=== PATIENT | female | born 1960 | race African-American/Black ===

== ENCOUNTER 2016-10-07 18:35 | Inpatient (IN) | payer MEDICARE, MEDICAID ==
[~2016-10-07] VITALS: Ht 157.5 cm; Wt 84.0 kg
[~2016-10-07 18:35] MED LIST: ENAL-3 PO
[2016-10-07 19:31] LABS: Basophils # (auto) 0 uL; Basophils % (auto) 0.5 % (0.0-2.0); Eosinophils # (auto) 0 uL; Eosinophils % (auto) 0.4 % (0.0-7.0); Hematocrit 38.5 % (36.0-46.0); Hemoglobin 12.6 g/dL (12.2-16.2); Lymphocytes # (auto) 2.2 uL; Lymphocytes % (auto) 21.9 % (10.0-50.0); Mean Corpuscular Hemoglobin 27.4 pg (28.0-32.0); Mean Corpuscular Hgb Conc. 32.8 g/dL (32.0-36.0); Mean Corpuscular Volume 83.7 fL (80.0-100.0); Mean Platelet Volume 8.9 fL (7.4-10.4); Monocytes # (auto) 0.5 uL; Monocytes % (auto) 4.9 % (0.0-12.0); Neutrophils # (auto) 7.2 uL; Neutrophils % (auto) 72.3 % (37.0-80.0); Platelet Count (auto) 308 10^3/uL (140-450); White Blood Cell 9.9 10^3/uL (4.4-10.8)
[2016-10-07 19:51] LABS: Albumin 3.7 g/dL (3.4-5.0); Bilirubin, Total 0.4 mg/dL (0.2-1.0); Calcium 10.2 mg/dL (8.5-10.1); Magnesium 2.6 mg/dL (1.6-2.6); Potassium 3.3 mmol/L (3.5-5.1)
[2016-10-07] MEDS ORDERED: FUROSEMIDE 40 MG/4 ML VIAL IV ONE (20:45)
[2016-10-07] MEDS ORDERED: ONDANSETRON HCL 4 MG/2 ML VIAL IV ONE (21:30)
[2016-10-07] MEDS ORDERED: MORPHINE SULF INJ 2 MG/ML SYRINGE 1ML IV ONE (21:30)
[2016-10-07 22:22] LABS: Urine Bilirubin Negative (Negative); Urine Blood Negative /uL (Negative); Urine Color Colorless (Yellow); Urine Glucose 4+ mg/dL (Normal); Urine Ketone Negative (Negative); Urine Nitrite Negative (Negative); Urine RBC <1 /hpf (0 - 4); Urine Squamous Epithelial Cell FEW /hpf (<5); Urine Urobilinogen Normal (Negative)
[2016-10-07] MEDS ORDERED: POTASSIUM CHL 10% (20 MEQ/15ML) ORAL SOLN PO ONE (23:15)
[2016-10-07] MEDS ORDERED: LACTULOSE 20Gm/30ML SOLN PO PRN (23:15)
[2016-10-07] MEDS ORDERED: DEXTROSE (50%) 50ML SYRG IV PRN (23:15)
[2016-10-07] MEDS ORDERED: cefTRIAXone 1GM/50ML D5W 50 ML IV ONE (23:15)
[2016-10-07] MEDS ORDERED: NITROGLYCERIN 0.4 MG SL TAB SL PRN (23:15)
[2016-10-07] MEDS ORDERED: ASPirin 81 mg TAB PO ONE (23:15)
[2016-10-07] MEDS ORDERED: ALPRAZolam 0.5 MG TAB PO PRN (23:15)
[2016-10-07] MEDS ORDERED: ONDANSETRON HCL 4 MG/2 ML VIAL IV PRN (23:15)
[2016-10-07] MEDS ORDERED: MORPHINE SULF INJ 2 MG/ML SYRINGE 1ML IV PRN (23:15)
[2016-10-07 23:20] LABS: B-Type Natriuretic Peptide 9.43 pg/mL (0-100)
[2016-10-07 23:21] LABS: Temperature: 22.7 C (20.0-25.0)
[2016-10-08 00:25] VITALS: BP 145/69
[2016-10-08] MEDS: HYDROmorphone HCL 2 MG/ML VL IV PRN ×6 (00:46→21:56)
[2016-10-08] MEDS ORDERED: POTA10TA34 PO (01:37)
[2016-10-08] MEDS ORDERED: METF-312 PO (01:37)
[2016-10-08] MEDS ORDERED: ATOR20TA PO (01:37)
[2016-10-08] MEDS ORDERED: LISI40TA PO (01:37)
[2016-10-08] MEDS ORDERED: CARV6.25 PO (01:37)
[2016-10-08] MEDS ORDERED: ALPR0.5T GT (01:37)
[2016-10-08] MEDS ORDERED: SERT-138 PO (01:37)
[2016-10-08] MEDS ORDERED: QUET50TA5 PO (01:37)
[2016-10-08] MEDS ORDERED: FURO20TA3 PO (01:37)
[2016-10-08] MEDS: ALBUTEROL SULF 2.5 MG/0.5ML(0.5%) NEB SOLN NEB SCH ×6 (03:14→22:06)
[2016-10-08] MEDS: IPRATROPIUM BROM 0.5 MG/2.5ML INH SOL NEB SCH ×6 (03:14→22:06)
[2016-10-08 05:00] VITALS: BP 152/82
[2016-10-08] MEDS: InsuLIN REG 1unit/0.01ml Soln (100units/ml) SC SCH ×4 (06:11→17:24)
[2016-10-08] MEDS: ACCU-CHEK COMFORT CURVE STRIP VI SCH ×4 (06:11→17:22)
[2016-10-08] MEDS: SODIUM CHLOR 0.9% PF (SALINE LOCK) 10ML VIAL IV SCH ×3 (06:12→22:02)
[2016-10-08 06:19] LABS: Basophils # (auto) 0 uL; Basophils % (auto) 0.3 % (0.0-2.0); Eosinophils # (auto) 0.1 uL; Eosinophils % (auto) 0.6 % (0.0-7.0); Hematocrit 38.2 % (36.0-46.0); Hemoglobin 12.5 g/dL (12.2-16.2); Lymphocytes % (auto) 33.5 % (10.0-50.0); Mean Corpuscular Hemoglobin 27.9 pg (28.0-32.0); Mean Corpuscular Hgb Conc. 32.7 g/dL (32.0-36.0); Mean Corpuscular Volume 85.1 fL (80.0-100.0); Monocytes % (auto) 11.3 % (0.0-12.0); Neutrophils # (auto) 4.9 uL; Neutrophils % (auto) 54.3 % (37.0-80.0); Platelet Count (auto) 260 10^3/uL (140-450); Red Cell Distribution Width 15.1 % (11.6-16.0)
[2016-10-08 06:39] LABS: Albumin 3.3 g/dL (3.4-5.0); BUN/Creatinine Ratio 8.6; Calcium 9.1 mg/dL (8.5-10.1); Potassium 3.7 mmol/L (3.5-5.1)
[2016-10-08 06:42] LABS: Bilirubin, Total 0.4 mg/dL (0.2-1.0); Total Protein 8.9 g/dL (6.4-8.2)
[2016-10-08 09:00] VITALS: BP 149/76
[2016-10-08] MEDS ORDERED: cefTRIAXone 1GM/50ML D5W 50 ML IV SCH (09:00)
[2016-10-08] MEDS: ENOXAPARIN SOD 30 MG/0.3 ML SYRINGE SC SCH (09:18)
[2016-10-08] MEDS: PANTOPRAZOLE SODIUM 40 MG/10 ML VIAL IV SCH (09:18)
[2016-10-08] MEDS: FUROSEMIDE 40 MG/4 ML VIAL IV SCH (09:19)
[2016-10-08] MEDS: SERTRALINE HCL 50 MG TAB PO SCH (09:20)
[2016-10-08] MEDS: ASPirin 81 mg TAB PO SCH (09:20)
[2016-10-08] MEDS: POTASSIUM CHL 20 Meq TABLET PO SCH (09:20)
[2016-10-08] MEDS: CARVEDILOL 3.125 MG TAB PO SCH ×2 (09:21→21:58)
[2016-10-08] MEDS: LISINOPRIL 20 MG TAB PO SCH (09:21)
[2016-10-08 13:00] VITALS: BP 118/67
[2016-10-08 16:49] VITALS: BP 91/52
[2016-10-08 22:00] VITALS: BP 134/72
[2016-10-08] MEDS ORDERED: QUEtiapine FUMARATE 100 MG TAB PO SCH (22:00)
[2016-10-08] MEDS: ATORVASTATIN 20 MG TAB PO SCH (22:03)
[2016-10-09] VITALS (8 sets, daily range): BP systolic 88–114; BP diastolic 44–60
[2016-10-09] MEDS: ACCU-CHEK COMFORT CURVE STRIP VI SCH ×5 (00:13→23:49)
[2016-10-09] MEDS: InsuLIN REG 1unit/0.01ml Soln (100units/ml) SC SCH ×5 (00:19→23:53)
[2016-10-09] MEDS: ALBUTEROL SULF 2.5 MG/0.5ML(0.5%) NEB SOLN NEB SCH ×6 (02:10→21:58)
[2016-10-09] MEDS: IPRATROPIUM BROM 0.5 MG/2.5ML INH SOL NEB SCH ×6 (02:10→21:59)
[2016-10-09] MEDS: HYDROmorphone HCL 2 MG/ML VL IV PRN ×2 (04:49→09:53)
[2016-10-09 06:11] LABS: BUN/Creatinine Ratio 6.7; Calcium 9.7 mg/dL (8.5-10.1); Magnesium 2.7 mg/dL (1.6-2.6)
[2016-10-09] MEDS: SODIUM CHLOR 0.9% PF (SALINE LOCK) 10ML VIAL IV SCH ×3 (06:24→22:14)
[2016-10-09] MEDS: ENOXAPARIN SOD 30 MG/0.3 ML SYRINGE SC SCH (08:34)
[2016-10-09] MEDS: SERTRALINE HCL 50 MG TAB PO SCH (08:34)
[2016-10-09] MEDS: FUROSEMIDE 40 MG/4 ML VIAL IV SCH (08:34)
[2016-10-09] MEDS: PANTOPRAZOLE SODIUM 40 MG/10 ML VIAL IV SCH (08:34)
[2016-10-09] MEDS: POTASSIUM CHL 20 Meq TABLET PO SCH (08:34)
[2016-10-09] MEDS: ASPirin 81 mg TAB PO SCH (08:35)
[2016-10-09] MEDS: LISINOPRIL 20 MG TAB PO SCH (08:35)
[2016-10-09] MEDS: CARVEDILOL 3.125 MG TAB PO SCH ×2 (08:37→22:00)
[2016-10-09] MEDS ORDERED: SODIUM CHLORIDE 0.9% 250 ML IV ONE ×2 (10:15→10:30)
[2016-10-09] MEDS ORDERED: PANTOPRAZOLE 40 MG TAB PO ONE (11:15)
[2016-10-09] MEDS ORDERED: FUROSEMIDE 20 MG TAB PO ONE (11:15)
[2016-10-09] MEDS ORDERED: POTASSIUM CHL 10 Meq TABLET PO ONE (11:15)
[2016-10-09] MEDS: ATORVASTATIN 20 MG TAB PO SCH (22:14)
[2016-10-10] MEDS: KETOROLAC TROMETH 30 MG/ML 1ML VIAL IV PRN ×2 (02:51→12:59)
[2016-10-10] MEDS: IPRATROPIUM BROM 0.5 MG/2.5ML INH SOL NEB SCH ×6 (02:55→22:04)
[2016-10-10] MEDS: ALBUTEROL SULF 2.5 MG/0.5ML(0.5%) NEB SOLN NEB SCH ×6 (02:55→22:04)
[2016-10-10 05:22] VITALS: BP 118/53
[2016-10-10] MEDS: ACCU-CHEK COMFORT CURVE STRIP VI SCH ×3 (05:58→18:00)
[2016-10-10] MEDS: SODIUM CHLOR 0.9% PF (SALINE LOCK) 10ML VIAL IV SCH ×3 (05:58→22:00)
[2016-10-10] MEDS: InsuLIN REG 1unit/0.01ml Soln (100units/ml) SC SCH ×3 (05:58→19:24)
[2016-10-10 08:47] VITALS: BP 121/57
[2016-10-10] MEDS: CARVEDILOL 3.125 MG TAB PO SCH ×2 (10:00→22:00)
[2016-10-10] MEDS ORDERED: POTASSIUM CHL 10 Meq TABLET PO SCH (10:00)
[2016-10-10] MEDS ORDERED: FUROSEMIDE 20 MG TAB PO SCH (10:00)
[2016-10-10] MEDS: ASPirin 81 mg TAB PO SCH (11:13)
[2016-10-10] MEDS: ENOXAPARIN SOD 30 MG/0.3 ML SYRINGE SC SCH (11:15)
[2016-10-10] MEDS: SERTRALINE HCL 50 MG TAB PO SCH (11:15)
[2016-10-10] MEDS: PANTOPRAZOLE 40 MG TAB PO SCH (11:15)
[2016-10-10 12:36] VITALS: BP 113/48
[2016-10-10] MEDS: SODIUM CHLORIDE 0.9% 1,000 ML IV SCH (15:00)
[2016-10-10 16:58] VITALS: BP 109/64
[2016-10-10 21:49] VITALS: BP 105/46
[2016-10-10] MEDS: ATORVASTATIN 20 MG TAB PO SCH (22:00)
[2016-10-11] MEDS: InsuLIN REG 1unit/0.01ml Soln (100units/ml) SC SCH ×4 (00:23→17:36)
[2016-10-11] MEDS: ACCU-CHEK COMFORT CURVE STRIP VI SCH ×4 (00:23→18:39)
[2016-10-11] MEDS: SODIUM CHLORIDE 0.9% 1,000 ML IV SCH ×2 (01:40→17:40)
[2016-10-11] MEDS: ALBUTEROL SULF 2.5 MG/0.5ML(0.5%) NEB SOLN NEB SCH ×6 (02:07→22:22)
[2016-10-11] MEDS: IPRATROPIUM BROM 0.5 MG/2.5ML INH SOL NEB SCH ×6 (02:07→22:22)
[2016-10-11 05:21] VITALS: BP 141/67
[2016-10-11] MEDS: SODIUM CHLOR 0.9% PF (SALINE LOCK) 10ML VIAL IV SCH ×3 (05:21→22:00)
[2016-10-11 06:07] LABS: Basophils # (auto) 0 uL; Basophils % (auto) 0.4 % (0.0-2.0); Eosinophils # (auto) 0.2 uL; Eosinophils % (auto) 2.1 % (0.0-7.0); Hematocrit 29.6 % (36.0-46.0); Hemoglobin 9.7 g/dL (12.2-16.2); Lymphocytes # (auto) 1.6 uL; Lymphocytes % (auto) 22.3 % (10.0-50.0); Mean Corpuscular Hemoglobin 27.8 pg (28.0-32.0); Mean Corpuscular Hgb Conc. 32.8 g/dL (32.0-36.0); Mean Corpuscular Volume 84.7 fL (80.0-100.0); Monocytes # (auto) 0.6 uL; Monocytes % (auto) 8.4 % (0.0-12.0); Neutrophils # (auto) 4.9 uL; Neutrophils % (auto) 66.8 % (37.0-80.0); Platelet Count (auto) 293 10^3/uL (140-450); Red Cell Distribution Width 14.4 % (11.6-16.0); White Blood Cell 7.3 10^3/uL (4.4-10.8)
[2016-10-11 06:35] LABS: Albumin 2.7 g/dL (3.4-5.0); BUN/Creatinine Ratio 14.2; Bilirubin, Total 0.2 mg/dL (0.2-1.0); Calcium 9.6 mg/dL (8.5-10.1); Potassium 3.9 mmol/L (3.5-5.1)
[2016-10-11 09:00] VITALS: BP 138/68
[2016-10-11] MEDS ORDERED: GASTROGRAFIN 30 ML SOL ONE (09:40)
[2016-10-11] MEDS: ASPirin 81 mg TAB PO SCH (11:23)
[2016-10-11] MEDS: PIPERACILLIN-TAZOB 2.25GM 50 ML IV SCH ×3 (11:23→18:00)
[2016-10-11] MEDS: ENOXAPARIN SOD 30 MG/0.3 ML SYRINGE SC SCH (11:23)
[2016-10-11] MEDS: PANTOPRAZOLE 40 MG TAB PO SCH (11:24)
[2016-10-11] MEDS: SERTRALINE HCL 50 MG TAB PO SCH (11:24)
[2016-10-11] MEDS: CARVEDILOL 3.125 MG TAB PO SCH ×2 (11:25→22:00)
[2016-10-11 13:00] VITALS: BP 154/87
[2016-10-11 17:00] VITALS: BP 142/84
[2016-10-11 20:51] VITALS: BP 142/84
[2016-10-11 22:00] VITALS: BP 147/85
[2016-10-11] MEDS: ATORVASTATIN 20 MG TAB PO SCH (22:00)
[2016-10-12] MEDS: PIPERACILLIN-TAZOB 2.25GM 50 ML IV SCH ×5 (00:24→23:40)
[2016-10-12] MEDS: ACCU-CHEK COMFORT CURVE STRIP VI SCH ×5 (00:25→23:43)
[2016-10-12] MEDS: InsuLIN REG 1unit/0.01ml Soln (100units/ml) SC SCH ×5 (00:27→23:46)
[2016-10-12] MEDS: IPRATROPIUM BROM 0.5 MG/2.5ML INH SOL NEB SCH ×6 (02:26→22:12)
[2016-10-12] MEDS: ALBUTEROL SULF 2.5 MG/0.5ML(0.5%) NEB SOLN NEB SCH ×6 (02:26→22:12)
[2016-10-12 05:00] VITALS: BP 151/67
[2016-10-12] MEDS: SODIUM CHLOR 0.9% PF (SALINE LOCK) 10ML VIAL IV SCH ×3 (05:09→22:06)
[2016-10-12 05:36] LABS: Basophils # (auto) 0 uL; Basophils % (auto) 0.4 % (0.0-2.0); Eosinophils # (auto) 0.1 uL; Eosinophils % (auto) 2.1 % (0.0-7.0); Hemoglobin 9.8 g/dL (12.2-16.2); Lymphocytes # (auto) 1.6 uL; Lymphocytes % (auto) 25.2 % (10.0-50.0); Mean Corpuscular Hemoglobin 27.4 pg (28.0-32.0); Mean Corpuscular Hgb Conc. 32.6 g/dL (32.0-36.0); Mean Platelet Volume 8.5 fL (7.4-10.4); Monocytes # (auto) 0.7 uL; Monocytes % (auto) 11.4 % (0.0-12.0); Neutrophils # (auto) 3.8 uL; Neutrophils % (auto) 60.9 % (37.0-80.0); Platelet Count (auto) 346 10^3/uL (140-450); Red Cell Distribution Width 14.5 % (11.6-16.0); White Blood Cell 6.3 10^3/uL (4.4-10.8)
[2016-10-12] MEDS: SODIUM CHLORIDE 0.9% 1,000 ML IV SCH ×2 (05:42→18:21)
[2016-10-12 05:51] LABS: BUN/Creatinine Ratio 15.1; Calcium 9.5 mg/dL (8.5-10.1); Potassium 4.2 mmol/L (3.5-5.1)
[2016-10-12] MEDS: ASPirin 81 mg TAB PO SCH (09:48)
[2016-10-12] MEDS: PANTOPRAZOLE 40 MG TAB PO SCH (09:48)
[2016-10-12] MEDS: SERTRALINE HCL 50 MG TAB PO SCH (09:48)
[2016-10-12] MEDS: CARVEDILOL 3.125 MG TAB PO SCH ×2 (09:49→22:06)
[2016-10-12] MEDS: ENOXAPARIN SOD 30 MG/0.3 ML SYRINGE SC SCH (09:49)
[2016-10-12 12:00] VITALS: BP 165/91
[2016-10-12] MEDS: HYDROcodone-ACET 10/325MG TAB PO PRN ×2 (12:18→18:22)
[2016-10-12 16:44] VITALS: BP 132/72
[2016-10-12 21:55] VITALS: BP 152/79
[2016-10-12] MEDS: ATORVASTATIN 20 MG TAB PO SCH (22:05)
[2016-10-13] MEDS: HYDROcodone-ACET 10/325MG TAB PO PRN ×3 (00:26→13:16)
[2016-10-13] MEDS: ALBUTEROL SULF 2.5 MG/0.5ML(0.5%) NEB SOLN NEB SCH ×4 (02:00→14:35)
[2016-10-13] MEDS: IPRATROPIUM BROM 0.5 MG/2.5ML INH SOL NEB SCH ×4 (02:00→14:35)
[2016-10-13] MEDS: ACCU-CHEK COMFORT CURVE STRIP VI SCH ×2 (05:35→12:00)
[2016-10-13] MEDS: SODIUM CHLOR 0.9% PF (SALINE LOCK) 10ML VIAL IV SCH ×2 (05:36→14:00)
[2016-10-13] MEDS: InsuLIN REG 1unit/0.01ml Soln (100units/ml) SC SCH ×2 (05:36→13:20)
[2016-10-13] MEDS: PIPERACILLIN-TAZOB 2.25GM 50 ML IV SCH (05:36)
[2016-10-13 05:39] VITALS: BP 155/90
[2016-10-13 08:52] VITALS: BP 159/83
[2016-10-13] MEDS: ASPirin 81 mg TAB PO SCH (09:30)
[2016-10-13] MEDS: PANTOPRAZOLE 40 MG TAB PO SCH (09:31)
[2016-10-13] MEDS: ENOXAPARIN SOD 30 MG/0.3 ML SYRINGE SC SCH (09:33)
[2016-10-13] MEDS: SERTRALINE HCL 50 MG TAB PO SCH (09:33)
[2016-10-13] MEDS: CARVEDILOL 3.125 MG TAB PO SCH (09:33)
[2016-10-13] MEDS: SODIUM CHLORIDE 0.9% 1,000 ML IV SCH (09:39)
[2016-10-13 11:54] VITALS: BP 159/83
== END 2016-10-13 14:45 | disposition home health service (06) | DRG 291 ==
LOC: ER 18:38 → TELE 18:39 → TELE-CENTR 10-08 00:04
PROVIDERS: ADMIT Family Medicine; ATTEND Internal Medicine
DX: I13.0 Hypertensive heart and chronic kidney disease with heart failure and stage 1 through stage 4 chronic kidney disease, or unspecified chronic kidney disease (principal); I50.43 Acute on chronic combined systolic (congestive) and diastolic (congestive) heart failure; N17.0 Acute kidney failure with tubular necrosis; J44.1 Chronic obstructive pulmonary disease with (acute) exacerbation; N39.0 Urinary tract infection, site not specified; J96.11 Chronic respiratory failure with hypoxia; I42.9 Cardiomyopathy, unspecified; E11.65 Type 2 diabetes mellitus with hyperglycemia; N18.3 Chronic kidney disease, stage 3 (moderate); E87.6 Hypokalemia; G89.29 Other chronic pain; M54.5 Low back pain; E11.22 Type 2 diabetes mellitus with diabetic chronic kidney disease; E11.21 Type 2 diabetes mellitus with diabetic nephropathy; F32.9 Major depressive disorder, single episode, unspecified; D25.9 Leiomyoma of uterus, unspecified; E78.5 Hyperlipidemia, unspecified; K42.9 Umbilical hernia without obstruction or gangrene; K76.0 Fatty (change of) liver, not elsewhere classified; K80.20 Calculus of gallbladder without cholecystitis without obstruction; Z87.891 Personal history of nicotine dependence; Z99.81 Dependence on supplemental oxygen; Z79.899 Other long term (current) drug therapy; Z98.890 Other specified postprocedural states; R07.89 Other chest pain
CPT/HCPCS: 36415; 71020; 74176; 76775; 80048; 80053; 80061; 81001; 82043; 82570; 82962; 83036; 83735; 83880; 84300; 84484; 85025; 85049; 87040; 87086; 93005; 93306; 94640; 96365; 96375; 97001; C9113; J0696; J1815; J1885; J2405; J2543

== ENCOUNTER 2017-03-12 09:19 | Inpatient (IN) | payer MEDICARE, MEDICAID ==
[~2017-03-12] VITALS: Ht 157.5 cm; Wt 84.9 kg
[~2017-03-12 09:19] MED LIST changes: +ALL100T PO; +ALPR0.5T GT; +ATOR20TA PO; +CAR125T PO; -ENAL-3 PO; +FURO20TA3 PO; +LISI40TA PO; +METF-370 PO; +POTA10TA34 PO; +QUET50TA5 PO; +SERT-138 PO
[2017-03-12 10:59] LABS: Basophils # (auto) 0 uL; Basophils % (auto) 0.4 % (0.0-2.0); CONDITION Y; Eosinophils # (auto) 0.2 uL; Eosinophils % (auto) 1.6 % (0.0-7.0); Hematocrit 35.1 % (36.0-46.0); Hemoglobin 11.7 g/dL (12.2-16.2); Lymphocytes # (auto) 2.4 uL; Lymphocytes % (auto) 22.7 % (10.0-50.0); Mean Corpuscular Hemoglobin 27.5 pg (28.0-32.0); Mean Corpuscular Hgb Conc. 33.2 g/dL (32.0-36.0); Mean Platelet Volume 8.9 fL (7.4-10.4); Monocytes # (auto) 0.7 uL; Monocytes % (auto) 7.1 % (0.0-12.0); Neutrophils # (auto) 7.1 uL; Neutrophils % (auto) 68.2 % (37.0-80.0); Platelet Count (auto) 296 10^3/uL (140-450); Red Cell Distribution Width 14.8 % (11.6-16.0); White Blood Cell 10.4 10^3/uL (4.4-10.8)
[2017-03-12 11:25] LABS: Albumin 3.5 g/dL (3.4-5.0); Alkaline Phosphatase 70 U/L (45-117); Anion Gap 10 (5-15); Aspartate Aminotransferase 17 U/L (15-37); BUN/Creatinine Ratio 10.4; Bilirubin, Total 0.5 mg/dL (0.2-1.0); Blood Urea Nitrogen 13 mg/dL (7-18); Calcium 9.5 mg/dL (8.5-10.1); Carbon Dioxide 27 mmol/L (21-32); Chloride 99 mmol/L (98-107); GFR African American 57 mL/min; GFR Non-African American 47 mL/min; Glucose 218 mg/dL (74-106); Potassium 3.3 mmol/L (3.5-5.1); Sodium 136 mmol/L (136-145); Total Protein 8.8 g/dL (6.4-8.2)
[2017-03-12 11:26] LABS: B-Type Natriuretic Peptide 22.92 pg/mL (0-100)
[2017-03-12 11:31] LABS: Temperature: 23.9 C (20.0-25.0)
[2017-03-12] MEDS ORDERED: ONDANSETRON HCL 4 MG/2 ML VIAL IV ONE (12:15)
[2017-03-12] MEDS ORDERED: POTASSIUM CHL 10% (20 MEQ/15ML) ORAL SOLN PO ONE (12:15)
[2017-03-12] MEDS ORDERED: MORPHINE SULFATE 4 MG/ML SYRG IV ONE (12:15)
[2017-03-12] MEDS ORDERED: ASPirin 81 mg TAB PO ONE (12:45)
[2017-03-12] MEDS ORDERED: DEXTROSE (50%) 50ML SYRG IV PRN (13:00)
[2017-03-12] MEDS ORDERED: LACTULOSE 20Gm/30ML SOLN PO PRN (13:00)
[2017-03-12] MEDS ORDERED: MORPHINE SULF INJ 2 MG/ML SYRINGE 1ML IV PRN ×2 (13:00)
[2017-03-12] MEDS ORDERED: NITROGLYCERIN 0.4 MG SL TAB SL PRN (13:00)
[2017-03-12] MEDS ORDERED: ACETAMINOPHEN 500 MG TAB PO PRN (13:00)
[2017-03-12] MEDS ORDERED: LORazepam 0.5 MG TAB PO PRN (13:00)
[2017-03-12] MEDS ORDERED: PROMETHAZINE HCL 25 MG/ML 1ML IV PRN (13:00)
[2017-03-12] MEDS ORDERED: KETOROLAC TROMETH 30 MG/ML 1ML VIAL ONE (13:07)
[2017-03-12] MEDS ORDERED: LISINOPRIL 20 MG TAB PO ONE (13:15)
[2017-03-12] MEDS ORDERED: ALPRAZolam 0.5 MG TAB PO ONE (13:15)
[2017-03-12] MEDS ORDERED: KETOROLAC TROMETH 30 MG/ML 1ML VIAL IV ONE ×2 (13:15)
[2017-03-12] MEDS ORDERED: CARVEDILOL 12.5 MG TAB PO ONE (13:15)
[2017-03-12] MEDS: SODIUM CHLORIDE 0.9% 1,000 ML IV SCH (13:17)
[2017-03-12] MEDS: NITROGLYCERIN 0.2MG/HR TOPICAL PATCH TD SCH (13:18)
[2017-03-12] MEDS: ENOXAPARIN SOD 40 MG/0.4 ML SYRINGE SC SCH (13:18)
[2017-03-12] MEDS: methylPREDNISolone SOD SUCC 40 MG/ML VL IV SCH ×2 (13:21→18:50)
[2017-03-12 16:07] VITALS: BP 176/84
[2017-03-12] MEDS: ACCU-CHEK COMFORT CURVE STRIP VI SCH ×2 (16:49→21:38)
[2017-03-12] MEDS: InsuLIN REG 1unit/0.01ml Soln (100units/ml) SC SCH ×2 (16:49→21:38)
[2017-03-12] MEDS: HYDROmorphone HCL 2 MG/ML VL IV PRN ×2 (18:50→23:13)
[2017-03-12 20:00] VITALS: BP 149/83
[2017-03-12] MEDS: COLCHICINE 0.6 MG CAP PO SCH (21:37)
[2017-03-12] MEDS: ATORVASTATIN 20 MG TAB PO SCH (21:38)
[2017-03-12] MEDS: ALPRAZolam 0.5 MG TAB PO SCH (21:38)
[2017-03-12] MEDS: QUEtiapine FUMARATE 25 MG TAB PO SCH (21:38)
[2017-03-12] MEDS: TEMAZEPAM 15 MG CAP PO PRN (21:39)
[2017-03-12 21:41] VITALS: BP 149/83
[2017-03-12] MEDS ORDERED: InsuLIN REG 1unit/0.01ml Soln (100units/ml) SC ONE (22:00)
[2017-03-12] MEDS ORDERED: QUETIAPINE 50 MG PO SCH (22:00)
[2017-03-12] MEDS ORDERED: CARVEDILOL 12.5 MG TAB PO SCH (22:00)
[2017-03-13] MEDS: methylPREDNISolone SOD SUCC 40 MG/ML VL IV SCH ×4 (00:22→20:00)
[2017-03-13] MEDS: SODIUM CHLORIDE 0.9% 1,000 ML IV SCH ×2 (02:11→16:35)
[2017-03-13 04:35] VITALS: BP 157/83
[2017-03-13] MEDS: ACCU-CHEK COMFORT CURVE STRIP VI SCH ×4 (06:15→21:49)
[2017-03-13] MEDS ORDERED: DEXTROSE (50%) 50ML SYRG IV PRN (06:15)
[2017-03-13] MEDS: InsuLIN REG 1unit/0.01ml Soln (100units/ml) SC SCH ×4 (06:16→23:45)
[2017-03-13 06:23] LABS: Basophils # (auto) 0 uL; Basophils % (auto) 0.2 % (0.0-2.0); CONDITION Y; Eosinophils # (auto) 0 uL; Hematocrit 32.5 % (36.0-46.0); Hemoglobin 10.9 g/dL (12.2-16.2); Lymphocytes % (auto) 9.7 % (10.0-50.0); Mean Corpuscular Hemoglobin 27.8 pg (28.0-32.0); Mean Corpuscular Hgb Conc. 33.6 g/dL (32.0-36.0); Mean Corpuscular Volume 82.6 fL (80.0-100.0); Mean Platelet Volume 9.3 fL (7.4-10.4); Monocytes # (auto) 0.1 uL; Monocytes % (auto) 1.2 % (0.0-12.0); Neutrophils # (auto) 8.8 uL; Neutrophils % (auto) 88.9 % (37.0-80.0); Platelet Count (auto) 284 10^3/uL (140-450); Red Cell Distribution Width 14.4 % (11.6-16.0); White Blood Cell 9.9 10^3/uL (4.4-10.8)
[2017-03-13] MEDS: HYDROmorphone HCL 2 MG/ML VL IV PRN ×4 (06:58→21:43)
[2017-03-13 07:20] LABS: Albumin 2.9 g/dL (3.4-5.0); Bilirubin, Total 0.3 mg/dL (0.2-1.0); Calcium 9.4 mg/dL (8.5-10.1); Potassium 4.1 mmol/L (3.5-5.1); Total Protein 8.1 g/dL (6.4-8.2)
[2017-03-13 09:00] VITALS: BP 145/83
[2017-03-13] MEDS ORDERED: ALLOPURINOL 100 MG TAB PO SCH (10:00)
[2017-03-13] MEDS ORDERED: PATIENTS OWN MEDICATION (Lisinopril 1 TAB) PO SCH (10:00)
[2017-03-13] MEDS: NITROGLYCERIN 0.2MG/HR TOPICAL PATCH TD SCH (10:00)
[2017-03-13] MEDS: COLCHICINE 0.6 MG CAP PO SCH ×2 (10:14→21:41)
[2017-03-13] MEDS: ASPirin 81 mg TAB PO SCH (10:14)
[2017-03-13] MEDS: ALPRAZolam 0.5 MG TAB PO SCH ×2 (10:15→21:42)
[2017-03-13] MEDS: SERTRALINE HCL 50 MG TAB PO SCH (10:15)
[2017-03-13] MEDS: CARVEDILOL 12.5 MG TAB PO SCH ×2 (10:15→21:43)
[2017-03-13] MEDS: LISINOPRIL 20 MG TAB PO SCH (10:15)
[2017-03-13] MEDS: ENOXAPARIN SOD 40 MG/0.4 ML SYRINGE SC SCH (10:16)
[2017-03-13] MEDS ORDERED: IOHEXOL 350 MG/ML 100ML IJ ONE (12:31)
[2017-03-13 13:00] VITALS: BP 156/89
[2017-03-13] MEDS ORDERED: INSULIN DETEMIR(LEVEMIR) 1unit/0.01ml Soln (100units/ml) SC ONE (15:00)
[2017-03-13 17:00] VITALS: BP 155/78
[2017-03-13 21:15] VITALS: BP 158/79
[2017-03-13] MEDS: TEMAZEPAM 15 MG CAP PO PRN (21:41)
[2017-03-13] MEDS: ATORVASTATIN 20 MG TAB PO SCH (21:41)
[2017-03-13] MEDS: QUEtiapine FUMARATE 25 MG TAB PO SCH (21:42)
[2017-03-13] MEDS: INSULIN DETEMIR(LEVEMIR) 1unit/0.01ml Soln (100units/ml) SC SCH (23:45)
[2017-03-14] MEDS: methylPREDNISolone SOD SUCC 40 MG/ML VL IV SCH ×4 (01:23→18:45)
[2017-03-14] MEDS: SODIUM CHLORIDE 0.9% 1,000 ML IV SCH (04:51)
[2017-03-14 05:03] VITALS: BP 135/74
[2017-03-14 06:10] LABS: Basophils # (auto) 0 uL; CONDITION Y; Eosinophils # (auto) 0 uL; Hematocrit 32.1 % (36.0-46.0); Hemoglobin 10.7 g/dL (12.2-16.2); Lymphocytes # (auto) 1.1 uL; Lymphocytes % (auto) 7.7 % (10.0-50.0); Mean Corpuscular Hemoglobin 27.7 pg (28.0-32.0); Mean Corpuscular Hgb Conc. 33.3 g/dL (32.0-36.0); Mean Platelet Volume 9.2 fL (7.4-10.4); Monocytes # (auto) 0.2 uL; Monocytes % (auto) 1.7 % (0.0-12.0); Neutrophils # (auto) 13.1 uL; Neutrophils % (auto) 90.6 % (37.0-80.0); Platelet Count (auto) 314 10^3/uL (140-450); Red Cell Distribution Width 14.6 % (11.6-16.0); White Blood Cell 14.4 10^3/uL (4.4-10.8)
[2017-03-14 06:29] LABS: Albumin 2.8 g/dL (3.4-5.0); Calcium 9.3 mg/dL (8.5-10.1); Potassium 4.3 mmol/L (3.5-5.1)
[2017-03-14 06:32] LABS: Bilirubin, Total 0.2 mg/dL (0.2-1.0); Total Protein 8.2 g/dL (6.4-8.2)
[2017-03-14] MEDS: ACCU-CHEK COMFORT CURVE STRIP VI SCH ×4 (06:39→21:29)
[2017-03-14] MEDS: InsuLIN REG 1unit/0.01ml Soln (100units/ml) SC SCH ×4 (06:52→21:29)
[2017-03-14] MEDS: HYDROmorphone HCL 2 MG/ML VL IV PRN ×2 (06:53→19:47)
[2017-03-14] MEDS: LISINOPRIL 20 MG TAB PO SCH (09:43)
[2017-03-14] MEDS: COLCHICINE 0.6 MG CAP PO SCH ×2 (09:43→21:28)
[2017-03-14] MEDS: SERTRALINE HCL 50 MG TAB PO SCH (09:43)
[2017-03-14] MEDS: ALPRAZolam 0.5 MG TAB PO SCH ×2 (09:44→21:29)
[2017-03-14] MEDS: ASPirin 81 mg TAB PO SCH (09:45)
[2017-03-14] MEDS ORDERED: FUROSEMIDE 40 MG/4 ML VIAL IV ONE (09:45)
[2017-03-14] MEDS: CARVEDILOL 12.5 MG TAB PO SCH ×2 (09:45→21:28)
[2017-03-14] MEDS: ALLOPURINOL 100 MG TAB PO SCH (09:45)
[2017-03-14] MEDS: INSULIN DETEMIR(LEVEMIR) 1unit/0.01ml Soln (100units/ml) SC SCH (10:00)
[2017-03-14] MEDS: NITROGLYCERIN 0.2MG/HR TOPICAL PATCH TD SCH (10:00)
[2017-03-14] MEDS: ENOXAPARIN SOD 40 MG/0.4 ML SYRINGE SC SCH (10:00)
[2017-03-14 10:10] VITALS: BP 165/82
[2017-03-14 12:17] LABS: B-Type Natriuretic Peptide 92.69 pg/mL (0-100)
[2017-03-14 12:27] VITALS: BP 126/50
[2017-03-14 12:30] LABS: Temperature: 24.1 C (20.0-25.0)
[2017-03-14 16:50] VITALS: BP 121/78
[2017-03-14 16:52] VITALS: BP 139/58
[2017-03-14] MEDS: ATORVASTATIN 20 MG TAB PO SCH (21:28)
[2017-03-14] MEDS: QUEtiapine FUMARATE 25 MG TAB PO SCH (21:28)
[2017-03-14] MEDS: TEMAZEPAM 15 MG CAP PO PRN (21:29)
[2017-03-14 21:46] VITALS: BP 152/63
[2017-03-15] MEDS: INSULIN DETEMIR(LEVEMIR) 1unit/0.01ml Soln (100units/ml) SC SCH ×3 (01:05→22:18)
[2017-03-15] MEDS: methylPREDNISolone SOD SUCC 40 MG/ML VL IV SCH ×3 (01:23→22:19)
[2017-03-15 04:45] VITALS: BP 113/83
[2017-03-15] MEDS: HYDROmorphone HCL 2 MG/ML VL IV PRN ×2 (05:56→19:50)
[2017-03-15 06:14] LABS: Basophils # (auto) 0 uL; CONDITION Y; Eosinophils # (auto) 0 uL; Hematocrit 32.5 % (36.0-46.0); Hemoglobin 10.8 g/dL (12.2-16.2); Lymphocytes # (auto) 0.8 uL; Lymphocytes % (auto) 7.5 % (10.0-50.0); Mean Corpuscular Hemoglobin 27.8 pg (28.0-32.0); Mean Corpuscular Hgb Conc. 33.2 g/dL (32.0-36.0); Mean Corpuscular Volume 83.7 fL (80.0-100.0); Mean Platelet Volume 9.3 fL (7.4-10.4); Monocytes # (auto) 0.2 uL; Neutrophils # (auto) 10.2 uL; Neutrophils % (auto) 90.5 % (37.0-80.0); Platelet Count (auto) 328 10^3/uL (140-450); Red Cell Distribution Width 14.6 % (11.6-16.0); White Blood Cell 11.3 10^3/uL (4.4-10.8)
[2017-03-15] MEDS: ACCU-CHEK COMFORT CURVE STRIP VI SCH ×4 (06:31→22:22)
[2017-03-15] MEDS: InsuLIN REG 1unit/0.01ml Soln (100units/ml) SC SCH ×4 (06:35→22:22)
[2017-03-15 06:39] LABS: Potassium 4.3 mmol/L (3.5-5.1)
[2017-03-15 06:48] LABS: Albumin 2.8 g/dL (3.4-5.0); BUN/Creatinine Ratio 30.5; Calcium 9.1 mg/dL (8.5-10.1)
[2017-03-15 06:51] LABS: Bilirubin, Total 0.1 mg/dL (0.2-1.0)
[2017-03-15 09:12] VITALS: BP 127/87
[2017-03-15] MEDS: ENOXAPARIN SOD 40 MG/0.4 ML SYRINGE SC SCH (10:15)
[2017-03-15] MEDS: ASPirin 81 mg TAB PO SCH (10:15)
[2017-03-15] MEDS: CARVEDILOL 12.5 MG TAB PO SCH ×2 (10:16→22:21)
[2017-03-15] MEDS: LISINOPRIL 20 MG TAB PO SCH (10:17)
[2017-03-15] MEDS: ALLOPURINOL 100 MG TAB PO SCH (10:18)
[2017-03-15] MEDS: COLCHICINE 0.6 MG CAP PO SCH (10:18)
[2017-03-15] MEDS: SERTRALINE HCL 50 MG TAB PO SCH (10:18)
[2017-03-15] MEDS: ALPRAZolam 0.5 MG TAB PO SCH ×2 (10:19→22:22)
[2017-03-15 13:00] VITALS: BP 143/78
[2017-03-15] MEDS: MUPIROCIN 2% OINT 22GM EACHNOSTRI SCH ×2 (14:00→22:19)
[2017-03-15] MEDS ORDERED: ADENOSINE 69 MG in GIVE UN-DILUTED 0 ML IV ONE (14:30)
[2017-03-15 17:15] VITALS: BP 145/82
[2017-03-15 22:00] VITALS: BP 169/83
[2017-03-15] MEDS: ATORVASTATIN 20 MG TAB PO SCH (22:22)
[2017-03-15] MEDS: QUEtiapine FUMARATE 25 MG TAB PO SCH (22:22)
[2017-03-15] MEDS: TEMAZEPAM 15 MG CAP PO PRN (22:23)
[2017-03-16 05:00] VITALS: BP 175/93
[2017-03-16 05:39] LABS: Basophils # (auto) 0 uL; Basophils % (auto) 0.2 % (0.0-2.0); CONDITION Y; Eosinophils # (auto) 0 uL; Hematocrit 33.6 % (36.0-46.0); Hemoglobin 11.3 g/dL (12.2-16.2); Lymphocytes # (auto) 0.9 uL; Lymphocytes % (auto) 9.6 % (10.0-50.0); Mean Corpuscular Hemoglobin 27.5 pg (28.0-32.0); Mean Corpuscular Hgb Conc. 33.6 g/dL (32.0-36.0); Mean Corpuscular Volume 81.9 fL (80.0-100.0); Mean Platelet Volume 8.9 fL (7.4-10.4); Monocytes # (auto) 0.3 uL; Neutrophils % (auto) 87.2 % (37.0-80.0); Platelet Count (auto) 364 10^3/uL (140-450); Red Cell Distribution Width 14.4 % (11.6-16.0); White Blood Cell 9.2 10^3/uL (4.4-10.8)
[2017-03-16] MEDS: HYDROmorphone HCL 2 MG/ML VL IV PRN ×4 (05:44→20:34)
[2017-03-16 06:08] LABS: BUN/Creatinine Ratio 28.6; Calcium 8.9 mg/dL (8.5-10.1); Magnesium 2.4 mg/dL (1.6-2.6); Potassium 4.2 mmol/L (3.5-5.1)
[2017-03-16] MEDS: ACCU-CHEK COMFORT CURVE STRIP VI SCH ×4 (06:33→22:12)
[2017-03-16] MEDS: InsuLIN REG 1unit/0.01ml Soln (100units/ml) SC SCH ×4 (06:51→22:11)
[2017-03-16] MEDS: ALPRAZolam 0.5 MG TAB PO SCH ×2 (06:59→22:08)
[2017-03-16] MEDS: LISINOPRIL 20 MG TAB PO SCH (06:59)
[2017-03-16 09:00] VITALS: BP 164/90
[2017-03-16] MEDS: ENOXAPARIN SOD 40 MG/0.4 ML SYRINGE SC SCH (09:17)
[2017-03-16] MEDS: MUPIROCIN 2% OINT 22GM EACHNOSTRI SCH ×2 (09:17→22:00)
[2017-03-16] MEDS: methylPREDNISolone SOD SUCC 40 MG/ML VL IV SCH (09:17)
[2017-03-16] MEDS: ALLOPURINOL 100 MG TAB PO SCH (09:18)
[2017-03-16] MEDS: ASPirin 81 mg TAB PO SCH (09:18)
[2017-03-16] MEDS: CARVEDILOL 12.5 MG TAB PO SCH ×2 (09:20→22:07)
[2017-03-16] MEDS: SERTRALINE HCL 50 MG TAB PO SCH (09:20)
[2017-03-16] MEDS: HYDROcodone-ACET 5/325MG TAB PO PRN (09:28)
[2017-03-16] MEDS: INSULIN DETEMIR(LEVEMIR) 1unit/0.01ml Soln (100units/ml) SC SCH ×2 (10:52→22:12)
[2017-03-16 12:34] VITALS: BP 166/88
[2017-03-16] MEDS ORDERED: FUROSEMIDE 20 MG TAB PO ONE (14:45)
[2017-03-16 16:48] VITALS: BP 162/85
[2017-03-16 22:00] VITALS: BP 167/83
[2017-03-16] MEDS: ATORVASTATIN 20 MG TAB PO SCH (22:07)
[2017-03-16] MEDS: QUEtiapine FUMARATE 25 MG TAB PO SCH (22:08)
[2017-03-17 05:00] VITALS: BP 169/97
[2017-03-17] MEDS: InsuLIN REG 1unit/0.01ml Soln (100units/ml) SC SCH ×4 (07:11→22:00)
[2017-03-17] MEDS: ACCU-CHEK COMFORT CURVE STRIP VI SCH ×4 (07:11→22:00)
[2017-03-17 07:29] LABS: Calcium 8.9 mg/dL (8.5-10.1); Potassium 3.8 mmol/L (3.5-5.1)
[2017-03-17] MEDS: HYDROmorphone HCL 2 MG/ML VL IV PRN ×3 (07:46→23:07)
[2017-03-17] MEDS: LISINOPRIL 20 MG TAB PO SCH (08:46)
[2017-03-17] MEDS: CARVEDILOL 12.5 MG TAB PO SCH (08:47)
[2017-03-17] MEDS: predniSONE 20 MG TAB PO SCH (08:48)
[2017-03-17] MEDS: SERTRALINE HCL 50 MG TAB PO SCH (08:48)
[2017-03-17] MEDS: FUROSEMIDE 20 MG TAB PO SCH (08:48)
[2017-03-17] MEDS: ENOXAPARIN SOD 40 MG/0.4 ML SYRINGE SC SCH (08:49)
[2017-03-17] MEDS: ALPRAZolam 0.5 MG TAB PO SCH ×2 (08:49→22:00)
[2017-03-17] MEDS: ASPirin 81 mg TAB PO SCH (08:49)
[2017-03-17] MEDS: MUPIROCIN 2% OINT 22GM EACHNOSTRI SCH ×2 (08:50→22:00)
[2017-03-17] MEDS: ALLOPURINOL 100 MG TAB PO SCH (08:50)
[2017-03-17 09:07] VITALS: BP 162/96
[2017-03-17] MEDS ORDERED: amLODIPine BESYLATE 5 MG TAB PO ONE (11:45)
[2017-03-17] MEDS ORDERED: FUROSEMIDE 20 MG/2 ML VIAL IV ONE (11:45)
[2017-03-17] MEDS ORDERED: POTASSIUM CHL 10 Meq TABLET PO ONE (11:45)
[2017-03-17] MEDS: INSULIN DETEMIR(LEVEMIR) 1unit/0.01ml Soln (100units/ml) SC SCH ×2 (11:49→22:00)
[2017-03-17 12:30] VITALS: BP 170/82
[2017-03-17] MEDS ORDERED: DILTIAZEM HCL 25 MG/5 ML VIAL IV ONE (16:11)
[2017-03-17 17:00] VITALS: BP 147/76
[2017-03-17] MEDS ORDERED: METOPROLOL TARTRATE 50 MG TAB PO ONE (17:00)
[2017-03-17 21:30] VITALS: BP 150/82
[2017-03-17] MEDS: QUEtiapine FUMARATE 25 MG TAB PO SCH (22:00)
[2017-03-17] MEDS: METOPROLOL TARTRATE 50 MG TAB PO SCH (22:00)
[2017-03-17] MEDS: ATORVASTATIN 20 MG TAB PO SCH (22:00)
[2017-03-18] MEDS: HYDROmorphone HCL 2 MG/ML VL IV PRN ×2 (04:25→10:06)
[2017-03-18 05:00] VITALS: BP 155/78
[2017-03-18 06:19] LABS: Potassium 3.6 mmol/L (3.5-5.1)
[2017-03-18 06:25] LABS: BUN/Creatinine Ratio 27.5; Calcium 8.5 mg/dL (8.5-10.1)
[2017-03-18] MEDS: ACCU-CHEK COMFORT CURVE STRIP VI SCH ×2 (06:36→12:15)
[2017-03-18] MEDS: InsuLIN REG 1unit/0.01ml Soln (100units/ml) SC SCH ×2 (06:36→12:15)
[2017-03-18 08:36] VITALS: BP 147/77
[2017-03-18] MEDS ORDERED: amLODIPine BESYLATE 5 MG TAB PO SCH (10:00)
[2017-03-18] MEDS: INSULIN DETEMIR(LEVEMIR) 1unit/0.01ml Soln (100units/ml) SC SCH (10:00)
[2017-03-18] MEDS: MUPIROCIN 2% OINT 22GM EACHNOSTRI SCH (10:06)
[2017-03-18] MEDS: ENOXAPARIN SOD 40 MG/0.4 ML SYRINGE SC SCH (10:11)
[2017-03-18] MEDS: LISINOPRIL 20 MG TAB PO SCH (10:12)
[2017-03-18] MEDS: ALPRAZolam 0.5 MG TAB PO SCH (10:13)
[2017-03-18] MEDS: FUROSEMIDE 20 MG TAB PO SCH (10:13)
[2017-03-18] MEDS: predniSONE 20 MG TAB PO SCH (10:13)
[2017-03-18] MEDS: METOPROLOL TARTRATE 50 MG TAB PO SCH (10:13)
[2017-03-18] MEDS: ASPirin 81 mg TAB PO SCH (10:14)
[2017-03-18] MEDS: ALLOPURINOL 100 MG TAB PO SCH (10:14)
[2017-03-18] MEDS: SERTRALINE HCL 50 MG TAB PO SCH (10:14)
[2017-03-18 12:17] VITALS: BP 151/62
[2017-03-18] MEDS ORDERED: ALL300T PO (13:46)
[2017-03-18] MEDS ORDERED: ASPI81CH43 PO (13:46)
[2017-03-18] MEDS ORDERED: MET50T PO (13:46)
[2017-03-18] MEDS ORDERED: AML5T PO (13:46)
[2017-03-18] MEDS ORDERED: COLC1CAP PO (13:46)
[2017-03-18] MEDS ORDERED: PRED1PAK10 PO (13:46)
[2017-03-18] MEDS ORDERED: HYDR-4663 PO (13:53)
[2017-03-18] MEDS: HYDROcodone-ACET 5/325MG TAB PO PRN (14:05)
[2017-03-18] MEDS ORDERED: PERCOT PO (14:51)
[2017-03-18 15:21] VITALS: BP 151/62
== END 2017-03-18 15:55 | disposition home health service (06) | DRG 872 ==
LOC: ER 09:23 → TELE 09:24 → TELE-EAST 19:40
PROVIDERS: ADMIT Internal Medicine; ATTEND Internal Medicine
DX: A41.9 Sepsis, unspecified organism (principal); J96.10 Chronic respiratory failure, unspecified whether with hypoxia or hypercapnia; M94.0 Chondrocostal junction syndrome [Tietze]; M06.9 Rheumatoid arthritis, unspecified; E78.5 Hyperlipidemia, unspecified; I50.9 Heart failure, unspecified; J44.9 Chronic obstructive pulmonary disease, unspecified; M10.9 Gout, unspecified; N18.9 Chronic kidney disease, unspecified; Z99.81 Dependence on supplemental oxygen; E11.22 Type 2 diabetes mellitus with diabetic chronic kidney disease; E11.21 Type 2 diabetes mellitus with diabetic nephropathy; I25.2 Old myocardial infarction; F41.9 Anxiety disorder, unspecified; F32.9 Major depressive disorder, single episode, unspecified; Z22.322 Carrier or suspected carrier of Methicillin resistant Staphylococcus aureus; I15.9 Secondary hypertension, unspecified; K80.20 Calculus of gallbladder without cholecystitis without obstruction; E66.9 Obesity, unspecified; L40.9 Psoriasis, unspecified
CPT/HCPCS: 36415; 71010; 71020; 71275; 73562; 78452; 80048; 80053; 80061; 82550; 82962; 83036; 83735; 83880; 84484; 84550; 85025; 85379; 85652; 86141; 87081; 93005; 93017; 93970; 94640; 96374; 96375; 96376; 97110; 97530; 99291; J0153; J1815; J1885; J2405

== ENCOUNTER 2017-10-04 10:32 | Emergency (ER) | payer OTHER, MEDICAID ==
[~2017-10-04] VITALS: Ht 157.5 cm; Wt 79.8 kg
[~2017-10-04 10:32] MED LIST changes: -ALL100T PO; +ALL300T PO; +AML5T PO; +ASPI81CH43 PO; -CAR125T PO; +COLC1CAP PO; +MET50T PO; +PERCOT PO; +PRED1PAK10 PO
[2017-10-04 10:39] VITALS: BP 153/81
== END 2017-10-04 13:38 | disposition home or self-care (01) ==
LOC: ER 10:32
DX: J20.9 Acute bronchitis, unspecified (principal); R19.7 Diarrhea, unspecified; I13.0 Hypertensive heart and chronic kidney disease with heart failure and stage 1 through stage 4 chronic kidney disease, or unspecified chronic kidney disease; N18.9 Chronic kidney disease, unspecified; I50.9 Heart failure, unspecified; E11.22 Type 2 diabetes mellitus with diabetic chronic kidney disease; E78.5 Hyperlipidemia, unspecified; J44.9 Chronic obstructive pulmonary disease, unspecified; M19.90 Unspecified osteoarthritis, unspecified site; Z79.891 Long term (current) use of opiate analgesic; Z79.82 Long term (current) use of aspirin; Z79.899 Other long term (current) drug therapy
CPT/HCPCS: 71046

== ENCOUNTER 2019-01-22 09:24 | Inpatient (IN) | payer OTHER, MEDICAID | END 2019-01-27 11:00 | disposition home or self-care (01) | LOC: TELE-CENTR 01-24 23:55 → ER 09:24 → CENTRAL 01-23 11:43 → TELE 13:55 → TELE-CENTR 17:17 | DX: I13.0 Hypertensive heart and chronic kidney disease with heart failure and stage 1 through stage 4 chronic kidney disease, or unspecified chronic kidney disease (principal); I50.43 Acute on chronic combined systolic (congestive) and diastolic (congestive) heart failure; J96.20 Acute and chronic respiratory failure, unspecified whether with hypoxia or hypercapnia; J44.1 Chronic obstructive pulmonary disease with (acute) exacerbation; J96.10 Chronic respiratory failure, unspecified whether with hypoxia or hypercapnia; J44.0 Chronic obstructive pulmonary disease with (acute) lower respiratory infection; E87.6 Hypokalemia; E11.65 Type 2 diabetes mellitus with hyperglycemia; M06.9 Rheumatoid arthritis, unspecified; J20.8 Acute bronchitis due to other specified organisms; I25.10 Atherosclerotic heart disease of native coronary artery without angina pectoris; F41.9 Anxiety disorder, unspecified; E66.9 Obesity, unspecified; E83.42 Hypomagnesemia; E79.0 Hyperuricemia without signs of inflammatory arthritis and tophaceous disease; N18.2 Chronic kidney disease, stage 2 (mild); E11.22 Type 2 diabetes mellitus with diabetic chronic kidney disease ==

== ENCOUNTER 2020-06-26 11:27 | Emergency (ER) | payer OTHER, MEDICAID ==
[~2020-06-26] VITALS: Ht 157.5 cm; Wt 81.2 kg
[~2020-06-26 11:27] MED LIST changes: -AML5T PO; -LISI40TA PO; +LISI40TA11 PO; +MET25T PO; -MET50T PO; -POTA10TA34 PO; +POTA1TAB61 PO; -PRED1PAK10 PO; -SERT-138 PO; +SERT50TA PO
[2020-06-26 11:35] VITALS: BP 153/81
[2020-06-26 12:52] LABS: Basophils # (auto) 0.1 10 ^3/uL (0-0.2); Basophils % (auto) 0.6 % (0.0-2.0); Eosinophils # (auto) 0 10 ^3/uL (0-0.8); Hematocrit 41.6 % (36.0-46.0); Hemoglobin 13.9 g/dL (12.2-16.2); Lymphocytes # (auto) 1.1 10 ^3/uL (0.4-5.4); Lymphocytes % (auto) 9.3 % (10.0-50.0); Mean Corpuscular Hemoglobin 29.3 pg (28.0-32.0); Mean Corpuscular Hgb Conc. 33.5 g/dL (32.0-36.0); Mean Corpuscular Volume 87.4 fL (80.0-100.0); Monocytes # (auto) 0.4 10 ^3/uL (0-1.3); Neutrophils # (auto) 10.2 10 ^3/uL (1.6-8.6); Neutrophils % (auto) 87.1 % (37.0-80.0); Platelet Count (auto) 203 10^3/uL (140-450); Red Blood Cells 4.76 10^6/uL (4.0-5.20); Red Cell Distribution Width 14.1 % (11.8-14.3); White Blood Cell 11.8 10^3/uL (4.4-10.8)
[2020-06-26 13:00] LABS: Urine Bacteria NONE SEEN /hpf (None Seen); Urine Blood 1+ /uL (Negative); Urine Mucus FEW (None Seen); Urine Specific Gravity 1.034 (1.001-1.035); Urine WBC 24 /hpf (0 - 5)
[2020-06-26 13:01] LABS: INR 1.13 (0.9-1.15); Partial Thromboplastin Time 30.3 sec (23.0-31.2)
[2020-06-26 13:06] LABS: Albumin 3.7 g/dL (3.4-5.0); Anion Gap 7 (5-15); Blood Urea Nitrogen 9 mg/dL (7-18); Calcium 8.9 mg/dL (8.5-10.1); Carbon Dioxide 24 mmol/L (21-32); Chloride 102 mmol/L (98-107); Glucose 224 mg/dL (74-106); Magnesium 1.9 mg/dL (1.6-2.6); Potassium 3.2 mmol/L (3.5-5.1); Sodium 133 mmol/L (136-145)
[2020-06-26 13:30] LABS: Alanine Aminotransferase 46 U/L (13-56); Alkaline Phosphatase 75 U/L (45-117); Aspartate Aminotransferase 23 U/L (15-37); Bilirubin, Total 0.9 mg/dL (0.2-1.0); GFR African American 64 mL/min; GFR Non-African American 53 mL/min; Total Protein 7.9 g/dL (6.4-8.2)
== END 2020-06-26 14:49 | disposition left against medical advice (07) ==
LOC: ER 11:27
DX: R50.9 Fever, unspecified (principal); R07.0 Pain in throat; R07.89 Other chest pain; Z20.828 Contact with and (suspected) exposure to other viral communicable diseases; Z53.21 Procedure and treatment not carried out due to patient leaving prior to being seen by health care provider
CPT/HCPCS: 36415; 71045; 80053; 81001; 83735; 83880; 84484; 85025; 85379; 85610; 85730; 87426

== ENCOUNTER 2020-12-05 15:55 | Emergency (ER) | payer OTHER, MEDICAID ==
[~2020-12-05] VITALS: Ht 157.5 cm; Wt 77.1 kg
[2020-12-05 16:36] LABS: Basophils # (auto) 0 10 ^3/uL (0-0.2); Basophils % (auto) 0.9 % (0.0-2.0); Eosinophils # (auto) 0.1 10 ^3/uL (0-0.8); Eosinophils % (auto) 3.3 % (0.0-7.0); Hematocrit 36.9 % (36.0-46.0); Hemoglobin 12.2 g/dL (12.2-16.2); Lymphocytes # (auto) 2.1 10 ^3/uL (0.4-5.4); Lymphocytes % (auto) 48.6 % (10.0-50.0); Mean Corpuscular Hemoglobin 28.8 pg (28.0-32.0); Mean Corpuscular Hgb Conc. 33.1 g/dL (32.0-36.0); Mean Corpuscular Volume 87.1 fL (80.0-100.0); Monocytes # (auto) 0.4 10 ^3/uL (0-1.3); Monocytes % (auto) 8.4 % (0.0-12.0); Neutrophils # (auto) 1.7 10 ^3/uL (1.6-8.6); Neutrophils % (auto) 38.8 % (37.0-80.0); Nucleated Red Blood Cells % 0.1 %; Red Blood Cells 4.24 10^6/uL (4.0-5.20); Red Cell Distribution Width 14.7 % (11.8-14.3); White Blood Cell 4.4 10^3/uL (4.4-10.8)
[2020-12-05 16:56] LABS: Alanine Aminotransferase 74 U/L (13-56); Albumin 3.2 g/dL (3.4-5.0); Anion Gap 7 (5-15); Aspartate Aminotransferase 36 U/L (15-37); BUN/Creatinine Ratio 17.2; Blood Urea Nitrogen 16 mg/dL (7-18); Calcium 8.6 mg/dL (8.5-10.1); Carbon Dioxide 26 mmol/L (21-32); Chloride 110 mmol/L (98-107); GFR African American 79 mL/min; GFR Non-African American 65 mL/min; Glucose 171 mg/dL (74-106); Potassium 4.1 mmol/L (3.5-5.1); Sodium 143 mmol/L (136-145)
[2020-12-05 17:00] LABS: Alkaline Phosphatase 107 U/L (45-117); Bilirubin, Total 0.5 mg/dL (0.2-1.0); Total Protein 7.4 g/dL (6.4-8.2)
[2020-12-05] MEDS ORDERED: HYDROcodone-ACET 10/325MG TAB PO ONE (17:00)
[2020-12-05] MEDS ORDERED: cloNIDine HCL 0.1 MG TAB PO ONE (19:00)
[2020-12-05 19:45] VITALS: BP 160/85
== END 2020-12-05 19:50 | disposition home or self-care (01) ==
LOC: ER 15:55
DX: S16.1XXA Strain of muscle, fascia and tendon at neck level, initial encounter (principal); S39.012A Strain of muscle, fascia and tendon of lower back, initial encounter; S09.8XXA Other specified injuries of head, initial encounter; E11.22 Type 2 diabetes mellitus with diabetic chronic kidney disease; I13.0 Hypertensive heart and chronic kidney disease with heart failure and stage 1 through stage 4 chronic kidney disease, or unspecified chronic kidney disease; N18.9 Chronic kidney disease, unspecified; I50.9 Heart failure, unspecified; E78.5 Hyperlipidemia, unspecified; W01.0XXA Fall on same level from slipping, tripping and stumbling without subsequent striking against object, initial encounter; Y93.89 Activity, other specified; Y92.89 Other specified places as the place of occurrence of the external cause; Y99.8 Other external cause status
CPT/HCPCS: 36415; 70450; 72125; 72131; 80053; 84484; 85025; 93005

== ENCOUNTER 2021-02-27 13:57 | Emergency (ER) | payer OTHER, MEDICAID ==
[~2021-02-27] VITALS: Ht 157.5 cm; Wt 77.1 kg
[2021-02-27 14:48] LABS: Basophils # (auto) 0.1 10 ^3/uL (0-0.2); Basophils % (auto) 1.3 % (0.0-2.0); Eosinophils # (auto) 0.1 10 ^3/uL (0-0.8); Eosinophils % (auto) 1.6 % (0.0-7.0); Hemoglobin 14.7 g/dL (12.2-16.2); Lymphocytes # (auto) 2.5 10 ^3/uL (0.4-5.4); Lymphocytes % (auto) 49.9 % (10.0-50.0); Mean Corpuscular Hemoglobin 29.7 pg (28.0-32.0); Mean Corpuscular Hgb Conc. 34.3 g/dL (32.0-36.0); Mean Corpuscular Volume 86.8 fL (80.0-100.0); Monocytes # (auto) 0.4 10 ^3/uL (0-1.3); Monocytes % (auto) 8.3 % (0.0-12.0); Neutrophils # (auto) 1.9 10 ^3/uL (1.6-8.6); Neutrophils % (auto) 38.9 % (37.0-80.0); Nucleated Red Blood Cells % 0.1 %; Red Blood Cells 4.96 10^6/uL (4.0-5.20); Red Cell Distribution Width 14.9 % (11.8-14.3); White Blood Cell 4.9 10^3/uL (4.4-10.8)
[2021-02-27 15:08] LABS: Albumin 3.5 g/dL (3.4-5.0); Anion Gap 6 (5-15); Blood Urea Nitrogen 17 mg/dL (7-18); Calcium 9.4 mg/dL (8.5-10.1); Carbon Dioxide 26 mmol/L (21-32); Chloride 108 mmol/L (98-107); Glucose 160 mg/dL (74-106); Potassium 3.9 mmol/L (3.5-5.1); Sodium 140 mmol/L (136-145)
[2021-02-27 15:15] LABS: Alanine Aminotransferase 72 U/L (13-56); Alkaline Phosphatase 88 U/L (45-117); Aspartate Aminotransferase 42 U/L (15-37); BUN/Creatinine Ratio 14.8; Bilirubin, Total 0.6 mg/dL (0.2-1.0); GFR African American 62 mL/min; GFR Non-African American 51 mL/min; Total Protein 7.5 g/dL (6.4-8.2)
[2021-02-27 15:23] LABS: INR 1.07 (0.9-1.15)
[2021-02-27] MEDS ORDERED: IODIXANOL 320MG/ML 100ML BTL IV ONE (15:56)
[2021-02-27] MEDS ORDERED: fentaNYL CITRATE 100 MCG/2 ML VL IV ONE (16:30)
[2021-02-27] MEDS ORDERED: ONDANSETRON HCL 4 MG/2 ML VIAL IV ONE (16:30)
[2021-02-27 18:23] VITALS: BP 136/78
[2021-02-27] MEDS ORDERED: ACETAMINOPHEN 500 MG TAB PO ONE (18:30)
== END 2021-02-27 19:31 | disposition left against medical advice (07) ==
LOC: ER 13:57
DX: R07.89 Other chest pain (principal); R10.84 Generalized abdominal pain; E11.22 Type 2 diabetes mellitus with diabetic chronic kidney disease; I13.0 Hypertensive heart and chronic kidney disease with heart failure and stage 1 through stage 4 chronic kidney disease, or unspecified chronic kidney disease; N18.9 Chronic kidney disease, unspecified; I50.89 Other heart failure; E78.5 Hyperlipidemia, unspecified
CPT/HCPCS: 36415; 71046; 74177; 80053; 83735; 83880; 84484; 85025; 85610; 93005; 96374; 96375; 99285; J2405; J3010; Q9967

== ENCOUNTER 2021-10-10 13:18 | Inpatient (IN) | payer OTHER, MEDICAID ==
[~2021-10-10] VITALS: Ht 154.9 cm; Wt 87.2 kg
[2021-10-10 17:18] LABS: Basophils # (auto) 0 10 ^3/uL (0-0.2); Basophils % (auto) 0.5 % (0.0-2.0); Eosinophils # (auto) 0.1 10 ^3/uL (0-0.8); Eosinophils % (auto) 1.5 % (0.0-7.0); Hematocrit 43.5 % (36.0-46.0); Hemoglobin 14.5 g/dL (12.2-16.2); Lymphocytes # (auto) 2.2 10 ^3/uL (0.4-5.4); Lymphocytes % (auto) 39.3 % (10.0-50.0); Mean Corpuscular Hemoglobin 29.7 pg (28.0-32.0); Mean Corpuscular Hgb Conc. 33.2 g/dL (32.0-36.0); Mean Corpuscular Volume 89.4 fL (80.0-100.0); Monocytes # (auto) 0.5 10 ^3/uL (0-1.3); Monocytes % (auto) 9.6 % (0.0-12.0); Neutrophils # (auto) 2.8 10 ^3/uL (1.6-8.6); Neutrophils % (auto) 49.1 % (37.0-80.0); Nucleated Red Blood Cells % 0.1 %; Red Blood Cells 4.87 10^6/uL (4.0-5.20); Red Cell Distribution Width 14.2 % (11.8-14.3); White Blood Cell 5.7 10^3/uL (4.4-10.8)
[2021-10-10 17:19] LABS: Albumin 3.9 g/dL (3.4-5.0); BUN/Creatinine Ratio 8.1; Bilirubin, Total 0.8 mg/dL (0.2-1.0); Calcium 9.3 mg/dL (8.5-10.1); Potassium 3.7 mmol/L (3.5-5.1); Total Protein 8.1 g/dL (6.4-8.2)
[2021-10-11] MEDS ORDERED: NITROGLYCERIN 0.4 MG SL TAB SL PRN (01:00)
[2021-10-11] MEDS ORDERED: ACETAMINOPHEN 325 MG TAB PO PRN (01:00)
[2021-10-11] MEDS ORDERED: MORPHINE SULFATE INJECTION 2 MG/ML SYRG IV PRN (01:00)
[2021-10-11] MEDS ORDERED: DEXTROSE (50%) 50ML SYRG IV PRN (01:00)
[2021-10-11] MEDS ORDERED: DOCUSATE SOD 100 MG CAP PO PRN (01:00)
[2021-10-11] MEDS: HYDROcodone-ACET 5/325MG TAB PO PRN ×3 (03:31→20:53)
[2021-10-11] MEDS: SODIUM CHLOR 0.9% PF (SALINE LOCK) 10ML VIAL/SYR IV SCH ×3 (06:19→22:00)
[2021-10-11] MEDS: InsuLIN REG 1unit/0.01ml Soln (100units/ml) SC SCH ×4 (07:03→22:51)
[2021-10-11] MEDS: ACCU-CHEK COMFORT CURVE STRIP VI SCH ×4 (07:03→22:00)
[2021-10-11 09:28] LABS: Hematocrit 41.1 % (36.0-46.0); Hemoglobin 13.5 g/dL (12.2-16.2); Lymphocytes # (auto) 2.6 10 ^3/uL (0.4-5.4); Lymphocytes % (auto) 46.9 % (10.0-50.0); Mean Corpuscular Hemoglobin 29.4 pg (28.0-32.0); Monocytes # (auto) 0.4 10 ^3/uL (0-1.3); Monocytes % (auto) 8.2 % (0.0-12.0); Neutrophils # (auto) 2.2 10 ^3/uL (1.6-8.6); Nucleated Red Blood Cells % 0.2 %; Red Blood Cells 4.61 10^6/uL (4.0-5.20); Red Cell Distribution Width 13.7 % (11.8-14.3); White Blood Cell 5.5 10^3/uL (4.4-10.8)
[2021-10-11 09:37] LABS: Basophils # (auto) 0.1 10 ^3/uL (0-0.2); Basophils % (auto) 1.4 % (0.0-2.0); Eosinophils # (auto) 0.2 10 ^3/uL (0-0.8); Eosinophils % (auto) 3.5 % (0.0-7.0)
[2021-10-11 09:43] LABS: Albumin 3.6 g/dL (3.4-5.0); Calcium 9.1 mg/dL (8.5-10.1); Potassium 3.3 mmol/L (3.5-5.1)
[2021-10-11 09:51] LABS: BUN/Creatinine Ratio 14.9; Bilirubin, Total 0.5 mg/dL (0.2-1.0); Total Protein 7.3 g/dL (6.4-8.2)
[2021-10-11] MEDS ORDERED: FAMOTIDINE (10MG/ML) 2ML VL IV SCH (10:00)
[2021-10-11] MEDS ORDERED: FUROSEMIDE 20 MG/2 ML VIAL IV SCH (10:00)
[2021-10-11] MEDS: ASPirin 81 mg TAB PO SCH (10:23)
[2021-10-11] MEDS: CARVEDILOL 12.5 MG TAB PO SCH ×2 (10:23→23:09)
[2021-10-11] MEDS ORDERED: POTASSIUM CHL 10MEQ/50ML 50 ML IV ONE (16:40)
[2021-10-11] MEDS ORDERED: BUMETANIDE 2.5mg/10ml (0.25 mg/ml) INJ IV ONE ×2 (17:00)
[2021-10-11] MEDS: ONDANSETRON HCL 4 MG/2 ML VIAL IV PRN (20:52)
[2021-10-11] MEDS ORDERED: ATORVASTATIN 20 MG TAB PO SCH (22:00)
[2021-10-11] MEDS: BUMETANIDE 2.5mg/10ml (0.25 mg/ml) INJ IV SCH (23:08)
[2021-10-12] MEDS ORDERED: IPRATROPIUM BROM 0.5 MG/2.5ML INH SOL NEB ONE (01:30)
[2021-10-12] MEDS ORDERED: ALPRAZolam 0.25 MG TAB PO PRN (01:30)
[2021-10-12] MEDS ORDERED: AZITHROMYCIN 500MG/ 250ML 250 ML IV ONE (01:30)
[2021-10-12] MEDS ORDERED: cefTRIAXone 1GM/50ML D5W 50 ML IV ONE (01:30)
[2021-10-12] MEDS ORDERED: hydrALAZINE HCL 20 MG/ML VL IV PRN (01:30)
[2021-10-12] MEDS: ALBUTEROL SULF 2.5 MG/0.5ML(0.5%) NEB SOLN NEB PRN ×6 (02:25→23:42)
[2021-10-12] MEDS: HYDROcodone-ACET 5/325MG TAB PO PRN ×3 (03:12→20:21)
[2021-10-12] MEDS: BUDESONIDE (INHALATION) 0.5 MG/2 ML NEB NEB SCH ×2 (06:09→20:08)
[2021-10-12] MEDS: IPRATROPIUM BROM 0.5 MG/2.5ML INH SOL NEB SCH ×5 (06:10→23:42)
[2021-10-12] MEDS: InsuLIN REG 1unit/0.01ml Soln (100units/ml) SC SCH ×4 (06:28→22:05)
[2021-10-12] MEDS: SODIUM CHLOR 0.9% PF (SALINE LOCK) 10ML VIAL/SYR IV SCH ×3 (06:29→21:49)
[2021-10-12] MEDS: ACCU-CHEK COMFORT CURVE STRIP VI SCH ×4 (06:29→21:50)
[2021-10-12 06:41] VITALS: BP 111/66
[2021-10-12 06:49] LABS: Basophils # (auto) 0 10 ^3/uL (0-0.2); Basophils % (auto) 0.5 % (0.0-2.0); Eosinophils # (auto) 0.1 10 ^3/uL (0-0.8); Eosinophils % (auto) 2.5 % (0.0-7.0); Hematocrit 38.6 % (36.0-46.0); Lymphocytes # (auto) 2.6 10 ^3/uL (0.4-5.4); Lymphocytes % (auto) 50.1 % (10.0-50.0); Mean Corpuscular Hemoglobin 29.5 pg (28.0-32.0); Mean Corpuscular Hgb Conc. 33.6 g/dL (32.0-36.0); Mean Corpuscular Volume 87.9 fL (80.0-100.0); Monocytes # (auto) 0.5 10 ^3/uL (0-1.3); Monocytes % (auto) 10.1 % (0.0-12.0); Neutrophils # (auto) 1.9 10 ^3/uL (1.6-8.6); Neutrophils % (auto) 36.8 % (37.0-80.0); Nucleated Red Blood Cells % 0.1 %; Red Blood Cells 4.39 10^6/uL (4.0-5.20); Red Cell Distribution Width 13.6 % (11.8-14.3); White Blood Cell 5.2 10^3/uL (4.4-10.8)
[2021-10-12 06:53] LABS: Potassium 3.6 mmol/L (3.5-5.1)
[2021-10-12] MEDS ORDERED: INSULIN LANTUS (GLARGINE) 1 /0.01ml (100units/ml) SC SCH (07:00)
[2021-10-12 07:03] LABS: Albumin 3.4 g/dL (3.4-5.0); BUN/Creatinine Ratio 14.1; Bilirubin, Total 0.4 mg/dL (0.2-1.0); Calcium 8.8 mg/dL (8.5-10.1); Total Protein 7.2 g/dL (6.4-8.2)
[2021-10-12] MEDS: MORPHINE SULFATE 4 MG/ML SYR/VIAL IV PRN (09:55)
[2021-10-12] MEDS ORDERED: FAMOTIDINE (10MG/ML) 2ML VL IV SCH (10:00)
[2021-10-12] MEDS: CARVEDILOL 12.5 MG TAB PO SCH ×2 (10:09→22:25)
[2021-10-12] MEDS: ISOSORBIDE MONONITRATE 20 MG TAB PO SCH ×2 (10:09→22:20)
[2021-10-12] MEDS: ASPirin 81 mg TAB PO SCH (10:09)
[2021-10-12] MEDS: SACUBITRIL-VALSARTAN 24mg/26mg TAB PO SCH ×2 (10:09→21:49)
[2021-10-12] MEDS: POTASSIUM CHL 20 Meq TABLET PO SCH (10:10)
[2021-10-12] MEDS: ALLOPURINOL 100 MG TAB PO SCH (10:10)
[2021-10-12] MEDS: SERTRALINE HCL 50 MG TAB PO SCH (10:10)
[2021-10-12] MEDS: ENOXAPARIN SOD 40 MG/0.4 ML SYRINGE SC SCH (10:10)
[2021-10-12] MEDS ORDERED: ALPRAZolam 0.5 MG TAB PO PRN (12:45)
[2021-10-12] MEDS: BUMETANIDE 2.5mg/10ml (0.25 mg/ml) INJ IV SCH (17:55)
[2021-10-12] MEDS ORDERED: ALBUTEROL SULF 2.5 MG/0.5ML(0.5%) NEB SOLN NEB ONE (19:30)
[2021-10-12] MEDS: ATORVASTATIN 20 MG TAB PO SCH (21:49)
[2021-10-12] MEDS: INSULIN LANTUS (GLARGINE) 1 /0.01ml (100units/ml) SC SCH (22:05)
[2021-10-12] MEDS: QUEtiapine FUMARATE 100 MG TAB PO SCH (22:20)
[2021-10-12] MEDS: cefTRIAXone 1GM/50ML D5W 50 ML IV SCH (22:25)
[2021-10-12] MEDS: AZITHROMYCIN 500MG/ 250ML 250 ML IV SCH (23:00)
[2021-10-13] MEDS: MORPHINE SULFATE 4 MG/ML SYR/VIAL IV PRN ×3 (00:39→23:25)
[2021-10-13] MEDS ORDERED: DexAMETHasone SOD PHOS 10MG/1ML VIAL INJ IV ONE (00:45)
[2021-10-13] MEDS: ALBUTEROL SULF 2.5 MG/0.5ML(0.5%) NEB SOLN NEB PRN ×2 (03:50→07:30)
[2021-10-13] MEDS: IPRATROPIUM BROM 0.5 MG/2.5ML INH SOL NEB SCH ×6 (03:50→22:00)
[2021-10-13] MEDS: SODIUM CHLOR 0.9% PF (SALINE LOCK) 10ML VIAL/SYR IV SCH ×3 (05:57→21:36)
[2021-10-13] MEDS: BUMETANIDE 2.5mg/10ml (0.25 mg/ml) INJ IV SCH ×2 (06:00→17:55)
[2021-10-13 06:10] LABS: Basophils # (auto) 0 10 ^3/uL (0-0.2); Basophils % (auto) 0.4 % (0.0-2.0); Eosinophils # (auto) 0 10 ^3/uL (0-0.8); Eosinophils % (auto) 0.8 % (0.0-7.0); Hematocrit 36.9 % (36.0-46.0); Hemoglobin 12.3 g/dL (12.2-16.2); Lymphocytes # (auto) 1.2 10 ^3/uL (0.4-5.4); Lymphocytes % (auto) 26.8 % (10.0-50.0); Mean Corpuscular Hemoglobin 29.5 pg (28.0-32.0); Mean Corpuscular Hgb Conc. 33.4 g/dL (32.0-36.0); Mean Corpuscular Volume 88.2 fL (80.0-100.0); Monocytes # (auto) 0.2 10 ^3/uL (0-1.3); Monocytes % (auto) 3.6 % (0.0-12.0); Neutrophils % (auto) 68.4 % (37.0-80.0); Nucleated Red Blood Cells % 0.1 %; Red Blood Cells 4.19 10^6/uL (4.0-5.20); Red Cell Distribution Width 13.6 % (11.8-14.3); White Blood Cell 4.3 10^3/uL (4.4-10.8)
[2021-10-13 06:25] LABS: Albumin 3.4 g/dL (3.4-5.0); Calcium 8.8 mg/dL (8.5-10.1); Potassium 4.3 mmol/L (3.5-5.1)
[2021-10-13 06:33] LABS: BUN/Creatinine Ratio 15.4; Bilirubin, Total 0.4 mg/dL (0.2-1.0); Phosphorus 2.8 mg/dL (2.5-4.90)
[2021-10-13 06:48] LABS: INR 1.1 (0.9-1.15); Partial Thromboplastin Time 27.3 sec (23.6-33.0)
[2021-10-13] MEDS: InsuLIN REG 1unit/0.01ml Soln (100units/ml) SC SCH ×4 (06:58→22:12)
[2021-10-13] MEDS: INSULIN LANTUS (GLARGINE) 1 /0.01ml (100units/ml) SC SCH ×2 (06:58→22:13)
[2021-10-13] MEDS: ACCU-CHEK COMFORT CURVE STRIP VI SCH ×4 (06:59→21:41)
[2021-10-13] MEDS: HYDROcodone-ACET 5/325MG TAB PO PRN ×3 (08:15→21:40)
[2021-10-13] MEDS: ONDANSETRON HCL 4 MG/2 ML VIAL IV PRN ×2 (08:59→21:41)
[2021-10-13] MEDS: FAMOTIDINE (10MG/ML) 2ML VL IV SCH (10:00)
[2021-10-13] MEDS: ASPirin 81 mg TAB PO SCH (10:00)
[2021-10-13] MEDS: ENOXAPARIN SOD 40 MG/0.4 ML SYRINGE SC SCH (10:01)
[2021-10-13] MEDS: CARVEDILOL 12.5 MG TAB PO SCH ×2 (10:01→21:38)
[2021-10-13] MEDS: ALLOPURINOL 100 MG TAB PO SCH (10:01)
[2021-10-13] MEDS: SACUBITRIL-VALSARTAN 24mg/26mg TAB PO SCH ×2 (10:01→21:38)
[2021-10-13] MEDS: ISOSORBIDE MONONITRATE 20 MG TAB PO SCH ×2 (10:01→22:11)
[2021-10-13] MEDS: BUDESONIDE (INHALATION) 0.5 MG/2 ML NEB NEB SCH ×2 (10:30→18:53)
[2021-10-13] MEDS: SERTRALINE HCL 50 MG TAB PO SCH ×2 (10:39→17:00)
[2021-10-13] MEDS: POTASSIUM CHL 20 Meq TABLET PO SCH (10:41)
[2021-10-13] MEDS ORDERED: methylPREDNISolone SOD SUCC 40 MG/ML VL IV ONE (13:30)
[2021-10-13] MEDS: ALBUTEROL SULF 2.5 MG/0.5ML(0.5%) NEB SOLN NEB SCH ×3 (14:15→22:00)
[2021-10-13] MEDS: cefTRIAXone 1GM/50ML D5W 50 ML IV SCH (21:35)
[2021-10-13] MEDS: methylPREDNISolone SOD SUCC 40 MG/ML VL IV SCH (21:37)
[2021-10-13] MEDS: ATORVASTATIN 20 MG TAB PO SCH (21:39)
[2021-10-13] MEDS: QUEtiapine FUMARATE 100 MG TAB PO SCH (21:39)
[2021-10-13] MEDS ORDERED: CARV25TA PO (22:23)
[2021-10-13] MEDS ORDERED: APIX5TAB PO (22:23)
[2021-10-13] MEDS ORDERED: SACU1TAB PO (22:23)
[2021-10-13] MEDS ORDERED: GLIP10TA9 PO (22:23)
[2021-10-13] MEDS ORDERED: OMEG306C OR (22:23)
[2021-10-13] MEDS ORDERED: MAGN400T40 PO (22:23)
[2021-10-13] MEDS: AZITHROMYCIN 500MG/ 250ML 250 ML IV SCH (23:23)
[2021-10-14] VITALS: BP 134/73
[2021-10-14] MEDS: ALBUTEROL SULF 2.5 MG/0.5ML(0.5%) NEB SOLN NEB SCH ×6 (02:00→22:13)
[2021-10-14] MEDS: IPRATROPIUM BROM 0.5 MG/2.5ML INH SOL NEB SCH ×6 (02:00→22:13)
[2021-10-14 05:00] VITALS: BP_SYST 113; BP_SYST 140; BP_DIAS 80; BP_DIAS 96
[2021-10-14] MEDS: SODIUM CHLOR 0.9% PF (SALINE LOCK) 10ML VIAL/SYR IV SCH ×3 (06:11→23:41)
[2021-10-14] MEDS: BUMETANIDE 2.5mg/10ml (0.25 mg/ml) INJ IV SCH ×2 (06:11→17:51)
[2021-10-14] MEDS: ACCU-CHEK COMFORT CURVE STRIP VI SCH ×4 (06:11→23:43)
[2021-10-14] MEDS: InsuLIN REG 1unit/0.01ml Soln (100units/ml) SC SCH ×4 (06:26→23:34)
[2021-10-14] MEDS: INSULIN LANTUS (GLARGINE) 1 /0.01ml (100units/ml) SC SCH ×2 (06:26→23:34)
[2021-10-14] MEDS: HYDROcodone-ACET 5/325MG TAB PO PRN ×2 (06:27→23:44)
[2021-10-14 08:00] VITALS: BP 124/75
[2021-10-14 08:12] LABS: Basophils # (auto) 0.1 10 ^3/uL (0-0.2); Basophils % (auto) 0.6 % (0.0-2.0); Eosinophils # (auto) 0 10 ^3/uL (0-0.8); Eosinophils % (auto) 0.3 % (0.0-7.0); Hematocrit 38.1 % (36.0-46.0); Hemoglobin 12.7 g/dL (12.2-16.2); Lymphocytes # (auto) 0.9 10 ^3/uL (0.4-5.4); Lymphocytes % (auto) 9.8 % (10.0-50.0); Mean Corpuscular Hemoglobin 29.4 pg (28.0-32.0); Mean Corpuscular Hgb Conc. 33.5 g/dL (32.0-36.0); Mean Corpuscular Volume 87.8 fL (80.0-100.0); Monocytes # (auto) 0.2 10 ^3/uL (0-1.3); Neutrophils # (auto) 8.2 10 ^3/uL (1.6-8.6); Neutrophils % (auto) 87.3 % (37.0-80.0); Nucleated Red Blood Cells % 0.1 %; Red Blood Cells 4.33 10^6/uL (4.0-5.20); Red Cell Distribution Width 13.8 % (11.8-14.3); White Blood Cell 9.4 10^3/uL (4.4-10.8)
[2021-10-14 08:25] LABS: Calcium 9.2 mg/dL (8.5-10.1); Potassium 4.6 mmol/L (3.5-5.1)
[2021-10-14 08:27] LABS: BUN/Creatinine Ratio 18.8
[2021-10-14] MEDS: CARVEDILOL 12.5 MG TAB PO SCH ×2 (10:33→23:43)
[2021-10-14] MEDS: ALLOPURINOL 100 MG TAB PO SCH (10:34)
[2021-10-14] MEDS: ENOXAPARIN SOD 40 MG/0.4 ML SYRINGE SC SCH (10:34)
[2021-10-14] MEDS: methylPREDNISolone SOD SUCC 40 MG/ML VL IV SCH ×2 (10:35→23:41)
[2021-10-14] MEDS: FAMOTIDINE (10MG/ML) 2ML VL IV SCH (10:35)
[2021-10-14] MEDS: SERTRALINE HCL 50 MG TAB PO SCH (10:35)
[2021-10-14] MEDS: ASPirin 81 mg TAB PO SCH (10:35)
[2021-10-14] MEDS: BUDESONIDE (INHALATION) 0.5 MG/2 ML NEB NEB SCH ×2 (10:48→20:12)
[2021-10-14] MEDS: SACUBITRIL-VALSARTAN 24mg/26mg TAB PO SCH ×2 (12:32→23:42)
[2021-10-14] MEDS: ISOSORBIDE MONONITRATE 20 MG TAB PO SCH ×2 (12:34→23:42)
[2021-10-14 15:57] VITALS: BP 142/75
[2021-10-14 17:00] VITALS: BP 138/68
[2021-10-14] MEDS: cefTRIAXone 1GM/50ML D5W 50 ML IV SCH (21:41)
[2021-10-14 22:00] VITALS: BP 126/73
[2021-10-14] MEDS: AZITHROMYCIN 500MG/ 250ML 250 ML IV SCH (23:41)
[2021-10-14] MEDS: QUEtiapine FUMARATE 100 MG TAB PO SCH (23:42)
[2021-10-14] MEDS: ATORVASTATIN 20 MG TAB PO SCH (23:43)
[2021-10-15] MEDS: ALBUTEROL SULF 2.5 MG/0.5ML(0.5%) NEB SOLN NEB SCH ×3 (01:54→10:50)
[2021-10-15] MEDS: IPRATROPIUM BROM 0.5 MG/2.5ML INH SOL NEB SCH ×3 (01:54→10:50)
[2021-10-15] MEDS: ACCU-CHEK COMFORT CURVE STRIP VI SCH (06:19)
[2021-10-15] MEDS: InsuLIN REG 1unit/0.01ml Soln (100units/ml) SC SCH ×2 (06:20→11:56)
[2021-10-15] MEDS: INSULIN LANTUS (GLARGINE) 1 /0.01ml (100units/ml) SC SCH (06:20)
[2021-10-15] MEDS: BUMETANIDE 2.5mg/10ml (0.25 mg/ml) INJ IV SCH (06:21)
[2021-10-15] MEDS: SODIUM CHLOR 0.9% PF (SALINE LOCK) 10ML VIAL/SYR IV SCH (06:21)
[2021-10-15] MEDS: HYDROcodone-ACET 5/325MG TAB PO PRN ×2 (07:38→11:44)
[2021-10-15 09:00] VITALS: BP 104/56
[2021-10-15] MEDS ORDERED: PRED20TA2 PO (09:20)
[2021-10-15] MEDS: ALLOPURINOL 100 MG TAB PO SCH (09:51)
[2021-10-15] MEDS: ASPirin 81 mg TAB PO SCH (09:52)
[2021-10-15] MEDS: SERTRALINE HCL 50 MG TAB PO SCH (09:56)
[2021-10-15] MEDS: ISOSORBIDE MONONITRATE 20 MG TAB PO SCH (09:58)
[2021-10-15] MEDS: FAMOTIDINE (10MG/ML) 2ML VL IV SCH (09:58)
[2021-10-15] MEDS: methylPREDNISolone SOD SUCC 40 MG/ML VL IV SCH (09:58)
[2021-10-15] MEDS: ENOXAPARIN SOD 40 MG/0.4 ML SYRINGE SC SCH (09:59)
[2021-10-15] MEDS: BUDESONIDE (INHALATION) 0.5 MG/2 ML NEB NEB SCH (10:50)
[2021-10-15 13:00] VITALS: BP 122/62
== END 2021-10-15 14:21 | disposition home or self-care (01) | DRG 193 ==
LOC: ER 13:24 → TELE 10-11 01:03 → TELE-CENTR 10-13 20:50
PROVIDERS: ADMIT Nurse Practitioner Family; ATTEND Internal Medicine Pulmonary Disease
DX: J18.9 Pneumonia, unspecified organism (principal); I50.43 Acute on chronic combined systolic (congestive) and diastolic (congestive) heart failure; J96.21 Acute and chronic respiratory failure with hypoxia; J44.1 Chronic obstructive pulmonary disease with (acute) exacerbation; I24.9 Acute ischemic heart disease, unspecified; N17.9 Acute kidney failure, unspecified; J44.0 Chronic obstructive pulmonary disease with (acute) lower respiratory infection; I13.0 Hypertensive heart and chronic kidney disease with heart failure and stage 1 through stage 4 chronic kidney disease, or unspecified chronic kidney disease; E11.65 Type 2 diabetes mellitus with hyperglycemia; E11.40 Type 2 diabetes mellitus with diabetic neuropathy, unspecified; E11.22 Type 2 diabetes mellitus with diabetic chronic kidney disease; D25.9 Leiomyoma of uterus, unspecified; M1A.9XX0 Chronic gout, unspecified, without tophus (tophi); F17.200 Nicotine dependence, unspecified, uncomplicated; D64.9 Anemia, unspecified; F32.A Depression, unspecified; M19.90 Unspecified osteoarthritis, unspecified site; N18.31 Chronic kidney disease, stage 3a; E66.01 Morbid (severe) obesity due to excess calories; E78.5 Hyperlipidemia, unspecified; E11.21 Type 2 diabetes mellitus with diabetic nephropathy; F41.9 Anxiety disorder, unspecified; K42.9 Umbilical hernia without obstruction or gangrene; Z20.822 Contact with and (suspected) exposure to COVID-19; Z68.36 Body mass index [BMI] 36.0-36.9, adult; Z80.9 Family history of malignant neoplasm, unspecified; Z82.3 Family history of stroke; Z82.49 Family history of ischemic heart disease and other diseases of the circulatory system; Z82.5 Family history of asthma and other chronic lower respiratory diseases; Z83.3 Family history of diabetes mellitus; Z90.49 Acquired absence of other specified parts of digestive tract
CPT/HCPCS: 36415; 71045; 71250; 74176; 80048; 80053; 80061; 82962; 83036; 83880; 84100; 84484; 85025; 85379; 85610; 85730; 87040; 87086; 87426; 93005; 93306; 93971; 94640; 96361; 96374; 96375; G0378; J0696; J1100; J1815; J2405; J3490; J7042

== ENCOUNTER 2022-05-18 11:10 | Inpatient (IN) | payer OTHER, MEDICAID ==
[~2022-05-18] VITALS: Ht 157.5 cm; Wt 85.3 kg
[~2022-05-18 11:10] MED LIST changes: -ALPR0.5T GT; +APIX5TAB PO; +CARV25TA PO; +GLIP10TA9 PO; -LISI40TA11 PO; +MAGN400T40 PO; +OMEG306C OR; -POTA1TAB61 PO; +PRED20TA2 PO; -QUET50TA5 PO; +SACU1TAB PO; -SERT50TA PO
[2022-05-18] MEDS ORDERED: ASPirin 81 mg TAB PO ONE (11:30)
[2022-05-18] MEDS ORDERED: ONDANSETRON HCL 4 MG/2 ML VIAL IV ONE (11:30)
[2022-05-18] MEDS ORDERED: MORPHINE SULFATE 4 MG/ML SYR/VIAL IV ONE (11:30)
[2022-05-18 12:50] LABS: Alanine Aminotransferase 101 U/L (13-56); Albumin 3.1 g/dL (3.4-5.0); Anion Gap 8 (5-15); Aspartate Aminotransferase 47 U/L (15-37); BUN/Creatinine Ratio 13.6; Blood Urea Nitrogen 14 mg/dL (7-18); Calcium 8.8 mg/dL (8.5-10.1); Carbon Dioxide 27 mmol/L (21-32); Chloride 107 mmol/L (98-107); GFR African American 70 mL/min; GFR Non-African American 58 mL/min; Glucose 182 mg/dL (74-106); Sodium 142 mmol/L (136-145)
[2022-05-18 12:52] LABS: Alkaline Phosphatase 68 U/L (45-117); Bilirubin, Total 0.9 mg/dL (0.2-1.0); Magnesium 1.7 mg/dL (1.6-2.6); Total Protein 6.1 g/dL (6.4-8.2)
[2022-05-18] MEDS ORDERED: ENOXAPARIN SOD 100 MG/1 ML SYRINGE SC ONE (13:15)
[2022-05-18 13:22] LABS: Basophils # (auto) 0 10 ^3/uL (0-0.2); Basophils % (auto) 0.5 % (0.0-2.0); Eosinophils # (auto) 0.1 10 ^3/uL (0-0.8); Hematocrit 39.5 % (36.0-46.0); Hemoglobin 12.7 g/dL (12.2-16.2); Lymphocytes # (auto) 1.9 10 ^3/uL (0.4-5.4); Lymphocytes % (auto) 38.4 % (10.0-50.0); Mean Corpuscular Hemoglobin 28.2 pg (28.0-32.0); Mean Corpuscular Hgb Conc. 32.2 g/dL (32.0-36.0); Mean Corpuscular Volume 87.6 fL (80.0-100.0); Monocytes # (auto) 0.4 10 ^3/uL (0-1.3); Monocytes % (auto) 9.1 % (0.0-12.0); Neutrophils # (auto) 2.4 10 ^3/uL (1.6-8.6); Nucleated Red Blood Cells % 0.2 %; Red Blood Cells 4.51 10^6/uL (4.0-5.20); White Blood Cell 4.9 10^3/uL (4.4-10.8)
[2022-05-18 13:50] LABS: INR 1.12 (0.9-1.15); Partial Thromboplastin Time 24.1 sec (24.6-33.4)
[2022-05-18 14:48] LABS: Urine Bacteria NONE SEEN /hpf (None Seen); Urine Blood Negative /uL (Negative); Urine Specific Gravity 1.023 (1.001-1.035); Urine WBC 6 /hpf (0 - 5)
[2022-05-18] MEDS ORDERED: NITROGLYCERIN 0.4 MG SL TAB SL PRN (16:15)
[2022-05-18] MEDS ORDERED: cefTRIAXone 1GM/50ML D5W 50 ML IV ONE (16:30)
[2022-05-18] MEDS ORDERED: POTASSIUM CHL 10 Meq TABLET PO ONE (16:30)
[2022-05-18] MEDS ORDERED: FUROSEMIDE 40 MG/4 ML VIAL IV ONE ×2 (16:30→17:15)
[2022-05-18] MEDS ORDERED: IPRATROPIUM BROM 0.5 MG/2.5ML INH SOL NEB PRN (16:45)
[2022-05-18] MEDS ORDERED: DEXTROSE (50%) 50ML SYRG IV PRN (16:45)
[2022-05-18] MEDS ORDERED: ALBUTEROL SULF 2.5 MG/0.5ML(0.5%) NEB SOLN NEB PRN (16:45)
[2022-05-18] MEDS: MORPHINE SULFATE INJ 2 MG/ml SYRG IV PRN ×2 (17:00→22:27)
[2022-05-18] MEDS: ACCU-CHEK COMFORT CURVE STRIP VI SCH ×2 (17:14→22:36)
[2022-05-18] MEDS: InsuLIN REG 1unit/0.01ml Soln (100units/ml) SC SCH ×2 (17:24→22:45)
[2022-05-18 18:21] LABS: Cholesterol 121 mg/dL (< 200)
[2022-05-18 18:23] LABS: HDL Cholesterol 49 mg/dL (40-59); LDL Cholesterol 72 mg/dL (< 100); Triglycerides 76 mg/dL (< 150)
[2022-05-18] MEDS: ALBUTEROL SULF 2.5 MG/0.5ML(0.5%) NEB SOLN NEB SCH (19:53)
[2022-05-18] MEDS: IPRATROPIUM BROM 0.5 MG/2.5ML INH SOL NEB SCH (19:53)
[2022-05-18] MEDS ORDERED: ATORVASTATIN 20 MG TAB PO SCH (22:00)
[2022-05-18] MEDS: METOPROLOL TARTRATE 25 MG TAB PO SCH (22:28)
[2022-05-18] MEDS: CARVEDILOL 12.5 MG TAB PO SCH (22:28)
[2022-05-18] MEDS: ATORVASTATIN 20 MG TAB PO SCH (22:29)
[2022-05-18 22:30] VITALS: BP 128/66
[2022-05-18 23:14] VITALS: BP 128/68
[2022-05-19 01:58] VITALS: BP 128/68
[2022-05-19 05:00] VITALS: BP 107/61
[2022-05-19] MEDS: FUROSEMIDE 40 MG/4 ML VIAL IV SCH ×2 (05:53→17:38)
[2022-05-19 06:02] LABS: Basophils # (auto) 0.1 10 ^3/uL (0-0.2); Basophils % (auto) 1.2 % (0.0-2.0); Eosinophils # (auto) 0.1 10 ^3/uL (0-0.8); Eosinophils % (auto) 2.9 % (0.0-7.0); Hemoglobin 12.2 g/dL (12.2-16.2); Lymphocytes # (auto) 1.5 10 ^3/uL (0.4-5.4); Mean Corpuscular Hemoglobin 28.2 pg (28.0-32.0); Mean Corpuscular Hgb Conc. 32.2 g/dL (32.0-36.0); Mean Corpuscular Volume 87.4 fL (80.0-100.0); Monocytes # (auto) 0.5 10 ^3/uL (0-1.3); Monocytes % (auto) 11.2 % (0.0-12.0); Neutrophils # (auto) 2.5 10 ^3/uL (1.6-8.6); Neutrophils % (auto) 52.7 % (37.0-80.0); Nucleated Red Blood Cells % 0.2 %; Red Blood Cells 4.35 10^6/uL (4.0-5.20); Red Cell Distribution Width 15.1 % (11.8-14.3); White Blood Cell 4.8 10^3/uL (4.4-10.8)
[2022-05-19] MEDS: ACCU-CHEK COMFORT CURVE STRIP VI SCH ×4 (06:04→22:09)
[2022-05-19] MEDS: InsuLIN REG 1unit/0.01ml Soln (100units/ml) SC SCH ×4 (06:05→22:13)
[2022-05-19 06:16] LABS: Calcium 8.7 mg/dL (8.5-10.1)
[2022-05-19 06:21] LABS: BUN/Creatinine Ratio 18.3; Bilirubin, Total 0.7 mg/dL (0.2-1.0); Total Protein 6.4 g/dL (6.4-8.2)
[2022-05-19] MEDS: IPRATROPIUM BROM 0.5 MG/2.5ML INH SOL NEB SCH ×3 (06:21→18:39)
[2022-05-19] MEDS: ALBUTEROL SULF 2.5 MG/0.5ML(0.5%) NEB SOLN NEB SCH ×3 (06:21→18:39)
[2022-05-19] MEDS ORDERED: cefTRIAXone 1GM/50ML D5W 50 ML IV SCH (09:00)
[2022-05-19 09:14] VITALS: BP 156/90
[2022-05-19] MEDS: POTASSIUM CHL 20 Meq TABLET PO SCH (09:25)
[2022-05-19] MEDS: ASPirin 81 mg TAB PO SCH (09:25)
[2022-05-19] MEDS: METOPROLOL TARTRATE 25 MG TAB PO SCH ×2 (09:26→22:11)
[2022-05-19] MEDS: cefTRIAXone 1GM/50ML D5W 50 ML IV SCH (09:27)
[2022-05-19] MEDS: CARVEDILOL 12.5 MG TAB PO SCH ×2 (09:27→22:11)
[2022-05-19] MEDS: ENOXAPARIN SOD 40 MG/0.4 ML SYRINGE SC SCH (09:27)
[2022-05-19] MEDS: MORPHINE SULFATE INJ 2 MG/ml SYRG IV PRN (09:28)
[2022-05-19 13:00] VITALS: BP 114/59
[2022-05-19] MEDS: MORPHINE SULFATE 4 MG/ML SYR/VIAL IV PRN (14:52)
[2022-05-19 16:52] VITALS: BP 107/45
[2022-05-19] MEDS ORDERED: DOCUSATE SOD 100 MG CAP PO PRN (17:00)
[2022-05-19 22:00] VITALS: BP 120/58
[2022-05-19] MEDS: ATORVASTATIN 20 MG TAB PO SCH (22:10)
[2022-05-20] MEDS: MORPHINE SULFATE 4 MG/ML SYR/VIAL IV PRN (00:01)
[2022-05-20 05:00] VITALS: BP 132/53
[2022-05-20] MEDS: IPRATROPIUM BROM 0.5 MG/2.5ML INH SOL NEB SCH ×2 (06:32→12:03)
[2022-05-20] MEDS: ALBUTEROL SULF 2.5 MG/0.5ML(0.5%) NEB SOLN NEB SCH ×2 (06:32→12:02)
[2022-05-20] MEDS: ACCU-CHEK COMFORT CURVE STRIP VI SCH ×2 (06:49→12:26)
[2022-05-20] MEDS: InsuLIN REG 1unit/0.01ml Soln (100units/ml) SC SCH ×2 (06:53→12:30)
[2022-05-20] MEDS: FUROSEMIDE 40 MG/4 ML VIAL IV SCH (06:56)
[2022-05-20 09:00] VITALS: BP_SYST 117; BP_SYST 130; BP_DIAS 46
[2022-05-20] MEDS: cefTRIAXone 1GM/50ML D5W 50 ML IV SCH (09:51)
[2022-05-20] MEDS: POTASSIUM CHL 20 Meq TABLET PO SCH (09:51)
[2022-05-20] MEDS: CARVEDILOL 12.5 MG TAB PO SCH (09:52)
[2022-05-20] MEDS: ASPirin 81 mg TAB PO SCH (09:52)
[2022-05-20] MEDS: METOPROLOL TARTRATE 25 MG TAB PO SCH (09:53)
[2022-05-20] MEDS: ENOXAPARIN SOD 40 MG/0.4 ML SYRINGE SC SCH (09:53)
[2022-05-20 13:00] VITALS: BP 117/46
[2022-05-20 14:51] VITALS: BP 117/46
== END 2022-05-20 16:39 | disposition home or self-care (01) | DRG 280 ==
LOC: ER 11:10 → TELE 16:23 → TELE-WESTW 22:05
PROVIDERS: ADMIT Registered Nurse; ATTEND Family Medicine
DX: I21.4 Non-ST elevation (NSTEMI) myocardial infarction (principal); I50.43 Acute on chronic combined systolic (congestive) and diastolic (congestive) heart failure; N30.00 Acute cystitis without hematuria; J44.1 Chronic obstructive pulmonary disease with (acute) exacerbation; I13.0 Hypertensive heart and chronic kidney disease with heart failure and stage 1 through stage 4 chronic kidney disease, or unspecified chronic kidney disease; Z20.822 Contact with and (suspected) exposure to COVID-19; E88.09 Other disorders of plasma-protein metabolism, not elsewhere classified; E11.65 Type 2 diabetes mellitus with hyperglycemia; E78.5 Hyperlipidemia, unspecified; N18.9 Chronic kidney disease, unspecified; I48.91 Unspecified atrial fibrillation; I25.5 Ischemic cardiomyopathy; E11.22 Type 2 diabetes mellitus with diabetic chronic kidney disease; M10.9 Gout, unspecified; M19.90 Unspecified osteoarthritis, unspecified site; I24.9 Acute ischemic heart disease, unspecified; E66.01 Morbid (severe) obesity due to excess calories; Z68.34 Body mass index [BMI] 34.0-34.9, adult; Z79.899 Other long term (current) drug therapy; Z79.82 Long term (current) use of aspirin; Z80.9 Family history of malignant neoplasm, unspecified; Z82.49 Family history of ischemic heart disease and other diseases of the circulatory system; Z83.3 Family history of diabetes mellitus; Z95.810 Presence of automatic (implantable) cardiac defibrillator; Z82.5 Family history of asthma and other chronic lower respiratory diseases; Z82.3 Family history of stroke
CPT/HCPCS: 36415; 71045; 80053; 80061; 81001; 82962; 83036; 83735; 83880; 84484; 85025; 85610; 85730; 87086; 93005; 93306; 94640; 96365; 96375; G0378; J0696; J1815; J2405

== ENCOUNTER 2022-10-14 12:31 | Inpatient (IN) | payer OTHER, MEDICAID ==
[~2022-10-14] VITALS: Ht 157.5 cm; Wt 84.7 kg
[2022-10-14 13:04] LABS: Basophils # (auto) 0 10 ^3/uL (0-0.2); Basophils % (auto) 0.5 % (0.0-2.0); Eosinophils # (auto) 0.1 10 ^3/uL (0-0.8); Eosinophils % (auto) 1.4 % (0.0-7.0); Hematocrit 43.5 % (36.0-46.0); Hemoglobin 13.8 g/dL (12.2-16.2); Lymphocytes # (auto) 1.6 10 ^3/uL (0.4-5.4); Lymphocytes % (auto) 30.3 % (10.0-50.0); Mean Corpuscular Hemoglobin 28.9 pg (28.0-32.0); Mean Corpuscular Hgb Conc. 31.7 g/dL (32.0-36.0); Monocytes # (auto) 0.4 10 ^3/uL (0-1.3); Monocytes % (auto) 8.4 % (0.0-12.0); Neutrophils # (auto) 3.1 10 ^3/uL (1.6-8.6); Neutrophils % (auto) 59.4 % (37.0-80.0); Nucleated Red Blood Cells % 0.1 %; Red Blood Cells 4.79 10^6/uL (4.0-5.20); Red Cell Distribution Width 14.4 % (11.8-14.3); White Blood Cell 5.3 10^3/uL (4.4-10.8)
[2022-10-14] MEDS ORDERED: ASPirin 325 MG TAB PO ONE (13:15)
[2022-10-14] MEDS ORDERED: FUROSEMIDE 40 MG/4 ML VIAL IV ONE (13:15)
[2022-10-14] MEDS ORDERED: NITROGLYCERIN 0.4 MG SL TAB SL ONE (13:15)
[2022-10-14 14:25] LABS: BUN/Creatinine Ratio 15.2; Bilirubin, Total 1.2 mg/dL (0.2-1.0); Potassium 4.4 mmol/L (3.5-5.1); Total Protein 7.3 g/dL (6.4-8.2)
[2022-10-14 14:26] LABS: Albumin 3.9 g/dL (3.4-5.0)
[2022-10-14] MEDS ORDERED: ENOXAPARIN SOD 80 MG/0.8ML SYRINGE SC ONE (14:30)
[2022-10-14] MEDS ORDERED: MORPHINE SULFATE 4 MG/ML SYR/VIAL IM ONE (14:30)
[2022-10-14] MEDS ORDERED: MORPHINE SULFATE 4 MG/ML SYR/VIAL IV ONE (14:30)
[2022-10-14] MEDS ORDERED: ONDANSETRON HCL 4 MG/2 ML VIAL IM ONE (14:30)
[2022-10-14] MEDS ORDERED: ONDANSETRON HCL 4 MG/2 ML VIAL IV ONE (14:30)
[2022-10-14] MEDS ORDERED: HYDROcodone-ACET 5/325MG TAB PO PRN (17:30)
[2022-10-14] MEDS ORDERED: ATORVASTATIN 20 MG TAB PO SCH (22:00)
[2022-10-14] MEDS ORDERED: hydrALAZINE HCL 20 MG/ML VL IV PRN ×2 (22:00→22:45)
[2022-10-14] MEDS: ATORVASTATIN 20 MG TAB PO SCH (22:02)
[2022-10-14] MEDS: METOPROLOL TARTRATE 25 MG TAB PO SCH (22:02)
[2022-10-14] MEDS: SACUBITRIL-VALSARTAN 24mg/26mg TAB PO SCH (22:02)
[2022-10-14] MEDS: APIXABAN 5 MG TAB PO SCH (22:02)
[2022-10-14] MEDS: MORPHINE SULFATE INJ 2 MG/ml SYRG IV PRN (23:53)
[2022-10-15] MEDS ORDERED: ONDANSETRON HCL 4 MG/2 ML VIAL IV ONE (03:15)
[2022-10-15 07:17] LABS: Basophils # (auto) 0 10 ^3/uL (0-0.2); Basophils % (auto) 0.5 % (0.0-2.0); Eosinophils # (auto) 0.1 10 ^3/uL (0-0.8); Eosinophils % (auto) 1.7 % (0.0-7.0); Hematocrit 41.3 % (36.0-46.0); Hemoglobin 13.1 g/dL (12.2-16.2); Lymphocytes % (auto) 27.4 % (10.0-50.0); Mean Corpuscular Hemoglobin 28.8 pg (28.0-32.0); Mean Corpuscular Hgb Conc. 31.7 g/dL (32.0-36.0); Mean Corpuscular Volume 90.8 fL (80.0-100.0); Monocytes # (auto) 0.5 10 ^3/uL (0-1.3); Monocytes % (auto) 12.3 % (0.0-12.0); Neutrophils # (auto) 2.2 10 ^3/uL (1.6-8.6); Neutrophils % (auto) 58.1 % (37.0-80.0); Nucleated Red Blood Cells % 0.1 %; Red Blood Cells 4.56 10^6/uL (4.0-5.20); Red Cell Distribution Width 14.4 % (11.8-14.3); White Blood Cell 3.8 10^3/uL (4.4-10.8)
[2022-10-15 07:28] LABS: Albumin 3.5 g/dL (3.4-5.0); Calcium 8.9 mg/dL (8.5-10.1); Potassium 4.1 mmol/L (3.5-5.1)
[2022-10-15 07:32] LABS: BUN/Creatinine Ratio 12.6; Bilirubin, Total 0.8 mg/dL (0.2-1.0); Total Protein 6.7 g/dL (6.4-8.2)
[2022-10-15] MEDS ORDERED: FUROSEMIDE 20 MG/2 ML VIAL IV SCH (10:00)
[2022-10-15] MEDS: APIXABAN 5 MG TAB PO SCH ×3 (10:00→22:00)
[2022-10-15] MEDS: SACUBITRIL-VALSARTAN 24mg/26mg TAB PO SCH ×2 (11:17→22:03)
[2022-10-15] MEDS: ASPirin 81 mg TAB PO SCH (11:17)
[2022-10-15] MEDS: METOPROLOL TARTRATE 25 MG TAB PO SCH ×2 (11:18→22:03)
[2022-10-15] MEDS: MORPHINE SULFATE INJ 2 MG/ml SYRG IV PRN ×2 (15:11→21:04)
[2022-10-15] MEDS ORDERED: DEXTROSE (50%) 50ML SYRG IV PRN (20:45)
[2022-10-15] MEDS: FUROSEMIDE 40 MG/4 ML VIAL IV SCH (22:03)
[2022-10-15] MEDS: ATORVASTATIN 20 MG TAB PO SCH (22:03)
[2022-10-15 22:10] VITALS: BP 131/95
[2022-10-15 22:14] VITALS: BP 131/95
[2022-10-15] MEDS: ACCU-CHEK COMFORT CURVE STRIP VI SCH (22:14)
[2022-10-15] MEDS: InsuLIN REG 1unit/0.01ml Soln (100units/ml) SC SCH (22:16)
[2022-10-15] MEDS: ACETAMINOPHEN 325 MG TAB PO PRN (22:19)
[2022-10-15 22:48] VITALS: BP 131/95
[2022-10-16 05:00] VITALS: BP 131/69
[2022-10-16] MEDS: ACCU-CHEK COMFORT CURVE STRIP VI SCH ×4 (06:33→22:33)
[2022-10-16] MEDS: InsuLIN REG 1unit/0.01ml Soln (100units/ml) SC SCH ×4 (06:36→22:39)
[2022-10-16] MEDS ORDERED: ALBUTEROL MEDNEB 2.5 mg/3ml NEB ONE ×2 (06:39→09:32)
[2022-10-16] MEDS: NITROGLYCERIN 0.4 MG SL TAB SL PRN ×4 (06:50→19:55)
[2022-10-16] MEDS: ALBUTEROL SULF 2.5 MG/0.5ML(0.5%) NEB SOLN NEB PRN ×2 (06:51→09:37)
[2022-10-16 08:30] VITALS: BP 119/59
[2022-10-16] MEDS: ASPirin 81 mg TAB PO SCH (09:02)
[2022-10-16] MEDS: APIXABAN 5 MG TAB PO SCH ×2 (09:02→22:00)
[2022-10-16] MEDS: SACUBITRIL-VALSARTAN 24mg/26mg TAB PO SCH ×2 (09:02→22:40)
[2022-10-16] MEDS: FUROSEMIDE 40 MG/4 ML VIAL IV SCH ×2 (09:03→22:41)
[2022-10-16] MEDS: METOPROLOL TARTRATE 25 MG TAB PO SCH ×2 (09:03→22:40)
[2022-10-16 09:09] LABS: BUN/Creatinine Ratio 15.1; Calcium 8.5 mg/dL (8.5-10.1); Potassium 3.8 mmol/L (3.5-5.1)
[2022-10-16] MEDS: MORPHINE SULFATE INJ 2 MG/ml SYRG IV PRN (10:13)
[2022-10-16] MEDS ORDERED: GASTROGRAFIN 120 ML SOL ONE (10:39)
[2022-10-16] MEDS ORDERED: EZ-GAS II GRANULES (RADIOLOGY USE) PO ONE (11:23)
[2022-10-16 12:30] VITALS: BP 134/83
[2022-10-16 17:00] VITALS: BP 102/54
[2022-10-16] MEDS: MORPHINE SULFATE 4 MG/ML SYR/VIAL IV PRN (20:28)
[2022-10-16 22:00] VITALS: BP 132/74
[2022-10-16] MEDS: ATORVASTATIN 20 MG TAB PO SCH (22:41)
[2022-10-16] MEDS: PANTOPRAZOLE 40 MG TAB PO SCH (22:41)
[2022-10-17] MEDS: ACETAMINOPHEN 325 MG TAB PO PRN (03:52)
[2022-10-17 05:00] VITALS: BP 113/72
[2022-10-17] MEDS: ACCU-CHEK COMFORT CURVE STRIP VI SCH ×4 (06:25→21:22)
[2022-10-17] MEDS: InsuLIN REG 1unit/0.01ml Soln (100units/ml) SC SCH ×4 (06:28→21:28)
[2022-10-17 08:00] VITALS: BP 134/68
[2022-10-17] MEDS: MORPHINE SULFATE 4 MG/ML SYR/VIAL IV PRN ×2 (08:32→15:05)
[2022-10-17] MEDS: FUROSEMIDE 40 MG/4 ML VIAL IV SCH ×2 (09:23→21:31)
[2022-10-17] MEDS: ASPirin 81 mg TAB PO SCH (09:24)
[2022-10-17] MEDS: METOPROLOL TARTRATE 25 MG TAB PO SCH ×2 (09:24→21:31)
[2022-10-17] MEDS: SACUBITRIL-VALSARTAN 24mg/26mg TAB PO SCH ×2 (09:24→21:31)
[2022-10-17] MEDS: APIXABAN 5 MG TAB PO SCH ×2 (09:24→21:42)
[2022-10-17] MEDS: PANTOPRAZOLE 40 MG TAB PO SCH ×2 (09:24→21:31)
[2022-10-17] MEDS: SUCRALFATE 1 GM/10 ML ORAL SUSP PO SCH ×3 (11:19→21:30)
[2022-10-17 12:00] VITALS: BP 119/67
[2022-10-17] MEDS ORDERED: ALBUTEROL MEDNEB 2.5 mg/3ml NEB ONE ×2 (15:16→19:58)
[2022-10-17] MEDS: ALBUTEROL SULF 2.5 MG/0.5ML(0.5%) NEB SOLN NEB PRN (15:20)
[2022-10-17 16:00] VITALS: BP 123/77
[2022-10-17 20:00] VITALS: BP 120/71
[2022-10-17] MEDS: ATORVASTATIN 20 MG TAB PO SCH (21:31)
[2022-10-17 22:00] VITALS: BP 120/71
[2022-10-18] VITALS (7 sets, daily range): BP systolic 108–136; BP diastolic 44–82
[2022-10-18] MEDS: MORPHINE SULFATE 4 MG/ML SYR/VIAL IV PRN ×3 (04:25→22:20)
[2022-10-18] MEDS: ACCU-CHEK COMFORT CURVE STRIP VI SCH ×4 (06:18→22:21)
[2022-10-18] MEDS: InsuLIN REG 1unit/0.01ml Soln (100units/ml) SC SCH ×4 (06:22→23:16)
[2022-10-18] MEDS: SUCRALFATE 1 GM/10 ML ORAL SUSP PO SCH ×4 (06:23→22:19)
[2022-10-18] MEDS: SACUBITRIL-VALSARTAN 24mg/26mg TAB PO SCH ×2 (09:46→22:20)
[2022-10-18] MEDS: FUROSEMIDE 40 MG/4 ML VIAL IV SCH ×2 (09:46→22:19)
[2022-10-18] MEDS: ASPirin 81 mg TAB PO SCH (09:46)
[2022-10-18] MEDS: PANTOPRAZOLE 40 MG TAB PO SCH ×2 (09:46→22:21)
[2022-10-18] MEDS: METOPROLOL TARTRATE 25 MG TAB PO SCH ×2 (09:46→22:21)
[2022-10-18] MEDS ORDERED: DOCUSATE SOD 100 MG CAP PO PRN (11:00)
[2022-10-18] MEDS ORDERED: ALBUTEROL MEDNEB 2.5 mg/3ml NEB ONE ×2 (11:40→22:17)
[2022-10-18] MEDS: ALBUTEROL SULF 2.5 MG/0.5ML(0.5%) NEB SOLN NEB PRN ×2 (11:42→22:17)
[2022-10-18] MEDS: ACETAMINOPHEN 325 MG TAB PO PRN (14:16)
[2022-10-18] MEDS: ONDANSETRON HCL 4 MG/2 ML VIAL IV PRN ×2 (18:24→22:20)
[2022-10-18] MEDS: ATORVASTATIN 20 MG TAB PO SCH (22:20)
[2022-10-19] MEDS: ONDANSETRON HCL 4 MG/2 ML VIAL IV PRN (04:45)
[2022-10-19] MEDS: MORPHINE SULFATE 4 MG/ML SYR/VIAL IV PRN (04:45)
[2022-10-19 05:00] VITALS: BP 120/64
[2022-10-19] MEDS: InsuLIN REG 1unit/0.01ml Soln (100units/ml) SC SCH ×2 (06:16→11:56)
[2022-10-19] MEDS: ACCU-CHEK COMFORT CURVE STRIP VI SCH ×2 (06:19→11:55)
[2022-10-19] MEDS: SUCRALFATE 1 GM/10 ML ORAL SUSP PO SCH ×2 (06:20→11:56)
[2022-10-19] MEDS: SACUBITRIL-VALSARTAN 24mg/26mg TAB PO SCH (08:22)
[2022-10-19] MEDS: ASPirin 81 mg TAB PO SCH (08:22)
[2022-10-19] MEDS: METOPROLOL TARTRATE 25 MG TAB PO SCH (08:23)
[2022-10-19] MEDS: FUROSEMIDE 40 MG/4 ML VIAL IV SCH (08:23)
[2022-10-19] MEDS: PANTOPRAZOLE 40 MG TAB PO SCH (08:23)
[2022-10-19 09:00] VITALS: BP 104/54
[2022-10-19] MEDS: ACETAMINOPHEN 325 MG TAB PO PRN (11:59)
[2022-10-19] MEDS ORDERED: SUCR1TAB22 OR (12:36)
[2022-10-19] MEDS ORDERED: PANT40TA2 PO (12:36)
[2022-10-19 12:55] VITALS: BP 128/68
== END 2022-10-19 14:15 | disposition home or self-care (01) | DRG 291 ==
LOC: ER 12:31 → TELE 22:39 → TELE-WESTW 10-15 21:30
PROVIDERS: ADMIT Registered Nurse; ATTEND Nurse Practitioner Acute Care
DX: I13.0 Hypertensive heart and chronic kidney disease with heart failure and stage 1 through stage 4 chronic kidney disease, or unspecified chronic kidney disease (principal); I50.43 Acute on chronic combined systolic (congestive) and diastolic (congestive) heart failure; J96.01 Acute respiratory failure with hypoxia; N17.9 Acute kidney failure, unspecified; I42.0 Dilated cardiomyopathy; E78.5 Hyperlipidemia, unspecified; Z20.822 Contact with and (suspected) exposure to COVID-19; E11.22 Type 2 diabetes mellitus with diabetic chronic kidney disease; E11.65 Type 2 diabetes mellitus with hyperglycemia; E66.9 Obesity, unspecified; I48.91 Unspecified atrial fibrillation; J44.9 Chronic obstructive pulmonary disease, unspecified; N18.9 Chronic kidney disease, unspecified; R13.10 Dysphagia, unspecified; Z91.14 Patient's other noncompliance with medication regimen; Z79.899 Other long term (current) drug therapy; Z80.9 Family history of malignant neoplasm, unspecified; Z82.3 Family history of stroke; Z82.49 Family history of ischemic heart disease and other diseases of the circulatory system; Z82.5 Family history of asthma and other chronic lower respiratory diseases; Z83.3 Family history of diabetes mellitus; Z86.718 Personal history of other venous thrombosis and embolism; Z91.199 Patient's noncompliance with other medical treatment and regimen due to unspecified reason; Z68.34 Body mass index [BMI] 34.0-34.9, adult; Z90.49 Acquired absence of other specified parts of digestive tract
CPT/HCPCS: 36415; 71045; 71275; 74176; 74220; 80048; 80053; 80061; 82962; 83036; 83880; 84484; 85025; 85379; 87426; 93005; 93306; 94640; 96372; 96374; 99291; G0378; J1815; J2405

== ENCOUNTER 2023-02-09 10:59 | Inpatient (IN) | payer OTHER, MEDICAID ==
[~2023-02-09] VITALS: Ht 157.5 cm; Wt 84.8 kg
[~2023-02-09 10:59] MED LIST changes: +PANT40TA2 PO; +SUCR1TAB22 OR
[2023-02-09 11:38] LABS: Basophils # (auto) 0 10 ^3/uL (0-0.2); Basophils % (auto) 0.3 % (0.0-2.0); Eosinophils # (auto) 0.1 10 ^3/uL (0-0.8); Eosinophils % (auto) 1.3 % (0.0-7.0); Hematocrit 39.4 % (36.0-46.0); Lymphocytes # (auto) 1.7 10 ^3/uL (0.4-5.4); Lymphocytes % (auto) 30.5 % (10.0-50.0); Mean Corpuscular Hemoglobin 29.8 pg (28.0-32.0); Mean Corpuscular Hgb Conc. 33.1 g/dL (32.0-36.0); Mean Corpuscular Volume 89.8 fL (80.0-100.0); Monocytes # (auto) 0.5 10 ^3/uL (0-1.3); Monocytes % (auto) 9.7 % (0.0-12.0); Neutrophils # (auto) 3.2 10 ^3/uL (1.6-8.6); Neutrophils % (auto) 58.2 % (37.0-80.0); Red Blood Cells 4.38 10^6/uL (4.0-5.20); White Blood Cell 5.5 10^3/uL (4.4-10.8)
[2023-02-09 12:24] LABS: Albumin 3.8 g/dL (3.4-5.0); Calcium 9.1 mg/dL (8.5-10.1); Potassium 4.1 mmol/L (3.5-5.1)
[2023-02-09 12:29] LABS: BUN/Creatinine Ratio 16.2 (10.0-20.0); Bilirubin, Total 0.8 mg/dL (0.2-1.0); Total Protein 7.3 g/dL (6.4-8.2)
[2023-02-09] MEDS ORDERED: FUROSEMIDE 20 MG/2 ML VIAL IV ONE (16:30)
[2023-02-09] MEDS ORDERED: ASPirin 325 MG TAB PO ONE (16:45)
[2023-02-09] MEDS ORDERED: ACETAMINOPHEN 325 MG TAB PO PRN (17:30)
[2023-02-09] MEDS ORDERED: DEXTROSE (50%) 50ML SYRG IV PRN (17:30)
[2023-02-09] MEDS ORDERED: NITROGLYCERIN 0.4 MG SL TAB SL PRN (17:30)
[2023-02-09] MEDS ORDERED: MORPHINE SULFATE INJ 2 MG/ml SYRG IV PRN (17:30)
[2023-02-09 18:00] LABS: Cholesterol 146 mg/dL (< 200); Triglycerides 65 mg/dL (< 150)
[2023-02-09 18:02] LABS: HDL Cholesterol 80 mg/dL (40-59); LDL Cholesterol 61 mg/dL (< 100)
[2023-02-09] MEDS: ACCU-CHEK COMFORT CURVE STRIP VI SCH (22:00)
[2023-02-09] MEDS: SACUBITRIL-VALSARTAN 24mg/26mg TAB PO SCH (22:39)
[2023-02-09] MEDS: MAGNESIUM OXIDE 400 MG TAB PO SCH (22:39)
[2023-02-09] MEDS: HYDROcodone-ACET 5/325MG TAB PO PRN (22:39)
[2023-02-09] MEDS: METOPROLOL TARTRATE 25 MG TAB PO SCH (22:39)
[2023-02-09] MEDS: PANTOPRAZOLE 40 MG TAB PO SCH (22:40)
[2023-02-09] MEDS: ATORVASTATIN 20 MG TAB PO SCH (22:40)
[2023-02-09] MEDS: InsuLIN REG 1unit/0.01ml Soln (100units/ml) SC SCH (22:43)
[2023-02-09] MEDS ORDERED: IOHEXOL 350 MG/ML 100ML IJ ONE (23:39)
[2023-02-10] MEDS: HYDROcodone-ACET 5/325MG TAB PO PRN (05:05)
[2023-02-10] MEDS ORDERED: ONDANSETRON HCL 4 MG/2 ML VIAL IV PRN (05:30)
[2023-02-10] MEDS: ACCU-CHEK COMFORT CURVE STRIP VI SCH ×4 (09:21→22:10)
[2023-02-10] MEDS: InsuLIN REG 1unit/0.01ml Soln (100units/ml) SC SCH ×4 (09:26→22:42)
[2023-02-10] MEDS: FUROSEMIDE 20 MG TAB PO SCH (09:30)
[2023-02-10] MEDS: ASPirin 81 mg TAB PO SCH (09:36)
[2023-02-10] MEDS: SACUBITRIL-VALSARTAN 24mg/26mg TAB PO SCH ×2 (09:36→22:40)
[2023-02-10] MEDS: COLCHICINE 0.6 MG CAP PO SCH (09:36)
[2023-02-10] MEDS: MAGNESIUM OXIDE 400 MG TAB PO SCH (09:36)
[2023-02-10] MEDS: METOPROLOL TARTRATE 25 MG TAB PO SCH ×2 (09:36→22:41)
[2023-02-10] MEDS: PANTOPRAZOLE 40 MG TAB PO SCH ×2 (09:36→22:41)
[2023-02-10] MEDS: ALLOPURINOL 300 MG TAB PO SCH (09:36)
[2023-02-10] MEDS: OMEGA PO SCH (09:39)
[2023-02-10] MEDS: FATTY ACIDS PO SCH (09:39)
[2023-02-10] MEDS: ENOXAPARIN SOD 40 MG/0.4 ML SYRINGE SC SCH (09:39)
[2023-02-10] MEDS ORDERED: ASPirin 81 mg TAB PO SCH (10:00)
[2023-02-10] MEDS: MORPHINE SULFATE INJ 2 MG/ml SYRG IV PRN ×2 (13:28→20:09)
[2023-02-10 17:20] LABS: Basophils # (auto) 0 10 ^3/uL (0-0.2); Basophils % (auto) 0.5 % (0.0-2.0); Eosinophils # (auto) 0.1 10 ^3/uL (0-0.8); Eosinophils % (auto) 2.1 % (0.0-7.0); Hemoglobin 13.3 g/dL (12.2-16.2); Lymphocytes # (auto) 2.1 10 ^3/uL (0.4-5.4); Lymphocytes % (auto) 46.4 % (10.0-50.0); Mean Corpuscular Hgb Conc. 33.3 g/dL (32.0-36.0); Mean Corpuscular Volume 90.1 fL (80.0-100.0); Monocytes # (auto) 0.6 10 ^3/uL (0-1.3); Monocytes % (auto) 12.4 % (0.0-12.0); Neutrophils # (auto) 1.8 10 ^3/uL (1.6-8.6); Neutrophils % (auto) 38.6 % (37.0-80.0); Nucleated Red Blood Cells % 0.1 %; Red Blood Cells 4.44 10^6/uL (4.0-5.20); Red Cell Distribution Width 13.9 % (11.8-14.3); White Blood Cell 4.6 10^3/uL (4.4-10.8)
[2023-02-10 17:43] LABS: Albumin 3.5 g/dL (3.4-5.0); BUN/Creatinine Ratio 15.4 (10.0-20.0); Calcium 9.7 mg/dL (8.5-10.1); Potassium 4.4 mmol/L (3.5-5.1)
[2023-02-10 17:48] LABS: Bilirubin, Total 0.5 mg/dL (0.2-1.0)
[2023-02-10] MEDS: ATORVASTATIN 20 MG TAB PO SCH (22:40)
[2023-02-10 23:51] LABS: Urine Bacteria NONE SEEN /hpf (None Seen); Urine Blood Negative /uL (Negative); Urine WBC 2 /hpf (0 - 5)
[2023-02-11] MEDS: MORPHINE SULFATE INJ 2 MG/ml SYRG IV PRN (03:50)
[2023-02-11] MEDS: ACCU-CHEK COMFORT CURVE STRIP VI SCH (06:53)
[2023-02-11] MEDS: FUROSEMIDE 20 MG TAB PO SCH (07:17)
[2023-02-11] MEDS: InsuLIN REG 1unit/0.01ml Soln (100units/ml) SC SCH (07:18)
[2023-02-11 09:22] VITALS: BP 124/67
[2023-02-11 09:59] VITALS: BP 124/67
[2023-02-11] MEDS: MAGNESIUM OXIDE 400 MG TAB PO SCH ×2 (10:00→10:57)
[2023-02-11] MEDS: ALLOPURINOL 300 MG TAB PO SCH ×2 (10:00→10:58)
[2023-02-11] MEDS: SACUBITRIL-VALSARTAN 24mg/26mg TAB PO SCH ×2 (10:00→10:58)
[2023-02-11] MEDS: ENOXAPARIN SOD 40 MG/0.4 ML SYRINGE SC SCH ×2 (10:00→10:59)
[2023-02-11] MEDS: COLCHICINE 0.6 MG CAP PO SCH ×2 (10:00→10:58)
[2023-02-11] MEDS: OMEGA PO SCH (10:00)
[2023-02-11] MEDS: PANTOPRAZOLE 40 MG TAB PO SCH ×2 (10:00→10:58)
[2023-02-11] MEDS: FATTY ACIDS PO SCH (10:00)
[2023-02-11] MEDS: METOPROLOL TARTRATE 25 MG TAB PO SCH ×2 (10:00→10:57)
[2023-02-11] MEDS: ASPirin 81 mg TAB PO SCH ×2 (10:00→10:56)
[2023-02-11] MEDS ORDERED: POTA1TAB4 (10:23)
[2023-02-11 12:31] VITALS: BP 124/67
== END 2023-02-11 12:40 | disposition home or self-care (01) | DRG 291 ==
LOC: ER 10:59 → TELE 17:33 → TELE-CENTR 02-11 09:15
PROVIDERS: ADMIT Nurse Practitioner Family; ATTEND Internal Medicine
DX: I13.0 Hypertensive heart and chronic kidney disease with heart failure and stage 1 through stage 4 chronic kidney disease, or unspecified chronic kidney disease (principal); I50.43 Acute on chronic combined systolic (congestive) and diastolic (congestive) heart failure; D25.9 Leiomyoma of uterus, unspecified; E11.22 Type 2 diabetes mellitus with diabetic chronic kidney disease; E78.5 Hyperlipidemia, unspecified; F32.A Depression, unspecified; R19.7 Diarrhea, unspecified; K42.9 Umbilical hernia without obstruction or gangrene; I27.20 Pulmonary hypertension, unspecified; I48.91 Unspecified atrial fibrillation; M19.90 Unspecified osteoarthritis, unspecified site; M10.9 Gout, unspecified; N18.9 Chronic kidney disease, unspecified; J44.9 Chronic obstructive pulmonary disease, unspecified; Z80.9 Family history of malignant neoplasm, unspecified; Z82.49 Family history of ischemic heart disease and other diseases of the circulatory system; Z82.3 Family history of stroke; Z82.5 Family history of asthma and other chronic lower respiratory diseases; Z83.3 Family history of diabetes mellitus; Z90.49 Acquired absence of other specified parts of digestive tract
CPT/HCPCS: 36415; 71045; 71275; 74176; 80053; 80061; 81001; 82962; 83036; 83880; 84443; 84484; 85025; 85379; 93005; 93970; G0378; J1815; J2405

== ENCOUNTER 2023-10-23 11:01 | Inpatient (IN) | payer OTHER, MEDICAID ==
[2023-10-23] VITALS (7 sets, daily range): BP systolic 116; BP diastolic 54; PULSE 84–100; RESP 13–20; TEMP 97.9–98.4; O2SAT 91–100
[~2023-10-23] VITALS: Ht 167.6 cm; Wt 84.8 kg
[~2023-10-23 11:01] MED LIST changes: -APIX5TAB PO; -ASPI81CH43 PO; -OMEG306C OR; +POTA1TAB4 PO; -PRED20TA2 PO; -SUCR1TAB22 OR
[2023-10-23 12:18] LABS: Urine Bacteria NONE SEEN /hpf (None Seen); Urine Blood Negative /uL (Negative); Urine Clarity Clear (Clear); Urine Color Yellow (Yellow); Urine Protein, UAD Negative (Negative); Urine Urobilinogen Normal (Negative); Urine WBC 4 /hpf (0 - 5); Urine pH 5.5 (5.0-8.0)
[2023-10-23 12:46] LABS: Basophils # (auto) 0 10 ^3/uL (0-0.2); Basophils % (auto) 0.8 % (0.0-2.0); Eosinophils # (auto) 0.1 10 ^3/uL (0-0.8); Eosinophils % (auto) 1.5 % (0.0-7.0); Hematocrit 48.6 % (36.0-46.0); Hemoglobin 15.8 g/dL (12.2-16.2); Lymphocytes # (auto) 1.3 10 ^3/uL (0.4-5.4); Lymphocytes % (auto) 26.2 % (10.0-50.0); Mean Corpuscular Hemoglobin 29.3 pg (28.0-32.0); Mean Corpuscular Hgb Conc. 32.6 g/dL (32.0-36.0); Mean Corpuscular Volume 89.9 fL (80.0-100.0); Monocytes # (auto) 0.3 10 ^3/uL (0-1.3); Monocytes % (auto) 6.8 % (0.0-12.0); Neutrophils # (auto) 3.2 10 ^3/uL (1.6-8.6); Neutrophils % (auto) 64.7 % (37.0-80.0); Nucleated Red Blood Cells % 0.1 %; Red Blood Cells 5.41 10^6/uL (4.0-5.20); Red Cell Distribution Width 14.5 % (11.8-14.3)
[2023-10-23 13:06] LABS: Alanine Aminotransferase 49 U/L (7-40); Alkaline Phosphatase 73 U/L (46-116); Anion Gap 7 (5-15); Aspartate Aminotransferase 31 U/L (13-40); BUN/Creatinine Ratio 15.7 (10.0-20.0); Blood Urea Nitrogen 20 mg/dL (9-23); Calcium 9.4 mg/dL (8.7-10.4); Carbon Dioxide 27 mmol/L (20-30); Chloride 107 mmol/L (98-107); Glucose 186 mg/dL (74-106); Magnesium 1.9 mg/dL (1.6-2.6); Potassium 4.2 mmol/L (3.5-5.1); Sodium 141 mmol/L (136-145)
[2023-10-23 13:07] LABS: Albumin 4.1 g/dL (3.2-4.8); Bilirubin, Total 0.8 mg/dL (0.2-1.0); Total Protein 6.4 g/dL (5.7-8.2)
[2023-10-23] MEDS: ASPirin 81 mg TAB PO ONE (13:07)
[2023-10-23 13:09] LABS: INR 1.07 (0.9-1.15); Partial Thromboplastin Time 25.3 SEC (24.5-34.5); Prothrombin Time 11.2 sec (9.3-11.8)
[2023-10-23] MEDS: SODIUM CHLORIDE 0.9% 1,000 ML IV ONE (13:54)
[2023-10-23] MEDS ORDERED: NITROGLYCERIN 0.4 MG SL TAB SL PRN (18:00)
[2023-10-23] MEDS ORDERED: ACETAMINOPHEN 325 MG TAB PO PRN (18:00)
[2023-10-23] MEDS: methylPREDNISolone SOD SUCC 125 MG/2 ML VL IV ONE (18:30)
[2023-10-23 18:38] LABS: INR 1.05 (0.9-1.15)
[2023-10-23] MEDS: IPRATROPIUM BROM 0.5 MG/2.5ML INH SOL NEB SCH (18:40)
[2023-10-23] MEDS: ALBUTEROL SULF 2.5 MG/0.5ML(0.5%) NEB SOLN NEB SCH (18:40)
[2023-10-23 18:55] LABS: Creatinine, Urine 146.84 mg/dL (30.0-125.0)
[2023-10-23] MEDS: ONDANSETRON HCL 4 MG/2 ML VIAL IV PRN (20:30)
[2023-10-23] MEDS: HYDROcodone-ACET 5/325MG TAB PO ONE (20:30)
[2023-10-23] MEDS: MORPHINE SULFATE 4 MG/ML SYR/VIAL IV PRN (20:31)
[2023-10-23] MEDS: methylPREDNISolone SOD SUCC 125 MG/2 ML VL IV SCH (22:14)
[2023-10-23] MEDS: PANTOPRAZOLE 40 MG TAB PO SCH (22:15)
[2023-10-23] MEDS: ATORVASTATIN 20 MG TAB PO SCH (22:15)
[2023-10-23] MEDS: SACUBITRIL-VALSARTAN 24mg/26mg TAB PO SCH (22:15)
[2023-10-23] MEDS: ENOXAPARIN SOD 80 MG/0.8ML SYRINGE SC SCH (22:15)
[2023-10-23] MEDS: METOPROLOL TARTRATE 25 MG TAB PO SCH (22:16)
[2023-10-23] MEDS: HYDROcodone-ACET 5/325MG TAB PO PRN (22:44)
[2023-10-24] VITALS (17 sets, daily range): BP systolic 107–137; BP diastolic 54–87; PULSE 77–93; RESP 14–18; TEMP 96.8–98.4; O2SAT 91–100
[2023-10-24] MEDS: HYDROcodone-ACET 10/325MG TAB PO PRN (02:00)
[2023-10-24 07:16] LABS: Basophils # (auto) 0 10 ^3/uL (0-0.2); Basophils % (auto) 0.2 % (0.0-2.0); Eosinophils # (auto) 0 10 ^3/uL (0-0.8); Hematocrit 45.2 % (36.0-46.0); Hemoglobin 14.3 g/dL (12.2-16.2); Lymphocytes # (auto) 0.7 10 ^3/uL (0.4-5.4); Lymphocytes % (auto) 14.6 % (10.0-50.0); Mean Corpuscular Hemoglobin 29.4 pg (28.0-32.0); Mean Corpuscular Hgb Conc. 31.7 g/dL (32.0-36.0); Mean Corpuscular Volume 92.9 fL (80.0-100.0); Monocytes # (auto) 0.1 10 ^3/uL (0-1.3); Monocytes % (auto) 2.1 % (0.0-12.0); Neutrophils # (auto) 3.7 10 ^3/uL (1.6-8.6); Neutrophils % (auto) 83.1 % (37.0-80.0); Red Blood Cells 4.87 10^6/uL (4.0-5.20); Red Cell Distribution Width 14.9 % (11.8-14.3); White Blood Cell 4.5 10^3/uL (4.4-10.8)
[2023-10-24 08:02] LABS: Alanine Aminotransferase 49 U/L (7-40); Albumin 3.9 g/dL (3.2-4.8); Alkaline Phosphatase 91 U/L (46-116); Anion Gap 9 (5-15); Aspartate Aminotransferase 29 U/L (13-40); Blood Urea Nitrogen 12 mg/dL (9-23); Calcium 9.6 mg/dL (8.5-10.1); Carbon Dioxide 19 mmol/L (20-30); Chloride 108 mmol/L (98-107); Glucose 310 mg/dL (74-106); LDL Cholesterol 110 mg/dL (< 100); Potassium 4.8 mmol/L (3.5-5.1); Sodium 136 mmol/L (136-145); Triglycerides 48 mg/dL (< 150)
[2023-10-24 08:03] LABS: Bilirubin, Total 0.6 mg/dL (0.2-1.0); Cholesterol 216 mg/dL (< 200); HDL Cholesterol 79 mg/dL (40-59); Total Protein 6.4 g/dL (5.7-8.2)
[2023-10-24] MEDS: ASPirin 81 mg TAB PO SCH (09:37)
[2023-10-24] MEDS: ALLOPURINOL 300 MG TAB PO SCH (09:37)
[2023-10-24] MEDS: FUROSEMIDE 20 MG/2 ML VIAL IV SCH (09:39)
[2023-10-24] MEDS: DOCUSATE SOD 100 MG CAP PO SCH (09:56)
[2023-10-24] MEDS: NYSTATIN (MOUTH-THROAT) 500,000 UNITS/5 ML SUSP MT SCH (17:19)
[2023-10-24] MEDS: SUCRALFATE 1 GM/10 ML ORAL SUSP PO SCH (17:19)
[2023-10-24] MEDS: IPRATROPIUM BROM 0.5 MG/2.5ML INH SOL NEB SCH (18:51)
[2023-10-24] MEDS: ALBUTEROL SULF 2.5 MG/0.5ML(0.5%) NEB SOLN NEB SCH (18:51)
[2023-10-24] MEDS: PANTOPRAZOLE 40 MG/10 ML VIAL INJ IV SCH (21:26)
[2023-10-25] VITALS (13 sets, daily range): BP systolic 106–120; BP diastolic 59–71; PULSE 72–90; RESP 14–20; TEMP 97.7–98.7; O2SAT 91–100
[2023-10-25 09:00] LABS: Hepatitis B Surface Antigen Negative (Negative)
[2023-10-25 09:22] LABS: Hepatitis C Antibody Negative (Negative)
[2023-10-25] MEDS: ZOLPIDEM TARTRATE 5 MG TAB PO PRN (21:01)
[2023-10-26] VITALS (11 sets, daily range): BP systolic 108–130; BP diastolic 44–72; PULSE 66–78; RESP 15–18; TEMP 97.2–98.3; O2SAT 94–100
[2023-10-26] MEDS ORDERED: DEXTROSE (50%) 50ML SYRG IV PRN ×2 (13:00→23:15)
[2023-10-26] MEDS: ACCU-CHEK COMFORT CURVE STRIP VI SCH (17:51)
[2023-10-26] MEDS: InsuLIN REG 1unit/0.01ml Soln (100units/ml) SC SCH ×3 (17:54→23:43)
[2023-10-27] VITALS (14 sets, daily range): BP systolic 117–151; BP diastolic 65–79; PULSE 66–85; RESP 16–19; TEMP 97.7–98.7; O2SAT 93–100
[2023-10-27] MEDS ORDERED: METF-929 PO (13:53)
[2023-10-27] MEDS ORDERED: OXYC325T14 PO (13:55)
[2023-10-27] MEDS ORDERED: DAPA1TAB4 PO (14:12)
[2023-10-27] MEDS ORDERED: CALC0.0020 TOP (14:12)
[2023-10-27] MEDS ORDERED: GABA-1250 PO (14:12)
[2023-10-27] MEDS ORDERED: TRI05TP TOP (14:12)
[2023-10-27] MEDS ORDERED: DEXTROSE (50%) 50ML SYRG IV PRN (16:15)
[2023-10-27] MEDS: ACCU-CHEK COMFORT CURVE STRIP VI SCH ×2 (17:00)
[2023-10-27] MEDS: METOCLOPRAMIDE HCL 5MG/ml INJ 2ml VIAL IV ONE (17:37)
[2023-10-27] MEDS: InsuLIN REG 1unit/0.01ml Soln (100units/ml) SC SCH ×2 (17:42→21:38)
[2023-10-27] MEDS: GASTROGRAFIN 120 ML SOL ONE (18:25)
[2023-10-27] MEDS: METOCLOPRAMIDE HCL 5MG/ml INJ 2ml VIAL IV SCH (21:12)
[2023-10-27] MEDS ORDERED: METOCLOPRAMIDE HCL 5MG/ml INJ 2ml VIAL IV SCH (22:00)
[2023-10-28] VITALS (8 sets, daily range): BP systolic 110–134; BP diastolic 65–70; PULSE 64–78; RESP 18–20; TEMP 36.7; O2SAT 96–100
[2023-10-28] MEDS ORDERED: PANT40T PO (10:04)
[2023-10-28] MEDS ORDERED: METO-281 PO (10:04)
[2023-10-28] MEDS ORDERED: ALBUAER3 IN (10:04)
[2023-10-28] MEDS ORDERED: SUCR1TAB22 OR (10:04)
== END 2023-10-28 11:15 | disposition home or self-care (01) | DRG 302 ==
LOC: ER 11:01 → TELE 19:54 → TELE-EAST 23:14
PROVIDERS: ADMIT Nurse Practitioner Family; ATTEND Family Medicine
PROC: 4B02XSZ Measurement of Cardiac Pacemaker, External Approach (ICD-10-PCS; principal; 2023-10-24)
DX: I25.110 Atherosclerotic heart disease of native coronary artery with unstable angina pectoris (principal); I50.33 Acute on chronic diastolic (congestive) heart failure; J44.1 Chronic obstructive pulmonary disease with (acute) exacerbation; I48.20 Chronic atrial fibrillation, unspecified; N17.9 Acute kidney failure, unspecified; I13.0 Hypertensive heart and chronic kidney disease with heart failure and stage 1 through stage 4 chronic kidney disease, or unspecified chronic kidney disease; E11.21 Type 2 diabetes mellitus with diabetic nephropathy; E11.65 Type 2 diabetes mellitus with hyperglycemia; E78.00 Pure hypercholesterolemia, unspecified; F32.A Depression, unspecified; I27.20 Pulmonary hypertension, unspecified; I49.3 Ventricular premature depolarization; K21.9 Gastro-esophageal reflux disease without esophagitis; K22.4 Dyskinesia of esophagus; E11.22 Type 2 diabetes mellitus with diabetic chronic kidney disease; N18.9 Chronic kidney disease, unspecified; M1A.9XX0 Chronic gout, unspecified, without tophus (tophi); Z83.3 Family history of diabetes mellitus; Z82.5 Family history of asthma and other chronic lower respiratory diseases; Z82.49 Family history of ischemic heart disease and other diseases of the circulatory system; Z95.810 Presence of automatic (implantable) cardiac defibrillator; Z82.3 Family history of stroke
CPT/HCPCS: 36415; 70360; 71046; 74230; 74246; 78582; 80053; 80061; 81001; 82570; 82962; 83036; 83735; 83880; 84300; 84443; 84484; 85025; 85379; 85610; 85730; 86803; 87340; 92610; 93005; 93306; 94640; C9113; G0378; J1815; J2405

== ENCOUNTER 2024-08-22 20:35 | Inpatient (IN) | payer OTHER, MEDICAID ==
[~2024-08-22] VITALS: Ht 157.5 cm; Wt 77.8 kg
[2024-08-22] MEDS: DOXYCYCLINE 100MG/250ML 250 ML IV ONE (02:00)
[~2024-08-22 20:35] MED LIST changes: +ALBUAER3 IN; +BUSP5TAB51 PO; +CALC0.0021 TOP; +CARV-217 PO; -CARV25TA PO; +DAPA1TAB4 PO; +ERGO500086 PO; +FURO40TA4 PO; +GABA-1250 PO; -METF-370 PO; +METF-929 PO; +METO-281 PO; +METO2.5T PO; +OXYC325T14 PO; +PANT40T PO; -PERCOT PO; +POTA-220 PO; +SACU1TAB7 PO; +SERT-206 PO; +SUCR1TAB31 OR; +TRI05TP TOP; +VERI10TA PO
[2024-08-22] MEDS: ALBUTEROL SULF 2.5 MG/0.5ML(0.5%) NEB SOLN NEB ONE (21:35)
[2024-08-22] MEDS: IPRATROPIUM BROM 0.5 MG/2.5ML INH SOL NEB ONE (21:35)
[2024-08-22 21:40] LABS: Basophils # (auto) 0 10 ^3/uL (0-0.2); Basophils % (auto) 1.3 % (0.0-2.0); Eosinophils # (auto) 0.1 10 ^3/uL (0-0.8); Eosinophils % (auto) 3.5 % (0.0-7.0); Hematocrit 39.6 % (36.0-46.0); Hemoglobin 12.9 g/dL (12.2-16.2); Lymphocytes # (auto) 1.3 10 ^3/uL (0.4-5.4); Lymphocytes % (auto) 35.8 % (10.0-50.0); Mean Corpuscular Hemoglobin 29.5 pg (28.0-32.0); Mean Corpuscular Hgb Conc. 32.7 g/dL (32.0-36.0); Mean Corpuscular Volume 90.1 fL (80.0-100.0); Monocytes # (auto) 0.5 10 ^3/uL (0-1.3); Monocytes % (auto) 12.3 % (0.0-12.0); Neutrophils # (auto) 1.8 10 ^3/uL (1.6-8.6); Neutrophils % (auto) 47.1 % (37.0-80.0); Nucleated Red Blood Cells % 0.2 %; Platelet Count (auto) 189 10^3/uL (140-450); Red Blood Cells 4.39 10^6/uL (4.0-5.20); Red Cell Distribution Width 16.3 % (11.8-14.3); White Blood Cell 3.7 10^3/uL (4.4-10.8)
--- NOTE | 2024-08-22 21:41 | ED.PDOC ---
History of Present Illness HPI Comments 64-year-old female with past medical history of CHF with 15% ejection fraction, COPD, CKD, AFib, gout, diabetes mellitus, hypercholesterolemia, past surgical history of pacemaker implantation presented with chief complaint of chest pain, shortness of breath, left upper quadrant pain, nausea, vomiting. Patient started having left upper quadrant pain associated with midsternal chest pain and pain beneath the left side of the breast since the morning associated with nausea and vomiting. Patient had three episodes of vomiting, did not contain any blood. Patient uses 2 L of oxygen at home. She was recently admitted at [facility] around weeks ago for pneumonia and was discharged with codeine and antibiotics. She denied any headache, dizziness, seizures, palpitations, cough, generalized weakness, diarrhea, melena, hematochezia. Past medical history CHF with 15% ejection fraction, COPD, CKD, AFib, gout, diabetes mellitus, hyper cholesterolemia Past surgical history Pacemaker implantation Social history Denied smoking, alcohol, marijuana or any other drug intake Family history Uterine cancer, throat cancer Medication history Glipizide, magnesium oxide, allopurinol, colchicine, metoprolol, pantoprazole, sucralfate, Reglan, albuterol, atorvastatin, Lasix, Coreg Allergic history No Known allergies Review of system As discussed with the HPI Examination General Appearance: Alert, Oriented X3, Cooperative, mild distress, on 2 L oxygen through nasal cannula HEENT: EOMI Respiratory: Clear to auscultation, Normal air movement, no wheezing, no crackles, chest tenderness, midsternum Cardiovascular: Regular rate, Normal S1, Normal S2, no murmurs Abdominal: Soft, left upper quadrant tenderness, no guarding, no rigidity Extremities: No cyanosis, No edema, Normal pulses, No tenderness/swelling Skin: No rashes, No breakdown Neuro: Normal speech, tone Chief Complaint: Chest Pain Time Seen by MD: 20:40 Primary Care Provider: NONE Reviewed Notes: Nurses Notes Allergies: Coded Allergies: NO KNOWN ALLERGIES (Unverified , 05/18/22) Home Meds Active Scripts Albuterol Sulfate (VENTOLIN MDI) 90 Mcg Ih, 90 MCG IN Q4HR PRN, #1 INH Prov:NAFISA CHEN MD 10/28/23 Metoclopramide Hcl (Reglan) 10 Mg Tab, 10 MG PO BID, #60 TAB Prov:NAFISA CHEN MD 10/28/23 Sucralfate (CARAFATE) 1 Gm Tab, 1 GM OR QID, #120 TAB Prov:NAFISA CHEN MD 10/28/23 Pantoprazole Sodium Sesquihydr (Pantoprazole Sodium) 40 Mg Tab, 40 MG PO DAILY, #30 TAB Prov:NAFISA CHEN MD 10/28/23 Pantoprazole Sodium Sesquihydr (Protonix) 40 Mg Tab, 40 MG PO BID for 30 Days, #60 TAB Prov:CARA DUBOSE DEVELOPMENT MANAGER 10/19/22 Metoprolol Tartrate (Lopressor) 25 Mg Tb, 25 MG PO BID for 30 Days Prov:CHIKIS ESTEBAN MD 01/26/19 Colchicine (Colchicine) 0.6 Mg Cap, 0.6 MG PO DAILY, #30 CAP Prov:JONY JARRETT MD 03/18/17 Allopurinol (ZYLOPRIM TABLET) 300 Mg Tb, 1 TAB PO DAILY, #30 TAB Prov:JONY JARRETT MD 03/18/17 Reported Medications Triamcinolone Acetonide (Kenalog) 1 Applic Ap, 1 APPLIC TOP 10/27/23 Calcipotriene (CALCIPOTRIENE) 0.005 % Cre, 1 APPLIC TOP BID 10/27/23 Gabapentin (Gabapentin) 300 Mg Cap, 1 TAB PO TID 10/27/23 Dapagliflozin Propanediol (Farxiga) 10 Mg Tab, 1 TAB PO DAILY 10/27/23 Oxycodone W/ Acetaminophen (Apap/Oxycodone) 1 Tab Tab, 1 TAB PO Q6HR PRN Oxycodone/APAP 10/325 mg 10/27/23 Metformin HCl (Metformin Hydrochloride) 1,000 Mg Tab, 1 TAB PO BID 10/27/23 Potassium Chloride (K-Tab) 20 Meq Tab, 1 TAB PO DAILY 02/11/23 Glipizide (Glipizide) 10 Mg Tab, 10 MG PO BID for 30 Days, MG 10/13/21 Magnesium Oxide (MAGNESIUM OXIDE) 400 Mg Tab, 1 TAB PO DAILY 10/13/21 Carvedilol (Coreg) 25 Mg Tab, 1 TAB PO BID, #60 TAB 5 Refills 10/13/21 Sacubitril-Valsartan (Entresto 24-26 mg) 1 Tab Tab, 1 TAB PO BID, TAB 10/13/21 Furosemide (Furosemide) 20 Mg Tab, 20 MG PO AMHY, #2 TAB 10/08/16 Atorvastatin Calcium (Lipitor) 20 Mg Tab, 20 MG PO HS, #2 TAB 10/08/16 Information Source: Patient Mode of Arrival: Ambulatory Differential Dx Considerations may include: Gastritis, esophagitis, Myocardial infarction, aortic dissection, PE, pneumonitis, pneumonia, pericarditis, musculoskeletal pain X-Ray, Labs, Meds, VS Vital Signs Date Time Temp Pulse Resp B/P (MAP) Pulse Ox O2 Delivery O2 Flow Rate FiO2 08/22/24 22:16 100 Nasal Cannula* 2 28 08/22/24 22:16 20 100 Nasal Cannula* 2 28 08/22/24 21:35 92 08/22/24 20:41 94 08/22/24 20:40 97.6 95 24 123/76 (92) 97 Lab Test 08/22/24 21:58 08/22/24 21:10 Range/Units Magnesium Level Pending Troponin I High Sensitivity 22 25 </=34 ng/L Thyroid Stimulating Hormone (TSH) Pending White Blood Count 3.7 L 4.4-10.8 10^3/uL Red Blood Count 4.39 4.0-5.20 10^6/uL Hemoglobin 12.9 12.2-16.2 g/dL Hematocrit 39.6 36.0-46.0 % Mean Corpuscular Volume 90.1 80.0-100.0 fL Mean Corpuscular Hemoglobin 29.5 28.0-32.0 pg Mean Corpuscular Hemoglobin Concent 32.7 32.0-36.0 g/dL Red Cell Distribution Width 16.3 H 11.8-14.3 % Platelet Count 189 140-450 10^3/uL Mean Platelet Volume 8.9 6.9-10.8 fL Neutrophils (%) (Auto) 47.1 37.0-80.0 % Lymphocytes (%) (Auto) 35.8 10.0-50.0 % Monocytes (%) (Auto) 12.3 H 0.0-12.0 % Eosinophils (%) (Auto) 3.5 0.0-7.0 % Basophils (%) (Auto) 1.3 0.0-2.0 % Neutrophils # (Auto) 1.8 1.6-8.6 10 ^3/uL Lymphocytes # (Auto) 1.3 0.4-5.4 10 ^3/uL Monocytes # (Auto) 0.5 0-1.3 10 ^3/uL Eosinophils # (Auto) 0.1 0-0.8 10 ^3/uL Basophils # (Auto) 0 0-0.2 10 ^3/uL Nucleated Red Blood Cells 0.2 % Prothrombin Time 12.1 H 9.3-11.8 sec Prothrombin Time INR 1.15 0.9-1.15 Activated Partial Thromboplast Time 25.0 24.5-34.5 SEC Sodium Level 144 136-145 mmol/L Potassium Level 3.3 L 3.5-5.1 mmol/L Chloride Level 107 98-107 mmol/L Carbon Dioxide Level 29 20-31 mmol/L Anion Gap 8 5-15 Blood Urea Nitrogen 16 9-23 mg/dL Creatinine 1.09 H 0.550-1.02 mg/dL Glomerular Filtration Rate Calc 56 >90 mL/min BUN/Creatinine Ratio 14.7 10.0-20.0 Serum Glucose 116 H 74-106 mg/dL Calcium Level 9.6 8.7-10.4 mg/dL Total Bilirubin 0.7 0.2-1.0 mg/dL Aspartate Amino Transferase (AST) 28 13-40 U/L Alanine Aminotransferase (ALT) 45 H 7-40 U/L Alkaline Phosphatase 92 46-116 U/L B-Type Natriuretic Peptide Pending Total Protein 5.5 L 5.7-8.2 g/dL Albumin 3.5 3.2-4.8 g/dL Lipase 36 12-53 U/L Current Medications Medications (Trade) Dose Ordered Sig/Della Route Start Time Stop Time Status Last Admin Ipratropium Encinal (Atrovent Medneb) 0.5 mg ONCE ONCE NEB 08/22/24 21:15 08/22/24 21:16 DC 08/22/24 21:35 Albuterol (Ventolin Medneb) 2.5 mg ONCE ONCE NEB 08/22/24 21:15 08/22/24 21:16 DC 08/22/24 21:35 Time of 1ST Reevaluation: 22:41 Reevaluation 1ST: Unchanged Patient Education/Counseling: Diagnosis, Treatment Family Education/Counseling: No Family Present Comments Patient presented with the chest pain, shortness of breath, left upper quadrant pain, nausea, vomiting.-workup was initiated. EKG did not show any evidence of ST elevation. Patient was given: Aspirin 325 mg once, ipratropium, albuterol nebulization, pantoprazole IV once, IV furosemide 20 mg, IV ceftriaxone and IV doxycycline Chest x-ray shows mild interstitial edema Troponins were within normal limits Patient has been observed in the ED adequate length of time to insure improvement/stability. patient was admitted to the medicine team for further evaluation and treatment of their presentation. All the reports of any imaging studies that were ordered by myself were reviewed by myself. Departure 1 Departure Time of Disposition: 22:41 Impression: Primary Impression: Chest pain Additional Impressions: Left upper quadrant abdominal pain Vomiting Shortness of breath CHF exacerbation Pneumonia Disposition: ADMITTED INPATIENT Admit to: Tele Condition: Guarded Heart Score Heart Score: Heart Score Response (Comments) Value History Slightly Suspicious 0 EKG Normal 0 Age >65 2 Risk Factors >3 or Hx ASHD 2 Troponin Normal limit 0 Total 4 MEAGHAN BIANCHI RESIDENT Aug 22, 2024 21:41
[2024-08-22 21:45] LABS: Albumin 3.5 g/dL (3.2-4.8); Alkaline Phosphatase 92 U/L (46-116); Anion Gap 8 (5-15); Aspartate Aminotransferase 28 U/L (13-40); BUN/Creatinine Ratio 14.7 (10.0-20.0); Bilirubin, Total 0.7 mg/dL (0.2-1.0); Blood Urea Nitrogen 16 mg/dL (9-23); Calcium 9.6 mg/dL (8.7-10.4); Carbon Dioxide 29 mmol/L (20-31); Lipase 36 U/L (12-53); Sodium 144 mmol/L (136-145)
[2024-08-22 21:53] LABS: Alanine Aminotransferase 45 U/L (7-40); Chloride 107 mmol/L (98-107); Glucose 116 mg/dL (74-106); Potassium 3.3 mmol/L (3.5-5.1); Total Protein 5.5 g/dL (5.7-8.2)
--- NOTE | 2024-08-22 22:01 | ECG ---
[facility] Test Date: 2024-08-22 Test Time: 21:35:34 Pat Name: GABE DIETZ Department: ED Room: [address] [place] [address] Gender: F Director Of Automation: CINDY : 1960 Requested By: MEAGHAN BIANCHI Order Number: [id number] Reading MD: Keaton Vigil Measurements Intervals Bowlegs Rate: 92 P: 51 NV: 233 QRS: -39 QRSD: 113 T: 139 QT: 408 QTc: 505 Interpretive Statements Sinus rhythm Prolonged NV interval Consider right atrial enlargement Left ventricular hypertrophy Anterior Q waves, possibly due to LVH Abnormal T, consider ischemia, lateral leads Prolonged QT interval Baseline wander in lead(s) III,aVF Electronically Signed On 08-23-2024 16:25:26 PST by Keaton Vigil Please click the below link to view image of tracing.
[2024-08-22 22:17] LABS: INR 1.15 (0.9-1.15); Prothrombin Time 12.1 sec (9.3-11.8)
--- NOTE | 2024-08-22 22:22 | DVH ---
CHEST RADIOGRAPH Indication: chest pain Technique: Single frontal view of the chest was obtained COMPARISON: XY CHEST PORTABLE on DOS: 02/09/23, CXRP on DOS: 10/14/22, CHEST PORTABLE on DOS: 10/14/22, CXRP on DOS: 05/18/22, CHEST PORTABLE on DOS: 05/18/22 FINDINGS: Lines and Tubes: Left-sided pacemaker/ AICD with 2 cardiac leads. Lungs: Mild interstitial pulmonary edema. Pleura: Questionable trace left effusion. No pneumothorax. Cardiomediastinal contours: Cardiomegaly Bones: Unremarkable IMPRESSION: 1. Mild interstitial pulmonary edema in the setting of cardiomegaly. 2. Questionable trace left effusion.
[2024-08-22] MEDS ORDERED: NITROGLYCERIN 0.4 MG SL TAB SL PRN (23:00)
[2024-08-22] MEDS ORDERED: MORPHINE SULFATE INJ 2 MG/ml SYRG IV PRN (23:00)
[2024-08-22] MEDS ORDERED: ONDANSETRON HCL 4 MG/2 ML VIAL IV PRN (23:00)
--- NOTE | 2024-08-22 23:26 | DVHHPRES ---
History of Present Illness Resident Creating Document: MARTHA BARONE RESIDENT History of Present Illness 64 years old female with past medical history of HFrEF, LVEF 15%, COPD oxygen 2 liter/minute, hypertension, hyperlipidemia, atrial fibrillation, CKD, gout, ICD in place came with a complaint of left upper abdomen and chest pain. Patient reported having pain in the left upper abdomen especially underneath the left face and on the chest started early in the morning which lasted for 3 hours then subsided. Pain restarted around 4:00 p.m. which was pressure-like, 9/10, radiating to the back, no aggravating or relieving factor. Patient also endorse chest pain, central, sharp, 9-10/10, increase with respiration/movement. Patient reports that he has been having worsening short of breath for last 1 week can walk only few steps before getting short of breath. On further discussion patient also reported bilateral leg swelling for last 3 days and feeling dizzy when she tried to get up from sitting position. Patient also endorsed PND and orthopnea. On further discussion patient also reports that she has been having cough for last couple of days with likely yellowish green sputum. Patient endorsed feeling feverish but could not take the temperature at home. On further sepsis patient also reported having nausea and vomiting 3 times with orange-colored fluid, no blood and also feeling palpitation always. Patient was recently admitted at [facility] 1 week before for shortness of breath with cough and with a diagnosis of pneumonia. Patient denied any dysuria, , acute rash, dysarthria or change in vision. Initial lab workup revealed elevated BNP 2444, leukopenia with a WBC 3.7, mild hypokalemia 3.3, serum creatinine 1.09, GFR 50 9, elevated ALT 45, negative> for troponin I 25 25, lipase 26. Chest x-ray revealed Mild interstitial pulmonary edema in the setting of cardiomegaly. Questionable trace left effusion. Left-sided pacemaker/ AICD with [address] abdomen revealed-Cardiac and Pleural Findings: Moderate cardiomegaly with pacemaker wires in the right atrium and ventricles. Minimal pericardial effusion. Mild bilateral pleural effusion with adjacent lung atelectasis. Liver and Hepatobiliary System:Mild hepatomegaly with heterogeneous coarse attenuation and widening of the interlobar fissures, suggesting liver parenchymal disease. Minimal perihepatic free fluid. Post cholecystectomy status. Uterus and Hernias: Diffusely enlarged uterus with multiple fibroids, largest measuring 3.9 x 4.9 cm in the right parametrium. Omental fat-containing supraumbilical hernia (2.4 x 1.9 cm) and a smaller umbilical hernia (10 x 10 mm). Scattered diverticulosis in the descending colon without evidence of divert iculitis. Moderate fecal retention consistent with constipation. Diffuse atherosclerotic calcification of the abdominal aorta, visceral arteries, infrarenal aorta, and common iliac arteries Degenerative changes in the sacroiliac joints, superolateral hip joints, and lumbar spine. L4-L5: Vacuum disc phenomenon with disc bulge and moderate to severe neural foraminal narrowing. L5-S1: Mild disc bulge with moderate narrowing of bilateral neural foramina. Echocardiogram on 10/24/2023 revealed-significantly dilated left ventricle and severe global hypokinesia. Left ventricular ejection fraction 15%. Moderately dilated left atrium. Moderate degree mitral valve regurgitation. Home medications- Glipizide, magnesium oxide, allopurinol, colchicine, metoprolol, pantoprazole, sucralfate, Reglan, albuterol, atorvastatin, Lasix, Coreg Past Medical History HFrEF, LVEF 15%, COPD oxygen 2 liter/minute, hypertension, hyperlipidemia, atrial fibrillation, CKD, gout, ICD in place Past Surgical History Right ovarian removal, kidney stone laser crush Family History Uterine cancer, throat cancer Past Social History Patient did not smoking/alcoholism/drug abuse, lives home Review of Systems Review of Systems Allergy- NKDA Patient was seen today at the bedside. P Gastrointestinal- denies any rectal bleeding, Musculoskeletal-denies acute joint swelling or tenderness or redness Neurological- denies acute dysarthria, dysphagia, change in vision Psychiatry- denies depression or SI or HI Skin- denies acute rash or purpura Allergies: Coded Allergies: NO KNOWN ALLERGIES (Unverified , 05/18/22) Medications Current Medications Medications Dose Ordered Sig/Della Route Start Time Stop Time Status Last Admin Dose Admin Ondansetron HCl 4 mg ONCE PRN IV 08/22/24 21:15 Sodium Chloride 10 ml Q8HR IV 08/23/24 06:00 Docusate Sodium 100 mg BIDPRN PRN PO 08/22/24 23:00 Acetaminophen 650 mg Q6HP PRN PO 08/22/24 23:00 Morphine Sulfate 2 mg Q4HPRN PRN IV 08/22/24 23:00 Nitroglycerin 0.4 mg Q5MINP PRN SL 08/22/24 23:00 Morphine Sulfate 2 mg Q30M PRN IV 08/22/24 23:00 Exam Vital Signs Vital Signs Date Time Temp Pulse Resp B/P (MAP) Pulse Ox O2 Delivery O2 Flow Rate FiO2 08/22/24 22:16 100 Nasal Cannula* 2 28 08/22/24 22:16 20 08/22/24 21:35 92 08/22/24 20:40 97.6 123/76 (92) Exam General examination- patient on NC O2 2 liter/minute, awake, alert, oriented, conversant HEENT- PEERLA, no acute nasal discharge Cardiovascular- S1-S2 audible, rate and rhythm regular, no murmur Respiratory- crackles on the left lower lung posey+, Wheezing ++ Gastrointestinal-nontender, bowel sound+. Nondistended Musculoskeletal-no acute joint swelling or tenderness or redness# Lower extremity- bilateral leg edema++ Neurological- cranial nerves intact, no acute dysarthria or dysphagia Psychiatry- denies depression or SI or HI Skin- fragile skin Labs/Xrays Labs Test 08/22/24 21:58 08/22/24 21:10 Range/Units Troponin I High Sensitivity 22 </=34 ng/L White Blood Count 3.7 L 4.4-10.8 10^3/uL Red Blood Count 4.39 4.0-5.20 10^6/uL Hemoglobin 12.9 12.2-16.2 g/dL Hematocrit 39.6 36.0-46.0 % Mean Corpuscular Volume 90.1 80.0-100.0 fL Mean Corpuscular Hemoglobin 29.5 28.0-32.0 pg Mean Corpuscular Hemoglobin Concent 32.7 32.0-36.0 g/dL Red Cell Distribution Width 16.3 H 11.8-14.3 % Platelet Count 189 140-450 10^3/uL Mean Platelet Volume 8.9 6.9-10.8 fL Neutrophils (%) (Auto) 47.1 37.0-80.0 % Lymphocytes (%) (Auto) 35.8 10.0-50.0 % Monocytes (%) (Auto) 12.3 H 0.0-12.0 % Eosinophils (%) (Auto) 3.5 0.0-7.0 % Basophils (%) (Auto) 1.3 0.0-2.0 % Neutrophils # (Auto) 1.8 1.6-8.6 10 ^3/uL Lymphocytes # (Auto) 1.3 0.4-5.4 10 ^3/uL Monocytes # (Auto) 0.5 0-1.3 10 ^3/uL Eosinophils # (Auto) 0.1 0-0.8 10 ^3/uL Basophils # (Auto) 0 0-0.2 10 ^3/uL Nucleated Red Blood Cells 0.2 % Prothrombin Time 12.1 H 9.3-11.8 sec Prothrombin Time INR 1.15 0.9-1.15 Activated Partial Thromboplast Time 25.0 24.5-34.5 SEC Sodium Level 144 136-145 mmol/L Potassium Level 3.3 L 3.5-5.1 mmol/L Chloride Level 107 98-107 mmol/L Carbon Dioxide Level 29 20-31 mmol/L Anion Gap 8 5-15 Blood Urea Nitrogen 16 9-23 mg/dL Creatinine 1.09 H 0.550-1.02 mg/dL Glomerular Filtration Rate Calc 56 >90 mL/min BUN/Creatinine Ratio 14.7 10.0-20.0 Serum Glucose 116 H 74-106 mg/dL Calcium Level 9.6 8.7-10.4 mg/dL Total Bilirubin 0.7 0.2-1.0 mg/dL Aspartate Amino Transferase (AST) 28 13-40 U/L Alanine Aminotransferase (ALT) 45 H 7-40 U/L Alkaline Phosphatase 92 46-116 U/L Total Protein 5.5 L 5.7-8.2 g/dL Albumin 3.5 3.2-4.8 g/dL Lipase 36 12-53 U/L Assessment/Plan Assessment/Plan #Acute chest pain likely due to pneumonia/musculoskeletal/costochondritis -CXR- Mild interstitial pulmonary edema in the setting of cardiomegaly.Questionable trace left effusion. -CT abdomen revealed-Cardiac and Pleural Findings:Moderate cardiomegaly with pacemaker wires in the right atrium and ventricles. Minimal pericardial effusion. Mild bilateral pleural effusion with adjacent lung atelectasis. -patient with cough with a greenish yellow sputum production -Echocardiogram on 10/24/2023 revealed-significantly dilated left ventricle and severe global hypokinesia. Left ventricular ejection fraction 15%. Moderately dilated left atrium. Moderate degree mitral valve regurgitation. -ACS under evaluation -continue ceftriaxone 1 g IV daily -continue azithromycin 500 mg IV daily -Chest x-ray revealed Mild interstitial pulmonary edema in the setting of cardiomegaly. Questionable trace left effusion. Left-sided pacemaker/ AICD with 2 cardiac leads. #Acute Chest pain likely pleuritic /Musculoskeletal, Rule out ACS -Troponin I -not significant -EKG no acute ST elevation - Chest wall tenderness -Ordered Cardiology consult for further evaluation and care - c/w current management and care # acute upper abdominal pain likely due to gastritis/pancreatitis -lipase 37 -continue pantoprazole 40 mg IV daily -pending CT abdomen and pelvis # acute on chronic hypoxic respiratory failure likely due to pneumonia/acute on chronic HFrEF/acute exacerbation of COPD -BNP 2444 --patient with cough with a greenish yellow sputum production -continue ceftriaxone 1 g IV daily -continue azithromycin 500 mg IV daily -Chest x-ray revealed Mild interstitial pulmonary edema in the setting of cardiomegaly. Questionable trace left effusion. Left-sided pacemaker/ AICD with 2 cardiac leads. #acute on chronic HFrEF --BNP 2444 -continue Lasix 40 mg IV daily -continue carvedilol 25 mg p.o. b.i.d. -continue Entresto 1 tab p.o. b.i.d. as prescribed # Acute pneumonia Gram-positive versus Gram-negative ---patient with cough with a greenish yellow sputum production -Chest x-ray revealed Mild interstitial pulmonary edema in the setting of cardiomegaly. Questionable trace left effusion. Left-sided pacemaker/ AICD with 2 cardiac leads. -continue ceftriaxone 1 g IV daily -continue azithromycin 500 mg IV daily -pending sputum CS #acute exacerbation of COPD --patient with cough with a greenish yellow sputum production -continue ceftriaxone 1 g IV daily -continue azithromycin 500 mg IV daily -Methyleprednisolone 40 mg iv bid -Chest x-ray revealed Mild interstitial pulmonary edema in the setting of card iomegaly. Questionable trace left effusion. Left-sided pacemaker/ AICD with 2 cardiac leads. # suspected pericarditis pericardial effusion -CT abdomen revealed-Cardiac and Pleural Findings:Moderate cardiomegaly with pacemaker wires in the right atrium and ventricles. Minimal pericardial effusion. Mild bilateral pleural effusion with adjacent lung atelectasis. -continue with the colchicine as prescribed -continue reason as prescribed # bilateral leg edema likely due to acute on chronic HFrEF -continue Lasix 40 mg IV daily # hypokalemia -replenished # atrial fibrillation, # ICD in place -continue current management # hypertension --continue carvedilol 25 mg p.o. b.i.d. -continue Entresto 1 tab p.o. b.i.d. as prescribed # diabetes mellitus type 2 # hyperlipidemia -continue atorvastatin 20 mg q.h.s. # gout -continue allopurinol 300 mg p.o. daily # transaminitis -serum bilirubin 2.1, AST 137, ALT 69, alkaline phosphatase 92 -ordered hepatic panel and INR -monitor LFT #CT abdomen revealed-Cardiac and Pleural Findings: -Moderate cardiomegaly with pacemaker wires in the right atrium and ventricles. Minimal pericardial effusion. Mild bilateral pleural effusion with adjacent lung atelectasis. #iver and Hepatobiliary System:Mild hepatomegaly with heterogeneous coarse attenuation and widening of the interlobar fissures, suggesting liver parenchymal disease. Minimal perihepatic free fluid. Post cholecystectomy status. --serum bilirubin 2.1, AST 137, ALT 69, alkaline phosphatase 92 -ordered hepatic panel and INR -monitor LFT #Uterus and Hernias: Diffusely enlarged uterus with multiple fibroids, largest measuring 3.9 x 4.9 cm in the right parametrium. #Omental fat-containing supraumbilical hernia (2.4 x 1.9 cm) and a smaller umbilical hernia (10 x 10 mm). #Scattered diverticulosis in the descending colon without evidence of diverticulitis. #Moderate fecal retention consistent with constipation. #Diffuse atherosclerotic calcification of the abdominal aorta, visceral arteries, infrarenal aorta, and common iliac arteries #Degenerative changes in the sacroiliac joints, superolateral hip joints, and lumbar spine. L4-L5: Vacuum disc phenomenon with disc bulge and moderate to severe neural foraminal narrowing. L5-S1: Mild disc bulge with moderate narrowing of bilateral neural foramina. Goals of care/advance care planning; FULL CODE; discussed with the patient >15 minutes PUD prophylaxis: Pantoprazole DVT prophylaxis: Eliquis #Cardiology - Dr. Moreira Plan discussed with Dr. Long, nursing staff, patient Total time spent on patient evaluation, chart review, assessment and plan, discussion discussion >30 minutes Plan discussed with: Patient Plan discussed with: Patient, Spouse (RN), Other My Orders Orders - MARTHA BARONE Procedure Category Date Status Time Admit ADMIT 08/22/24 Transmitted 22:52 Code Status CODE 08/22/24 Transmitted 22:52 Sodium Chloride Lock PHA 08/23/24 In Process (Saline Lock Ns) 06:00 Docusate Sodium PHA 08/22/24 In Process Capsule (Colace 23:00 Complete Blood Count LAB 08/23/24 Verified 04:00 Comprehensive LAB 08/23/24 Verified Metabolic Panel 04:00 Cardiac DIET 08/23/24 Transmitted Diet-2gna,Lofat,Lochol Breakfast Echo 2d Mode Cardiac US 08/22/24 Logged DOP 22:52 Acetaminophen Tablet PHA 08/22/24 In Process (Tylenol Tablet) 23:00 Morphine Sulfate PHA 08/22/24 In Process Injection 23:00 Nitroglycerin PHA 08/22/24 In Process Sublingual (Ntrostat 23:00 Morphine Sulfate PHA 08/22/24 In Process Injection 23:00 Oxygen By Nasal RT 08/22/24 Transmitted Cannula 22:52 Stat Ekg For Chest SIRISHA 08/22/24 In Process Pain 22:52 Notify Md Of Changes SIRISHA 08/22/24 In Process From Base 22:52 Artist Relationship Manager For SIRISHA 08/22/24 In Process 24 Hours 22:52 Emergency Dysrhythmia SIRISHA 08/22/24 In Process Protocol 22:52 Rhythm Strips Once SIRISHA 08/22/24 In Process Every Shift 22:52 Date of Service: Aug 22, 2024 Billing Provider: ANGIE LNOG MD Common Visit Codes: [id number] INP/OBS CARE (HIGH) Secondary Visit Codes: [id number] CARE PLAN 30 MINUTES MARTHA BARONE Aug 22, 2024 23:25 ANGIE LONG MD Aug 24, 2024 14:57
[2024-08-23] VITALS (8 sets, daily range): BP systolic 121–134; BP diastolic 66–95; PULSE 83–91; RESP 14–22; TEMP 97.3–97.9; O2SAT 95–100
[2024-08-23] MEDS ORDERED: AZITHROMYCIN 500MG/ 250ML 250 ML IV ONE (00:30)
[2024-08-23] MEDS ORDERED: LACTULOSE 20Gm/30ML SOLN PO PRN (00:30)
[2024-08-23] MEDS: FUROSEMIDE 20 MG/2 ML VIAL IV ONE ×2 (00:52→07:01)
[2024-08-23] MEDS: PANTOPRAZOLE 40 MG/10 ML VIAL INJ IV ONE ×2 (00:53→01:41)
[2024-08-23] MEDS ORDERED: ALBUTEROL SULF HFA 90MCG INH 200DOSE IN PRN (01:00)
[2024-08-23] MEDS: MORPHINE SULFATE INJ 2 MG/ml SYRG IV PRN (01:09)
[2024-08-23 01:34] LABS: Albumin 3.6 g/dL (3.2-4.8); Bilirubin, Direct 0.2 mg/dL (<0.3); Bilirubin, Total 0.5 mg/dL (0.2-1.0); Total Protein 5.9 g/dL (5.7-8.2)
[2024-08-23] MEDS: cefTRIAXone 1GM/50ML D5W 50 ML IV ONE (01:41)
[2024-08-23] MEDS: FUROSEMIDE 40 MG/4 ML VIAL IV ONE (01:41)
[2024-08-23] MEDS: ASPirin 325 MG TAB PO ONE (01:41)
[2024-08-23] MEDS: ENOXAPARIN SOD 40 MG/0.4 ML SYRINGE SC ONE (02:07)
--- NOTE | 2024-08-23 03:24 | DVH ---
Examination: ABPL CLINICAL INDICATION: Abdominal pain and tenderness with flank pain COMPARISON: None. CONTRAST USED: None. TECHNIQUE: Plain CT study of the abdomen and pelvis was performed with 5 mm slices. Multiplanar salena nstructions were obtained following ALARA (As Low As Reasonably Achievable) principles. FINDINGS: CT ABDOMEN: Lung Bases: Mild bilateral pleural effusion with adjacent lung atelectasis. Heart and Pericardium: Moderate cardiomegaly noted. Pacemaker wires are seen in the right atrium and ventricles. Minimal pericardial effusion present. Liver: Mild hepatomegaly with heterogeneous coarse attenuation. Widening of the interlobar fissures, suggestive of liver parenchymal disease. Minimal perihepatic free fluid noted. Gallbladder and Biliary System: Post cholecystectomy status. Common bile duct is not dilated. Pancreas: Normal in size and shape, with no focal lesions or peripancreatic abnormalities. Spleen: Normal in size with no focal abnormalities. Kidneys and Ureters: Kidneys are normal in size with no evidence of renal calculus or hydronephrosis. Perinephric spaces are clear. Retroperitoneum: Both adrenal glands are normal. No significant retroperitoneal lymphadenopathy. Vessels: Diffuse atherosclerotic calcification of the abdominal aorta, visceral arteries, infrarenal aorta, an d common iliac arteries. Stomach and Bowel: Large bowel loops are moderately distended with fecal matter, consistent with constipation. Scattered diverticulosis of the descending colon without evidence of diverticulitis. No evidence of inflammatory bowel wall thickening or ascites. CT PELVIS: Appendix: Visualized and unremarkable. Uterus and Adnexa: Diffusely enlarged uterus with multiple fibroids of varying sizes, including dystrophic calcification s. Largest fibroid measures 3.9 x 4.9 cm in the right parametrium. Both ovaries appear atrophic. No adnexal mass is identified. Bladder: Urinary bladder is unremarkable. Hernias: Omental fat-containing supraumbilical hernia, measuring 2.4 x 1.9 cm through a 1.5 cm defect. Small omental fat-containing umbilical hernia, measuring 10 x 10 mm. Lymph Nodes and Fluid Collection: No pelvic lymphadenopathy or significant abnormal fluid collections noted. SKELETAL SYSTEM: Degenerative changes noted in the sacroiliac joints and superolateral hip joints. Multilevel degenerative facet arthropathy in the lumbar spine. L4-L5 Level: Vacuum disc phenomenon with disc bulge and facet arthropathy causing [id number]-[id number]-[id number] neural foraminal narrowing. L5-S1 Level: Mild disc bulge with facet arthropathy causing moderate narrowing of bilateral neural f oramina. No acute osseous abnormalities detected. IMPRESSION: Cardiac and Pleural Findings: Moderate cardiomegaly with pacemaker wires in the right atrium and ventricles. Minimal pericardial effusion. Mild bilateral pleural effusion with adjacent lung atelectasis. Liver and Hepatobiliary System: Mild hepatomegaly with heterogeneous coarse attenuation and widening of the interlobar fissures, sugg esting liver parenchymal disease. Minimal perihepatic free fluid. Post cholecystectomy status. Uterus and Hernias: Diffusely enlarged uterus with multiple fibroids, largest measuring 3.9 x 4.9 cm in the right paramet rium. Omental fat-containing supraumbilical hernia (2.4 x 1.9 cm) and a smaller umbilical hernia (10 x 10 m m). Colon: Scattered diverticulosis in the descending colon without evidence of diverticulitis. Moderate fecal retention consistent with constipation. Vascular Findings: Diffuse atherosclerotic calcification of the abdominal aorta, visceral arteries, infrarenal aorta, an d common iliac arteries. Spinal Degeneration: Degenerative changes in the sacroiliac joints, superolateral hip joints, and lumbar spine. L4-L5: Vacuum disc phenomenon with disc bulge and moderate to severe neural foraminal narrowing. L5-S1: Mild disc bulge with moderate narrowing of bilateral neural foramina. Electronically Signed 08/23/2024 03:23 Jon Bazzi
--- NOTE | 2024-08-23 03:25 | DVHINCON2 ---
Date of service: Aug 22, 2024 Referring Physician Patt Reason for Consultation Chest pain History of Present Illness This is a 64 year old female with a PMH of CHF with 15% ejection fraction, COPD, CKD, AFib, gout, diabetes mellitus, hypercholesterolemia who presented to the ED with complaints of chest pain, shortness of breath, left upper quadrant pain, nausea, vomiting. Patient started having left upper quadrant pain associated with midsternal chest pain and pain beneath the left side of the breast since the morning associated with nausea and vomiting. Patient had three episodes of vomiting, did not contain any blood. Patient uses 2 L of oxygen at home. She was recently admitted at [facility] a few weeks ago for pneumonia and was discharged with codeine and antibiotics. EKG did not show any evidence of ST elevation.Patient was given: Aspirin 325 mg once, ipratropium, albuterol nebulization, pantoprazole IV once, IV furosemide 20 mg, IV ceftriaxone and IV doxycycline. Chest x-ray shows mild interstitial edema. Troponins were within normal limits. Patient was admitted to the hospital. I am asked to consult on this patient. Family History: Asthma G8 FATHER G8 BROTHER Cerebrovascular accident (CVA) G8 MOTHER G8 SISTER FH: cancer FH: stroke Family history: Diabetes mellitus G8 MOTHER, Onset:50's - 60 G8 FATHER G8 SISTER, Onset:40's - 50 Family history: Hypertension G8 MOTHER, Onset:50's - 60 G8 FATHER, Onset:50's - 60 G8 SISTER, Onset:40's - 50 Hypertension G8 FATHER Ischemic heart disease G8 FATHER, Onset:60 years & older Allergies: Coded Allergies: NO KNOWN ALLERGIES (Unverified , 05/18/22) Home Meds Active Scripts Albuterol Sulfate (VENTOLIN MDI) 90 Mcg Ih, 90 MCG IN Q4HR PRN, #1 INH Prov:NAFISA CHEN MD 10/28/23 Metoclopramide Hcl (Reglan) 10 Mg Tab, 10 MG PO BID, #60 TAB Prov:NAFISA CHEN MD 10/28/23 Sucralfate (CARAFATE) 1 Gm Tab, 1 GM OR QID, #120 TAB Prov:NAFISA CHEN MD 10/28/23 Pantoprazole Sodium Sesquihydr (Pantoprazole Sodium) 40 Mg Tab, 40 MG PO DAILY, #30 TAB Prov:NAFISA CHEN MD 10/28/23 Pantoprazole Sodium Sesquihydr (Protonix) 40 Mg Tab, 40 MG PO BID for 30 Days, #60 TAB Prov:CARA DUBOSE NP 10/19/22 Metoprolol Tartrate (Lopressor) 25 Mg Tb, 25 MG PO BID for 30 Days Prov:CHIKIS ESTEBAN MD 01/26/19 Colchicine (Colchicine) 0.6 Mg Cap, 0.6 MG PO DAILY, #30 CAP Prov:JONY JARRETT MD 03/18/17 Allopurinol (ZYLOPRIM TABLET) 300 Mg Tb, 1 TAB PO DAILY, #30 TAB Prov:JONY JARRETT MD 03/18/17 Reported Medications Triamcinolone Acetonide (Kenalog) 1 Applic Ap, 1 APPLIC TOP 10/27/23 Calcipotriene (CALCIPOTRIENE) 0.005 % Cre, 1 APPLIC TOP BID 10/27/23 Gabapentin (Gabapentin) 300 Mg Cap, 1 TAB PO TID 10/27/23 Dapagliflozin Propanediol (Farxiga) 10 Mg Tab, 1 TAB PO DAILY 10/27/23 Oxycodone W/ Acetaminophen (Apap/Oxycodone) 1 Tab Tab, 1 TAB PO Q6HR PRN Oxycodone/APAP 10/325 mg 10/27/23 Metformin HCl (Metformin Hydrochloride) 1,000 Mg Tab, 1 TAB PO BID 10/27/23 Potassium Chloride (K-Tab) 20 Meq Tab, 1 TAB PO DAILY 02/11/23 Glipizide (Glipizide) 10 Mg Tab, 10 MG PO BID for 30 Days, MG 10/13/21 Magnesium Oxide (MAGNESIUM OXIDE) 400 Mg Tab, 1 TAB PO DAILY 10/13/21 Carvedilol (Coreg) 25 Mg Tab, 1 TAB PO BID, #60 TAB 5 Refills 10/13/21 Sacubitril-Valsartan (Entresto 24-26 mg) 1 Tab Tab, 1 TAB PO BID, TAB 10/13/21 Furosemide (Furosemide) 20 Mg Tab, 20 MG PO AMHY, #2 TAB 10/08/16 Atorvastatin Calcium (Lipitor) 20 Mg Tab, 20 MG PO HS, #2 TAB 10/08/16 Current Medications Current Medications Medications (Trade) Dose Ordered Sig/Della Route PRN Reason Start Time Stop Time Status Last Admin Ondansetron HCl (Zofran) 4 mg ONCE PRN IV NAUSEA / VOMITING 08/22/24 21:15 Sodium Chloride (Saline Lock Ns) 10 ml Q8HR IV 08/23/24 06:00 Ondansetron HCl (Zofran) 4 mg Q4HP PRN IV NAUSEA / VOMITING 08/22/24 23:00 08/22/24 23:03 DC Docusate Sodium (Colace Capsule) 100 mg BIDPRN PRN PO FOR CONSTIPATION 08/22/24 23:00 Acetaminophen (Tylenol Tablet) 650 mg Q6HP PRN PO PAIN SCALE 1-3 OR TEMP>100.4 08/22/24 23:00 Morphine Sulfate 2 mg Q4HPRN PRN IV SEVERE PAIN (7-10 PAIN SCALE) 08/22/24 23:00 08/23/24 01:09 Nitroglycerin (Ntrostat Sublingual) 0.4 mg Q5MINP PRN SL FOR CHEST PAIN 08/22/24 23:00 Morphine Sulfate 2 mg Q30M PRN IV FOR CHEST PAIN 08/22/24 23:00 Atorvastatin Calcium (Lipitor) 20 mg HS PO 08/23/24 22:00 Gabapentin (Neurontin Capsule) 300 mg TID PO 08/23/24 06:00 Metoprolol Tartrate (Lopressor Tablet) 25 mg BID PO 08/23/24 10:00 08/23/24 00:50 DC Sacubitril/ Valsartan (Entresto 24-26 Mg tab) 1 tab BID PO 08/23/24 10:00 Sucralfate (Carafate Tab) 1 gm QID PO 08/23/24 06:00 Carvedilol (Coreg Tablet) 50 mg BID PO 08/23/24 10:00 08/23/24 00:53 DC Patient Own Medication 1 tab DAILY PO 08/23/24 10:00 UNV Ceftriaxone Sodium 50 ml @ 100 mls/hr DAILY@09 IV 08/23/24 09:00 Azithromycin 250 ml @ 125 mls/hr DAILY IV 08/23/24 10:00 UNV Albuterol (Ventolin Medneb) 2.5 mg Q6HPRN PRN NEB SHORTNESS OF BREATH 08/23/24 00:30 Ipratropium [place] (Atrovent Medneb) 0.5 mg Q6HPRN PRN NEB SHORTNESS OF BREATH 08/23/24 00:30 Pantoprazole Sodium (Protonix) 40 mg DAILY IV 08/23/24 10:00 Lactulose 30 ml BIDPRN PRN PO FOR CONSTIPATION 08/23/24 00:30 Carvedilol (Coreg Tablet) 25 mg BID PO 08/23/24 10:00 UNV Albuterol (Ventolin Hfa) 90 mcg Q4HR PRN IN GOUT 08/23/24 01:00 UNV Enoxaparin Sodium (Lovenox) 40 mg DAILY SC 08/24/24 10:00 Review of Systems As discussed with the HPI Vital Signs Vital Signs Date Time Temp Pulse Resp B/P (MAP) Pulse Ox O2 Delivery O2 Flow Rate FiO2 08/23/24 02:01 82 16 124/86 08/22/24 22:16 100 Nasal Cannula* 2 28 08/22/24 20:40 97.6 Physical Exam GENERAL: Awake, alert, oriented. LUNGS: Decreased breath sounds. CARDIOVASCULAR: Heart sounds are good. ABDOMEN: Soft. EXT: BLE edema. Labs/Diagnostic Data Labs Test 08/23/24 00:20 08/22/24 21:58 08/22/24 21:10 Range/Units Total Bilirubin 0.5 0.2-1.0 mg/dL Direct Bilirubin 0.2 <0.3 mg/dL Aspartate Amino Transferase (AST) 28 13-40 U/L Alanine Aminotransferase (ALT) 46 H 7-40 U/L Alkaline Phosphatase 93 46-116 U/L Troponin I High Sensitivity 27 </=34 ng/L Total Protein 5.9 5.7-8.2 g/dL Albumin 3.6 3.2-4.8 g/dL Magnesium Level 1.7 1.6-2.6 mg/dL Thyroid Stimulating Hormone (TSH) 2.45 0.55-4.78 uIU/mL White Blood Count 3.7 L 4.4-10.8 10^3/uL Red Blood Count 4.39 4.0-5.20 10^6/uL Hemoglobin 12.9 12.2-16.2 g/dL Hematocrit 39.6 36.0-46.0 % Mean Corpuscular Volume 90.1 80.0-100.0 fL Mean Corpuscular Hemoglobin 29.5 28.0-32.0 pg Mean Corpuscular Hemoglobin Concent 32.7 32.0-36.0 g/dL Red Cell Distribution Width 16.3 H 11.8-14.3 % Platelet Count 189 140-450 10^3/uL Mean Platelet Volume 8.9 6.9-10.8 fL Neutrophils (%) (Auto) 47.1 37.0-80.0 % Lymphocytes (%) (Auto) 35.8 10.0-50.0 % Monocytes (%) (Auto) 12.3 H 0.0-12.0 % Eosinophils (%) (Auto) 3.5 0.0-7.0 % Basophils (%) (Auto) 1.3 0.0-2.0 % Neutrophils # (Auto) 1.8 1.6-8.6 10 ^3/uL Lymphocytes # (Auto) 1.3 0.4-5.4 10 ^3/uL Monocytes # (Auto) 0.5 0-1.3 10 ^3/uL Eosinophils # (Auto) 0.1 0-0.8 10 ^3/uL Basophils # (Auto) 0 0-0.2 10 ^3/uL Nucleated Red Blood Cells 0.2 % Prothrombin Time 12.1 H 9.3-11.8 sec Prothrombin Time INR 1.15 0.9-1.15 Activated Partial Thromboplast Time 25.0 24.5-34.5 SEC Sodium Level 144 136-145 mmol/L Potassium Level 3.3 L 3.5-5.1 mmol/L Chloride Level 107 98-107 mmol/L Carbon Dioxide Level 29 20-31 mmol/L Anion Gap 8 5-15 Blood Urea Nitrogen 16 9-23 mg/dL Creatinine 1.09 H 0.550-1.02 mg/dL Glomerular Filtration Rate Calc 56 >90 mL/min BUN/Creatinine Ratio 14.7 10.0-20.0 Serum Glucose 116 H 74-106 mg/dL Hemoglobin A1c 7.1 H <5.7 % A1C Calcium Level 9.6 8.7-10.4 mg/dL B-Type Natriuretic Peptide 2444.13 0-100 pg/mL Lipase 36 12-53 U/L Assessment Chest pain. Acute upper abdominal pain. Acute on chronic hypoxic respiratory failure. Acute on chronic HFrEF. Pneumonia. Bilateral leg edema. Hypokalemia. Atrial fibrillation. ICD in place. Hypertension. Diabetes mellitus type 2 Hyperlipidemia. GOUT. Transaminitis. Plan/Recommendation I agree with your ongoing assessment and care of plan. Echocardiogram. Lipitor. IV antibiotics as ordered. Coreg. DVT prophylactics. Morphine for pain management. Entresto. Additional plan as per the hospital course. A total of 45 minutes was spent reviewing the patient record, examining the patient, making a diagnostic and therapeutic plan, discussing this plan with medical personnel, following up on diagnostic studies and following the patient for clinical stability excluding any and all procedures. At least 50% of this time was spent in direct, [id number] contact. Plan discussed with: Patient SAMANTHA PEARSON MD Aug 23, 2024 03:25
[2024-08-23] MEDS: POTASSIUM CHL 20 Meq TABLET PO ONE (04:12)
[2024-08-23] MEDS: MAGNESIUM SULFATE 1GM/100ML 100 ML IV ONE (05:11)
[2024-08-23] MEDS: IBUPROFEN 600 MG TAB PO SCH (05:30)
[2024-08-23] MEDS: GABAPENTIN 300 MG CAP PO SCH (05:30)
[2024-08-23] MEDS: SODIUM CHLOR 0.9% PF (SALINE LOCK) 10ML VIAL/SYR IV SCH (05:30)
[2024-08-23] MEDS: SUCRALFATE 1 GM TAB PO SCH (05:30)
[2024-08-23] MEDS: PANTOPRAZOLE 40 MG TAB PO SCH (05:30)
[2024-08-23 05:46] LABS: Basophils # (auto) 0 10 ^3/uL (0-0.2); Basophils % (auto) 0.9 % (0.0-2.0); Eosinophils # (auto) 0.1 10 ^3/uL (0-0.8); Eosinophils % (auto) 2.9 % (0.0-7.0); Hematocrit 40.9 % (36.0-46.0); Hemoglobin 13.6 g/dL (12.2-16.2); Lymphocytes # (auto) 1.5 10 ^3/uL (0.4-5.4); Lymphocytes % (auto) 33.8 % (10.0-50.0); Mean Corpuscular Hemoglobin 29.8 pg (28.0-32.0); Mean Corpuscular Hgb Conc. 33.3 g/dL (32.0-36.0); Mean Corpuscular Volume 89.4 fL (80.0-100.0); Monocytes # (auto) 0.3 10 ^3/uL (0-1.3); Monocytes % (auto) 7.2 % (0.0-12.0); Neutrophils # (auto) 2.5 10 ^3/uL (1.6-8.6); Neutrophils % (auto) 55.2 % (37.0-80.0); Nucleated Red Blood Cells % 0.2 %; Platelet Count (auto) 192 10^3/uL (140-450); Red Blood Cells 4.57 10^6/uL (4.0-5.20); Red Cell Distribution Width 15.6 % (11.8-14.3); White Blood Cell 4.6 10^3/uL (4.4-10.8)
[2024-08-23 05:54] LABS: Albumin 3.9 g/dL (3.2-4.8); Alkaline Phosphatase 88 U/L (46-116); Anion Gap 10 (5-15); Aspartate Aminotransferase 30 U/L (13-40); BUN/Creatinine Ratio 15.4 (10.0-20.0); Bilirubin, Total 0.5 mg/dL (0.2-1.0); Blood Urea Nitrogen 18 mg/dL (9-23); Calcium 9.6 mg/dL (8.7-10.4); Carbon Dioxide 28 mmol/L (20-31); Chloride 105 mmol/L (98-107); Magnesium 1.7 mg/dL (1.6-2.6); Sodium 143 mmol/L (136-145)
[2024-08-23] MEDS: LACTULOSE 20Gm/30ML SOLN PO ONE (06:06)
[2024-08-23] MEDS: HYDROcodone-ACET 5/325MG TAB PO ONE (06:15)
[2024-08-23 06:18] LABS: Alanine Aminotransferase 49 U/L (7-40); Glucose 171 mg/dL (74-106); Potassium 3.3 mmol/L (3.5-5.1)
[2024-08-23] MEDS: IPRATROPIUM BROM 0.5 MG/2.5ML INH SOL NEB ONE (06:43)
[2024-08-23] MEDS: ALBUTEROL SULF 2.5 MG/0.5ML(0.5%) NEB SOLN NEB ONE (06:43)
[2024-08-23 06:51] LABS: LDL Cholesterol 97 mg/dL (< 100); Triglycerides 67 mg/dL (< 150)
[2024-08-23] MEDS: methylPREDNISolone SOD SUCC 40 MG/ML VL IV ONE (06:52)
[2024-08-23 06:53] LABS: Bilirubin, Direct 0.2 mg/dL (<0.3); Cholesterol 178 mg/dL (< 200)
[2024-08-23 06:55] LABS: HDL Cholesterol 66 mg/dL (40-59)
[2024-08-23 07:20] LABS: INR 1.17 (0.9-1.15); Prothrombin Time 12.3 sec (9.3-11.8)
[2024-08-23] MEDS: DOXYCYCLINE 100MG/250ML 250 ML IV SCH (08:21)
[2024-08-23 08:25] LABS: Phosphorus 4.6 mg/dL (2.4-5.1)
--- NOTE | 2024-08-23 09:24 | DVH ---
BILATERAL LOWER EXTREMITY VENOUS DOPPLER CLINICAL HISTORY: Bilateral leg edema, shortness of breath Technique: Duplex Doppler evaluation of the deep venous systems of both lower extremities from the co mmon femoral veins to the popliteal veins including color Doppler and spectral/pulsed waveform analys is was performed. COMPARISON: US BILAT LOWER DVT on DOS: 02/09/23 FINDINGS: The right and left common femoral, superficial femoral, popliteal, posterior tibial veins appear pa tent with normal augmentation, phasicity, compressibility and color-flow. IMPRESSION: 1. There is no sonographic evidence for DVT in the lower extremities. HS:Y
[2024-08-23] MEDS ORDERED: CARVEDILOL 12.5 MG TAB PO SCH (10:00)
[2024-08-23] MEDS ORDERED: METOPROLOL TARTRATE 25 MG TAB PO SCH (10:00)
[2024-08-23] MEDS ORDERED: PANTOPRAZOLE 40 MG/10 ML VIAL INJ IV SCH (10:00)
[2024-08-23] MEDS: COLCHICINE 0.6 MG CAP PO SCH (10:01)
[2024-08-23] MEDS: EMPAGLIFLOZIN 10 MG TAB PO SCH (10:02)
[2024-08-23] MEDS: SACUBITRIL-VALSARTAN 24mg/26mg TAB PO SCH (10:03)
[2024-08-23] MEDS: ACETAMINOPHEN 325 MG TAB PO PRN (10:03)
--- NOTE | 2024-08-23 10:32 | ECG ---
[facility] Test Date: 2024-08-22 Test Time: 20:41:40 Pat Name: GABE DIETZ Department: ER Room: [address] [place] [address] Gender: F Product Consultant: GREGG : 1960 Requested By: MEAGHAN BIANCHI Order Number: [id number] Reading MD: Keaton Vigil Measurements Intervals [place] Rate: 94 P: 87 PA: 228 QRS: -55 QRSD: 114 T: 123 QT: 401 QTc: 502 Interpretive Statements Sinus rhythm Prolonged PA interval Probable left atrial enlargement Abnormal R-wave progression, late transition LVH with IVCD, LAD and secondary repol abnrm Prolonged QT interval Baseline wander in lead(s) II Electronically Signed On 08-23-2024 16:25:24 PST by Keaton Vigil Please click the below link to view image of tracing.
[2024-08-23] MEDS: FUROSEMIDE 40 MG/4 ML VIAL IV SCH (10:40)
[2024-08-23] MEDS: cefTRIAXone 1GM/50ML D5W 50 ML IV SCH (11:04)
[2024-08-23] MEDS ORDERED: POTASSIUM CHL 20MEQ/100ML 100 ML IV SCH (11:15)
[2024-08-23] MEDS: HYDROcodone-ACET 10/325MG TAB PO PRN (14:14)
--- NOTE | 2024-08-23 16:10 | DVHPNRES ---
Progress Note Date Seen: Aug 23, 2024 Resident Creating Document: DEMIAN BASURTO RESIDENT Has the PT tested + for MRSA If YES, has PT been informed?: No Medical Necessity Reason Pt with a Central, PICC or Fol: No Subjective Review of Systems 64 years old female with past medical history of HFrEF, LVEF 15%, COPD oxygen 2 liter/minute, hypertension, hyperlipidemia, atrial fibrillation, CKD, gout, ICD in place came with a complaint of left upper abdomen and chest pain. Patient reported having pain in the left upper abdomen especially underneath the left face and on the chest started early in the morning which lasted for 3 hours then subsided. Pain restarted around 4:00 p.m. which was pressure-like, 9/10, radiating to the back, no aggravating or relieving factor. Patient also endorse chest pain, central, sharp, 9-10/10, increase with respiration/movement. Patient reports that he has been having worsening short of breath for last 1 week can walk only few steps before getting short of breath. On further discussion patient also reported bilateral leg swelling for last 3 days and feeling dizzy when she tried to get up from sitting position. Patient also endorsed PND and orthopnea. On further discussion patient also reports that she has been having cough for last couple of days with likely yellowish green sputum. Patient endorsed feeling feverish but could not take the temperature at home. On further sepsis patient also reported having nausea and vomiting 3 times with orange-colored fluid, no blood and also feeling palpitation always. Patient was recently admitted at [facility] 1 week before for shortness of breath with cough and with a diagnosis of pneumonia. Patient denied any dysuria, , acute rash, dysarthria or change in vision. Initial lab workup revealed elevated BNP 2444, leukopenia with a WBC 3.7, mild hypokalemia 3.3, serum creatinine 1.09, GFR 50 9, elevated ALT 45, negative> for troponin I 25 25, lipase 26. Chest x-ray revealed Mild interstitial pulmonary edema in the setting of cardiomegaly. Questionable trace left effusion. Left-sided pacemaker/ AICD with [address] abdomen revealed-Cardiac and Pleural Findings: Moderate cardiomegaly with pacemaker wires in the right atrium and ventricles. Minimal pericardial effusion. Mild bilateral pleural effusion with adjacent lung atelectasis. Liver and Hepatobiliary System:Mild hepatomegaly with heterogeneous coarse attenuation and widening of the interlobar fissures, suggesting liver parenchymal disease. Minimal perihepatic free fluid. Post cholecystectomy status. Uterus and Hernias: Diffusely enlarged uterus with multiple fibroids, largest measuring 3.9 x 4.9 cm in the right parametrium. Omental fat-containing supraumbilical hernia (2.4 x 1.9 cm) and a smaller umbilical hernia (10 x 10 mm). Scattered diverticulosis in the descending colon without evidence of diverticulitis. Moderate fecal retention consistent with constipation. Diffuse atherosclerotic calcification of the abdominal aorta, visceral arteries, infrarenal aorta, and common iliac arteries Degenerative changes in the sacroiliac joints, superolateral hip joints, and lumbar spine. L4-L5: Vacuum disc phenomenon with disc bulge and moderate to severe neural foraminal narrowing. L5-S1: Mild disc bulge with moderate narrowing of bilateral neural foramina. Echocardiogram on 10/24/2023 revealed-significantly dilated left ventricle and severe global hypokinesia. Left ventricular ejection fraction 15%. Moderately dilated left atrium. Moderate degree mitral valve regurgitation. Home medications- Glipizide, magnesium oxide, allopurinol, colchicine, metoprolol, pantoprazole, sucralfate, Reglan, albuterol, atorvastatin, Lasix, Coreg Past Medical History HFrEF, LVEF 15%, COPD oxygen 2 liter/minute, hypertension, hyperlipidemia, atrial fibrillation, CKD, gout, ICD in place Past Surgical History Right ovarian removal, kidney stone laser crush Family History Uterine cancer, throat cancer Past Social History Patient did not smoking/alcoholism/drug abuse, lives home Objective vital signs Vital Sign Date Time Temp Pulse Resp B/P (MAP) Pulse Ox O2 Delivery O2 Flow Rate FiO2 08/23/24 13:10 91 18 119/76 08/23/24 12:42 97.5 96 97.5 08/23/24 08:31 Nasal Cannula* 2 28 Total Intake and Output 08/22/24 08/22/24 08/23/24 15:00 23:00 07:00 Intake Total 400 ml Balance 400 ml medications Current Medications Medications Dose Ordered Sig/Della Route Start Time Stop Time Status Last Admin Dose Admin Ondansetron HCl 4 mg ONCE PRN IV 08/22/24 21:15 Sodium Chloride 10 ml Q8HR IV 08/23/24 06:00 08/23/24 14:14 10 ML Docusate Sodium 100 mg BIDPRN PRN PO 08/22/24 23:00 Acetaminophen 650 mg Q6HP PRN PO 08/22/24 23:00 08/23/24 10:03 650 MG Morphine Sulfate 2 mg Q4HPRN PRN IV 08/22/24 23:00 08/23/24 10:40 2 MG Nitroglycerin 0.4 mg Q5MINP PRN SL 08/22/24 23:00 Morphine Sulfate 2 mg Q30M PRN IV 08/22/24 23:00 Atorvastatin Calcium 20 mg HS PO 08/23/24 22:00 Gabapentin 300 mg TID PO 08/23/24 06:00 08/23/24 14:14 300 MG Sacubitril/ Valsartan 1 tab BID PO 08/23/24 10:00 08/23/24 10:03 1 TAB Sucralfate 1 gm QID PO 08/23/24 06:00 08/23/24 12:00 1 GM Empaglifozin 10 mg DAILY PO 08/23/24 10:00 08/23/24 10:02 10 MG Albuterol 2.5 mg Q6HPRN PRN NEB 08/23/24 00:30 Ipratropium [place] 0.5 mg Q6HPRN PRN NEB 08/23/24 00:30 Lactulose 30 ml BIDPRN PRN PO 08/23/24 00:30 Carvedilol 25 mg BID PO 08/23/24 10:00 Hold Albuterol 90 mcg Q4HR PRN IN 08/23/24 01:00 Hold Furosemide 40 mg DAILY IV 08/23/24 10:00 08/23/24 10:40 40 MG Colchicine 0.6 mg Q12HR PO 08/23/24 10:00 08/23/24 10:01 0.6 MG Ibuprofen 600 mg TID PO 08/23/24 06:00 Pantoprazole Sodium 40 mg DAILY@0600 PO 08/23/24 06:00 08/23/24 05:30 40 MG Methylprednisolone Sodium Succinate 40 mg BID IV 08/23/24 22:00 Doxycycline Hyclate 250 ml @ 125 mls/hr Q12H IV 08/23/24 08:00 08/23/24 08:21 125 MLS/HR Enoxaparin Sodium 80 mg Q12HR SC 08/23/24 22:00 Hold Potassium Chloride 100 ml @ 50 mls/hr Q2H IV 08/23/24 11:15 08/23/24 17:14 UNV Acetaminophen/ Hydrocodone Bitart 1 tab Q8HP PRN PO 08/23/24 14:15 08/23/24 14:14 1 TAB Cefepime HCl 50 ml @ 12.5 mls/hr Q12HR IV 08/23/24 22:00 Examination General examination- patient on NC O2 2 liter/minute, awake, alert, oriented, conversant HEENT- PEERLA, no acute nasal discharge Cardiovascular- S1-S2 audible, rate and rhythm regular, no murmur Respiratory- crackles on the left lower lung posey+, Wheezing ++ Gastrointestinal-nontender, bowel sound+. Nondistended Musculoskeletal-no acute joint swelling or tenderness or redness# Lower extremity- bilateral leg edema++ Neurological- cranial nerves intact, no acute dysarthria or dysphagia Psychiatry- denies depression or SI or HI Skin- fragile skin laboratory and microbiology Laboratory Tests 08/23/24 05:12 Test 08/23/24 05:12 Range/Units Serum Glucose 171 H 74-106 mg/dL Problem List/Assessment/Plan Problem List/Assessment/Plan # Pneumonia Gram-positive versus Gram-negative #Acute chest pain likely due to pneumonia/musculoskeletal/costochondritis # pericarditis? #ACS ruled out # acute upper abdominal pain likely due to gastritis/pancreatitis # acute on chronic hypoxic respiratory failure likely due to pneumonia/acute on chronic HFrEF/acute exacerbation of COPD # hypokalemia # atrial fibrillation, # s/p ICD # hypertension # diabetes mellitus type 2 # hyperlipidemia # gout # transaminitis Images: -CXR- Mild interstitial pulmonary edema in the setting of cardiomegaly.Questionable trace left effusion. -CT abdomen revealed-Cardiac and Pleural Findings:Moderate cardiomegaly with pacemaker wires in the right atrium and ventricles. Minimal pericardial effusion. Mild bilateral pleural effusion with adjacent lung atelectasis. -patient with cough with a greenish yellow sputum production -Echocardiogram on 10/24/2023 revealed-significantly dilated left ventricle and severe global hypokinesia. Left ventricular ejection fraction 15%. Moderately dilated left atrium. Moderate degree mitral valve regurgitation. Pending new ECHO: to define size of pericardial effusion Treatment Oxygen 2 L Doxycycline IV Cefepime IV Morphine IV Tylenol PO colchicine Entresto 50 mg Methylprednisone 40 MG IV Carvedilol 50 mg BID Empagliflozin 10 mg PO Enoxaparin 80 mg BID Patient chest pain and abdominal pain most likely is due to current pneumonia, antibiotics were upgraded, Dr Moreira didnt consider cardiac nature of chest pain, troponins were negative and the pain is pleuritic on nature, no pericardial rub, pain is getting worse when she leans forward,less likely pericarditis. Case discussed with Dr Agudelo and Dr Moreira Time spent on care 23 min Full code Plan discussed with: Patient, Other (rn) My Orders My Orders Orders - DEMIAN BASURTO RESIDENT Procedure Category Date Status Time Potassium Chl PHA 08/23/24 Pending 20meq/100ml 11:15 Hydrocodone-Acet PHA 08/23/24 In Process 10/325mg Tab ([place] 14:15 Covid19 Antigen [facility] LAB 08/23/24 Logged Rapid Influenza A&B LAB 08/23/24 Logged 15:46 Respiratory Culture EVELINE 08/23/24 Logged W/ Gs 15:46 Cefepime 1gm/ 50ml PHA 08/23/24 In Process (Maxipime 1gm/50ml) 22:00 Potassium LAB 08/23/24 Logged 16:06 Enoxaparin Sodium PHA 08/23/24 In Process (Lovenox) 22:00 Date of Service: Aug 23, 2024 Billing Provider: JAGDEEP AGUDELO MD Common Visit Codes: 49286-[id number] INP/OBS CARE(HIGH) Secondary Visit Codes: 33863-[id number] CARE PLAN 30 MINUTES DEMIAN BASURTO RESIDENT Aug 23, 2024 16:10 JAGDEEP AGUDELO MD Aug 26, 2024 20:07
--- NOTE | 2024-08-23 17:30 | DVHPN2 ---
Progress Note - Dictate Date Seen: Aug 23, 2024 Medical Necessity Reason Pt with a Central, PICC or Fol: No Subjective Patient was seen and evaluated in follow up. Patient is complaining of chest pain. CT ABD PEL shows moderate cardiomegaly with pacemaker wires in the right atrium and ventricles. Minimal pericardial effusion. Mild bilateral pleural effusion with adjacent lung atelectasis.Mild hepatomegaly with heterogeneous coarse attenuation and widening of the interlobar fissures, suggesting liver parenchymal disease. Minimal perihepatic free fluid. Post cholecystectomy status.Diffusely enlarged uterus with multiple fibroids, largest measuring 3.9 x 4.9 cm in the right parametrium. Omental fat-containing supraumbilical hernia (2.4 x 1.9 cm) and a smaller umbilical hernia (10 x 10 mm). Scattered diverticulosis in the descending colon without evidence of diverticulitis. Moderate fecal retention consistent with constipation.Diffuse atherosclerotic calcification of the abdominal aorta, visceral arteries, infrarenal aorta, and common iliac arteries.Degenerative changes in the sacroiliac joints, superolateral hip joints, and lumbar spine.L4-L5: Vacuum disc phenomenon with disc bulge and moderate to severe neural foraminal narrowing.L5-S1: Mild disc bulge with moderate narrowing of bilateral neural foramina. BLE Venous Doppler is negative for DVT. K 3.3, PORTAL ARCHITECT 1.17, HDL 66. vital signs Vital Sign Date Time Temp Pulse Resp B/P (MAP) Pulse Ox O2 Delivery O2 Flow Rate FiO2 08/23/24 13:10 91 18 119/76 08/23/24 12:42 97.5 96 97.5 08/23/24 08:31 Nasal Cannula* 2 28 Total Intake and Output 08/22/24 08/22/24 08/23/24 15:00 23:00 07:00 Intake Total 400 ml Balance 400 ml medications Current Medications Medications Dose Ordered Sig/Della Route Start Time Stop Time Status Last Admin Dose Admin Ondansetron HCl 4 mg ONCE PRN IV 08/22/24 21:15 Sodium Chloride 10 ml Q8HR IV 08/23/24 06:00 08/23/24 05:30 10 ML Docusate Sodium 100 mg BIDPRN PRN PO 08/22/24 23:00 Acetaminophen 650 mg Q6HP PRN PO 08/22/24 23:00 08/23/24 10:03 650 MG Morphine Sulfate 2 mg Q4HPRN PRN IV 08/22/24 23:00 08/23/24 10:40 2 MG Nitroglycerin 0.4 mg Q5MINP PRN SL 08/22/24 23:00 Morphine Sulfate 2 mg Q30M PRN IV 08/22/24 23:00 Atorvastatin Calcium 20 mg HS PO 08/23/24 22:00 Gabapentin 300 mg TID PO 08/23/24 06:00 08/23/24 05:30 300 MG Sacubitril/ Valsartan 1 tab BID PO 08/23/24 10:00 08/23/24 10:03 1 TAB Sucralfate 1 gm QID PO 08/23/24 06:00 08/23/24 12:00 1 GM Empaglifozin 10 mg DAILY PO 08/23/24 10:00 08/23/24 10:02 10 MG Ceftriaxone Sodium 50 ml @ 100 mls/hr DAILY@09 IV 08/23/24 09:00 08/23/24 11:04 100 MLS/HR Albuterol 2.5 mg Q6HPRN PRN NEB 08/23/24 00:30 Ipratropium Peyton 0.5 mg Q6HPRN PRN NEB 08/23/24 00:30 Lactulose 30 ml BIDPRN PRN PO 08/23/24 00:30 Carvedilol 25 mg BID PO 08/23/24 10:00 Hold Albuterol 90 mcg Q4HR PRN IN 08/23/24 01:00 Hold Furosemide 40 mg DAILY IV 08/23/24 10:00 08/23/24 10:40 40 MG Colchicine 0.6 mg Q12HR PO 08/23/24 10:00 08/23/24 10:01 0.6 MG Ibuprofen 600 mg TID PO 08/23/24 06:00 Pantoprazole Sodium 40 mg DAILY@0600 PO 08/23/24 06:00 08/23/24 05:30 40 MG Methylprednisolone Sodium Succinate 40 mg BID IV 08/23/24 22:00 Doxycycline Hyclate 250 ml @ 125 mls/hr Q12H IV 08/23/24 08:00 08/23/24 08:21 125 MLS/HR Enoxaparin Sodium 80 mg Q12HR SC 08/23/24 10:00 UNV Potassium Chloride 100 ml @ 50 mls/hr Q2H IV 08/23/24 11:15 08/23/24 17:14 UNV objective GENERAL: Awake, alert, oriented. LUNGS: Decreased breath sounds. CARDIOVASCULAR: Heart sounds are good. ABDOMEN: Soft. EXT: BLE edema. laboratory and microbiology Laboratory Tests 08/23/24 05:12 Test 08/23/24 05:12 Range/Units Serum Glucose 171 H 74-106 mg/dL Problem List Chest pain. Acute upper abdominal pain. Acute on chronic hypoxic respiratory failure. Acute on chronic HFrEF. Pneumonia. Bilateral leg edema. Hypokalemia. Atrial fibrillation. ICD in place. Hypertension. Diabetes mellitus type 2 Hyperlipidemia. GOUT. Transaminitis. Assessment/Plan Continued all current supportive medical care. Echocardiogram. Lipitor. IV antibiotics as ordered. Coreg. DVT prophylactics. Morphine for pain management. Entresto. Additional plan as per the hospital course. Plan discussed with: Patient SAMANTHA PEARSON MD Aug 23, 2024 13:40
[2024-08-23] MEDS ORDERED: ENOXAPARIN SOD 80 MG/0.8ML SYRINGE SC SCH (22:00)
[2024-08-24] VITALS (14 sets, daily range): BP systolic 109–134; BP diastolic 64–77; PULSE 78–89; RESP 18–22; TEMP 97.4–97.9; O2SAT 92–100
[2024-08-24] MEDS: ATORVASTATIN 20 MG TAB PO SCH (00:05)
[2024-08-24] MEDS: methylPREDNISolone SOD SUCC 40 MG/ML VL IV SCH (00:08)
[2024-08-24] MEDS: CEFEPIME 1GM/ 50ML 50 ML IV SCH (00:08)
[2024-08-24] MEDS: ENOXAPARIN SOD 80 MG/0.8ML SYRINGE SC SCH (00:08)
[2024-08-24] MEDS: ONDANSETRON HCL 4 MG/2 ML VIAL IV PRN (00:36)
[2024-08-24] MEDS: ALBUTEROL SULF 2.5 MG/0.5ML(0.5%) NEB SOLN NEB PRN ×2 (00:45→14:36)
[2024-08-24] MEDS: IPRATROPIUM BROM 0.5 MG/2.5ML INH SOL NEB PRN ×2 (00:45→14:36)
[2024-08-24 02:19] LABS: COVID19 ANTIGEN SOFIA FIA NEGATIVE (NEGATIVE)
[2024-08-24 07:22] LABS: Basophils # (auto) 0 10 ^3/uL (0-0.2); Basophils % (auto) 0.4 % (0.0-2.0); Eosinophils # (auto) 0 10 ^3/uL (0-0.8); Eosinophils % (auto) 0.3 % (0.0-7.0); Hematocrit 38.8 % (36.0-46.0); Lymphocytes # (auto) 0.4 10 ^3/uL (0.4-5.4); Lymphocytes % (auto) 9.9 % (10.0-50.0); Mean Corpuscular Hemoglobin 30.2 pg (28.0-32.0); Mean Corpuscular Hgb Conc. 33.5 g/dL (32.0-36.0); Mean Corpuscular Volume 90.4 fL (80.0-100.0); Monocytes # (auto) 0.1 10 ^3/uL (0-1.3); Monocytes % (auto) 3.1 % (0.0-12.0); Neutrophils # (auto) 3.8 10 ^3/uL (1.6-8.6); Neutrophils % (auto) 86.3 % (37.0-80.0); Nucleated Red Blood Cells % 0.1 %; Platelet Count (auto) 179 10^3/uL (140-450); Red Blood Cells 4.29 10^6/uL (4.0-5.20); Red Cell Distribution Width 16.2 % (11.8-14.3); White Blood Cell 4.5 10^3/uL (4.4-10.8)
[2024-08-24 07:55] LABS: Albumin 3.5 g/dL (3.2-4.8); Alkaline Phosphatase 65 U/L (46-116); Anion Gap 7 (5-15); Aspartate Aminotransferase 23 U/L (13-40); BUN/Creatinine Ratio 17.9 (10.0-20.0); Blood Urea Nitrogen 19 mg/dL (9-23); Calcium 9.8 mg/dL (8.7-10.4); Carbon Dioxide 31 mmol/L (20-31); Chloride 104 mmol/L (98-107); Potassium 4.2 mmol/L (3.5-5.1); Sodium 142 mmol/L (136-145)
[2024-08-24 07:56] LABS: Bilirubin, Total 0.5 mg/dL (0.2-1.0); Phosphorus 4.5 mg/dL (2.4-5.1)
[2024-08-24 08:03] LABS: Alanine Aminotransferase 44 U/L (7-40); Glucose 179 mg/dL (74-106); Total Protein 5.6 g/dL (5.7-8.2)
[2024-08-24] MEDS ORDERED: ENOXAPARIN SOD 80 MG/0.8ML SYRINGE SC SCH (10:00)
[2024-08-24] MEDS ORDERED: AZITHROMYCIN 500MG/ 250ML 250 ML IV SCH (10:00)
[2024-08-24] MEDS ORDERED: ENOXAPARIN SOD 40 MG/0.4 ML SYRINGE SC SCH (10:00)
--- NOTE | 2024-08-24 11:05 | DVHPNRES ---
Progress Note Date Seen: Aug 24, 2024 Resident Creating Document: DEMIAN BASURTO RESIDENT Has the PT tested + for MRSA If YES, has PT been informed?: No Medical Necessity Reason Pt with a Central, PICC or Fol: No Subjective Review of Systems 64 years old female with past medical history of HFrEF, LVEF 15%, COPD oxygen 2 liter/minute, hypertension, hyperlipidemia, atrial fibrillation, CKD, gout, ICD in place came with a complaint of left upper abdomen and chest pain. Patient reported having pain in the left upper abdomen especially underneath the left face and on the chest started early in the morning which lasted for 3 hours then subsided. Pain restarted around 4:00 p.m. which was pressure-like, 9/10, radiating to the back, no aggravating or relieving factor. Patient also endorse chest pain, central, sharp, 9-10/10, increase with respiration/movement. Patient reports that he has been having worsening short of breath for last 1 week can walk only few steps before getting short of breath. On further discussion patient also reported bilateral leg swelling for last 3 days and feeling dizzy when she tried to get up from sitting position. Patient also endorsed PND and orthopnea. On further discussion patient also reports that she has been having cough for last couple of days with likely yellowish green sputum. Patient endorsed feeling feverish but could not take the temperature at home. On further sepsis patient also reported having nausea and vomiting 3 times with orange-colored fluid, no blood and also feeling palpitation always. Patient was recently admitted at [facility] 1 week before for shortness of breath with cough and with a diagnosis of pneumonia. Patient denied any dysuria, , acute rash, dysarthria or change in vision. Initial lab workup revealed elevated BNP 2444, leukopenia with a WBC 3.7, mild hypokalemia 3.3, serum creatinine 1.09, GFR 50 9, elevated ALT 45, negative> for troponin I 25 25, lipase 26. Chest x-ray revealed Mild interstitial pulmonary edema in the setting of cardiomegaly. Questionable trace left effusion. Left-sided pacemaker/ AICD with [address] abdomen revealed-Cardiac and Pleural Findings: Moderate cardiomegaly with pacemaker wires in the right atrium and ventricles. Minimal pericardial effusion. Mild bilateral pleural effusion with adjacent lung atelectasis. Liver and Hepatobiliary System:Mild hepatomegaly with heterogeneous coarse attenuation and widening of the interlobar fissures, suggesting liver parenchymal disease. Minimal perihepatic free fluid. Post cholecystectomy status. Uterus and Hernias: Diffusely enlarged uterus with multiple fibroids, largest measuring 3.9 x 4.9 cm in the right parametrium. Omental fat-containing supraumbilical hernia (2.4 x 1.9 cm) and a smaller umbilical hernia (10 x 10 mm). Scattered diverticulosis in the descending colon without evidence of diverticulitis. Moderate fecal retention consistent with constipation. Diffuse atherosclerotic calcification of the abdominal aorta, visceral arteries, infrarenal aorta, and common iliac arteries Degenerative changes in the sacroiliac joints, superolateral hip joints, and lumbar spine. L4-L5: Vacuum disc phenomenon with disc bulge and moderate to severe neural foraminal narrowing. L5-S1: Mild disc bulge with moderate narrowing of bilateral neural foramina. Echocardiogram on 10/24/2023 revealed-significantly dilated left ventricle and severe global hypokinesia. Left ventricular ejection fraction 15%. Moderately dilated left atrium. Moderate degree mitral valve regurgitation. Home medications- Glipizide, magnesium oxide, allopurinol, colchicine, metoprolol, pantoprazole, sucralfate, Reglan, albuterol, atorvastatin, Lasix, Coreg Past Medical History HFrEF, LVEF 15%, COPD oxygen 2 liter/minute, hypertension, hyperlipidemia, atrial fibrillation, CKD, gout, ICD in place Past Surgical History Right ovarian removal, kidney stone laser crush Family History Uterine cancer, throat cancer Past Social History Patient did not smoking/alcoholism/drug abuse, lives home Objective vital signs Vital Sign Date Time Temp Pulse Resp B/P (MAP) Pulse Ox O2 Delivery O2 Flow Rate FiO2 08/24/24 08:38 97.6 83 18 117/64 (81) 97 97.6 08/24/24 01:08 Nasal Cannula* 2 28 Total Intake and Output 08/23/24 08/23/24 08/24/24 15:00 23:00 07:00 Intake Total 300 ml 350 ml Balance 300 ml 350 ml medications Current Medications Medications Dose Ordered Sig/Della Route Start Time Stop Time Status Last Admin Dose Admin Ondansetron HCl 4 mg ONCE PRN IV 08/22/24 21:15 08/24/24 00:36 4 MG Sodium Chloride 10 ml Q8HR IV 08/23/24 06:00 08/24/24 05:53 10 ML Docusate Sodium 100 mg BIDPRN PRN PO 08/22/24 23:00 Acetaminophen 650 mg Q6HP PRN PO 08/22/24 23:00 08/24/24 06:12 650 MG Morphine Sulfate 2 mg Q4HPRN PRN IV 08/22/24 23:00 08/24/24 06:19 2 MG Nitroglycerin 0.4 mg Q5MINP PRN SL 08/22/24 23:00 Morphine Sulfate 2 mg Q30M PRN IV 08/22/24 23:00 Atorvastatin Calcium 20 mg HS PO 08/23/24 22:00 08/24/24 00:05 20 MG Gabapentin 300 mg TID PO 08/23/24 06:00 08/24/24 05:53 300 MG Sacubitril/ Valsartan 1 tab BID PO 08/23/24 10:00 08/24/24 00:06 1 TAB Sucralfate 1 gm QID PO 08/23/24 06:00 08/24/24 05:53 1 GM Empaglifozin 10 mg DAILY PO 08/23/24 10:00 08/23/24 10:02 10 MG Albuterol 2.5 mg Q6HPRN PRN NEB 08/23/24 00:30 08/24/24 00:45 2.5 MG Ipratropium Osteen 0.5 mg Q6HPRN PRN NEB 08/23/24 00:30 08/24/24 00:45 0.5 MG Lactulose 30 ml BIDPRN PRN PO 08/23/24 00:30 Carvedilol 25 mg BID PO 08/23/24 10:00 Albuterol 90 mcg Q4HR PRN IN 08/23/24 01:00 Hold Furosemide 40 mg DAILY IV 08/23/24 10:00 08/23/24 10:40 40 MG Ibuprofen 600 mg TID PO 08/23/24 06:00 Pantoprazole Sodium 40 mg DAILY@0600 PO 08/23/24 06:00 08/24/24 05:53 40 MG Methylprednisolone Sodium Succinate 40 mg BID IV 08/23/24 22:00 08/24/24 00:08 40 MG Doxycycline Hyclate 250 ml @ 125 mls/hr Q12H IV 08/23/24 08:00 08/23/24 21:11 125 MLS/HR Acetaminophen/ Hydrocodone Bitart 1 tab Q8HP PRN PO 08/23/24 14:15 08/24/24 00:07 1 TAB Cefepime HCl 50 ml @ 12.5 mls/hr Q12HR IV 08/23/24 22:00 08/24/24 00:08 12.5 MLS/HR Enoxaparin Sodium 80 mg BID SC 08/23/24 22:00 08/24/24 00:08 80 MG Examination General examination- patient on NC O2 2 liter/minute, awake, alert, oriented, conversant HEENT- PEERLA, no acute nasal discharge Cardiovascular- S1-S2 audible, rate and rhythm regular, no murmur Respiratory- crackles on the left lower lung posey+ Gastrointestinal-nontender, bowel sound+. Nondistended Musculoskeletal-no acute joint swelling or tenderness or redness# Lower extremity- bilateral leg edema++ Neurological- cranial nerves intact, no acute dysarthria or dysphagia Psychiatry- denies depression or SI or HI Skin- fragile skin laboratory and laboratory and microbiology Laboratory Tests 08/24/24 06:16 Test 08/24/24 06:16 Range/Units Serum Glucose 179 H 74-106 mg/dL Problem List/Assessment/Plan Problem List/Assessment/Plan # Pneumonia Gram-positive versus Gram-negative #Acute chest pain likely due to pneumonia/musculoskeletal/costochondritis # pericarditis? #ACS ruled out # acute upper abdominal pain likely due to gastritis/pancreatitis # acute on chronic hypoxic respiratory failure likely due to pneumonia/acute on chronic HFrEF/acute exacerbation of COPD # hypokalemia # atrial fibrillation, # s/p ICD # hypertension # diabetes mellitus type 2 # hyperlipidemia # gout # transaminitis Images: -CXR- Mild interstitial pulmonary edema in the setting of cardiomegaly.Questionable trace left effusion. -CT abdomen revealed-Cardiac and Pleural Findings:Moderate cardiomegaly with pacemaker wires in the right atrium and ventricles. Minimal pericardial effusion. Mild bilateral pleural effusion with adjacent lung atelectasis. -patient with cough with a greenish yellow sputum production -Echocardiogram on 10/24/2023 revealed-significantly dilated left ventricle and severe global hypokinesia. Left ventricular ejection fraction 15%. Moderately dilated left atrium. Moderate degree mitral valve regurgitation. Pending new ECHO: to define size of pericardial effusion Treatment Oxygen 2 L Doxycycline IV Cefepime IV Morphine IV Tylenol PO colchicine Entresto 50 mg Methylprednisone 40 MG IV Carvedilol 50 mg BID Empagliflozin 10 mg PO Enoxaparin 80 mg BID Patient chest pain and abdominal pain most likely is due to current pneumonia, antibiotics were upgraded, Dr Moreira didnt consider cardiac nature of chest pain, troponins were negative and the pain is pleuritic on nature, no pericardial rub, pain is getting worse when she leans forward,less likely pericarditis. Case discussed with Dr Agudelo and Dr Moreira Time spent on care 23 min Full code Plan discussed with: Patient, Other (rn) My Orders My Orders Orders - DEMIAN BASURTO Procedure Category Date Status Time Hydrocodone-Acet PHA 08/23/24 In Process 10/325mg Tab (Rush 14:15 Rapid Influenza A&B LAB 08/23/24 Logged 15:46 Respiratory Culture EVELINE 08/23/24 Logged W/ Gs 15:46 Cefepime 1gm/ 50ml PHA 08/23/24 In Process (Maxipime 1gm/50ml) 22:00 Enoxaparin Sodium PHA 08/23/24 In Process (Lovenox) 22:00 Date of Service: Aug 24, 2024 Billing Provider: JAGDEEP AGUDELO MD Common Visit Codes: [id number] INP/OBS CARE(HIGH) DEMIAN BASURTO Aug 24, 2024 11:05 JAGDEEP AGUDELO MD Aug 26, 2024 20:08
[2024-08-24] MEDS: CARVEDILOL 12.5 MG TAB PO SCH (12:05)
[2024-08-24] MEDS ORDERED: DEXTROSE (50%) 50ML SYRG IV PRN (13:45)
--- NOTE | 2024-08-24 14:13 | DVHPN2 ---
Progress Note - Dictate Date Seen: Aug 24, 2024 Has the PT tested + for MRSA If YES, has PT been informed?: No Medical Necessity Reason Pt with a Central, PICC or Fol: No Subjective Patient was seen and evaluated in follow up. Patient is complaining of chest pain. 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 COVID returned negative. Echocardiogram is ordered and pending. vital signs Vital Sign Date Time Temp Pulse Resp B/P (MAP) Pulse Ox O2 Delivery O2 Flow Rate FiO2 08/24/24 12:07 117/64 08/24/24 12:05 83 08/24/24 08:38 97.6 18 97 97.6 08/24/24 01:08 Nasal Cannula* 2 28 Total Intake and Output 08/23/24 08/23/24 08/24/24 15:00 23:00 07:00 Intake Total 300 ml 350 ml Balance 300 ml 350 ml medications Current Medications Medications Dose Ordered Sig/Della Route Start Time Stop Time Status Last Admin Dose Admin Ondansetron HCl 4 mg ONCE PRN IV 08/22/24 21:15 08/24/24 00:36 4 MG Sodium Chloride 10 ml Q8HR IV 08/23/24 06:00 08/24/24 05:53 10 ML Docusate Sodium 100 mg BIDPRN PRN PO 08/22/24 23:00 Acetaminophen 650 mg Q6HP PRN PO 08/22/24 23:00 08/24/24 06:12 650 MG Morphine Sulfate 2 mg Q4HPRN PRN IV 08/22/24 23:00 08/24/24 06:19 2 MG Nitroglycerin 0.4 mg Q5MINP PRN SL 08/22/24 23:00 Morphine Sulfate 2 mg Q30M PRN IV 08/22/24 23:00 Atorvastatin Calcium 20 mg HS PO 08/23/24 22:00 08/24/24 00:05 20 MG Gabapentin 300 mg TID PO 08/23/24 06:00 08/24/24 05:53 300 MG Sacubitril/ Valsartan 1 tab BID PO 08/23/24 10:00 08/24/24 12:05 1 TAB Sucralfate 1 gm QID PO 08/23/24 06:00 08/24/24 12:05 1 GM Empaglifozin 10 mg DAILY PO 08/23/24 10:00 08/24/24 12:07 10 MG Albuterol 2.5 mg Q6HPRN PRN NEB 08/23/24 00:30 08/24/24 00:45 2.5 MG Ipratropium [place] 0.5 mg Q6HPRN PRN NEB 08/23/24 00:30 08/24/24 00:45 0.5 MG Lactulose 30 ml BIDPRN PRN PO 08/23/24 00:30 Carvedilol 25 mg BID PO 08/23/24 10:00 08/24/24 12:05 25 MG Albuterol 90 mcg Q4HR PRN IN 08/23/24 01:00 Hold Furosemide 40 mg DAILY IV 08/23/24 10:00 08/24/24 12:07 40 MG Ibuprofen 600 mg TID PO 08/23/24 06:00 Pantoprazole Sodium 40 mg DAILY@0600 PO 08/23/24 06:00 08/24/24 05:53 40 MG Methylprednisolone Sodium Succinate 40 mg BID IV 08/23/24 22:00 08/24/24 12:08 40 MG Doxycycline Hyclate 250 ml @ 125 mls/hr Q12H IV 08/23/24 08:00 08/24/24 12:09 125 MLS/HR Acetaminophen/ Hydrocodone Bitart 1 tab Q8HP PRN PO 08/23/24 14:15 08/24/24 12:04 1 TAB Cefepime HCl 50 ml @ 12.5 mls/hr Q12HR IV 08/23/24 22:00 08/24/24 00:08 12.5 MLS/HR Enoxaparin Sodium 80 mg BID SC 08/23/24 22:00 08/24/24 12:06 80 MG objective GENERAL: Awake, alert, oriented. LUNGS: Decreased breath sounds. CARDIOVASCULAR: Heart sounds are good. ABDOMEN: Soft. EXT: BLE edema. laboratory and microbiology Laboratory Tests 08/24/24 06:16 Test 08/24/24 06:16 Range/Units Serum Glucose 179 H 74-106 mg/dL Problem List Chest pain. Acute upper abdominal pain. Acute on chronic hypoxic respiratory failure. Acute on chronic HFrEF. Pneumonia. Bilateral leg edema. Hypokalemia. Atrial fibrillation. ICD in place. Hypertension. Diabetes mellitus type 2 Hyperlipidemia. GOUT. Transaminitis. Assessment/Plan Continued all current supportive medical care. Echocardiogram. Lipitor. IV antibiotics as ordered. Coreg. DVT prophylactics. Morphine for pain management. Entresto. Additional plan as per the hospital course. Plan discussed with: Patient SAMANTHA PEARSON MD Aug 24, 2024 12:16
[2024-08-24 14:51] LABS: Urine Bacteria None Seen /hpf (None Seen)
[2024-08-24 15:17] LABS: Opiate Scree,Urine Neg (NEGATIVE)
[2024-08-24 15:27] LABS: Urine Blood Negative /uL (Negative); Urine Clarity Clear (Clear); Urine Color Colorless (Yellow); Urine Protein, UAD Negative (Negative); Urine Specific Gravity 1.011 (1.001-1.035); Urine Urobilinogen Normal (Negative); Urine WBC 1 /hpf (0 - 5)
[2024-08-24 15:34] LABS: Amphetamine Screen, Urine Neg (NEGATIVE); Barbiturate Scree,Urine Neg (NEGATIVE); Benzodiazephine Screen, Urine Neg (NEGATIVE); Cannabinoid Screen, Urine Neg (NEGATIVE); Cocaine Screen, Urine Neg (NEGATIVE); Phencyclidine Screen, Urine Neg (NEGATIVE)
[2024-08-24] MEDS: DOCUSATE SOD 100 MG CAP PO PRN (16:03)
[2024-08-24] MEDS: ACCU-CHEK COMFORT CURVE STRIP VI SCH (17:19)
[2024-08-24] MEDS: InsuLIN REG 1unit/0.01ml Soln (100units/ml) SC SCH ×2 (17:58→21:58)
[2024-08-25] VITALS (10 sets, daily range): BP systolic 96–131; BP diastolic 53–66; PULSE 67–84; RESP 17–20; TEMP 97.3–97.8; O2SAT 91–100
[2024-08-25 07:37] LABS: Basophils # (auto) 0 10 ^3/uL (0-0.2); Basophils % (auto) 0.3 % (0.0-2.0); Eosinophils # (auto) 0 10 ^3/uL (0-0.8); Hematocrit 40.7 % (36.0-46.0); Hemoglobin 13.4 g/dL (12.2-16.2); Lymphocytes # (auto) 0.6 10 ^3/uL (0.4-5.4); Lymphocytes % (auto) 9.8 % (10.0-50.0); Mean Corpuscular Hemoglobin 29.8 pg (28.0-32.0); Mean Corpuscular Hgb Conc. 32.8 g/dL (32.0-36.0); Mean Corpuscular Volume 90.6 fL (80.0-100.0); Monocytes # (auto) 0.2 10 ^3/uL (0-1.3); Monocytes % (auto) 2.5 % (0.0-12.0); Neutrophils # (auto) 5.3 10 ^3/uL (1.6-8.6); Neutrophils % (auto) 87.4 % (37.0-80.0); Nucleated Red Blood Cells % 0.1 %; Platelet Count (auto) 211 10^3/uL (140-450); Red Blood Cells 4.49 10^6/uL (4.0-5.20); White Blood Cell 6.1 10^3/uL (4.4-10.8)
[2024-08-25 08:00] LABS: Albumin 3.7 g/dL (3.2-4.8); Alkaline Phosphatase 63 U/L (46-116); Anion Gap 8 (5-15); Aspartate Aminotransferase 26 U/L (13-40); BUN/Creatinine Ratio 16.7 (10.0-20.0); Bilirubin, Total 0.7 mg/dL (0.2-1.0); Blood Urea Nitrogen 18 mg/dL (9-23); Calcium 9.8 mg/dL (8.7-10.4); Carbon Dioxide 28 mmol/L (20-31); Chloride 102 mmol/L (98-107); Potassium 4.3 mmol/L (3.5-5.1); Sodium 138 mmol/L (136-145); Total Protein 6.1 g/dL (5.7-8.2)
[2024-08-25 08:01] LABS: Alanine Aminotransferase 50 U/L (7-40); Glucose 168 mg/dL (74-106)
[2024-08-25] MEDS ORDERED: PRED20TA2 PO (10:11)
[2024-08-25] MEDS ORDERED: APIX5TAB PO (10:11)
[2024-08-25] MEDS ORDERED: ACET-1882 PO (10:11)
[2024-08-25] MEDS ORDERED: PANT40T PO (10:11)
[2024-08-25] MEDS ORDERED: DOXY-346 PO (10:11)
[2024-08-25] MEDS: CYCLOBENZAPRINE HCL 10 MG TAB PO PRN (12:22)
[2024-08-25] MEDS: CEFEPIME 1GM/ 50ML 50 ML IV SCH (12:26)
--- NOTE | 2024-08-25 13:03 | DVHDSRES ---
Discharge Summary Date of Admission Resident Creating Document: DEMIAN BASURTO RESIDENT Aug 22, 2024 at 22:54 Date of Discharge: Aug 25, 2024 Admitting Diagnosis chest pain due to pneumonia Labs/Diagnostic Data: Laboratory Results Test 08/25/24 12:04 08/25/24 07:04 08/24/24 14:49 08/24/24 12:30 POC Glucose 193 mg/dl (70-106) White Blood Count 6.1 10^3/uL (4.4-10.8) Red Blood Count 4.49 10^6/uL (4.0-5.20) Hemoglobin 13.4 g/dL (12.2-16.2) Hematocrit 40.7 % (36.0-46.0) Mean Corpuscular Volume 90.6 fL (80.0-100.0) Mean Corpuscular Hemoglobin 29.8 pg (28.0-32.0) Mean Corpuscular Hemoglobin Concent 32.8 g/dL (32.0-36.0) Red Cell Distribution Width 16.0 % (11.8-14.3) Platelet Count 211 10^3/uL (140-450) Mean Platelet Volume 9.2 fL (6.9-10.8) Neutrophils (%) (Auto) 87.4 % (37.0-80.0) Lymphocytes (%) (Auto) 9.8 % (10.0-50.0) Monocytes (%) (Auto) 2.5 % (0.0-12.0) Eosinophils (%) (Auto) 0.0 % (0.0-7.0) Basophils (%) (Auto) 0.3 % (0.0-2.0) Neutrophils # (Auto) 5.3 10 ^3/uL (1.6-8.6) Lymphocytes # (Auto) 0.6 10 ^3/uL (0.4-5.4) Monocytes # (Auto) 0.2 10 ^3/uL (0-1.3) Eosinophils # (Auto) 0 10 ^3/uL (0-0.8) Basophils # (Auto) 0 10 ^3/uL (0-0.2) Nucleated Red Blood Cells 0.1 % Sodium Level 138 mmol/L (136-145) Potassium Level 4.3 mmol/L (3.5-5.1) Chloride Level 102 mmol/L (98-107) Carbon Dioxide Level 28 mmol/L (20-31) Anion Gap 8 (5-15) Blood Urea Nitrogen 18 mg/dL (9-23) Creatinine 1.08 mg/dL (0.550-1.02) Glomerular Filtration Rate Calc 57 mL/min (>90) BUN/Creatinine Ratio 16.7 (10.0-20.0) Serum Glucose 168 mg/dL (74-106) Calcium Level 9.8 mg/dL (8.7-10.4) Total Bilirubin 0.7 mg/dL (0.2-1.0) Aspartate Amino Transferase (AST) 26 U/L (13-40) Alanine Aminotransferase (ALT) 50 U/L (7-40) Alkaline Phosphatase 63 U/L (46-116) Total Protein 6.1 g/dL (5.7-8.2) Albumin 3.7 g/dL (3.2-4.8) Urine Color Colorless (Yellow) Urine Clarity Clear (Clear) Urine pH 6.0 (5.0-9.0) Urine Specific [place] 1.011 (1.001-1.035) Urine Protein Negative (Negative) Urine Ketones Negative (Negative) Urine Blood Negative /uL (Negative) Urine Nitrite Negative (Negative) Urine Bilirubin Negative (Negative) Urine Urobilinogen Normal mg/dL (Negative) Urine Leukocyte Esterase Negative /uL (Negative) Urine RBC <1 /hpf (0 - 4) Urine WBC 1 /hpf (0 - 5) Urine Squamous Epithelial Cells Few /hpf (<5) Urine Bacteria None seen /hpf (None Seen) Urine Glucose 4+ mg/dL (Normal) Urine Opiates Screen Neg (NEGATIVE) Urine Fentanyl Screen Neg (NEGATIVE) Urine Barbiturates Screen Neg (NEGATIVE) Urine Phencyclidine Screen Neg (NEGATIVE) Urine Amphetamines Screen Neg (NEGATIVE) Urine Benzodiazepines Screen Neg (NEGATIVE) Urine Cocaine Screen Neg (NEGATIVE) Urine Cannabinoids Screen Neg (NEGATIVE) Test 08/24/24 06:16 08/24/24 01:20 08/23/24 05:12 08/23/24 00:20 Phosphorus Level 4.5 mg/dL (2.4-5.1) SARS-CoV-2 Antigen (Rapid) Negative (NEGATIVE) Prothrombin Time 12.3 sec (9.3-11.8) Prothrombin Time INR 1.17 (0.9-1.15) Lactic Acid Level 1.6 mmol/L (0.4-2.0) Magnesium Level 1.7 mg/dL (1.6-2.6) Direct Bilirubin 0.2 mg/dL (<0.3) Triglycerides Level 67 mg/dL (< 150) Cholesterol Level 178 mg/dL (< 200) LDL Cholesterol 97 mg/dL (< 100) HDL Cholesterol 66 mg/dL (40-59) Vitamin B12 Level 676 pg/mL (211-911) Vitamin D 25-Hydroxy 76.4 ng/mL (30.0-100) D-Dimer, Quantitative 1.04 mg/L FEU (0.0-0.49) Troponin I High Sensitivity 27 ng/L (</=34) Test 08/22/24 21:58 08/22/24 21:10 Thyroid Stimulating Hormone (TSH) 2.45 uIU/mL (0.55-4.78) Activated Partial Thromboplast Time 25.0 SEC (24.5-34.5) Hemoglobin A1c 7.1 % A1C (<5.7) B-Type Natriuretic Peptide 2444.13 pg/mL (0-100) Lipase 36 U/L (12-53) Other Laboratory Tests 08/25/24 07:04 Brief Hx & Hospital Course: A 64-year-old female with a past medical history significant for HFrEF (LVEF 15%), atrial fibrillation, COPD on oxygen, type 2 diabetes, and CKD presented with complaints of left upper abdominal and chest pain. Initial evaluation revealed mild interstitial pulmonary edema, minimal pericardial effusion, and bilateral pleural effusions with adjacent atelectasis on CT imaging. Laboratory findings included transaminitis and hyperlipidemia. Cardiac evaluation excluded a cardiac etiology of chest pain, as troponins were negative, and the pain was pleuritic in nature without evidence of pericardial rub or worsening effusion. Infectious workup supported a diagnosis of pneumonia, which was treated with intravenous antibiotics during hospitalization. The patients symptoms improved, and she was discharged home with oral antibiotics to complete treatment for pneumonia. . Discharge medications included enoxaparin, prednisone taper, and continuation of home medications. The patient was advised to follow up closely with her primary care provider and [employer] to monitor her chronic medical conditions. General examination- patient on [place] O2 2 liter/minute, awake, alert, oriented, conversant HEENT- [place]ER[place], no acute nasal discharge Cardiovascular- S1-S2 audible, rate and rhythm regular, no murmur Respiratory- crackles on the left lower lung posey+ Gastrointestinal-nontender, bowel sound+. Nondistended Musculoskeletal-no acute joint swelling or tenderness or redness# Lower extremity- bilateral leg edema++ Neurological- cranial nerves intact, no acute dysarthria or dysphagia Psychiatry- denies depression or SI or HI Skin- fragile skin Case discussed with Dr Agudelo Consults/Reason for consult cardiology due to chest pain Operations or Procedures CLINICAL INDICATION: Abdominal pain and tenderness with flank pain COMPARISON: None. CONTRAST USED: None. TECHNIQUE: Plain CT study of the abdomen and pelvis was performed with 5 mm slices. Multiplanar reconstructions were obtained following ALARA (As Low As Reasonably Achievable) principles. FINDINGS: CT ABDOMEN: Lung Bases: Mild bilateral pleural effusion with adjacent lung atelectasis. Heart and Pericardium: Moderate cardiomegaly noted. Pacemaker wires are seen in the right atrium and ventricles. Minimal pericardial effusion present. Liver: Mild hepatomegaly with heterogeneous coarse attenuation. Widening of the interlobar fissures, suggestive of liver parenchymal disease. Minimal perihepatic free fluid noted. Gallbladder and Biliary System: Post cholecystectomy status. Common bile duct is not dilated. Pancreas: Normal in size and shape, with no focal lesions or peripancreatic abnormalities. Spleen: Normal in size with no focal abnormalities. Kidneys and Ureters: Kidneys are normal in size with no evidence of renal calculus or hydronephrosis. Perinephric spaces are clear. Retroperitoneum: Both adrenal glands are normal. No significant retroperitoneal lymphadenopathy. Vessels: Diffuse atherosclerotic calcification of the abdominal aorta, visceral arteries, infrarenal aorta, and common iliac arteries. Stomach and Bowel: Large bowel loops are moderately distended with fecal matter, consistent with constipation. Scattered diverticulosis of the descending colon without evidence of diverticulitis. No evidence of inflammatory bowel wall thickening or ascites. CT PELVIS: Appendix: Visualized and unremarkable. Uterus and Adnexa: Diffusely enlarged uterus with multiple fibroids of varying sizes, including dystrophic calcifications. Largest fibroid measures 3.9 x 4.9 cm in the right parametrium. Both ovaries appear atrophic. No adnexal mass is identified. Bladder: Urinary bladder is unremarkable. Hernias: Omental fat-containing supraumbilical hernia, measuring 2.4 x 1.9 cm through a 1.5 cm defect. Small omental fat-containing umbilical hernia, measuring 10 x 10 mm. Lymph Nodes and Fluid Collection: No pelvic lymphadenopathy or significant abnormal fluid collections noted. SKELETAL SYSTEM: Degenerative changes noted in the sacroiliac joints and superolateral hip joints. Multilevel degenerative facet arthropathy in the lumbar spine. L4-L5 Level: Vacuum disc phenomenon with disc bulge and facet arthropathy causing [id number] neural foraminal narrowing. L5-S1 Level: Mild disc bulge with facet arthropathy causing moderate narrowing of bilateral neural foramina. No acute osseous abnormalities detected. IMPRESSION: Cardiac and Pleural Findings: Moderate cardiomegaly with pacemaker wires in the right atrium and ventricles. Minimal pericardial effusion. Mild bilateral pleural effusion with adjacent lung atelectasis. Liver and Hepatobiliary System: Mild hepatomegaly with heterogeneous coarse attenuation and widening of the interlobar fissures, suggesting liver parenchymal disease. Minimal perihepatic free fluid. Post cholecystectomy status. Uterus and Hernias: Diffusely enlarged uterus with multiple fibroids, largest measuring 3.9 x 4.9 cm in the right parametrium. Omental fat-containing supraumbilical hernia (2.4 x 1.9 cm) and a smaller umbilical hernia (10 x 10 mm). Colon: Scattered diverticulosis in the descending colon without evidence of diverticulitis. Moderate fecal retention consistent with constipation. Vascular Findings: Diffuse atherosclerotic calcification of the abdominal aorta, visceral arteries, infrarenal aorta, and common iliac arteries. Spinal Degeneration: Degenerative changes in the sacroiliac joints, superolateral hip joints, and lumbar spine. L4-L5: Vacuum disc phenomenon with disc bulge and moderate to severe neural foraminal narrowing. L5-S1: Mild disc bulge with moderate narrowing of bilateral neural foramina. Condition at Discharge: Stable Final Diagnosis/Problems List # Pneumonia Gram-positive versus Gram-negative #Acute chest pain likely due to pneumonia/musculoskeletal/costochondritis # pericarditis ruled out #ACS ruled out # acute upper abdominal pain likely due to gastritis/pancreatitis # acute on chronic hypoxic respiratory failure likely due to pneumonia/acute on chronic HFrEF/acute exacerbation of COPD # hypokalemia # atrial fibrillation, # s/p ICD # hypertension # diabetes mellitus type 2 # hyperlipidemia # gout # transaminitis Discharge Disposition: Home Discharge Instruct/Medications Diet: Consistent carbohydrate, Cardiac 2g Na,low cholest Activity: Light activity Follow Up/Referral: fu with pcp and Dr Moreira Medications: see prescription Discharge Statement: "Patient was advised to return to the ER or call 911 if any headaches, dizziness, shortness of breath, chest pain, abdominal pain, bleeding, fevers, or worsening of medical condition. Patient was counseled about treatment plan, medications, possible side effects, patientverbalized understanding. All questions were answered to the best of my ability. This discharge took greater then 30 minutes in planning, reviewing documentation, counseling the patient, and discussing with other team members." ASSESSMENT ASSESSMENT Assessment pneumonia Date of Service: Aug 25, 2024 Billing Provider: JAGDEEP AGUDELO MD Common Visit Codes: 55150-XYO/OBS DISCH DAY >30min DEMIAN BASURTO RESIDENT Aug 25, 2024 13:03 JAGDEEP AGUDELO MD Aug 26, 2024 21:08
--- NOTE | 2024-08-25 21:07 | DVHPN2 ---
Progress Note - Dictate Date Seen: Aug 25, 2024 Has the PT tested + for MRSA If YES, has PT been informed?: No Medical Necessity Reason Pt with a Central, PICC or Fol: No Subjective Patient was seen and evaluated in follow up. Patient has no new complaints at this time. Patient denies any cardiac symptoms. Patient is cardiac stable for discharge. vital signs Vital Sign Date Time Temp Pulse Resp B/P (MAP) Pulse Ox O2 Delivery O2 Flow Rate FiO2 08/25/24 10:02 131/66 08/25/24 09:59 72 08/25/24 09:00 97.6 17 97 97.6 08/25/24 06:20 Nasal Cannula* 2 28 Total Intake and Output 08/24/24 08/24/24 08/25/24 15:00 23:00 07:00 Intake Total 250 ml 550 ml 700 ml Balance 250 ml 550 ml 700 ml medications Current Medications Medications Dose Ordered Sig/Della Route Start Time Stop Time Status Last Admin Dose Admin Ondansetron HCl 4 mg ONCE PRN IV 08/22/24 21:15 08/24/24 00:36 4 MG Sodium Chloride 10 ml Q8HR IV 08/23/24 06:00 08/25/24 06:00 10 ML Docusate Sodium 100 mg BIDPRN PRN PO 08/22/24 23:00 08/24/24 16:03 100 MG Acetaminophen 650 mg Q6HP PRN PO 08/22/24 23:00 08/25/24 06:29 650 MG Morphine Sulfate 2 mg Q4HPRN PRN IV 08/22/24 23:00 08/25/24 06:36 2 MG Nitroglycerin 0.4 mg Q5MINP PRN SL 08/22/24 23:00 Morphine Sulfate 2 mg Q30M PRN IV 08/22/24 23:00 Atorvastatin Calcium 20 mg HS PO 08/23/24 22:00 08/24/24 21:32 20 MG Gabapentin 300 mg TID PO 08/23/24 06:00 08/25/24 06:28 300 MG Sacubitril/ Valsartan 1 tab BID PO 08/23/24 10:00 08/25/24 09:59 1 TAB Sucralfate 1 gm QID PO 08/23/24 06:00 08/25/24 06:28 1 GM Empaglifozin 10 mg DAILY PO 08/23/24 10:00 08/25/24 09:58 10 MG Lactulose 30 ml BIDPRN PRN PO 08/23/24 00:30 Carvedilol 25 mg BID PO 08/23/24 10:00 08/25/24 09:59 25 MG Furosemide 40 mg DAILY IV 08/23/24 10:00 08/25/24 10:02 40 MG Ibuprofen 600 mg TID PO 08/23/24 06:00 Pantoprazole Sodium 40 mg DAILY@0600 PO 08/23/24 06:00 08/25/24 06:28 40 MG Methylprednisolone Sodium Succinate 40 mg BID IV 08/23/24 22:00 08/25/24 10:01 40 MG Doxycycline Hyclate 250 ml @ 125 mls/hr Q12H IV 08/23/24 08:00 08/25/24 10:03 125 MLS/HR Acetaminophen/ Hydrocodone Bitart 1 tab Q8HP PRN PO 08/23/24 14:15 08/25/24 10:18 1 TAB Enoxaparin Sodium 80 mg BID SC 08/23/24 22:00 08/25/24 10:02 80 MG Diagnostic Test (Pha) 1 strip ACHS 08/24/24 17:00 08/25/24 07:03 1 STRIP Insulin Human Regular HS SC 08/24/24 22:00 08/24/24 21:58 4 UNITS Insulin Human Regular AC SC 08/24/24 17:00 08/25/24 06:53 3 UNITS Dextrose 50 ml UD PRN IV 08/24/24 13:45 Ipratropium [place] 0.5 mg Q4HPRN PRN NEB 08/24/24 13:45 08/25/24 06:15 0.5 MG Albuterol 2.5 mg Q4HPRN PRN NEB 08/24/24 13:45 08/25/24 06:15 2.5 MG Cefepime HCl 50 ml @ 12.5 mls/hr Q12HR IV 08/25/24 11:00 Cyclobenzaprine HCl 5 mg Q8HPRN PRN PO 08/25/24 12:00 UNV objective GENERAL: Awake, alert, oriented. LUNGS: Decreased breath sounds. CARDIOVASCULAR: Heart sounds are good. ABDOMEN: Soft. EXT: BLE edema. laboratory and microbiology Laboratory Tests 08/25/24 07:04 Test 08/25/24 07:04 Range/Units Serum Glucose 168 H 74-106 mg/dL Problem List Chest pain. Acute upper abdominal pain. Acute on chronic hypoxic respiratory failure. Acute on chronic HFrEF. Pneumonia. Bilateral leg edema. Hypokalemia. Atrial fibrillation. ICD in place. Hypertension. Diabetes mellitus type 2 Hyperlipidemia. GOUT. Transaminitis. Assessment/Plan Continued all current supportive medical care. Echocardiogram. Lipitor. IV antibiotics as ordered. Coreg. DVT prophylactics. Morphine for pain management. Entresto. Additional plan as per the hospital course. Plan discussed with: Patient SAMANTHA PEARSON MD Aug 25, 2024 12:04
== END 2024-08-25 14:06 | disposition home or self-care (01) | DRG 205 ==
LOC: ER 20:35 → TELE 22:54 → TELE-WESTW 08-23 22:30
PROVIDERS: ADMIT Internal Medicine Geriatric Medicine; ATTEND Emergency Medicine
DX: M94.0 Chondrocostal junction syndrome [Tietze] (principal); I50.23 Acute on chronic systolic (congestive) heart failure; J15.69 Pneumonia due to other Gram-negative bacteria; J96.21 Acute and chronic respiratory failure with hypoxia; K85.90 Acute pancreatitis without necrosis or infection, unspecified; J15.9 Unspecified bacterial pneumonia; J44.0 Chronic obstructive pulmonary disease with (acute) lower respiratory infection; I13.0 Hypertensive heart and chronic kidney disease with heart failure and stage 1 through stage 4 chronic kidney disease, or unspecified chronic kidney disease; J44.1 Chronic obstructive pulmonary disease with (acute) exacerbation; K29.70 Gastritis, unspecified, without bleeding; E78.00 Pure hypercholesterolemia, unspecified; Z20.822 Contact with and (suspected) exposure to COVID-19; E87.6 Hypokalemia; I48.91 Unspecified atrial fibrillation; E11.22 Type 2 diabetes mellitus with diabetic chronic kidney disease; M10.9 Gout, unspecified; R74.01 Elevation of levels of liver transaminase levels; K57.30 Diverticulosis of large intestine without perforation or abscess without bleeding; D25.9 Leiomyoma of uterus, unspecified; I70.0 Atherosclerosis of aorta; K42.9 Umbilical hernia without obstruction or gangrene; N18.9 Chronic kidney disease, unspecified; K59.00 Constipation, unspecified; Z80.8 Family history of malignant neoplasm of other organs or systems; Z80.49 Family history of malignant neoplasm of other genital organs; Z95.810 Presence of automatic (implantable) cardiac defibrillator; Z82.3 Family history of stroke; Z82.5 Family history of asthma and other chronic lower respiratory diseases; Z82.49 Family history of ischemic heart disease and other diseases of the circulatory system; Z83.3 Family history of diabetes mellitus
CPT/HCPCS: 36415; 71045; 74176; 80053; 80061; 80076; 80307; 81001; 82306; 82607; 82962; 83036; 83605; 83690; 83735; 83880; 84100; 84132; 84443; 84484; 85025; 85379; 85610; 85730; 87070; 87081; 87205; 87426; 93005; 93306; 93970; 94640; G0378; J1815; J2405; J2470; J3490

== ENCOUNTER 2024-11-20 10:22 | Inpatient (IN) | payer OTHER, MEDICAID ==
[~2024-11-20] VITALS: Ht 157.5 cm; Wt 76.5 kg
[~2024-11-20 10:22] MED LIST changes: +ACET-1882 PO; -ALL300T PO; +APIX5TAB PO; -COLC1CAP PO; +DOXY-346 PO; -FURO20TA3 PO; -METO-281 PO; -PANT40TA2 PO; -POTA1TAB4 PO; +PRED20TA2 PO; -SACU1TAB PO
--- NOTE | 2024-11-20 10:35 | ECG ---
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
[2024-11-20] MEDS: ALBUTEROL SULF 2.5 MG/0.5ML(0.5%) NEB SOLN NEB ONE (10:43)
[2024-11-20] MEDS: IPRATROPIUM BROM 0.5 MG/2.5ML INH SOL NEB ONE (10:44)
[2024-11-20] MEDS: methylPREDNISolone SOD SUCC 125 MG/2 ML VL IV ONE (10:46)
--- NOTE | 2024-11-20 10:47 | ED.PDOC ---
SOB-HPI HPI Comments 64 year old female presents to the ED with a chief complaint of shortness of breath onset 2 days. Patient states she is usually on 3L O2 at home, noticed shortness of breath for the past 2 days as well as chest pain, worsen today (11/20/24). Patient is not able to speak in full sentences during assessment due to shortness of breath. PMHx COPD, DM, HTN, A-fib, arthritis, gallstones, CHF, CKF, Gout, HLD, depression. No other symptoms or modifying factors present at this time. Chief Complaint: Shortness of Breath Time Seen by MD: 10:35 Primary Care Provider: NONE Reviewed notes: Medications, Allergies Information Source: Patient Mode of Arrival: Ambulatory Severity: Moderate Timing: Days Duration: Since onset Context: At Rest PE Risk Factors: None History of: COPD, CHF Prehospital treatment: Oxygen Modifying Factors: Nothing Associated Signs and Symptoms: Chest Pain Radiation: No Radiation Past Medical History PAST MEDICAL HISTORY: AFIB, Arthritis, CHF, CKF, COPD, Depression, DM, Gallstones, Gout, High Lipids, HTN Surgical History: Cholecystectomy, , Hernia Repair, Pacemaker [employer] History: Uterine Fibroids Family History Family History: Family hx of DM, Family hx of Cancer, Family hx of heart bobbi Social History Smoker: Non-Smoker Alcohol: Denies ETOH Use Drugs: Denies Drug Use Lives In: Home Constitutional: denies: chills, diaphoresis, fatigue, fever, malaise, sweats, weakness, others EENTM: denies: blurred vision, double vision, ear bleeding, ear discharge, ear drainage, ear pain, ear ringing, eye pain, eye redness, hearing loss, mouth pain, mouth swelling, nasal discharge, nose bleeding, nose congestion, nose pain, photophobia, tearing, throat pain, throat swelling, voice changes, others Respiratory: reports: shortness of breath; denies: cough, hemoptysis, orthopnea, SOB at rest, SOB with excertion, stridor, wheezing, others Cardiovascular: reports: chest pain; denies: dizzy spells, diaphoresis, Dyspnea on exertion, edema, irregular heart beat, left arm pain, lightheadedness, palpitations, PND, syncope, others Gastrointestinal: denies: abdomen distended, abdominal pain, blood streaked bowels, constipated, diarrhea, dysphagia, difficulty swallowing, hematemesis, melena, nausea, poor appetite, poor fluid intake, rectal bleeding, rectal pain, vomiting, others Genitourinary: denies: abnormal vagina bleeding, burning, dyspareunia, dysuria, flank pain, frequency, hematuria, incontinence, pain, , vagina discharge, urgency, others Neurological: denies: dizziness, fainting, headache, left sided numbness, left sided weakness, numbness, paresthesia, pre-existing deficit, right sided numbness, right sided weakness, seizure, speech problems, tingling, tremors, weakness, others Musculoskeletal: denies: back pain, gout, joint pain, joint swelling, muscle pain, muscle stiffness, neck pain, others Integumetry: denies: bruises, change in color, change in hair/nails, dryness, laceration, lesions, lumps, rash, wounds, others Allergic/Immunocompromised: denies: Difficulty Healing, Frequent Infections, Hives, Itching, others Hematologic/Lymphatic: denies: anemia, blood clots, easy bleeding, easy bruising, swollen glands, others Endocrine: denies: excessive hunger, excessive sweating, excessive thirst, excessive urination, flushing, intolerance to cold, intolerance to heat, unexplained weight gain, unexplained weight loss, others Psychiatric: denies: anxiety, bipolar disorder, depression, hopeless, panic disorder, schizophrenia, sleepless, suicidal, others All Other Systems: Reviewed and Negative Physical Exam General Appearance: Severe Distress HEENT: Normal ENT Inspection, Pharynx Normal, TMs Normal Neck: Full Range of Motion, Non-Tender, Normal, Normal Inspection Respiratory: Accessory Muscle Use, Respiratory Distress, Wheezing Cardiovascular: No Edema, No JVD, No Murmur, No Gallop, Normal Peripheral Pulses, Regular Rate/Rhythm Breast Exam: Deferred Gastrointestinal: No Organomegaly, Non Tender, No Pulsatile Mass, Normal Bowel Sounds, Soft Genitalia: Deferred Pelvic: Deferred Rectal: Deferred Extremities: No calf tenderness, Normal capillary refill, Normal inspection, Normal range of motion, Non-tender, No pedal edema Musculoskeletal : Apperance: Normal Neurologic: Alert, No Motor Deficits, No Sensory Deficits Cerebellar Function: NOT DONE Reflexes: NOT DONE Skin: Normal Color Peripheral Pulses: 3+ Radial (R), 3+ Radial (L) Lymphatic: No Adenopathy Was a procedure done? Was a procedure done?: No Differential Dx Differential Diagnosis: Anxiety, Asthma, Bronchitis, CHF, COPD X-Ray, Labs, Meds, VS Vital Signs Date Time Temp Pulse Resp B/P (MAP) Pulse Ox O2 Delivery O2 Flow Rate FiO2 11/20/24 11:22 104 31 98 Nasal Cannula* 3 32 11/20/24 11:13 105 11/20/24 10:44 24 95 Nasal Cannula* 2 28 11/20/24 10:30 112 11/20/24 10:24 97.8 111 36 146/88 (107) 93 Lab Test 11/20/24 10:57 11/20/24 10:55 Range/Units White Blood Count 6.0 4.4-10.8 10^3/uL Red Blood Count 4.36 4.0-5.20 10^6/uL Hemoglobin 12.8 12.2-16.2 g/dL Hematocrit 39.5 36.0-46.0 % Mean Corpuscular Volume 90.6 80.0-100.0 fL Mean Corpuscular Hemoglobin 29.2 28.0-32.0 pg Mean Corpuscular Hemoglobin Concent 32.3 32.0-36.0 g/dL Red Cell Distribution Width 15.3 H 11.8-14.3 % Platelet Count 205 140-450 10^3/uL Mean Platelet Volume 8.6 6.9-10.8 fL Neutrophils (%) (Auto) 59.2 37.0-80.0 % Lymphocytes (%) (Auto) 28.4 10.0-50.0 % Monocytes (%) (Auto) 10.5 0.0-12.0 % Eosinophils (%) (Auto) 1.4 0.0-7.0 % Basophils (%) (Auto) 0.5 0.0-2.0 % Neutrophils # (Auto) 3.6 1.6-8.6 10 ^3/uL Lymphocytes # (Auto) 1.7 0.4-5.4 10 ^3/uL Monocytes # (Auto) 0.6 0-1.3 10 ^3/uL Eosinophils # (Auto) 0.1 0-0.8 10 ^3/uL Basophils # (Auto) 0 0-0.2 10 ^3/uL Nucleated Red Blood Cells 0.1 % Sodium Level 139 136-145 mmol/L Potassium Level 3.9 3.5-5.1 mmol/L Chloride Level 105 98-107 mmol/L Carbon Dioxide Level 24 20-31 mmol/L Anion Gap 10 5-15 Blood Urea Nitrogen 14 9-23 mg/dL Creatinine 1.04 H 0.550-1.02 mg/dL Glomerular Filtration Rate Calc 60 >90 mL/min BUN/Creatinine Ratio 13.5 10.0-20.0 Serum Glucose 166 H 74-106 mg/dL Calcium Level 9.5 8.7-10.4 mg/dL Troponin I High Sensitivity 32 </=34 ng/L B-Type Natriuretic Peptide > 5000.00 0-100 pg/mL POC Glucose 163 H 70-106 mg/dl Current Medications Medications (Trade) Dose Ordered Sig/Della Route Start Time Stop Time Status Last Admin Methylprednisolone Sodium Succinate (Solu Medrol) 125 mg ONCE ONCE IV 11/20/24 10:30 11/20/24 10:32 DC 11/20/24 10:46 Albuterol (Ventolin Medneb) 5 mg ONCE ONCE NEB 11/20/24 10:30 11/20/24 10:32 DC 11/20/24 10:43 Ipratropium [place] (Atrovent Medneb) 0.5 mg ONCE ONCE NEB 11/20/24 10:30 11/20/24 10:33 DC 11/20/24 10:44 Aspirin 325 mg ONCE ONCE PO 11/20/24 10:30 11/20/24 10:33 DC 11/20/24 11:27 Oxycodone/ Acetaminophen (Percocet 5/ 325MG Tablet) 1 tab ONCE ONCE PO 11/20/24 11:45 11/20/24 11:46 DC 11/20/24 11:50 Patient alert. Complaining of shortness a breath. Tachycardia. Was placed on oxygen. She is on home oxygen. COPD. Establish intravenous access. Was given steroid. Was given breathing treatment. No leg swelling. Using accessory muscles. She is critical. Explained to the patient. Continue cardiac monitoring. . [facility] [id number] [place] [id number] Ph: [phone] DIAGNOSTIC IMAGING Diagnostic Imaging Report : [id number] Signed PATIENT: GABE DIETZ ACCT: [id number] UNIT: [id number] : 1960 LOC: ER ROOM / BED: / AGE / SEX: 64 / F ADM STATUS: REG ER SERVICE 1030 ORDERING PHYSICIAN: LETICIA RUBIN MD PROCEDURE(s): CXRP - CHEST PORTABLE REASON: sob ORDER NUMBER(s): [id number], ACCESSION NUMBER(s): [id number] CHEST RADIOGRAPH Indication: sob Technique: Single frontal view of the chest was obtained COMPARISON: XY CHEST PORTABLE on DOS: 08/22/24, XY CHEST PORTABLE on DOS: 02/09/23, CXRP on DOS: 10/14/22, CHEST PORTABLE on DOS: 10/14/22, CXRP on DOS: 05/18/22 FINDINGS: Lines and Tubes: Left chest wall AICD Lungs: Pulmonary vascular congestion Pleura: No effusion. No pneumothorax. Cardiomediastinal contours: Cardiomegaly Bones: Unremarkable IMPRESSION: Pulmonary vascular congestion. ATED BY: ENDY DARNELL MD DICTATED DATE/TIME: 11/20/248 SIGNED BY: ENDY DARNELL MD SIGNED DATE/TIME: 11/20/24 120 CC: Time of 1ST Reevaluation: 11:05 Reevaluation 1ST: Unchanged Patient Education/Counseling: Diagnosis, Treatment, Prognosis Family Education/Counseling: No Family Present Additional Information The following tests were ordered, and results were reviewed by me: TROP, CBC, BNP, XY CHEST, UA, BMP, EKG I reviewed and agreed with the following test results read by other providers: XY CHEST I discussed treatment and results with medical personnel and: patient Departure 1 Departure Time of Disposition: 10:59 Impression: Primary Impression: Acute respiratory failure Qualified Codes: J96.01 - Acute respiratory failure with hypoxia Additional Impressions: COPD exacerbation Uncontrolled diabetes mellitus Qualified Codes: E13.65 - Other specified diabetes mellitus with hyperglycemia Disposition: ADMITTED INPATIENT Admit to: Med Surg Condition: Guarded Critical Care Note Critical Care Time?: Yes (90 min-critical care time only) Critical care comment: She is critical placed on oxygen breathing treatment continue to monitor Stability Stability form required: No Heart Score Heart Score: Heart Score Response (Comments) Value History Slightly Suspicious 0 EKG Normal 0 Age >65 2 Risk Factors >3 or Hx ASHD 2 Troponin Normal limit 0 Total 4 I personally scribed for LETICIA RUBIN MD ([email or web address]) on 11/20/24 at 10:47. Electronically submitted by Nunu Rose ([email or web address]). I personally scribed for LETICIA RUBIN MD ([email or web address]) on 11/20/24 at 11:27. Electronically submitted by Nunu Rose ([email or web address]). I personally scribed for LETICIA RUBIN MD ([email or web address]) on 11/20/24 at 12:33. Electronically submitted by Nunu Rose ([email or web address]). LETICIA RUBIN MD Nov 20, 2024 10:47
[2024-11-20 11:12] LABS: Basophils # (auto) 0 10 ^3/uL (0-0.2); Basophils % (auto) 0.5 % (0.0-2.0); Eosinophils # (auto) 0.1 10 ^3/uL (0-0.8); Eosinophils % (auto) 1.4 % (0.0-7.0); Hematocrit 39.5 % (36.0-46.0); Hemoglobin 12.8 g/dL (12.2-16.2); Lymphocytes # (auto) 1.7 10 ^3/uL (0.4-5.4); Lymphocytes % (auto) 28.4 % (10.0-50.0); Mean Corpuscular Hemoglobin 29.2 pg (28.0-32.0); Mean Corpuscular Hgb Conc. 32.3 g/dL (32.0-36.0); Mean Corpuscular Volume 90.6 fL (80.0-100.0); Monocytes # (auto) 0.6 10 ^3/uL (0-1.3); Monocytes % (auto) 10.5 % (0.0-12.0); Neutrophils # (auto) 3.6 10 ^3/uL (1.6-8.6); Neutrophils % (auto) 59.2 % (37.0-80.0); Nucleated Red Blood Cells % 0.1 %; Platelet Count (auto) 205 10^3/uL (140-450); Red Blood Cells 4.36 10^6/uL (4.0-5.20); Red Cell Distribution Width 15.3 % (11.8-14.3)
[2024-11-20 11:22] VITALS: PULSE 104; RESP 31; O2SAT 98
[2024-11-20] MEDS: ASPirin 325 MG TAB PO ONE (11:27)
[2024-11-20 11:28] LABS: Chloride 105 mmol/L (98-107); Potassium 3.9 mmol/L (3.5-5.1); Sodium 139 mmol/L (136-145)
[2024-11-20 11:29] LABS: Anion Gap 10 (5-15); Calcium 9.5 mg/dL (8.7-10.4); Carbon Dioxide 24 mmol/L (20-31)
[2024-11-20 11:34] LABS: BUN/Creatinine Ratio 13.5 (10.0-20.0); Blood Urea Nitrogen 14 mg/dL (9-23)
[2024-11-20 11:39] LABS: Glucose 166 mg/dL (74-106)
[2024-11-20] MEDS: OXYCODONE W/ ACETAMINOPHEN 5/325MG TABLET PO ONE (11:50)
[2024-11-20] MEDS: HYDROcodone-ACET 5/325MG TAB PO ONE (11:55)
--- NOTE | 2024-11-20 12:11 | DVH ---
CHEST RADIOGRAPH Indication: sob Technique: Single frontal view of the chest was obtained COMPARISON: XY CHEST PORTABLE on DOS: 08/22/24, XY CHEST PORTABLE on DOS: 02/09/23, CXRP on DOS: , CHEST PORTABLE on DOS: 10/14/22, CXRP on DOS: 05/18/22 FINDINGS: Lines and Tubes: Left chest wall AICD Lungs: Pulmonary vascular congestion Pleura: No effusion. No pneumothorax. Cardiomediastinal contours: Cardiomegaly Bones: Unremarkable IMPRESSION: Pulmonary vascular congestion.
[2024-11-20] MEDS ORDERED: HYDROcodone-ACET 5/325MG TAB PO PRN (13:00)
[2024-11-20] MEDS ORDERED: MORPHINE SULFATE INJ 2 MG/ml SYRG IV PRN ×2 (14:30→17:45)
[2024-11-20] MEDS ORDERED: ACETAMINOPHEN 325 MG TAB PO PRN (14:30)
[2024-11-20] MEDS ORDERED: DEXTROSE (50%) 50ML SYRG IV PRN (15:15)
[2024-11-20 15:19] VITALS: BP 139/89; PULSE 99; RESP 28; O2SAT 97
[2024-11-20] MEDS: ACCU-CHEK COMFORT CURVE STRIP VI SCH (16:54)
[2024-11-20] MEDS: InsuLIN REG 1unit/0.01ml Soln (100units/ml) SC SCH ×2 (16:57→21:38)
[2024-11-20] MEDS: HYDROcodone-ACET 5/325MG TAB PO PRN (17:00)
--- NOTE | 2024-11-20 17:42 | DVHHP2 ---
History of Present Illness Reason for Visit: Acute on chronic systolic heart failure History of Present Illness The patient is a 64-year-old female with multiple past medical history including CHF, COPD, DM, hypertension, and AFib who presented to [facility] ED with complaint of shortness of breaths for the past 2 days. Patient reports symptoms progressively get worse with chest pain, weakness, increased work of breathing, getting worse today that prompted this visit. Patient was seen and evaluated in the ED, laboratory data shows WBC 6.0, platelets 205, sodium 139, potassium 3.9, BUN 14, creatinine 1.04, GFR 60, glucose 166, troponin 32, BNP > 5000. Chest x-ray revealing pulmonary vascular congestion. Patient was started on IV Lasix, please see medication orders section in the computer. On my assessment, patient denied chest pain, no headache, no dizziness, currently on oxygen, no nausea, no vomiting, no fever, no chills. Patient was admitted for further evaluation and medical management. Past Medical History AFIB, Arthritis, CHF, CKF, COPD, Depression, DM, Gallstones, Gout, High Lipids, HTN, Uterine Fibroids Past Surgical History Cholecystectomy, , Hernia Repair, Pacemaker Family History Reviewed, noncontributory to the management of this case. Past Social History The patient lives at home, denies smoking, alcohol or illicit drugs abuse. Review of Systems Constitutional: Yes: Weakness; No: Fever, Chills, Sweats, Malaise, Other Eyes: No: Pain, Vision change, Conjunctivae inflammation, Eyelid inflammation, Other, Redness ENT: No: Ear pain, Ear discharge, Nose pain, Nose discharge, Nose congestion, Mouth pain, Mouth swelling, Throat pain, Throat swelling, Other Respiratory: Shortness of breath; No: Cough, Dry, SOB with excertion, Wheezing, Hemoptysis, Pleuritic Pain, Sputum, Wheezing, Other Cardiovascular: Chest Pain; No: Palpitations, Orthopnea, Paroxysmal Noc. Dyspnea, Edema, Lt Headedness, Other Gastrointestinal: No: Nausea, Vomiting, Abdominal Pain, Diarrhea, Constipation, Melena, Hematochezia, Other Genitourinary: No Dysuria, No Frequency, No Incontinence, No Hematuria, No Retention, No Other Musculoskeletal: No: other, neck pain, shoulder pain, arm pain, back pain, hand pain, leg pain, foot pain Skin: No: Rash, Lesions, Jaundice, Bruising, Other Neurological: No: Weakness, Numbness, Incoordination, Change in speech, Confusion, Seizures, Other Allergies: Coded Allergies: NO KNOWN ALLERGIES (Unverified , 05/18/22) Medications Current Medications Medications Dose Ordered Sig/Della Route Start Time Stop Time Status Last Admin Dose Admin Furosemide 40 mg DAILY IV 11/21/24 10:00 Carvedilol 12.5 mg Q12HR PO 11/20/24 22:00 Methylprednisolone Sodium Succinate 40 mg Q8HR IV 11/20/24 22:00 Albuterol 2.5 mg Q4HPRN PRN NEB 11/20/24 14:30 Ipratropium [place] 0.5 mg Q4HPRN PRN NEB 11/20/24 14:30 Famotidine 20 mg Q12HR IV 11/20/24 22:00 Apixaban 5 mg BID PO 11/20/24 22:00 Sodium Chloride 10 ml Q8HR IV 11/20/24 22:00 Acetaminophen/ Hydrocodone Bitart 1 tab Q4HP PRN PO 11/20/24 14:30 11/20/24 17:00 1 TAB Ondansetron HCl 4 mg Q4HP PRN IV 11/20/24 14:30 Docusate Sodium 100 mg BIDPRN PRN PO 11/20/24 14:30 Acetaminophen 650 mg Q6HP PRN PO 11/20/24 14:30 Morphine Sulfate 2 mg Q4HPRN PRN IV 11/20/24 14:30 Pantoprazole Sodium 40 mg DAILY IV 11/21/24 10:00 Diagnostic Test (Pha) 1 strip ACHS 11/20/24 17:00 11/20/24 16:54 1 STRIP Insulin Human Regular HS SC 11/20/24 22:00 Insulin Human Regular AC SC 11/20/24 17:00 11/20/24 16:57 6 UNITS Dextrose 50 ml UD PRN IV 11/20/24 15:15 Exam Vital Signs Vital Signs Date Time Temp Pulse Resp B/P (MAP) Pulse Ox O2 Delivery O2 Flow Rate FiO2 11/20/24 16:00 98.4 93 15 130/85 (100) 100 98.4 11/20/24 15:19 3.0 32 11/20/24 11:22 Nasal Cannula* General Appearance: Alert, Oriented X3, Cooperative, No acute distress HEENT: Atraumatic, PERRLA, EOMI, Mucous membr. moist/pink Respiratory: Normal air movement, Other (Diminished breath sounds) Cardiovascular: Regular rate, Normal S1, Normal S2, No murmurs Abdominal: Normal bowel sounds, Soft, No tenderness, No hepatospenomegaly, No masses Extremities: No clubbing, No cyanosis, No edema, Normal pulses, No tenderness/swelling Skin: No rashes, No breakdown, No significant lesion Neuro: Normal speech, Normal tone, Sensation intact, Cranial nerves 3-12 NL, Reflexes 2+, Other (Generalized weakness) Psych/Mental Status: Mental status NL, Mood NL Labs/Xrays Labs Test 11/20/24 16:49 11/20/24 10:57 Range/Units POC Glucose 211 H 70-106 mg/dl White Blood Count 6.0 4.4-10.8 10^3/uL Red Blood Count 4.36 4.0-5.20 10^6/uL Hemoglobin 12.8 12.2-16.2 g/dL Hematocrit 39.5 36.0-46.0 % Mean Corpuscular Volume 90.6 80.0-100.0 fL Mean Corpuscular Hemoglobin 29.2 28.0-32.0 pg Mean Corpuscular Hemoglobin Concent 32.3 32.0-36.0 g/dL Red Cell Distribution Width 15.3 H 11.8-14.3 % Platelet Count 205 140-450 10^3/uL Mean Platelet Volume 8.6 6.9-10.8 fL Neutrophils (%) (Auto) 59.2 37.0-80.0 % Lymphocytes (%) (Auto) 28.4 10.0-50.0 % Monocytes (%) (Auto) 10.5 0.0-12.0 % Eosinophils (%) (Auto) 1.4 0.0-7.0 % Basophils (%) (Auto) 0.5 0.0-2.0 % Neutrophils # (Auto) 3.6 1.6-8.6 10 ^3/uL Lymphocytes # (Auto) 1.7 0.4-5.4 10 ^3/uL Monocytes # (Auto) 0.6 0-1.3 10 ^3/uL Eosinophils # (Auto) 0.1 0-0.8 10 ^3/uL Basophils # (Auto) 0 0-0.2 10 ^3/uL Nucleated Red Blood Cells 0.1 % Sodium Level 139 136-145 mmol/L Potassium Level 3.9 3.5-5.1 mmol/L Chloride Level 105 98-107 mmol/L Carbon Dioxide Level 24 20-31 mmol/L Anion Gap 10 5-15 Blood Urea Nitrogen 14 9-23 mg/dL Creatinine 1.04 H 0.550-1.02 mg/dL Glomerular Filtration Rate Calc 60 >90 mL/min BUN/Creatinine Ratio 13.5 10.0-20.0 Serum Glucose 166 H 74-106 mg/dL Calcium Level 9.5 8.7-10.4 mg/dL Troponin I High Sensitivity 32 </=34 ng/L B-Type Natriuretic Peptide > 5000.00 0-100 pg/mL PATIENT: AGBE DIETZ ACCT: [id number] UNIT: [id number] : 1960 LOC: ER ROOM / BED: / AGE / SEX: 64 / F ADM STATUS: REG ER SERVICE 1030 ORDERING PHYSICIAN: LETICIA RUBIN MD PROCEDURE(s): CXRP - CHEST PORTABLE REASON: sob ORDER NUMBER(s): [id number], ACCESSION NUMBER(s): [id number] CHEST RADIOGRAPH Indication: sob Technique: Single frontal view of the chest was obtained COMPARISON: XY CHEST PORTABLE on DOS: 08/22/24, XY CHEST PORTABLE on DOS: 02/09/23, CXRP on DOS: 10/14/22, CHEST PORTABLE on DOS: 10/14/22, CXRP on DOS: 05/18/22 FINDINGS: Lines and Tubes: Left chest wall AICD Lungs: Pulmonary vascular congestion Pleura: No effusion. No pneumothorax. Cardiomediastinal contours: Cardiomegaly Bones: Unremarkable IMPRESSION: Pulmonary vascular congestion. Assessment/Plan Assessment/Plan Acute on chronic systolic heart failure Acute respiratory failure Acute respiratory failure with hypoxia COPD with acute exacerbation Uncontrolled diabetes mellitus Other specified diabetes mellitus with hyperglycemia Plan 1. Admit to telemetry unit 2. Breathing treatment 3. Pain control management 4. Management of fluids and electrolytes 5. Consultation for Cardiology 6. Diagnostic tests chest x-ray 7. DVT prophylaxis-on Eliquis 8. Repeat labs CBC, CMP in a.m. 9. Continue with current medical management 10. Treatment plan discussed with patient and RN. Patient verbalized understanding. Plan discussed with: Patient, Other (RN) My Orders Orders - VALENTINO LIN DNP Procedure Category Date Status Time Consistent DIET 11/20/24 Transmitted Carb(Ccho)Diabetes Dinner Furosemide Injection PHA 11/21/24 In Process (Lasix Injection) 10:00 Carvedilol Tablet PHA 11/20/24 In Process (Coreg Tablet) 22:00 Methylprednisolone PHA 11/20/24 In Process Sod Succ (Solu Medrol 22:00 Albuterol Medneb PHA 11/20/24 In Process (Ventolin Medneb) 14:30 Ipratropium Medneb PHA 11/20/24 In Process (Atrovent Medneb) 14:30 Famotidine Injection PHA 11/20/24 In Process (Pepcid Injection) 22:00 Apixaban (Eliquis) PHA 11/20/24 In Process 22:00 Allergies SIRISHA 11/20/24 In Process 14:25 Code Status CODE 11/20/24 Transmitted 14:25 Sodium Chloride Lock PHA 11/20/24 In Process (Saline Lock Ns) 22:00 Oxygen Per Hour RT 11/20/24 Transmitted 14:25 Hydrocodone-Acet PHA 11/20/24 In Process 5/325mg Tab ([place] 14:30 Ondansetron Hcl PHA 11/20/24 In Process (Zofran) 14:30 Docusate Sodium PHA 11/20/24 In Process Capsule (Colace 14:30 Complete Blood Count LAB 11/21/24 Verified 04:00 Comprehensive LAB 11/21/24 Verified Metabolic Panel 04:00 Condition: Serious SIRIHSA 11/20/24 In Process 14:25 Acetaminophen Tablet PHA 11/20/24 In Process (Tylenol Tablet) 14:30 Bedrest With Bathroom SIRISHA 11/20/24 In Process Privileg 14:25 Morphine Sulfate PHA 11/20/24 In Process Injection 14:30 Sequential SIRISHA 11/20/24 In Process Compression Device Pantoprazole PHA 11/21/24 In Process (Protonix) 10:00 Glucose Blood PHA 11/20/24 In Process (Accu-Chek Comfort 17:00 Insulin R (Human) PHA 11/20/24 In Process (Insulin R) 22:00 Insulin R (Human) PHA 11/20/24 In Process (Insulin R) 17:00 Dextrose 50% Syringe PHA 11/20/24 In Process 15:15 Admit ADMIT 11/20/24 Transmitted 17:39 Nitroglycerin PHA 11/20/24 Transmitted Sublingual (Ntrostat 17:45 Morphine Sulfate PHA 11/20/24 Transmitted Injection 17:45 Notify Of Changes [facility] 11/20/24 Transmitted From Base 17:39 Spike Machine Operator For [facility] 11/20/24 Transmitted 24 Hours 17:39 Emergency Dysrhythmia [facility] 11/20/24 Transmitted Protocol 17:39 Rhythm Strips Once [facility] 11/20/24 Transmitted Every Shift 17:39 Oxygen By Nasal RT 11/20/24 Transmitted Cannula 17:39 Problem List: (1) Acute on chronic systolic heart failure (2) Acute respiratory failure (3) Uncontrolled diabetes mellitus (4) COPD with acute exacerbation (5) Acute respiratory failure with hypoxia (6) Other specified diabetes mellitus with hyperglycemia Date of Service: Nov 20, 2024 Billing Provider: VALENTINO LIN DNP Common Visit Codes: [id number] INP/OBS CARE (HIGH) VALENTINO LIN DNP Nov 20, 2024 17:42
[2024-11-20] MEDS ORDERED: NITROGLYCERIN 0.4 MG SL TAB SL PRN (17:45)
[2024-11-20 18:57] VITALS: PULSE 96; RESP 12; O2SAT 96
[2024-11-20] MEDS: IPRATROPIUM BROM 0.5 MG/2.5ML INH SOL NEB PRN (18:57)
[2024-11-20] MEDS: ALBUTEROL SULF 2.5 MG/0.5ML(0.5%) NEB SOLN NEB PRN (18:57)
[2024-11-20 19:05] VITALS: PULSE 90; RESP 19; O2SAT 97
[2024-11-20 19:30] VITALS: PULSE 92; RESP 18; O2SAT 96
[2024-11-20] MEDS: OXYCODONE W/ ACETAMINOPHEN 5/325MG TABLET PO PRN (19:37)
[2024-11-20 21:01] LABS: Urine Bacteria None Seen /hpf (None Seen)
[2024-11-20 21:27] LABS: Urine Blood Negative /uL (Negative); Urine Clarity Clear (Clear); Urine Color Yellow (Yellow); Urine Hyaline Cast MOD /lpf (0 - 2); Urine Mucus FEW (None Seen); Urine Protein, UAD 2+ (Negative); Urine Specific Gravity 1.037 (1.001-1.035); Urine Squamous Epithelial Cell FEW /hpf (<5); Urine Urobilinogen 3 mg/dL (Negative); Urine WBC 4 /HPF (0-5)
[2024-11-20] MEDS: FAMOTIDINE (10MG/ML) 2ML VL IV SCH (21:36)
[2024-11-20] MEDS: APIXABAN 5 MG TAB PO SCH (21:36)
[2024-11-20] MEDS: SODIUM CHLOR 0.9% PF (SALINE LOCK) 10ML VIAL/SYR IV SCH (21:36)
[2024-11-20] MEDS: CARVEDILOL 12.5 MG TAB PO SCH (21:37)
[2024-11-20] MEDS: methylPREDNISolone SOD SUCC 40 MG/ML VL IV SCH (21:37)
[2024-11-21] MEDS: traZODone HCL 50 MG TAB PO ONE ×2 (00:07→23:55)
[2024-11-21 05:38] LABS: Basophils # (auto) 0 10 ^3/uL (0-0.2); Basophils % (auto) 0.2 % (0.0-2.0); Eosinophils # (auto) 0 10 ^3/uL (0-0.8); Hemoglobin 12.4 g/dL (12.2-16.2); Lymphocytes # (auto) 0.5 10 ^3/uL (0.4-5.4); Lymphocytes % (auto) 11.5 % (10.0-50.0); Mean Corpuscular Hemoglobin 29.3 pg (28.0-32.0); Mean Corpuscular Hgb Conc. 32.6 g/dL (32.0-36.0); Monocytes # (auto) 0.2 10 ^3/uL (0-1.3); Monocytes % (auto) 3.7 % (0.0-12.0); Neutrophils # (auto) 3.6 10 ^3/uL (1.6-8.6); Neutrophils % (auto) 84.6 % (37.0-80.0); Nucleated Red Blood Cells % 0.1 %; Platelet Count (auto) 197 10^3/uL (140-450); Red Blood Cells 4.22 10^6/uL (4.0-5.20); Red Cell Distribution Width 15.2 % (11.8-14.3); White Blood Cell 4.2 10^3/uL (4.4-10.8)
[2024-11-21 06:12] LABS: Alanine Aminotransferase 38 U/L (7-40); Alkaline Phosphatase 87 U/L (46-116); Anion Gap 11 (5-15); Calcium 9.7 mg/dL (8.7-10.4); Carbon Dioxide 23 mmol/L (20-31); Chloride 103 mmol/L (98-107); Potassium 4.4 mmol/L (3.5-5.1); Sodium 137 mmol/L (136-145)
[2024-11-21 06:13] LABS: BUN/Creatinine Ratio 18.1 (10.0-20.0); Blood Urea Nitrogen 19 mg/dL (9-23)
[2024-11-21 06:14] LABS: Total Protein 6.1 g/dL (5.7-8.2)
[2024-11-21 06:15] LABS: Albumin 3.8 g/dL (3.2-4.8); Aspartate Aminotransferase 25 U/L (13-40); Bilirubin, Total 0.9 mg/dL (0.2-1.0)
[2024-11-21 06:36] VITALS: PULSE 80; RESP 16; O2SAT 98
[2024-11-21 06:40] LABS: Glucose 218 mg/dL (74-106)
[2024-11-21 06:42] VITALS: PULSE 85; RESP 18; O2SAT 100
[2024-11-21 08:00] VITALS: PULSE 84; RESP 18; O2SAT 99
[2024-11-21] MEDS: ONDANSETRON HCL 4 MG/2 ML VIAL IV PRN (09:30)
[2024-11-21 10:02] VITALS: PULSE 88; RESP 16; O2SAT 95
[2024-11-21 10:08] VITALS: PULSE 85; RESP 16; O2SAT 100
[2024-11-21] MEDS: FUROSEMIDE 40 MG/4 ML VIAL IV SCH (10:24)
[2024-11-21] MEDS: PANTOPRAZOLE 40 MG/10 ML VIAL INJ IV SCH (10:24)
--- NOTE | 2024-11-21 12:36 | DVH ---
CHEST RADIOGRAPH Indication: chf Technique: Single frontal view of the chest was obtained Comparison: XY CHEST PORTABLE on DOS: 11/20/24, XY CHEST PORTABLE on DOS: 08/22/24, XY CHEST PORTABLE on DOS: 02/09/23, CXRP on DOS: 10/14/22, CHEST PORTABLE on DOS: 10/14/22 FINDINGS: Lines and Tubes: None Lungs: Increased interstitial opacities Pleura: No effusion. No pneumothorax. Cardiomediastinal contours: Cardiomegaly. Bones: No acute osseous abnormality. IMPRESSION: Cardiomegaly with CHF
[2024-11-21 12:59] LABS: COVID19 ANTIGEN SOFIA FIA NEGATIVE (NEGATIVE)
[2024-11-21 12:59] LABS: Rapid Influenza A Negative (Negative); Rapid Influenza B Negative (Negative)
[2024-11-21] MEDS ORDERED: ALLO300T2 PO (13:42)
--- NOTE | 2024-11-21 15:02 | DVHPN2 ---
Subjective Patient continues to report cough and shortness of breath Reviewed: Care Plan, H&P, Labs Changes from previous H/P or p: No Changes General: Per HPI Eyes: No Pain, No Vision change, No Conjunctivae inflammation, No Eyelid inflammation, No Other, No Redness ENT: No Ear pain, No Ear discharge, No Nose pain, No Nose discharge, No Nose congestion, No Mouth pain, No Mouth swelling, No Throat pain, No Throat swelling, No Other Cardiovascular: Chest Pain; No Palpitations, No Orthopnea, No Paroxysmal Noc. Dyspnea, No Edema, No Lt Headedness, No Other Respiratory: No Cough, No Dry; Shortness of breath; No SOB with excertion, No Wheezing, No Hemoptysis, No Pleuritic Pain, No Sputum, No Other Gastrointestinal: No Nausea, No Vomiting, No Abdominal Pain, No Diarrhea, No Constipation, No Melena, No Hematochezia, No Other Genitourinary: No Dysuria, No Frequency, No Incontinence, No Hematuria, No Retention, No Other Musculoskeletal: No other, No neck pain, No shoulder pain, No arm pain, No back pain, No hand pain, No leg pain, No foot pain Skin: No Rash, No Lesions, No Jaundice, No Bruising, No Other Objective Vitals Vital Signs Date Time Temp Pulse Resp B/P (MAP) Pulse Ox O2 Delivery O2 Flow Rate FiO2 11/21/24 12:00 80 19 110/54 (72) 100 11/21/24 10:02 Nasal Cannula 2.0 11/21/24 10:02 28 11/21/24 08:00 97.9 97.9 General Appearance: Alert, Oriented X3, Cooperative, mild distress HEENT: Atraumatic, PERRLA Neck: Carotid Bruits Isabela Lungs: Clear to auscultation, Normal air movement Cardiovascular: Normal S1, Normal S2 Abdomen: Normal bowel sounds, Soft, No tenderness Musculoskeletal: Normal sensory function, Normal motor function Extremities: No clubbing, No cyanosis Neuro: Normal gait, Normal speech Psych/Mental Status: Mental status NL, Mood NL Medications Current Medications Medications Dose Ordered Sig/Della Route Start Time Stop Time Status Last Admin Dose Admin Albuterol 2.5 mg Q4HPRN PRN NEB 11/20/24 14:30 11/21/24 10:02 2.5 MG Ipratropium [place] 0.5 mg Q4HPRN PRN NEB 11/20/24 14:30 11/21/24 10:02 0.5 MG Famotidine 20 mg Q12HR IV 11/20/24 22:00 11/21/24 10:24 20 MG Apixaban 5 mg BID PO 11/20/24 22:00 11/21/24 10:24 5 MG Sodium Chloride 10 ml Q8HR IV 11/20/24 22:00 11/21/24 14:01 10 ML Acetaminophen/ Hydrocodone Bitart 1 tab Q4HP PRN PO 11/20/24 14:30 11/20/24 17:00 1 TAB Ondansetron HCl 4 mg Q4HP PRN IV 11/20/24 14:30 11/21/24 09:30 4 MG Docusate Sodium 100 mg BIDPRN PRN PO 11/20/24 14:30 Acetaminophen 650 mg Q6HP PRN PO 11/20/24 14:30 Morphine Sulfate 2 mg Q4HPRN PRN IV 11/20/24 14:30 Hold Pantoprazole Sodium 40 mg DAILY IV 11/21/24 10:00 11/21/24 10:24 40 MG Diagnostic Test (Pha) 1 strip ACHS 11/20/24 17:00 11/21/24 11:43 1 STRIP Insulin Human Regular HS SC 11/20/24 22:00 11/20/24 21:38 8 UNITS Insulin Human Regular AC SC 11/20/24 17:00 11/21/24 11:53 3 UNITS Dextrose 50 ml UD PRN IV 11/20/24 15:15 Nitroglycerin 0.4 mg Q5MINP PRN SL 11/20/24 17:45 Morphine Sulfate 2 mg Q30M PRN IV 11/20/24 17:45 Oxycodone/ Acetaminophen 1 tab Q6HP PRN PO 11/20/24 18:00 11/21/24 09:31 1 TAB Methylprednisolone Sodium Succinate 40 mg DAILY IV 11/22/24 10:00 Carvedilol 6.25 mg Q12HR PO 11/21/24 22:00 Furosemide 40 mg BID IV 11/21/24 18:00 Metolazone 2.5 mg DAILY PO 11/22/24 10:00 Patient Own Medication 1 tab BID PO 11/21/24 22:00 Empaglifozin 10 mg DAILY PO 11/22/24 10:00 Laboratory Results Laboratory Tests 11/21/24 05:00 Chemistry Test 11/21/24 05:00 Albumin 3.8 g/dL (3.2-4.8) Calcium Level 9.7 mg/dL (8.7-10.4) Total Protein 6.1 g/dL (5.7-8.2) LFT Test 11/21/24 05:00 Alanine Aminotransferase (ALT) 38 U/L (7-40) Alkaline Phosphatase 87 U/L (46-116) Aspartate Amino Transferase (AST) 25 U/L (13-40) Total Bilirubin 0.9 mg/dL (0.2-1.0) Urinalysis Test 11/20/24 20:45 Urine Color Yellow (Yellow) Urine Clarity Clear (Clear) Urine pH 6.0 (5.0-9.0) Urine Specific [place] 1.037 (1.001-1.035) Urine Protein 2+ (Negative) H Urine Ketones Negative (Negative) Urine Blood Negative /uL (Negative) Urine Nitrite Negative (Negative) Urine Bilirubin Negative (Negative) Urine Urobilinogen 3 mg/dL (Negative) H Urine Leukocyte Esterase Negative /uL (Negative) Urine RBC 7 /hpf (0 - 4) Urine Microscopic WBC 4 /HPF (0-5) Urine Squamous Epithelial Cells Few /hpf (<5) Urine Bacteria None seen /hpf (None Seen) Urine Hyaline Casts Mod /lpf (0 - 2) Urine Mucus Few (None Seen) Urine Glucose 4+ mg/dL (Normal) H Labs and/or images reviewed: Labs reviewed by me, Image(s) reviewed by me Assessment/Plan Assessment/Plan Impression: -acute on chronic decompensated systolic heart failure -acute hypoxic respiratory failure -medication noncompliance -dyslipidemia -hypertension -diabetes mellitus Plan: -increase IV diuresis -barium swallow evaluation for difficulty swallowing -cardiology consultation -regular insulin sliding scale -guideline directed medical therapy -repeat labs and chest x-ray in a.m. -COVID, influenza checked, negative Total time spent with patient discussing and formulating plan of care: 35 minutes. This medical document was created using an electronic medical record system with [employer] dictation system. Although this document has been carefully reviewed, there may still be some phonetic and typographical errors. These areas are purely typographical due to imperfections of the software programs, and do not reflect any compromise in the patient's medical care. Plan discussed with: Patient, Other (RN) My Orders Orders - CARA DUBOSE NP Procedure Category Date Status Time Methylprednisolone PHA 11/22/24 In Process Sod Succ (Solu Medrol 10:00 Chest Xray 1 View XY 11/21/24 Resulted 10:59 Carvedilol Tablet PHA 11/21/24 In Process (Coreg Tablet) 22:00 Furosemide Injection PHA 11/21/24 In Process (Lasix Injection) 18:00 * Cardiology Consult CONS 11/21/24 Transmitted 11:21 Esophagus Barium XY 11/21/24 Logged Swallow 11:21 Metolazone (Zaroxolyn) PHA 11/22/24 In Process 10:00 (NF) PHA 11/21/24 In Process Sacubitril-Valsartan 22:00 Empagliflozin PHA 11/22/24 In Process (Jardiance) 10:00 Basic Metabolic Panel LAB 11/22/24 Verified 04:00 Magnesium LAB 11/22/24 Verified 04:00 Complete Blood Count LAB 11/22/24 Verified 04:00 Date of Service: Nov 21, 2024 Billing Provider: CARA DUBOSE NP Common Visit Codes: [id number] INP/OBS CARE(HIGH) CARA DUBOSE NP Nov 21, 2024 15:02
--- NOTE | 2024-11-21 15:38 | DVHINCON2 ---
Date of service: Nov 21, 2024 Referring Physician Blake Reason for Consultation CHF History of Present Illness This is a 64 year old female with a PMH of A FIB, Arthritis, CHF, CKF, COPD, Depression, DM, Gallstones, Gout, High Lipids, HTN who presented to the ED with complaints of SOB x 2 days. Patient states she is usually on 3L O2 at home. Patient also endorses chest pain. Chest x-ray shows pulmonary vascular congestio n. Viral swabs are negative. BNP >5000. Troponin 32. Patient was admitted to the hospital. I am asked to consult on this patient. Family History: Asthma G8 FATHER G8 BROTHER Cerebrovascular accident (CVA) G8 MOTHER G8 SISTER FH: cancer FH: stroke Family history: Diabetes mellitus G8 MOTHER, Onset:50's - 60 G8 FATHER G8 SISTER, Onset:40's - 50 Family history: Hypertension G8 MOTHER, Onset:50's - 60 G8 FATHER, Onset:50's - 60 G8 SISTER, Onset:40's - 50 Hypertension G8 FATHER Ischemic heart disease G8 FATHER, Onset:60 years & older Allergies: Coded Allergies: NO KNOWN ALLERGIES (Unverified , 05/18/22) Home Meds Active Scripts Prednisone (Prednisone) 20 Mg Tab, 20 MG PO DAILY for 5 Days, #5 MG Prov:JARRETT DIAZ [facility] 08/25/24 Doxycycline (Monohydrate) (Doxycycline) 100 Mg Tab, 100 MG PO BID for 5 Days, #10 TAB Prov:JARRETT DIAZ [facility] 08/25/24 Apixaban Base (ELIQUIS) 5 Mg Tab, 5 MG PO BID for 30 Days, #60 TAB Prov:JARRETT DIAZ [facility] 08/25/24 Pantoprazole Sodium Sesquihydr (Pantoprazole Sodium) 40 Mg Tab, 40 MG PO DAILY@0600 for 30 Days, #30 TAB Prov:JARRETT DIAZ [facility] 08/25/24 Acetaminophen (Acetaminophen) 325 Mg Tab, 650 MG PO Q6HP PRN for 10 Days, #80 TAB Prov:JARRETT DIAZ [facility] 08/25/24 Albuterol Sulfate (VENTOLIN MDI) 90 Mcg Ih, 90 MCG IN Q4HR PRN, #1 INH Prov:NAFISA CHEN MD 10/28/23 Sucralfate (CARAFATE) 1 Gm Tab, 1 GM OR QID, #120 TAB Prov:NAFISA CHEN MD 10/28/23 Metoprolol Tartrate (Lopressor) 25 Mg Tb, 25 MG PO BID for 30 Days Prov:CHIKIS ESTEBAN MD 01/26/19 Reported Medications Allopurinol (Allopurinol) 300 Mg Tab, 300 MG PO Q12HR, MG 11/21/24 Buspirone Hcl (Buspirone Hcl) 5 Mg Tab, 1 TAB PO BID for 30 Days, #60 08/23/24 Metolazone (Metolazone) 2.5 Mg Tab, 1 TAB PO DAILY for 30 Days, #30 08/23/24 Sertraline Hcl (Sertraline Hcl) 50 Mg Tab, 1 TAB PO DAILY for 30 Days, #30 08/23/24 Ergocalciferol (Vitamin D (Ergocalciferol) 50,000 Unit Cap, 1 CAP PO QWEEKLY for 28 Days, #4 08/23/24 Potassium Chloride (Klor-Con M20) 20 Meq Tab, 1 TAB PO DAILY for 90 Days, #90 08/23/24 Vericiguat (Verquvo) 10 Mg Tab, 1 TAB PO DAILY for 30 Days, #30 08/23/24 Sacubitril-Valsartan (Entresto 49-51 mg) 1 Tab Tab, 1 TAB PO BID for 30 Days, #60 08/23/24 Furosemide (Furosemide) 40 Mg Tab, 1 TAB PO DAILY for 30 Days, #30 08/23/24 Triamcinolone Acetonide (Kenalog) 1 Applic Ap, 1 APPLIC TOP 10/27/23 Calcipotriene (CALCIPOTRIENE) 0.005 % Cre, 1 APPLIC TOP BID 10/27/23 Gabapentin (Gabapentin) 300 Mg Cap, 2 TAB PO TID 10/27/23 Dapagliflozin Propanediol (Farxiga) 10 Mg Tab, 1 TAB PO DAILY 10/27/23 Oxycodone W/ Acetaminophen (Apap/Oxycodone) 1 Tab Tab, 1 TAB PO QID PRN for 30 Days, #120 Oxycodone/APAP 10/325 mg 10/27/23 Metformin HCl (Metformin Hydrochloride) 1,000 Mg Tab, 1 TAB PO BID 10/27/23 Glipizide (Glipizide) 10 Mg Tab, 10 MG PO BID for 30 Days, MG 10/13/21 Magnesium Oxide (MAGNESIUM OXIDE) 400 Mg Tab, 1 TAB PO DAILY 10/13/21 Carvedilol (Coreg) 25 Mg Tab, 1 TAB PO BID, #60 TAB 5 Refills 10/13/21 Atorvastatin Calcium (Lipitor) 20 Mg Tab, 20 MG PO HS, #2 TAB 10/08/16 Current Medications Current Medications Medications (Trade) Dose Ordered Sig/Della Route PRN Reason Start Time Stop Time Status Last Admin Acetaminophen/ Hydrocodone Bitart ([place] 5/325MG Tab) 1 tab Q6HPRN PRN PO PAIN SCALE 1 THRU 6 11/20/24 13:00 11/20/24 15:23 DC Furosemide (Lasix Injection) 40 mg DAILY IV 11/21/24 10:00 11/21/24 11:26 DC 11/21/24 10:24 Carvedilol (Coreg Tablet) 12.5 mg Q12HR PO 11/20/24 22:00 11/21/24 11:26 DC 11/21/24 10:25 Methylprednisolone Sodium Succinate (Solu Medrol) 40 mg Q8HR IV 11/20/24 22:00 11/21/24 11:01 DC 11/21/24 06:30 Albuterol (Ventolin Medneb) 2.5 mg Q4HPRN PRN NEB SHORTNESS OF BREATH 11/20/24 14:30 11/21/24 10:02 Ipratropium [place] (Atrovent Medneb) 0.5 mg Q4HPRN PRN NEB SHORTNESS OF BREATH 11/20/24 14:30 11/21/24 10:02 Famotidine (Pepcid Injection) 20 mg Q12HR IV 11/20/24 22:00 11/21/24 10:24 Apixaban (Eliquis) 5 mg BID PO 11/20/24 22:00 11/21/24 10:24 Sodium Chloride (Saline Lock Ns) 10 ml Q8HR IV 11/20/24 22:00 11/21/24 06:07 Acetaminophen/ Hydrocodone Bitart ([place] 5/325MG Tab) 1 tab Q4HP PRN PO MODERATE PAIN (4-6 PAIN SCALE) 11/20/24 14:30 11/20/24 17:00 Ondansetron HCl (Zofran) 4 mg Q4HP PRN IV NAUSEA / VOMITING 11/20/24 14:30 11/21/24 09:30 Docusate Sodium (Colace Capsule) 100 mg BIDPRN PRN PO FOR CONSTIPATION 11/20/24 14:30 Acetaminophen (Tylenol Tablet) 650 mg Q6HP PRN PO PAIN SCALE 1-3 OR TEMP>100.4 11/20/24 14:30 Morphine Sulfate 2 mg Q4HPRN PRN IV SEVERE PAIN (7-10 PAIN SCALE) 11/20/24 14:30 Hold Pantoprazole Sodium (Protonix) 40 mg DAILY IV 11/21/24 10:00 11/21/24 10:24 Diagnostic Test (Pha) (Accu-Chek Comfort Curve T) 1 strip ACHS 11/20/24 17:00 11/21/24 11:43 Insulin Human Regular (InsuLIN R) HS SC 11/20/24 22:00 11/20/24 21:38 Insulin Human Regular (InsuLIN R) AC SC 11/20/24 17:00 11/21/24 11:53 Dextrose 50 ml UD PRN IV Blood Sugar LESS THAN 60 11/20/24 15:15 Nitroglycerin (Ntrostat Sublingual) 0.4 mg Q5MINP PRN SL FOR CHEST PAIN 11/20/24 17:45 Morphine Sulfate 2 mg Q30M PRN IV FOR CHEST PAIN 11/20/24 17:45 Oxycodone/ Acetaminophen (Percocet 5/ 325MG Tablet) 1 tab Q6HP PRN PO SEVERE PAIN (7-10 PAIN SCALE) 11/20/24 18:00 11/21/24 09:31 Methylprednisolone Sodium Succinate (Solu Medrol) 40 mg DAILY IV 11/22/24 10:00 Carvedilol (Coreg Tablet) 6.25 mg Q12HR PO 11/21/24 22:00 Furosemide (Lasix Injection) 40 mg BID IV 11/21/24 18:00 Metolazone (Zaroxolyn) 2.5 mg DAILY PO 11/22/24 10:00 Patient Own Medication 1 tab BID PO 11/21/24 22:00 Empaglifozin (Jardiance) 10 mg DAILY PO 11/22/24 10:00 Review of Systems Constitutional: denies: chills, diaphoresis, fatigue, fever, malaise, sweats, weakness, others EENTM: denies: blurred vision, double vision, ear bleeding, ear discharge, ear drainage, ear pain, ear ringing, eye pain, eye redness, hearing loss, mouth pain, mouth swelling, nasal discharge, nose bleeding, nose congestion, nose pain, photophobia, tearing, throat pain, throat swelling, voice changes, others Respiratory: reports: shortness of breath; denies: cough, hemoptysis, ort hopnea, SOB at rest, SOB with excertion, stridor, wheezing, others Cardiovascular: reports: chest pain; denies: dizzy spells, diaphoresis, Dyspnea on exertion, edema, irregular heart beat, left arm pain, lightheadedness, palpitations, PND, syncope, others Gastrointestinal: denies: abdomen distended, abdominal pain, blood streaked bowels, constipated, diarrhea, dysphagia, difficulty swallowing, hematemesis, melena, nausea, poor appetite, poor fluid intake, rectal bleeding, rectal pain, vomiting, others Genitourinary: denies: abnormal vagina bleeding, burning, dyspareunia, dysuria, flank pain, frequency, hematuria, incontinence, pain, , vagina discharge, urgency, others Neurological: denies: dizziness, fainting, headache, left sided numbness, left sided weakness, numbness, paresthesia, pre-existing deficit, right sided numbness, right sided weakness, seizure, speech problems, tingling, tremors, w eakness, others Musculoskeletal: denies: back pain, gout, joint pain, joint swelling, muscle pain, muscle stiffness, neck pain, others Integumetry: denies: bruises, change in color, change in hair/nails, dryness, laceration, lesions, lumps, rash, wounds, others Allergic/Immunocompromised: denies: Difficulty Healing, Frequent Infections, Hives, Itching, others Hematologic/Lymphatic: denies: anemia, blood clots, easy bleeding, easy bruising, swollen glands, others Endocrine: denies: excessive hunger, excessive sweating, excessive thirst, excessive urination, flushing, intolerance to cold, intolerance to heat, unexplained weight gain, unexplained weight loss, others Psychiatric: denies: anxiety, bipolar disorder, depression, hopeless, panic disorder, schizophrenia, sleepless, suicidal, others All Other Systems: Reviewed and Negative Vital Signs Vital Signs Date Time Temp Pulse Resp B/P (MAP) Pulse Ox O2 Delivery O2 Flow Rate FiO2 11/21/24 11:15 90 110/54 11/21/24 10:08 16 100 11/21/24 10:02 Nasal Cannula 2.0 11/21/24 10:02 28 11/21/24 08:00 97.9 97.9 Physical Exam GENERAL: Awake, alert, oriented. LUNGS: Clear. CARDIOVASCULAR: Heart sounds are good. ABDOMEN: Soft. Labs/Diagnostic Data Labs Test 11/21/24 11:44 11/21/24 11:21 11/21/24 05:00 11/21/24 00:00 Range/Units POC Glucose 187 H 70-106 mg/dl White Blood Count 4.2 #L 4.4-10.8 10^3/uL Red Blood Count 4.22 4.0-5.20 10^6/uL Hemoglobin 12.4 12.2-16.2 g/dL Hematocrit 38.0 36.0-46.0 % Mean Corpuscular Volume 90.0 80.0-100.0 fL Mean Corpuscular Hemoglobin 29.3 28.0-32.0 pg Mean Corpuscular Hemoglobin Concent 32.6 32.0-36.0 g/dL Red Cell Distribution Width 15.2 H 11.8-14.3 % Platelet Count 197 140-450 10^3/uL Mean Platelet Volume 8.8 6.9-10.8 fL Neutrophils (%) (Auto) 84.6 H 37.0-80.0 % Lymphocytes (%) (Auto) 11.5 10.0-50.0 % Monocytes (%) (Auto) 3.7 0.0-12.0 % Eosinophils (%) (Auto) 0.0 0.0-7.0 % Basophils (%) (Auto) 0.2 0.0-2.0 % Neutrophils # (Auto) 3.6 1.6-8.6 10 ^3/uL Lymphocytes # (Auto) 0.5 0.4-5.4 10 ^3/uL Monocytes # (Auto) 0.2 0-1.3 10 ^3/uL Eosinophils # (Auto) 0 0-0.8 10 ^3/uL Basophils # (Auto) 0 0-0.2 10 ^3/uL Nucleated Red Blood Cells 0.1 % Sodium Level 137 136-145 mmol/L Potassium Level 4.4 3.5-5.1 mmol/L Chloride Level 103 98-107 mmol/L Carbon Dioxide Level 23 20-31 mmol/L Anion Gap 11 5-15 Blood Urea Nitrogen 19 9-23 mg/dL Creatinine 1.05 H 0.550-1.02 mg/dL Glomerular Filtration Rate Calc 59 >90 mL/min BUN/Creatinine Ratio 18.1 10.0-20.0 Serum Glucose 218 H 74-106 mg/dL Calcium Level 9.7 8.7-10.4 mg/dL Total Bilirubin 0.9 0.2-1.0 mg/dL Aspartate Amino Transferase (AST) 25 13-40 U/L Alanine Aminotransferase (ALT) 38 7-40 U/L Alkaline Phosphatase 87 46-116 U/L Total Protein 6.1 5.7-8.2 g/dL Albumin 3.8 3.2-4.8 g/dL Test 11/20/24 20:45 11/20/24 10:57 Range/Units Urine Color Yellow Yellow Urine Clarity Clear Clear Urine pH 6.0 5.0-9.0 Urine Specific [place] 1.037 H 1.001-1.035 Urine Protein 2+ H Negative Urine Ketones Negative Negative Urine Blood Negative Negative /uL Urine Nitrite Negative Negative Urine Bilirubin Negative Negative Urine Urobilinogen 3 H Negative mg/dL Urine Leukocyte Esterase Negative Negative /uL Urine RBC 7 0 - 4 /hpf Urine Microscopic WBC 4 0-5 /HPF Urine Squamous Epithelial Cells Few <5 /hpf Urine Bacteria None seen None Seen /hpf Urine Hyaline Casts Mod 0 - 2 /lpf Urine Mucus Few None Seen Urine Glucose 4+ H Normal mg/dL Troponin I High Sensitivity 32 </=34 ng/L B-Type Natriuretic Peptide > 5000.00 0-100 pg/mL Assessment Acute on chronic decompensated systolic heart failure. Acute hypoxic respiratory failure. Medication noncompliance. Dyslipidemia. Hypertension. Diabetes mellitus. Plan/Recommendation I agree with your ongoing assessment and care of plan. Telemetry reviewed. Morphine and [place] for pain management. Eliquis. Coreg. Diuretics with Lasix. GI prophylactics. Additional plan as per the hospital course. A total of 45 minutes was spent reviewing the patient record, examining the patient, making a diagnostic and therapeutic plan, discussing this plan with medical personnel, following up on diagnostic studies and following the patient for clinical stability excluding any and all procedures. At least 50% of this time was spent in direct, [id number] contact. Plan discussed with: Patient SAMANTHA PEARSON MD Nov 21, 2024 12:48
--- NOTE | 2024-11-21 17:43 | DVHINCON2 ---
Date of service: Nov 21, 2024 History of Present Illness HPI Patient is a 64-year-old female who presented with few days of shortness of breath/dyspnea on exertion and worsening of leg swelling. Cardiology is called by the patient herself for cardiac aspects of care. She comes to our office since August 2024. She is known to have systolic heart failure for many years. She does have Medtronic ICD. She mentions compliance with medications but also mentions that the Lasix was not working as outpatient. She does have baseline chronic respiratory failure and is on home oxygen. Mentions that the need for oxygen was increasing at home also. She also has history of COPD. Home Meds Active Scripts Prednisone (Prednisone) 20 Mg Tab, 20 MG PO DAILY for 5 Days, #5 MG Prov:JARRETT DIAZ [facility] 08/25/24 Doxycycline (Monohydrate) (Doxycycline) 100 Mg Tab, 100 MG PO BID for 5 Days, #10 TAB Prov:JARRETT DIAZ [facility] 08/25/24 Apixaban Base (ELIQUIS) 5 Mg Tab, 5 MG PO BID for 30 Days, #60 TAB Prov:JARRETT DIAZ [facility] 08/25/24 Pantoprazole Sodium Sesquihydr (Pantoprazole Sodium) 40 Mg Tab, 40 MG PO DAILY@0600 for 30 Days, #30 TAB Prov:JARRETT DIAZ [facility] 08/25/24 Acetaminophen (Acetaminophen) 325 Mg Tab, 650 MG PO Q6HP PRN for 10 Days, #80 TAB Prov:JARRETT DIAZ [facility] 08/25/24 Albuterol Sulfate (VENTOLIN MDI) 90 Mcg Ih, 90 MCG IN Q4HR PRN, #1 INH Prov:NAFISA CHEN MD 10/28/23 Sucralfate (CARAFATE) 1 Gm Tab, 1 GM OR QID, #120 TAB Prov:NAFISA CHEN MD 10/28/23 Metoprolol Tartrate (Lopressor) 25 Mg Tb, 25 MG PO BID for 30 Days Prov:CHIKIS ESTEBAN MD 01/26/19 Reported Medications Allopurinol (Allopurinol) 300 Mg Tab, 300 MG PO Q12HR, MG 11/21/24 Buspirone Hcl (Buspirone Hcl) 5 Mg Tab, 1 TAB PO BID for 30 Days, #60 08/23/24 Metolazone (Metolazone) 2.5 Mg Tab, 1 TAB PO DAILY for 30 Days, #30 08/23/24 Sertraline Hcl (Sertraline Hcl) 50 Mg Tab, 1 TAB PO DAILY for 30 Days, #30 08/23/24 Ergocalciferol (Vitamin D (Ergocalciferol) 50,000 Unit Cap, 1 CAP PO QWEEKLY for 28 Days, #4 08/23/24 Potassium Chloride (Klor-Con M20) 20 Meq Tab, 1 TAB PO DAILY for 90 Days, #90 08/23/24 Vericiguat (Verquvo) 10 Mg Tab, 1 TAB PO DAILY for 30 Days, #30 08/23/24 Sacubitril-Valsartan (Entresto 49-51 mg) 1 Tab Tab, 1 TAB PO BID for 30 Days, #60 08/23/24 Furosemide (Furosemide) 40 Mg Tab, 1 TAB PO DAILY for 30 Days, #30 08/23/24 Triamcinolone Acetonide (Kenalog) 1 Applic Ap, 1 APPLIC TOP 10/27/23 Calcipotriene (CALCIPOTRIENE) 0.005 % Cre, 1 APPLIC TOP BID 10/27/23 Gabapentin (Gabapentin) 300 Mg Cap, 2 TAB PO TID 10/27/23 Dapagliflozin Propanediol (Farxiga) 10 Mg Tab, 1 TAB PO DAILY 10/27/23 Oxycodone W/ Acetaminophen (Apap/Oxycodone) 1 Tab Tab, 1 TAB PO QID PRN for 30 Days, #120 Oxycodone/APAP 10/325 mg 10/27/23 Metformin HCl (Metformin Hydrochloride) 1,000 Mg Tab, 1 TAB PO BID 10/27/23 Glipizide (Glipizide) 10 Mg Tab, 10 MG PO BID for 30 Days, MG 10/13/21 Magnesium Oxide (MAGNESIUM OXIDE) 400 Mg Tab, 1 TAB PO DAILY 10/13/21 Carvedilol (Coreg) 25 Mg Tab, 1 TAB PO BID, #60 TAB 5 Refills 10/13/21 Atorvastatin Calcium (Lipitor) 20 Mg Tab, 20 MG PO HS, #2 TAB 10/08/16 Past Medical History Others Past medical history includes obesity, hypertension, hyperlipidemia, CKD, COPD (on home oxygen), systolic heart failure (long-term), diabetes mellitus, atrial fibrillation (paroxysmal AFib on Eliquis as outpatient), DJD, gallstone, gout, status post ICD (Medtronic) implantation, depression, DJD, uterine fibroid and status post cholecystectomy//hernia repair. She stopped smoking in 2011. She does have old history of cocaine abuse (). Patient Family History: Asthma G8 FATHER G8 BROTHER Cerebrovascular accident (CVA) G8 MOTHER G8 SISTER FH: cancer FH: stroke Family history: Diabetes mellitus G8 MOTHER, Onset:50's - 60 G8 FATHER G8 SISTER, Onset:40's - 50 Family history: Hypertension G8 MOTHER, Onset:50's - 60 G8 FATHER, Onset:50's - 60 G8 SISTER, Onset:40's - 50 Hypertension G8 FATHER Ischemic heart disease G8 FATHER, Onset:60 years & older Smoker: Quit Alocohol: None Review of Systems Pulmonary/Respiratory: Dyspnea Cardiovascular: Orthopnea, Paroxysmal Noc. Dyspnea, Edema All Other Systems Fourteen point review of system was performed. Relevant findings as per above and as per HPI. Otherwise negative. H&P Exam Vital Signs Vital Signs Date Time Temp Pulse Resp B/P (MAP) Pulse Ox O2 Delivery O2 Flow Rate FiO2 11/21/24 16:00 76 17 92/62 (72) 100 11/21/24 10:02 Nasal Cannula 2.0 11/21/24 10:02 28 11/21/24 08:00 97.9 97.9 General Appeara: Well developed, Obese Head Exam: Normal inspection Neck Exam: Normal inspection Eye Exam: bilateral eye PERRL Pulmonary/Respiratory: Rales Cardiovascular/Chest: Edema, Regular rate, Systolic murmur Peripheral Pulses: 2+ carotid (R), 2+ carotid (L), 2+ femoral (R), 2+ femoral (L), 2+ dorsalis pedis (R), 2+ dorsalis pedis (L), 2+ Radial (R), 2+ Radial (L) Neuro/Mental St: Alert, Oriented Appearance: Appropriate appearance Eye contact/ Speech: Cooperative Labs/Xrays Labs Test 11/21/24 11:44 11/21/24 11:21 11/21/24 05:00 11/21/24 00:00 Range/Units POC Glucose 187 H 70-106 mg/dl Influenza Type A Antigen Negative Negative Influenza Type B Antigen Negative Negative White Blood Count 4.2 #L 4.4-10.8 10^3/uL Red Blood Count 4.22 4.0-5.20 10^6/uL Hemoglobin 12.4 12.2-16.2 g/dL Hematocrit 38.0 36.0-46.0 % Mean Corpuscular Volume 90.0 80.0-100.0 fL Mean Corpuscular Hemoglobin 29.3 28.0-32.0 pg Mean Corpuscular Hemoglobin Concent 32.6 32.0-36.0 g/dL Red Cell Distribution Width 15.2 H 11.8-14.3 % Platelet Count 197 140-450 10^3/uL Mean Platelet Volume 8.8 6.9-10.8 fL Neutrophils (%) (Auto) 84.6 H 37.0-80.0 % Lymphocytes (%) (Auto) 11.5 10.0-50.0 % Monocytes (%) (Auto) 3.7 0.0-12.0 % Eosinophils (%) (Auto) 0.0 0.0-7.0 % Basophils (%) (Auto) 0.2 0.0-2.0 % Neutrophils # (Auto) 3.6 1.6-8.6 10 ^3/uL Lymphocytes # (Auto) 0.5 0.4-5.4 10 ^3/uL Monocytes # (Auto) 0.2 0-1.3 10 ^3/uL Eosinophils # (Auto) 0 0-0.8 10 ^3/uL Basophils # (Auto) 0 0-0.2 10 ^3/uL Nucleated Red Blood Cells 0.1 % Sodium Level 137 136-145 mmol/L Potassium Level 4.4 3.5-5.1 mmol/L Chloride Level 103 98-107 mmol/L Carbon Dioxide Level 23 20-31 mmol/L Anion Gap 11 5-15 Blood Urea Nitrogen 19 9-23 mg/dL Creatinine 1.05 H 0.550-1.02 mg/dL Glomerular Filtration Rate Calc 59 >90 mL/min BUN/Creatinine Ratio 18.1 10.0-20.0 Serum Glucose 218 H 74-106 mg/dL Calcium Level 9.7 8.7-10.4 mg/dL Total Bilirubin 0.9 0.2-1.0 mg/dL Aspartate Amino Transferase (AST) 25 13-40 U/L Alanine Aminotransferase (ALT) 38 7-40 U/L Alkaline Phosphatase 87 46-116 U/L Total Protein 6.1 5.7-8.2 g/dL Albumin 3.8 3.2-4.8 g/dL SARS-CoV-2 Antigen (Rapid) Negative NEGATIVE Test 11/20/24 20:45 11/20/24 10:57 Range/Units Urine Color Yellow Yellow Urine Clarity Clear Clear Urine pH 6.0 5.0-9.0 Urine Specific [place] 1.037 H 1.001-1.035 Urine Protein 2+ H Negative Urine Ketones Negative Negative Urine Blood Negative Negative /uL Urine Nitrite Negative Negative Urine Bilirubin Negative Negative Urine Urobilinogen 3 H Negative mg/dL Urine Leukocyte Esterase Negative Negative /uL Urine RBC 7 0 - 4 /hpf Urine Microscopic WBC 4 0-5 /HPF Urine Squamous Epithelial Cells Few <5 /hpf Urine Bacteria None seen None Seen /hpf Urine Hyaline Casts Mod 0 - 2 /lpf Urine Mucus Few None Seen Urine Glucose 4+ H Normal mg/dL Troponin I High Sensitivity 32 </=34 ng/L B-Type Natriuretic Peptide > 5000.00 0-100 pg/mL Assessment/Plan Plan Patient is a 64-year-old female who presented with few days of shortness of breath/dyspnea on exertion and worsening of leg swelling. Cardiology is called by the patient herself for cardiac aspects of care. She comes to our office since August 2024. She is known to have systolic heart failure for many years. She does have Medtronic ICD. She mentions compliance with medications but also mentions that the Lasix was not working as outpatient. She does have baseline chronic respiratory failure and is on home oxygen. Mentions that the need for oxygen was increasing at home also. She also has history of COPD. Obese female. Sitting in bed. Not using accessory muscles of breathing. Mucosa is pink and wet. No JVD. No carotid bruit. No goiter. Scattered rhonchi in the lungs is heard. Cardiac: Regular, tachycardic. Systolic murmur 2/6 in the apex. Abdomen is soft. There is no gross mass/hepatomegaly. Bowel sound is positive. Extremities reveal 2+ edema bilaterally. Past medical history includes obesity, hypertension, hyperlipidemia, CKD, COPD (on home oxygen), systolic heart failure (long-term), diabetes mellitus, atrial fibrillation (paroxysmal AFib on Eliquis as outpatient), DJD, gallstone, gout, status post ICD (Medtronic) implantation, depression, DJD, uterine fibroid and status post cholecystectomy//hernia repair. She stopped smoking in 2011. She does have old history of cocaine abuse (1980s). Echocardiogram of August 24, 2024 had reported ejection fraction of 15%, moderate left atrial enlargement, moderate MR, moderate pulmonary hypertension Creatinine: 1.04 - 1.05 Potassium: 3.9 - 4.4 Troponin (high sensitive): 32 BNP: > 5000 Chest x-ray revealed: IMPRESSION: Pulmonary vascular congestion. Repeat chest x-ray reported: IMPRESSION: Cardiomegaly with CHF EKG revealed sinus tachycardia with nonspecific ST-T changes Telemetry reveals sinus rhythm Patient is a 64-year-old female who presented with worsening shortness of breath. Mentions that the Lasix is not working as outpatient. Does have baseline history of COPD with chronic respiratory failure. Presentation could be COPD exacerbation. Patient also has history of systolic heart failure for which is on guideline directed medical therapy. Acute on chronic systolic heart failure could have contributed to the clinical picture also. Troponin has not b een elevated and acute coronary syndrome is not considered at this point. Acute on chronic systolic heart failure COPD exacerbation Acute respiratory failure Uncontrolled diabetes Paroxysmal AFib Status post ICD implantation Diabetes mellitus Hypertension Hyperlipidemia Gout Cardiac suggestion for management: Managed on telemetry IV diuresis (Bumex) is advised Follow-up electrolytes and kidney function tests and correct abnormalities. Keep potassium above 4 and magnesium above 2 Request for echocardiogram Request for ICD (Medtronic) interrogation Request for D-dimer, if abnormal request for CT angio of the lungs Long-term anticoagulation is advised (paroxysmal AFib in a patient with high CHADS-VASc score) Guideline directed medical therapy for systolic heart failure Consider pulmonary evaluation for COPD exacerbation Further evaluation and management depends on the above and clinical course Thank you for consultation A total of 55 minutes was spent reviewing the patient record, examining the patient, making a diagnostic and therapeutic plan, discussing this plan with medical personnel, following up on diagnostic studies and following the patient for clinical stability excluding any and all procedures. At least 50% of this time was spent in direct, [id number] contact. Thank you for allowing me to participate in this patient's care. Further recommendations will depend on patient's clinical course. Please do not hesitate to contact me if you have any questions or concerns. This medical document was created using electronic medical record system with [employer] computerized dictation system. Although this document has been carefully reviewed, there may still be some phonetic and typographical errors. These areas are purely typographical due to the imperfection of the software programs, and do not reflect any compromise in the patient's medical care. Plan discussed with: Patient, Other (nurse) KRYSTA OLIVEIRA MD Nov 21, 2024 17:43
[2024-11-21] MEDS: ALBUTEROL SULF 2.5 MG/0.5ML(0.5%) NEB SOLN NEB SCH (17:56)
[2024-11-21] MEDS: IPRATROPIUM BROM 0.5 MG/2.5ML INH SOL NEB SCH (17:56)
[2024-11-21] MEDS ORDERED: FUROSEMIDE 40 MG/4 ML VIAL IV SCH (18:00)
[2024-11-21 20:00] VITALS: PULSE 85; RESP 17; O2SAT 100
[2024-11-21] MEDS: BUMETANIDE 1mg/4ml VIAL (0.25mg/ml) IV SCH (21:44)
[2024-11-21] MEDS: CARVEDILOL 12.5 MG TAB PO SCH (22:00)
[2024-11-21] MEDS: DOCUSATE SOD 100 MG CAP PO PRN (22:59)
[2024-11-22] VITALS (14 sets, daily range): BP systolic 110–124; BP diastolic 64–66; PULSE 18–92; RESP 14–18; TEMP 97.5–97.9; O2SAT 96–100
[2024-11-22 06:24] LABS: Basophils # (auto) 0 10 ^3/uL (0-0.2); Basophils % (auto) 0.4 % (0.0-2.0); Eosinophils # (auto) 0 10 ^3/uL (0-0.8); Eosinophils % (auto) 0.3 % (0.0-7.0); Hematocrit 38.7 % (36.0-46.0); Hemoglobin 12.6 g/dL (12.2-16.2); Lymphocytes # (auto) 1.5 10 ^3/uL (0.4-5.4); Lymphocytes % (auto) 17.7 % (10.0-50.0); Mean Corpuscular Hemoglobin 29.1 pg (28.0-32.0); Mean Corpuscular Hgb Conc. 32.5 g/dL (32.0-36.0); Mean Corpuscular Volume 89.6 fL (80.0-100.0); Monocytes # (auto) 0.7 10 ^3/uL (0-1.3); Monocytes % (auto) 7.5 % (0.0-12.0); Neutrophils # (auto) 6.4 10 ^3/uL (1.6-8.6); Neutrophils % (auto) 74.1 % (37.0-80.0); Nucleated Red Blood Cells % 0.1 %; Platelet Count (auto) 220 10^3/uL (140-450); Red Blood Cells 4.32 10^6/uL (4.0-5.20); White Blood Cell 8.7 10^3/uL (4.4-10.8)
--- NOTE | 2024-11-22 06:40 | DVHPN2 ---
Progress Note - Dictate Date Seen: Nov 22, 2024 Medical Necessity Reason Pt with a Central, PICC or Fol: No vital signs Vital Sign Date Time Temp Pulse Resp B/P (MAP) Pulse Ox O2 Delivery O2 Flow Rate FiO2 11/22/24 02:00 77 18 125/75 (92) 100 11/22/24 00:11 Nasal Cannula* 2 28 11/21/24 20:00 98.5 98.5 medications Current Medications Medications Dose Ordered Sig/Della Route Start Time Stop Time Status Last Admin Dose Admin Albuterol 2.5 mg Q4HPRN PRN NEB 11/20/24 14:30 11/21/24 10:02 2.5 MG Ipratropium [place] 0.5 mg Q4HPRN PRN NEB 11/20/24 14:30 11/21/24 10:02 0.5 MG Famotidine 20 mg Q12HR IV 11/20/24 22:00 11/21/24 22:59 20 MG Apixaban 5 mg BID PO 11/20/24 22:00 11/21/24 22:59 5 MG Sodium Chloride 10 ml Q8HR IV 11/20/24 22:00 11/22/24 06:11 10 ML Acetaminophen/ Hydrocodone Bitart 1 tab Q4HP PRN PO 11/20/24 14:30 11/21/24 23:55 1 TAB Ondansetron HCl 4 mg Q4HP PRN IV 11/20/24 14:30 11/21/24 20:14 4 MG Docusate Sodium 100 mg BIDPRN PRN PO 11/20/24 14:30 11/21/24 22:59 100 MG Acetaminophen 650 mg Q6HP PRN PO 11/20/24 14:30 Morphine Sulfate 2 mg Q4HPRN PRN IV 11/20/24 14:30 Hold Pantoprazole Sodium 40 mg DAILY IV 11/21/24 10:00 11/21/24 10:24 40 MG Diagnostic Test (Pha) 1 strip ACHS 11/20/24 17:00 11/22/24 06:17 1 STRIP Insulin Human Regular HS SC 11/20/24 22:00 11/21/24 23:08 2 UNITS Insulin Human Regular AC SC 11/20/24 17:00 11/21/24 17:32 3 UNITS Dextrose 50 ml UD PRN IV 11/20/24 15:15 Nitroglycerin 0.4 mg Q5MINP PRN SL 11/20/24 17:45 Morphine Sulfate 2 mg Q30M PRN IV 11/20/24 17:45 Oxycodone/ Acetaminophen 1 tab Q6HP PRN PO 11/20/24 18:00 11/21/24 20:13 1 TAB Methylprednisolone Sodium Succinate 40 mg DAILY IV 11/22/24 10:00 Carvedilol 6.25 mg Q12HR PO 11/21/24 22:00 Metolazone 2.5 mg DAILY PO 11/22/24 10:00 Patient Own Medication 1 tab BID PO 11/21/24 22:00 Empaglifozin 10 mg DAILY PO 11/22/24 10:00 Albuterol 2.5 mg Q6HR NEB 11/21/24 18:00 11/22/24 00:11 2.5 MG Ipratropium [place] 0.5 mg Q6HR NEB 11/21/24 18:00 11/22/24 00:10 0.5 MG Bumetanide 1 mg BIDD IV 11/21/24 18:00 laboratory and microbiology Test 11/22/24 05:02 Range/Units Serum Glucose Pending Assessment/Plan Complains of sore throat Patient is a 64-year-old female who presented with few days of shortness of breath/dyspnea on exertion and worsening of leg swelling. Cardiology is called by the patient herself for cardiac aspects of care. She comes to our office since August 2024. She is known to have systolic heart failure for many years. She does have Medtronic ICD. She mentions compliance with medications but also mentions that the Lasix was not working as outpatient. She does have baseline chronic respiratory failure and is on home oxygen. Mentions that the n eed for oxygen was increasing at home also. She also has history of COPD. Obese female. Sitting in bed. Not using accessory muscles of breathing. Mucosa is pink and wet. No JVD. No carotid bruit. No goiter. Scattered rhonchi in the lungs is heard. Cardiac: Regular, tachycardic. Systolic murmur 2/6 in the apex. Abdomen is soft. There is no gross mass/hepatomegaly. Bowel sound is positive. Extremities reveal 2+ edema bilaterally. Past medical history includes obesity, hypertension, hyperlipidemia, CKD, COPD (on home oxygen), systolic heart failure (long-term), diabetes mellitus, atrial fibrillation (paroxysmal AFib on Eliquis as outpatient), DJD, gallstone, gout, status post ICD (Medtronic) implantation, depression, DJD, uterine fibroid and status post cholecystectomy//hernia repair. She stopped smoking in 2011. She does have old history of cocaine abuse (1980s). Echocardiogram of August 24, 2024 had reported ejection fraction of 15%, moderate left atrial enlargement, moderate MR, moderate pulmonary hypertension Creatinine: 1.04 - 1.05 today's pending Potassium: 3.9 - 4.4 today's pending Troponin (high sensitive): 32 BNP: > 5000 D-dimer: 0.61 Chest x-ray revealed: IMPRESSION: Pulmonary vascular congestion. Repeat chest x-ray reported: IMPRESSION: Cardiomegaly with CHF EKG revealed sinus tachycardia with nonspecific ST-T changes Telemetry reveals sinus rhythm Patient is a 64-year-old female who presented with worsening shortness of breath. Mentions that the Nexampix is not working as outpatient. Does have baseline history of COPD with chronic respiratory failure. Presentation could be COPD exacerbation. Patient also has history of systolic heart failure for which is on guideline directed medical therapy. Acute on chronic systolic heart failure could have contributed to the clinical picture also. Troponin has not been elevated and acute coronary syndrome is not considered at this point. Acute on chronic systolic heart failure COPD exacerbation Acute respiratory failure Uncontrolled diabetes Paroxysmal AFib Status post ICD implantation Diabetes mellitus Hypertension Hyperlipidemia Gout Cardiac suggestion for management: Manage on telemetry IV diuresis (Bumex) is advised Follow-up electrolytes and kidney function tests and correct abnormalities. Keep potassium above 4 and magnesium above 2 Awaiting echocardiogram Awaiting ICD (Medtronic) interrogation CT angio of the lungs Long-term anticoagulation is advised (paroxysmal AFib in a patient with high CHADS-VASc score) Consider GI evaluation Guideline directed medical therapy for systolic heart failure Consider pulmonary evaluation for COPD exacerbation Further evaluation and management depends on the above and clinical course A total of 55 minutes was spent reviewing the patient record, examining the patient, making a diagnostic and therapeutic plan, discussing this plan with medical personnel, following up on diagnostic studies and following the patient for clinical stability excluding any and all procedures. At least 50% of this time was spent in direct, [id number] contact. Thank you for allowing me to participate in this patient's care. Further recommendations will depend on patient's clinical course. Please do not hesitate to contact me if you have any questions or concerns. This medical document was created using electronic medical record system with [employer] computerized dictation system. Although this document has been carefully reviewed, there may still be some phonetic and typographical errors. These areas are purely typographical due to the imperfection of the software programs, and do not reflect any compromise in the patient's medical care. Plan discussed with: Patient, Other (nurse) KRYSTA OLIVEIRA MD Nov 22, 2024 06:40
[2024-11-22 06:46] LABS: Chloride 101 mmol/L (98-107); Sodium 137 mmol/L (136-145)
[2024-11-22 06:52] LABS: Blood Urea Nitrogen 34 mg/dL (9-23); Glucose 145 mg/dL (74-106)
[2024-11-22 06:53] LABS: Magnesium 1.8 mg/dL (1.6-2.6)
[2024-11-22 07:03] LABS: Anion Gap 8 (5-15); Carbon Dioxide 28 mmol/L (20-31)
[2024-11-22] MEDS: EZ-GAS II GRANULES (RADIOLOGY USE) PO ONE (10:10)
[2024-11-22] MEDS: GASTROGRAFIN 120 ML SOL ONE (10:10)
[2024-11-22] MEDS: EZ PAQUE SUSP 12OZ BTL ONE (10:10)
--- NOTE | 2024-11-22 10:16 | DVH ---
XY ESOPHAGUS BARIUM SWALLOW, HISTORY: Difficulty swallowing COMPARISON: ESOPHG on DOS: 10/16/22, ESOPHAGUS GASTROGRAFIN SWALLOW on DOS: 10/16/22 PROCEDURE: A spray applicator radiograph was obtained prior to the procedure. Gastrgrafin administered orally, and radiographs were obtained under intermittent fluoroscopic observation. Total fluoroscopic time wa s 0.7 minuntes. DAP 442 FINDINGS: The esophagus was normal in caliber with no structural abnormality seen. Abnormal esophageal contract ions were visualized with delayed passage of contrast through the esophagus. Esophageal reflux was seen. IMPRESSION: Abnormal esophageal contractions were visualized with delayed passage of contrast through the esophag us. Esophageal reflux was seen.
[2024-11-22] MEDS: methylPREDNISolone SOD SUCC 40 MG/ML VL IV SCH (10:55)
[2024-11-22] MEDS: metOLazone 5 MG TAB PO SCH (10:56)
[2024-11-22] MEDS: EMPAGLIFLOZIN 10 MG TAB PO SCH (10:58)
--- NOTE | 2024-11-22 11:32 | DVHINCON2 ---
GI Consult Consult Note GI consult note Date of Consultation: 11/22/2024 Chief Complaint: Difficulty swallowing indigestion Referring Physician: Dr. Jensen H&P: 64-year-old female presented to ER with shortness of breath, and chest pain Patient also complains of swelling in her legs. Being seen by Dr. Jensen Patient complaining of dysphagia for the last four months. Has difficulty swallowing both with solids and liquids. Patient complains of epigastric pain. Patient has history of GERD symptoms. Weight loss of 20 lb in the last four months. No EGD in past. No melena or red blood in stool. Denies nausea or vomiting. SP colonoscopy less than 10 years ago WNL per patient Patient is on Eliquis at this time Past Medical History: AFIB, Arthritis, CHF, CKF, COPD, Depression, DM, Gallstones, Gout, High Lipids, HTN, Uterine Fibroids Past Surgical History: Cholecystectomy, , Hernia Repair, Pacemaker Social History: NO smoking, drinking ETOH and use of illegal drugs. Family History: Noncontributory Review of Systems: Constitutional: no fever, chill, weight loss Heart:+ chest pain, no chest pressure Lung: + dyspnea with exertion Abdomen: see HPI : no pain with urination, normal appearing urine Physical exam: General: NAD, AAOX3 Chest: lung posey clear to auscultation Heart: RRR, no murmur Abdomen:+ epigastric tenderness to palpation, +BS Labs: Labs Test 11/22/24 06:15 11/22/24 05:02 11/21/24 18:00 11/21/24 11:21 Range/Units POC Glucose 139 H 70-106 mg/dl White Blood Count 8.7 # 4.4-10.8 10^3/uL Red Blood Count 4.32 4.0-5.20 10^6/uL Hemoglobin 12.6 12.2-16.2 g/dL Hematocrit 38.7 36.0-46.0 % Mean Corpuscular Volume 89.6 80.0-100.0 fL Mean Corpuscular Hemoglobin 29.1 28.0-32.0 pg Mean Corpuscular Hemoglobin Concent 32.5 32.0-36.0 g/dL Red Cell Distribution Width 15.0 H 11.8-14.3 % Platelet Count 220 140-450 10^3/uL Mean Platelet Volume 9.1 6.9-10.8 fL Neutrophils (%) (Auto) 74.1 37.0-80.0 % Lymphocytes (%) (Auto) 17.7 10.0-50.0 % Monocytes (%) (Auto) 7.5 0.0-12.0 % Eosinophils (%) (Auto) 0.3 0.0-7.0 % Basophils (%) (Auto) 0.4 0.0-2.0 % Neutrophils # (Auto) 6.4 1.6-8.6 10 ^3/uL Lymphocytes # (Auto) 1.5 0.4-5.4 10 ^3/uL Monocytes # (Auto) 0.7 0-1.3 10 ^3/uL Eosinophils # (Auto) 0 0-0.8 10 ^3/uL Basophils # (Auto) 0 0-0.2 10 ^3/uL Nucleated Red Blood Cells 0.1 % Sodium Level 137 136-145 mmol/L Potassium Level 5.0 3.5-5.1 mmol/L Chloride Level 101 98-107 mmol/L Carbon Dioxide Level 28 20-31 mmol/L Anion Gap 8 5-15 Blood Urea Nitrogen 34 #H 9-23 mg/dL Creatinine 1.62 #H 0.550-1.02 mg/dL Glomerular Filtration Rate Calc 35 >90 mL/min BUN/Creatinine Ratio 21.0 H 10.0-20.0 Serum Glucose 145 H 74-106 mg/dL Calcium Level 10.0 8.7-10.4 mg/dL Magnesium Level 1.8 1.6-2.6 mg/dL D-Dimer, Quantitative 0.61 H 0.0-0.49 mg/L FEU Influenza Type A Antigen Negative Negative Influenza Type B Antigen Negative Negative Test 11/21/24 05:00 11/21/24 00:00 11/20/24 20:45 11/20/24 10:57 Range/Units Total Bilirubin 0.9 0.2-1.0 mg/dL Aspartate Amino Transferase (AST) 25 13-40 U/L Alanine Aminotransferase (ALT) 38 7-40 U/L Alkaline Phosphatase 87 46-116 U/L Total Protein 6.1 5.7-8.2 g/dL Albumin 3.8 3.2-4.8 g/dL SARS-CoV-2 Antigen (Rapid) Negative NEGATIVE Urine Color Yellow Yellow Urine Clarity Clear Clear Urine pH 6.0 5.0-9.0 Urine Specific [place] 1.037 H 1.001-1.035 Urine Protein 2+ H Negative Urine Ketones Negative Negative Urine Blood Negative Negative /uL Urine Nitrite Negative Negative Urine Bilirubin Negative Negative Urine Urobilinogen 3 H Negative mg/dL Urine Leukocyte Esterase Negative Negative /uL Urine RBC 7 0 - 4 /hpf Urine Microscopic WBC 4 0-5 /HPF Urine Squamous Epithelial Cells Few <5 /hpf Urine Bacteria None seen None Seen /hpf Urine Hyaline Casts Mod 0 - 2 /lpf Urine Mucus Few None Seen Urine Glucose 4+ H Normal mg/dL Troponin I High Sensitivity 32 </=34 ng/L B-Type Natriuretic Peptide > 5000.00 0-100 pg/mL Imaging: Barium swallow IMPRESSION: Abnormal esophageal contractions were visualized with delayed passage of contrast through the esophagus. Esophageal reflux was seen. Assessment: Dysphagia GERD Abdominal pain Acute on chronic systolic heart failure History of AFib treated with Eliquis Plan: Discussed with Dr. Albrecht Possible plan for EGD on Wednesday after cleared by Cardiology. Also requesting to hold Eliquis for procedure Monitor labs Soft diet. Continue oral p.o. meds at this time We will continue to monitor the patient Discussed plan with patient and RN Thank you for allowing GI team to participate in the care of this patient Date of Service: Nov 22, 2024 Billing Provider: GENE CHEN Common Visit Codes: CONSULT ONLY Consultation Codes: [id number] CONSULT <60MIN GENE CHEN Nov 22, 2024 11:32
[2024-11-22] MEDS: IOHEXOL 350 MG/ML 100ML IJ ONE (14:02)
--- NOTE | 2024-11-22 15:09 | DVH ---
NUCLEAR MEDICINE VENTILATION/PERFUSION LUNG SCAN. INDICATION: PULMONARY EMBOLISM TECHNIQUE: Following intravenous demonstration of 6 millicuries of technetium 99m MAA, and inhalati on of 40 mCi of Tc 99m DTPA scintigrams were obtained in multiple projections of the lungs. FINDINGS: There is normal uptake of radionuclide on both the ventilation and perfusion portions of the examinat ion. No mismatched perfusion defects are demonstrated. Uptake is normally homogeneous. IMPRESSION: Low probability for PE.
--- NOTE | 2024-11-22 15:30 | DVHPN2 ---
Subjective Patient reports of shortness of breath has improved. Reviewed: Care Plan, H&P, Labs Changes from previous H/P or p: Changes General: Per HPI Eyes: No Pain, No Vision change, No Conjunctivae inflammation, No Eyelid inflammation, No Other, No Redness ENT: No Ear pain, No Ear discharge, No Nose pain, No Nose discharge, No Nose congestion, No Mouth pain, No Mouth swelling, No Throat pain, No Throat swelling, No Other Cardiovascular: Chest Pain; No Palpitations, No Orthopnea, No Paroxysmal Noc. Dyspnea, No Edema, No Lt Headedness, No Other Respiratory: No Cough, No Dry; Shortness of breath; No SOB with excertion, No Wheezing, No Hemoptysis, No Pleuritic Pain, No Sputum, No Other Gastrointestinal: No Nausea, No Vomiting, No Abdominal Pain, No Diarrhea, No Constipation, No Melena, No Hematochezia, No Other Genitourinary: No Dysuria, No Frequency, No Incontinence, No Hematuria, No Retention, No Other Musculoskeletal: No other, No neck pain, No shoulder pain, No arm pain, No back pain, No hand pain, No leg pain, No foot pain Skin: No Rash, No Lesions, No Jaundice, No Bruising, No Other Objective Vitals Vital Signs Date Time Temp Pulse Resp B/P (MAP) Pulse Ox O2 Delivery O2 Flow Rate FiO2 11/22/24 14:27 18 Room Air* 0 21 11/22/24 14:18 97.6 85 124/64 (84) 98 97.6 Exam Examined with the patient was sitting on the side of the bed without any noted dyspnea. General Appearance: Alert, Oriented X3, Cooperative, mild distress HEENT: Atraumatic, PERRLA Neck: Carotid Bruits [place] Lungs: Clear to auscultation, Normal air movement Cardiovascular: Normal S1, Normal S2 Abdomen: Normal bowel sounds, Soft, No tenderness Musculoskeletal: Normal sensory function, Normal motor function Extremities: No clubbing, No cyanosis Neuro: Normal gait, Normal speech Psych/Mental Status: Mental status NL, Mood NL Medications Current Medications Medications Dose Ordered Sig/Della Route Start Time Stop Time Status Last Admin Dose Admin Albuterol 2.5 mg Q4HPRN PRN NEB 11/20/24 14:30 11/21/24 10:02 2.5 MG Ipratropium [place] 0.5 mg Q4HPRN PRN NEB 11/20/24 14:30 11/21/24 10:02 0.5 MG Famotidine 20 mg Q12HR IV 11/20/24 22:00 11/22/24 10:54 20 MG Sodium Chloride 10 ml Q8HR IV 11/20/24 22:00 11/22/24 14:02 10 ML Acetaminophen/ Hydrocodone Bitart 1 tab Q4HP PRN PO 11/20/24 14:30 11/21/24 23:55 1 TAB Ondansetron HCl 4 mg Q4HP PRN IV 11/20/24 14:30 11/22/24 07:47 4 MG Docusate Sodium 100 mg BIDPRN PRN PO 11/20/24 14:30 11/21/24 22:59 100 MG Acetaminophen 650 mg Q6HP PRN PO 11/20/24 14:30 Morphine Sulfate 2 mg Q4HPRN PRN IV 11/20/24 14:30 Hold Pantoprazole Sodium 40 mg DAILY IV 11/21/24 10:00 11/22/24 10:54 40 MG Diagnostic Test (Pha) 1 strip ACHS 11/20/24 17:00 11/22/24 11:24 1 STRIP Insulin Human Regular HS SC 11/20/24 22:00 11/21/24 23:08 2 UNITS Insulin Human Regular AC SC 11/20/24 17:00 11/22/24 11:25 3 UNITS Dextrose 50 ml UD PRN IV 11/20/24 15:15 Nitroglycerin 0.4 mg Q5MINP PRN SL 11/20/24 17:45 Morphine Sulfate 2 mg Q30M PRN IV 11/20/24 17:45 Oxycodone/ Acetaminophen 1 tab Q6HP PRN PO 11/20/24 18:00 11/22/24 07:43 1 TAB Methylprednisolone Sodium Succinate 40 mg DAILY IV 11/22/24 10:00 11/22/24 10:55 40 MG Carvedilol 6.25 mg Q12HR PO 11/21/24 22:00 11/22/24 10:59 6.25 MG Metolazone 2.5 mg DAILY PO 11/22/24 10:00 11/22/24 10:56 2.5 MG Patient Own Medication 1 tab BID PO 11/21/24 22:00 Empaglifozin 10 mg DAILY PO 11/22/24 10:00 11/22/24 10:58 10 MG Albuterol 2.5 mg Q6HR NEB 11/21/24 18:00 11/22/24 11:21 2.5 MG Ipratropium [place] 0.5 mg Q6HR NEB 11/21/24 18:00 11/22/24 11:21 0.5 MG Bumetanide 1 mg BIDD IV 11/21/24 18:00 11/22/24 06:39 1 MG Laboratory Results Laboratory Tests 11/22/24 05:02 Chemistry Test 11/22/24 05:02 Calcium Level 10.0 mg/dL (8.7-10.4) Magnesium Level 1.8 mg/dL (1.6-2.6) Coagulation Test 11/21/24 18:00 D-Dimer, Quantitative 0.61 mg/L FEU (0.0-0.49) H Urinalysis Test 11/20/24 20:45 Urine Color Yellow (Yellow) Urine Clarity Clear (Clear) Urine pH 6.0 (5.0-9.0) Urine Specific [place] 1.037 (1.001-1.035) Urine Protein 2+ (Negative) H Urine Ketones Negative (Negative) Urine Blood Negative /uL (Negative) Urine Nitrite Negative (Negative) Urine Bilirubin Negative (Negative) Urine Urobilinogen 3 mg/dL (Negative) H Urine Leukocyte Esterase Negative /uL (Negative) Urine RBC 7 /hpf (0 - 4) Urine Microscopic WBC 4 /HPF (0-5) Urine Squamous Epithelial Cells Few /hpf (<5) Urine Bacteria None seen /hpf (None Seen) Urine Hyaline Casts Mod /lpf (0 - 2) Urine Mucus Few (None Seen) Urine Glucose 4+ mg/dL (Normal) H Labs and/or images reviewed: Labs reviewed by me, Image(s) reviewed by me Assessment/Plan Assessment/Plan Impression: -acute on chronic decompensated systolic heart failure -acute hypoxic respiratory failure -medication noncompliance -dyslipidemia -hypertension -diabetes mellitus Plan: Events: Barium swallow reviewed. GI consultation placed . Respiratory status improved -CT angiogram ordered by Cardiology. , pending -change consistency of diet finely chopped -cardiology consultation -regular insulin sliding scale -guideline directed medical therapy -repeat labs and chest x-ray in a.m. Total time spent with patient discussing and formulating plan of care: 35 minutes. This medical document was created using an electronic medical record system with [employer] dictation system. Although this document has been carefully reviewed, there may still be some phonetic and typographical errors. These areas are purely typographical due to imperfections of the software programs, and do not reflect any compromise in the patient's medical care. Plan discussed with: Patient, Other (RN) My Orders Orders - CARA DUBOSE NP Procedure Category Date Status Time Albuterol Medneb PHA 11/21/24 In Process (Ventolin Medneb) 18:00 Ipratropium Medneb PHA 11/21/24 In Process (Atrovent Medneb) 18:00 Basic Metabolic Panel LAB 11/23/24 Verified 04:00 Cardiac DIET 11/22/24 Verified Diet-2gna,Lofat,Lochol Dinner Date of Service: Nov 22, 2024 Billing Provider: CARA DUBOSE NP Common Visit Codes: [id number] INP/OBS CARE(HIGH) CARA DUBOSE NP Nov 22, 2024 15:29
[2024-11-22] MEDS: traZODone HCL 50 MG TAB PO ONE (22:10)
[2024-11-23] VITALS (17 sets, daily range): BP systolic 94–141; BP diastolic 55–64; PULSE 18–84; RESP 16–18; TEMP 97.1–98.1; O2SAT 96–100
[2024-11-23 07:04] LABS: Chloride 100 mmol/L (98-107); Potassium 4.6 mmol/L (3.5-5.1); Sodium 138 mmol/L (136-145)
[2024-11-23 07:05] LABS: Calcium 9.8 mg/dL (8.7-10.4)
[2024-11-23 07:10] LABS: BUN/Creatinine Ratio 22.7 (10.0-20.0); Blood Urea Nitrogen 35 mg/dL (9-23); Glucose 136 mg/dL (74-106)
--- NOTE | 2024-11-23 07:21 | DVHSR ---
APPROVED REPORT EXAM: Two-dimensional and M-mode echocardiogram with Doppler and color Doppler. Blood Pressure: 124/73 mmHg INDICATION cardiac history RISK FACTORS Height: 5'2, Weight: 154 DIMENSIONS LVDd6.4 (3.8-5.7cm)LA (2D)6.1 (1.9-4.0cm)Aortic Root3.0 (2.0-3.7cm) LVDs6.2 (2.5-4.0cm)LA (MM) (1.9-4.0cm)Aortic Cusp Exc1.4 (1.5-2.0cm) EF (%) 7.0 (55-70%)Rt. Atrium4.8 (1.9-4.0cm)Asc. Aorta cm IVSd0.9 (0.7-1.1cm)RV (D)4.6 (1.8-2.4cm) PWd1.2 (0.7-1.1cm) Mitral Valve MitralMitral Stenosis E wave1.06m/sMV Mean GR.mmHg A wave1.18m/sMV Peak GR.74mmHg E/A ratio0.92D MVAcm2 DECEL [id number] 1/2 [place] Aortic Valve Aortic ValveAortic Stenosis V10.51m/[place] Mean GR.3mmHg V21.06m/[place] Peak GR.5mmHg LVOT Diameter1.9 (1.8-2.4cm)Doppler AVA1.36cm2 Pulmonic Valve V20.69m/s Tricuspid Valve TR Velocity2.97m/s [id number] Conclusion Dilated four chambers. Left ventricle: Left ventricle was dilated with significantly reduced systolic function. LVEF was l ess than 10%. Diffuse hypokinesis of left ventricle was seen. LVEDP was considered elevated. Right ventricle was dilated with reduced systolic function. Both atria were dilated. Pacing wire wa s seen in right-sided chambers. Aortic valve was trileaflet. There was no aortic insufficiency/stenosis. There was moderate mitral regurgitation. Was [id number] tricuspid regurgitation. There was mild pulmonary valve insuffi ciency. Right ventricular systolic pressure was assessed around 50 mm Hg. There was small pericardial effusi on. IVC was dilated.
--- NOTE | 2024-11-23 07:39 | DVHPN2 ---
Progress Note - Dictate Date Seen: Nov 23, 2024 Medical Necessity Reason Pt with a Central, PICC or Fol: No vital signs Vital Sign Date Time Temp Pulse Resp B/P (MAP) Pulse Ox O2 Delivery O2 Flow Rate FiO2 11/23/24 06:14 82 18 100 11/23/24 06:08 Nasal Cannula* 2 28 11/23/24 06:02 102/62 11/23/24 05:00 97.8 97.8 Total Intake and Output 11/22/24 11/22/24 11/23/24 15:00 23:00 07:00 Intake Total 0 ml 375 ml Balance 0 ml 375 ml medications Current Medications Medications Dose Ordered Sig/Della Route Start Time Stop Time Status Last Admin Dose Admin Albuterol 2.5 mg Q4HPRN PRN NEB 11/20/24 14:30 11/21/24 10:02 2.5 MG Ipratropium [place] 0.5 mg Q4HPRN PRN NEB 11/20/24 14:30 11/21/24 10:02 0.5 MG Famotidine 20 mg Q12HR IV 11/20/24 22:00 11/22/24 21:17 20 MG Sodium Chloride 10 ml Q8HR IV 11/20/24 22:00 11/23/24 06:02 10 ML Acetaminophen/ Hydrocodone Bitart 1 tab Q4HP PRN PO 11/20/24 14:30 11/22/24 21:18 1 TAB Ondansetron HCl 4 mg Q4HP PRN IV 11/20/24 14:30 11/23/24 06:28 4 MG Docusate Sodium 100 mg BIDPRN PRN PO 11/20/24 14:30 11/21/24 22:59 100 MG Acetaminophen 650 mg Q6HP PRN PO 11/20/24 14:30 Morphine Sulfate 2 mg Q4HPRN PRN IV 11/20/24 14:30 Hold Pantoprazole Sodium 40 mg DAILY IV 11/21/24 10:00 11/22/24 10:54 40 MG Diagnostic Test (Pha) 1 strip ACHS 11/20/24 17:00 11/23/24 06:23 1 STRIP Insulin Human Regular HS SC 11/20/24 22:00 11/22/24 22:11 8 UNITS Insulin Human Regular AC SC 11/20/24 17:00 11/23/24 06:23 2 UNITS Dextrose 50 ml UD PRN IV 11/20/24 15:15 Nitroglycerin 0.4 mg Q5MINP PRN SL 11/20/24 17:45 Morphine Sulfate 2 mg Q30M PRN IV 11/20/24 17:45 Oxycodone/ Acetaminophen 1 tab Q6HP PRN PO 11/20/24 18:00 11/23/24 06:22 1 TAB Methylprednisolone Sodium Succinate 40 mg DAILY IV 11/22/24 10:00 11/22/24 10:55 40 MG Carvedilol 6.25 mg Q12HR PO 11/21/24 22:00 11/22/24 21:19 6.25 MG Metolazone 2.5 mg DAILY PO 11/22/24 10:00 11/22/24 10:56 2.5 MG Patient Own Medication 1 tab BID PO 11/21/24 22:00 Empaglifozin 10 mg DAILY PO 11/22/24 10:00 11/22/24 10:58 10 MG Albuterol 2.5 mg Q6HR NEB 11/21/24 18:00 11/23/24 06:08 2.5 MG Ipratropium [place] 0.5 mg Q6HR NEB 11/21/24 18:00 11/23/24 06:08 0.5 MG Bumetanide 1 mg BIDD IV 11/21/24 18:00 11/23/24 06:02 1 MG laboratory and microbiology Laboratory Tests 11/23/24 05:51 11/22/24 05:02 Test 11/23/24 05:51 Range/Units Serum Glucose 136 H 74-106 mg/dL Assessment/Plan Complains of sore throat Patient is a 64-year-old female who presented with few days of shortness of breath/dyspnea on exertion and worsening of leg swelling. Cardiology is called by the patient herself for cardiac aspects of care. She comes to our office since August 2024. She is known to have systolic heart failure for many years. She does have Medtronic ICD. She mentions compliance with medications but also mentions that the Lasix was not working as outpatient. She does have baseline chronic respiratory failure and is on home oxygen. Mentions that the need for oxygen was increasing at home also. She also has history of COPD. Obese female. Sitting in bed. Not using accessory muscles of breathing. Mucosa is pink and wet. No JVD. No carotid bruit. No goiter. Scattered rhonchi in the lungs is heard. Cardiac: Regular, tachycardic. Systolic murmur 2/6 in the apex. Abdomen is soft. There is no gross mass/hepatomegaly. Bowel sound is positive. Extremities reveal 2+ edema bilaterally. Past medical history includes obesity, hypertension, hyperlipidemia, CKD, COPD (on home oxygen), systolic heart failure (long-term), diabetes mellitus, atrial fibrillation (paroxysmal AFib on Eliquis as outpatient), DJD, gallstone, gout, status post ICD (Medtronic) implantation, depression, DJD, uterine fibroid and status post cholecystectomy//hernia repair. She stopped smoking in 2011. She does have old history of cocaine abuse (). Echocardiogram of August 24, 2024 had reported ejection fraction of 15%, moderate left atrial enlargement, moderate MR, moderate pulmonary hypertension Creatinine: 1.04 - 1.05 - 1.62 - 1.54 Potassium: 3.9 - 4.4 - 5.0 - 4.6 Troponin (high sensitive): 32 BNP: > 5000 D-dimer: 0.61 Chest x-ray revealed: IMPRESSION: Pulmonary vascular congestion. Repeat chest x-ray reported: IMPRESSION: Cardiomegaly with CHF Barium swallow revealed: IMPRESSION: Abnormal esophageal contractions were visualized with delayed passage of contrast through the esophagus. Esophageal reflux was seen. V/Q scan revealed: IMPRESSION: Low probability for PE. EKG revealed sinus tachycardia with nonspecific ST-T changes Telemetry reveals sinus rhythm Echocardiogram revealed: Dilated four chambers. Left ventricle: Left ventricle was dilated with significantly reduced systolic function. LVEF was less than 10%. Diffuse hypokinesis of left ventricle was seen. LVEDP was considered elevated. Right ventricle was dilated with reduced systolic function. Both atria were dilated. Pacing wire was seen in right-sided chambers. Aortic valve was trileaflet. There was no aortic insufficiency/stenosis. There was moderate mitral regurgitation. Was [id number] tricuspid regurgitation. There was mild pulmonary valve insufficiency. Right ventricular systolic pressure was assessed around 50 mm Hg. There was small pericardial effusion. IVC was dilated. Patient is a 64-year-old female who presented with worsening shortness of breath. Mentions that the Lasix is not working as outpatient. Does have baseline history of COPD with chronic respiratory failure. Presentation could be COPD exacerbation. Patient also has history of systolic heart failure for which is on guideline directed medical therapy. Acute on chronic systolic heart failure could have contributed to the clinical picture also. Troponin has not been elevated and acute coronary syndrome is not considered at this point. Acute on chronic systolic heart failure COPD exacerbation Acute respiratory failure Uncontrolled diabetes Paroxysmal AFib Status post ICD implantation Diabetes mellitus Hypertension Hyperlipidemia Gout Cardiac suggestion for management: Manage on telemetry IV diuresis (Bumex) is advised Follow-up electrolytes and kidney function tests and correct abnormalities. Keep potassium above 4 and magnesium above 2 GDMT for systolic CHF Awaiting ICD (Medtronic) interrogation Long-term anticoagulation is advised (paroxysmal AFib in a patient with high CHADS-VASc score) GI evaluation Guideline directed medical therapy for systolic heart failure Consider pulmonary evaluation for COPD exacerbation Further evaluation and management depends on the above and clinical course A total of 55 minutes was spent reviewing the patient record, examining the patient, making a diagnostic and therapeutic plan, discussing this plan with medical personnel, following up on diagnostic studies and following the patient for clinical stability excluding any and all procedures. At least 50% of this time was spent in direct, [id number] contact. Thank you for allowing me to participate in this patient's care. Further recommendations will depend on patient's clinical course. Please do not hesitate to contact me if you have any questions or concerns. This medical document was created using electronic medical record system with [employer] computerized dictation system. Although this document has been carefully reviewed, there may still be some phonetic and typographical errors. These areas are purely typographical due to the imperfection of the software programs, and do not reflect any compromise in the patient's medical care. Plan discussed with: Patient, Other (nurse) KRYSTA OLIVEIRA MD Nov 23, 2024 07:39
[2024-11-23 08:48] LABS: Anion Gap 9 (5-15); Carbon Dioxide 29 mmol/L (20-31)
[2024-11-23] MEDS: ENOXAPARIN SOD 40 MG/0.4 ML SYRINGE SC ONE (11:30)
--- NOTE | 2024-11-23 12:15 | DVHPN2 ---
Subjective Patient reports of shortness of breath has improved. Still has chest discomfort with eating. Reviewed: Care Plan, H&P, Labs Changes from previous H/P or p: No Changes General: Per HPI Eyes: No Pain, No Vision change, No Conjunctivae inflammation, No Eyelid inflammation, No Other, No Redness ENT: No Ear pain, No Ear discharge, No Nose pain, No Nose discharge, No Nose congestion, No Mouth pain, No Mouth swelling, No Throat pain, No Throat swelling, No Other Cardiovascular: Chest Pain; No Palpitations, No Orthopnea, No Paroxysmal Noc. Dyspnea, No Edema, No Lt Headedness, No Other Respiratory: No Cough, No Dry; Shortness of breath; No SOB with excertion, No Wheezing, No Hemoptysis, No Pleuritic Pain, No Sputum, No Other Gastrointestinal: No Nausea, No Vomiting, No Abdominal Pain, No Diarrhea, No Constipation, No Melena, No Hematochezia, No Other Genitourinary: No Dysuria, No Frequency, No Incontinence, No Hematuria, No Retention, No Other Musculoskeletal: No other, No neck pain, No shoulder pain, No arm pain, No back pain, No hand pain, No leg pain, No foot pain Skin: No Rash, No Lesions, No Jaundice, No Bruising, No Other Objective Vitals Vital Signs Date Time Temp Pulse Resp B/P (MAP) Pulse Ox O2 Delivery O2 Flow Rate FiO2 11/23/24 11:33 83 18 100 11/23/24 11:27 Nasal Cannula* 2 28 11/23/24 09:32 141/57 11/23/24 09:00 97.8 97.8 Intake/Output Intake and Output 11/23/24 07:00 Intake Total 375 ml Balance 375 ml Intake Oral 375 ml # Voids 1 Exam Examined with the patient was sitting on the side of the bed without any noted dyspnea. General Appearance: Alert, Oriented X3, Cooperative, mild distress HEENT: Atraumatic, PERRLA Neck: Carotid [place] Lungs: Clear to auscultation, Normal air movement Cardiovascular: Normal S1, Normal S2 Abdomen: Normal bowel sounds, Soft, No tenderness Musculoskeletal: Normal sensory function, Normal motor function Extremities: No clubbing, No cyanosis Neuro: Normal gait, Normal speech Psych/Mental Status: Mental status NL, Mood NL Medications Current Medications Medications Dose Ordered Sig/Della Route Start Time Stop Time Status Last Admin Dose Admin Albuterol 2.5 mg Q4HPRN PRN NEB 11/20/24 14:30 11/21/24 10:02 2.5 MG Ipratropium [place] 0.5 mg Q4HPRN PRN NEB 11/20/24 14:30 11/21/24 10:02 0.5 MG Famotidine 20 mg Q12HR IV 11/20/24 22:00 11/23/24 09:31 20 MG Sodium Chloride 10 ml Q8HR IV 11/20/24 22:00 11/23/24 06:02 10 ML Acetaminophen/ Hydrocodone Bitart 1 tab Q4HP PRN PO 11/20/24 14:30 11/23/24 11:32 1 TAB Ondansetron HCl 4 mg Q4HP PRN IV 11/20/24 14:30 11/23/24 06:28 4 MG Docusate Sodium 100 mg BIDPRN PRN PO 11/20/24 14:30 11/21/24 22:59 100 MG Acetaminophen 650 mg Q6HP PRN PO 11/20/24 14:30 Morphine Sulfate 2 mg Q4HPRN PRN IV 11/20/24 14:30 Hold Pantoprazole Sodium 40 mg DAILY IV 11/21/24 10:00 11/23/24 09:31 40 MG Diagnostic Test (Pha) 1 strip ACHS 11/20/24 17:00 11/23/24 11:32 1 STRIP Insulin Human Regular HS SC 11/20/24 22:00 11/22/24 22:11 8 UNITS Insulin Human Regular AC SC 11/20/24 17:00 11/23/24 12:04 3 UNITS Dextrose 50 ml UD PRN IV 11/20/24 15:15 Nitroglycerin 0.4 mg Q5MINP PRN SL 11/20/24 17:45 Morphine Sulfate 2 mg Q30M PRN IV 11/20/24 17:45 Oxycodone/ Acetaminophen 1 tab Q6HP PRN PO 11/20/24 18:00 11/23/24 06:22 1 TAB Methylprednisolone Sodium Succinate 40 mg DAILY IV 11/22/24 10:00 11/23/24 09:31 40 MG Carvedilol 6.25 mg Q12HR PO 11/21/24 22:00 11/23/24 09:32 6.25 MG Metolazone 2.5 mg DAILY PO 11/22/24 10:00 11/22/24 10:56 2.5 MG Patient Own Medication 1 tab BID PO 11/21/24 22:00 Empaglifozin 10 mg DAILY PO 11/22/24 10:00 11/23/24 09:32 10 MG Albuterol 2.5 mg Q6HR NEB 11/21/24 18:00 11/23/24 11:26 2.5 MG Ipratropium [place] 0.5 mg Q6HR NEB 11/21/24 18:00 11/23/24 11:27 0.5 MG Bumetanide 1 mg BIDD IV 11/21/24 18:00 11/23/24 06:02 1 MG Laboratory Results Laboratory Tests 11/22/24 05:02 11/23/24 05:51 Chemistry Test 11/23/24 05:51 Calcium Level 9.8 mg/dL (8.7-10.4) Urinalysis Test 11/20/24 20:45 Urine Color Yellow (Yellow) Urine Clarity Clear (Clear) Urine pH 6.0 (5.0-9.0) Urine Specific [place] 1.037 (1.001-1.035) Urine Protein 2+ (Negative) H Urine Ketones Negative (Negative) Urine Blood Negative /uL (Negative) Urine Nitrite Negative (Negative) Urine Bilirubin Negative (Negative) Urine Urobilinogen 3 mg/dL (Negative) H Urine Leukocyte Esterase Negative /uL (Negative) Urine RBC 7 /hpf (0 - 4) Urine Microscopic WBC 4 /HPF (0-5) Urine Squamous Epithelial Cells Few /hpf (<5) Urine Bacteria None seen /hpf (None Seen) Urine Hyaline Casts Mod /lpf (0 - 2) Urine Mucus Few (None Seen) Urine Glucose 4+ mg/dL (Normal) H Labs and/or images reviewed: Labs reviewed by me, Image(s) reviewed by me Assessment/Plan Assessment/Plan Impression: -acute on chronic decompensated systolic heart failure -acute hypoxic respiratory failure -medication noncompliance -dyslipidemia -hypertension -diabetes mellitus Plan: Events: V/Q scan negative for PE. Repeat echo reveals ejection fraction less than 10%. Plans for EGD in a.m.. NPO after midnight. Continue to hold Eliquis. -CT angiogram ordered by Cardiology. , pending -change consistency of diet finely chopped -cardiology consultation -regular insulin sliding scale -guideline directed medical therapy -repeat labs and chest x-ray in a.m. Total time spent with patient discussing and formulating plan of care: 35 minutes. This medical document was created using an electronic medical record system with [employer] dictation system. Although this document has been carefully reviewed, there may still be some phonetic and typographical errors. These areas are purely typographical due to imperfections of the software programs, and do not reflect any compromise in the patient's medical care. Plan discussed with: Patient, Other (RN) My Orders Orders - CARA DUBOSE NP Procedure Category Date Status Time Cardiac DIET 11/22/24 Transmitted Diet-2gna,Lofat,Lochol Dinner Date of Service: Nov 23, 2024 Billing Provider: CARA DUBOSE NP Common Visit Codes: [id number] INP/OBS CARE(HIGH) CARA DUBOSE NP Nov 23, 2024 12:15
--- NOTE | 2024-11-23 13:24 | DVHPN2 ---
Subjective No changes Reviewed: Care Plan, H&P, Labs Changes from previous H/P or p: No Changes General: Per HPI Eyes: No Pain, No Vision change, No Conjunctivae inflammation, No Eyelid inflammation, No Other, No Redness ENT: No Ear pain, No Ear discharge, No Nose pain, No Nose discharge, No Nose congestion, No Mouth pain, No Mouth swelling, No Throat pain, No Throat swelling, No Other Cardiovascular: Chest Pain; No Palpitations, No Orthopnea, No Paroxysmal Noc. Dyspnea, No Edema, No Lt Headedness, No Other Respiratory: No Cough, No Dry; Shortness of breath; No SOB with excertion, No Wheezing, No Hemoptysis, No Pleuritic Pain, No Sputum, No Other Gastrointestinal: No Nausea, No Vomiting, No Abdominal Pain, No Diarrhea, No Constipation, No Melena, No Hematochezia, No Other Genitourinary: No Dysuria, No Frequency, No Incontinence, No Hematuria, No Retention, No Other Musculoskeletal: No other, No neck pain, No shoulder pain, No arm pain, No back pain, No hand pain, No leg pain, No foot pain Skin: No Rash, No Lesions, No Jaundice, No Bruising, No Other Objective Vitals Vital Signs Date Time Temp Pulse Resp B/P (MAP) Pulse Ox O2 Delivery O2 Flow Rate FiO2 11/23/24 11:33 83 18 100 11/23/24 11:27 Nasal Cannula* 2 28 11/23/24 09:32 141/57 11/23/24 09:00 97.8 97.8 Intake/Output Intake and Output 11/23/24 06:59 Intake Total 375 ml Balance 375 ml Intake Oral 375 ml # Voids 1 General Appearance: Alert, Oriented X3, Cooperative, No acute distress, mild distress, moderate distress, severe distress, Other HEENT: Atraumatic, PERRLA Neck: Carotid [place] Lungs: Clear to auscultation, Normal air movement, Other Cardiovascular: Regular rate, Normal S1, Normal S2, No murmurs, Gallops, Rubs, Other Abdomen: Normal bowel sounds, Soft, No tenderness, No hepatospenomegaly, No masses, Other Musculoskeletal: Normal sensory function, Normal motor function Extremities: No clubbing, No cyanosis Neuro: Normal gait, Normal speech Psych/Mental Status: Mental status NL, Mood NL Medications Current Medications Medications Dose Ordered Sig/Della Route Start Time Stop Time Status Last Admin Dose Admin Albuterol 2.5 mg Q4HPRN PRN NEB 11/20/24 14:30 11/21/24 10:02 2.5 MG Ipratropium [place] 0.5 mg Q4HPRN PRN NEB 11/20/24 14:30 11/21/24 10:02 0.5 MG Famotidine 20 mg Q12HR IV 11/20/24 22:00 11/23/24 09:31 20 MG Sodium Chloride 10 ml Q8HR IV 11/20/24 22:00 11/23/24 06:02 10 ML Acetaminophen/ Hydrocodone Bitart 1 tab Q4HP PRN PO 11/20/24 14:30 11/23/24 11:32 1 TAB Ondansetron HCl 4 mg Q4HP PRN IV 11/20/24 14:30 11/23/24 06:28 4 MG Docusate Sodium 100 mg BIDPRN PRN PO 11/20/24 14:30 11/21/24 22:59 100 MG Acetaminophen 650 mg Q6HP PRN PO 11/20/24 14:30 Morphine Sulfate 2 mg Q4HPRN PRN IV 11/20/24 14:30 Hold Pantoprazole Sodium 40 mg DAILY IV 11/21/24 10:00 11/23/24 09:31 40 MG Diagnostic Test (Pha) 1 strip ACHS 11/20/24 17:00 11/23/24 11:32 1 STRIP Insulin Human Regular HS SC 11/20/24 22:00 11/22/24 22:11 8 UNITS Insulin Human Regular AC SC 11/20/24 17:00 11/23/24 12:04 3 UNITS Dextrose 50 ml UD PRN IV 11/20/24 15:15 Nitroglycerin 0.4 mg Q5MINP PRN SL 11/20/24 17:45 Morphine Sulfate 2 mg Q30M PRN IV 11/20/24 17:45 Oxycodone/ Acetaminophen 1 tab Q6HP PRN PO 11/20/24 18:00 11/23/24 06:22 1 TAB Methylprednisolone Sodium Succinate 40 mg DAILY IV 11/22/24 10:00 11/23/24 09:31 40 MG Carvedilol 6.25 mg Q12HR PO 11/21/24 22:00 11/23/24 09:32 6.25 MG Metolazone 2.5 mg DAILY PO 11/22/24 10:00 11/22/24 10:56 2.5 MG Patient Own Medication 1 tab BID PO 11/21/24 22:00 Empaglifozin 10 mg DAILY PO 11/22/24 10:00 11/23/24 09:32 10 MG Albuterol 2.5 mg Q6HR NEB 11/21/24 18:00 11/23/24 11:26 2.5 MG Ipratropium [place] 0.5 mg Q6HR NEB 11/21/24 18:00 11/23/24 11:27 0.5 MG Bumetanide 1 mg BIDD IV 11/21/24 18:00 11/23/24 06:02 1 MG Laboratory Results Laboratory Tests 11/22/24 05:02 11/23/24 05:51 Chemistry Test 11/23/24 05:51 Calcium Level 9.8 mg/dL (8.7-10.4) Urinalysis Test 11/20/24 20:45 Urine Color Yellow (Yellow) Urine Clarity Clear (Clear) Urine pH 6.0 (5.0-9.0) Urine Specific [place] 1.037 (1.001-1.035) Urine Protein 2+ (Negative) H Urine Ketones Negative (Negative) Urine Blood Negative /uL (Negative) Urine Nitrite Negative (Negative) Urine Bilirubin Negative (Negative) Urine Urobilinogen 3 mg/dL (Negative) H Urine Leukocyte Esterase Negative /uL (Negative) Urine RBC 7 /hpf (0 - 4) Urine Microscopic WBC 4 /HPF (0-5) Urine Squamous Epithelial Cells Few /hpf (<5) Urine Bacteria None seen /hpf (None Seen) Urine Hyaline Casts Mod /lpf (0 - 2) Urine Mucus Few (None Seen) Urine Glucose 4+ mg/dL (Normal) H Labs and/or images reviewed: Labs reviewed by me, Image(s) reviewed by me Assessment/Plan Assessment/Plan Dysphagia GERD Abdominal pain Acute on chronic systolic heart failure History of AFib treated with Eliquis Plan: Discussed with Dr. Albrecht Patient is awaiting pacemaker check at this time Tentative plan for possible EGD for tomorrow if cleared by Cardiology Patient tolerating a soft diet at this time NPO after clear liquid breakfast tomorrow Hold Lovenox tomorrow Plan discussed with: Patient, Other (RN) Date of Service: Nov 23, 2024 Billing Provider: GENE CHEN Common Visit Codes: [id number] INP/OBS CARE(MOD) GENE CHEN Nov 23, 2024 13:24
[2024-11-24] VITALS (16 sets, daily range): BP systolic 100–146; BP diastolic 52–94; PULSE 41–95; RESP 16–20; TEMP 97.4–98; O2SAT 95–100
[2024-11-24] MEDS: MELATONIN 5 MG TAB PO ONE (02:40)
--- NOTE | 2024-11-24 06:48 | DVHPN2 ---
Progress Note - Dictate Date Seen: Nov 24, 2024 Medical Necessity Reason Pt with a Central, PICC or Fol: No vital signs Vital Sign Date Time Temp Pulse Resp B/P (MAP) Pulse Ox O2 Delivery O2 Flow Rate FiO2 11/24/24 05:34 146/94 11/24/24 05:00 97.5 95 18 95 97.5 11/24/24 00:08 Nasal Cannula 2.0 11/24/24 00:08 28 Total Intake and Output 11/23/24 11/23/24 11/24/24 15:00 23:00 07:00 Intake Total 780 ml 0 ml Balance 780 ml 0 ml medications Current Medications Medications Dose Ordered Sig/Della Route Start Time Stop Time Status Last Admin Dose Admin Albuterol 2.5 mg Q4HPRN PRN NEB 11/20/24 14:30 11/21/24 10:02 2.5 MG Ipratropium [place] 0.5 mg Q4HPRN PRN NEB 11/20/24 14:30 11/21/24 10:02 0.5 MG Famotidine 20 mg Q12HR IV 11/20/24 22:00 11/23/24 21:08 20 MG Sodium Chloride 10 ml Q8HR IV 11/20/24 22:00 11/24/24 05:35 10 ML Acetaminophen/ Hydrocodone Bitart 1 tab Q4HP PRN PO 11/20/24 14:30 11/23/24 11:32 1 TAB Ondansetron HCl 4 mg Q4HP PRN IV 11/20/24 14:30 11/23/24 14:38 4 MG Docusate Sodium 100 mg BIDPRN PRN PO 11/20/24 14:30 11/21/24 22:59 100 MG Acetaminophen 650 mg Q6HP PRN PO 11/20/24 14:30 Morphine Sulfate 2 mg Q4HPRN PRN IV 11/20/24 14:30 Hold Pantoprazole Sodium 40 mg DAILY IV 11/21/24 10:00 11/23/24 09:31 40 MG Diagnostic Test (Pha) 1 strip ACHS 11/20/24 17:00 11/24/24 06:10 1 STRIP Insulin Human Regular HS SC 11/20/24 22:00 11/23/24 21:28 6 UNITS Insulin Human Regular AC SC 11/20/24 17:00 11/23/24 17:22 9 UNITS Dextrose 50 ml UD PRN IV 11/20/24 15:15 Nitroglycerin 0.4 mg Q5MINP PRN SL 11/20/24 17:45 Morphine Sulfate 2 mg Q30M PRN IV 11/20/24 17:45 Oxycodone/ Acetaminophen 1 tab Q6HP PRN PO 11/20/24 18:00 11/24/24 06:04 1 TAB Methylprednisolone Sodium Succinate 40 mg DAILY IV 11/22/24 10:00 11/23/24 09:31 40 MG Carvedilol 6.25 mg Q12HR PO 11/21/24 22:00 11/23/24 09:32 6.25 MG Metolazone 2.5 mg DAILY PO 11/22/24 10:00 11/22/24 10:56 2.5 MG Patient Own Medication 1 tab BID PO 11/21/24 22:00 Empaglifozin 10 mg DAILY PO 11/22/24 10:00 11/23/24 09:32 10 MG Albuterol 2.5 mg Q6HR NEB 11/21/24 18:00 11/24/24 06:38 2.5 MG Ipratropium [place] 0.5 mg Q6HR NEB 11/21/24 18:00 11/24/24 06:38 0.5 MG Bumetanide 1 mg BIDD IV 11/21/24 18:00 11/24/24 05:34 1 MG laboratory and microbiology Laboratory Tests 11/23/24 05:51 11/22/24 05:02 Test 11/23/24 05:51 Range/Units Serum Glucose 136 H 74-106 mg/dL Assessment/Plan Complains of sore throat Patient is a 64-year-old female who presented with few days of shortness of breath/dyspnea on exertion and worsening of leg swelling. Cardiology is called by the patient herself for cardiac aspects of care. She comes to our office since August 2024. She is known to have systolic heart failure for many years. She does have Medtronic ICD. She mentions compliance with medications but also mentions that the Lasix was not working as outpatient. She does have baseline chronic respiratory failure and is on home oxygen. Mentions that the need for oxygen was increasing at home also. She also has history of COPD. Obese female. Sitting in bed. Not using accessory muscles of breathing. Mucosa is pink and wet. No JVD. No carotid bruit. No goiter. Scattered rhonchi in the lungs is heard. Cardiac: Regular, tachycardic. Systolic murmur 2/6 in the apex. Abdomen is soft. There is no gross mass/hepatomegaly. Bowel sound is positive. Extremities reveal 2+ edema bilaterally. Past medical history includes obesity, hypertension, hyperlipidemia, CKD, COPD (on home oxygen), systolic heart failure (long-term), diabetes mellitus, atrial fibrillation (paroxysmal AFib on Eliquis as outpatient), DJD, gallstone, gout, status post ICD (Medtronic) implantation, depression, DJD, uterine fibroid and status post cholecystectomy//hernia repair. She stopped smoking in 2011. She does have old history of cocaine abuse (). Echocardiogram of August 24, 2024 had reported ejection fraction of 15%, moderate left atrial enlargement, moderate MR, moderate pulmonary hypertension Creatinine: 1.04 - 1.05 - 1.62 - 1.54 Potassium: 3.9 - 4.4 - 5.0 - 4.6 Troponin (high sensitive): 32 BNP: > 5000 D-dimer: 0.61 Chest x-ray revealed: IMPRESSION: Pulmonary vascular congestion. Repeat chest x-ray reported: IMPRESSION: Cardiomegaly with CHF Barium swallow revealed: IMPRESSION: Abnormal esophageal contractions were visualized with delayed passage of contrast through the esophagus. Esophageal reflux was seen. V/Q scan revealed: IMPRESSION: Low probability for PE. EKG revealed sinus tachycardia with nonspecific ST-T changes Telemetry reveals sinus rhythm Echocardiogram revealed: Dilated four chambers. Left ventricle: Left ventricle was dilated with significantly reduced systolic function. LVEF was less than 10%. Diffuse hypokinesis of left ventricle was seen. LVEDP was considered elevated. Right ventricle was dilated with reduced systolic function. Both atria were dilated. Pacing wire was seen in right-sided chambers. Aortic valve was trileaflet. There was no aortic insufficiency/stenosis. There was moderate mitral regurgitation. Was [id number] tricuspid regurgitation. There was mild pulmonary valve insufficiency. Right ventricular systolic pressure was assessed around 50 mm Hg. There was small pericardial effusion. IVC was dilated. Patient is a 64-year-old female who presented with worsening shortness of breath. Mentions that the Lasix is not working as outpatient. Does have baseline history of COPD with chronic respiratory failure. Presentation could be COPD exacerbation. Patient also has history of systolic heart failure for which is on guideline directed medical therapy. Acute on chronic systolic heart failure could have contributed to the clinical picture also. Troponin has not been elevated and acute coronary syndrome is not considered at this point. Acute on chronic systolic heart failure COPD exacerbation Acute respiratory failure Uncontrolled diabetes Paroxysmal AFib Status post ICD implantation Diabetes mellitus Hypertension Hyperlipidemia Gout Cardiac suggestion for management: Manage on telemetry IV diuresis (Bumex) is advised Follow-up electrolytes and kidney function tests and correct abnormalities. Keep potassium above 4 and magnesium above 2 GDMT for systolic CHF Awaiting ICD (Medtronic) interrogation Long-term anticoagulation is advised (paroxysmal AFib in a patient with high CHADS-VASc score). You can hold it prior to EGD for now Cardiac muniz, patient is moderate risk patient for low risk EGD. Cardiac muniz, you can proceed with EGD under appropriate intra and post operative hemodynamic monitoring. Avoid hypotension. Guideline directed medical therapy for systolic heart failure Consider pulmonary evaluation for COPD exacerbation Further evaluation and management depends on the above and clinical course A total of 55 minutes was spent reviewing the patient record, examining the patient, making a diagnostic and therapeutic plan, discussing this plan with medical personnel, following up on diagnostic studies and following the patient for clinical stability excluding any and all procedures. At least 50% of this time was spent in direct, [id number] contact. Thank you for allowing me to participate in this patient's care. Further recommendations will depend on patient's clinical course. Please do not hesitate to contact me if you have any questions or concerns. This medical document was created using electronic medical record system with [employer] computerized dictation system. Although this document has been carefully reviewed, there may still be some phonetic and typographical errors. These areas are purely typographical due to the imperfection of the software programs, and do not reflect any compromise in the patient's medical care. Plan discussed with: Patient, Other (nurse) KRYSTA OLIVEIRA MD Nov 24, 2024 06:48
[2024-11-24 09:16] LABS: INR 1.16 (0.9-1.15); Partial Thromboplastin Time 26.2 SEC (24.5-34.5); Prothrombin Time 12.1 sec (9.3-11.8)
[2024-11-24 09:22] LABS: Chloride 101 mmol/L (98-107); Sodium 138 mmol/L (136-145)
[2024-11-24 09:23] LABS: Anion Gap 5 (5-15); Calcium 9.5 mg/dL (8.7-10.4); Carbon Dioxide 32 mmol/L (20-31); Potassium 3.3 mmol/L (3.5-5.1)
[2024-11-24 09:28] LABS: BUN/Creatinine Ratio 24.3 (10.0-20.0); Blood Urea Nitrogen 33 mg/dL (9-23); Glucose 131 mg/dL (74-106)
--- NOTE | 2024-11-24 12:00 | DVHPN2 ---
Subjective No changes Pt cleared by cardiology for EGD EF 10% Reviewed: Care Plan, H&P, Labs Changes from previous H/P or p: No Changes General: Per HPI Eyes: No Pain, No Vision change, No Conjunctivae inflammation, No Eyelid inflammation, No Other, No Redness ENT: No Ear pain, No Ear discharge, No Nose pain, No Nose discharge, No Nose congestion, No Mouth pain, No Mouth swelling, No Throat pain, No Throat swelling, No Other Cardiovascular: Chest Pain; No Palpitations, No Orthopnea, No Paroxysmal Noc. Dyspnea, No Edema, No Lt Headedness, No Other Respiratory: No Cough, No Dry; Shortness of breath; No SOB with excertion, No Wheezing, No Hemoptysis, No Pleuritic Pain, No Sputum, No Other Gastrointestinal: No Nausea, No Vomiting, No Abdominal Pain, No Diarrhea, No Constipation, No Melena, No Hematochezia, No Other Genitourinary: No Dysuria, No Frequency, No Incontinence, No Hematuria, No Retention, No Other Musculoskeletal: No other, No neck pain, No shoulder pain, No arm pain, No back pain, No hand pain, No leg pain, No foot pain Skin: No Rash, No Lesions, No Jaundice, No Bruising, No Other Additional comments Addendum note Per Dr. Camilla Albrecht, EGD as Plan was canceled, per Anesthesiology, due to high-risk with ejection fraction of 10% Recommend Reglan and nystatin Start on soft mechanical diet We will continue to monitor the patient Further plan on an outpatient basis recommended Objective Vitals Vital Signs Date Time Temp Pulse Resp B/P (MAP) Pulse Ox O2 Delivery O2 Flow Rate FiO2 11/24/24 10:00 104/60 11/24/24 10:00 82 11/24/24 09:00 98.0 18 99 98.0 11/24/24 08:00 Nasal Cannula* 2 28 Intake/Output Intake and Output 11/24/24 07:00 Intake Total 780 ml Balance 780 ml Intake Oral 780 ml # Voids 10 General Appearance: Alert, Oriented X3, Cooperative, No acute distress, mild distress, moderate distress, severe distress, Other HEENT: Atraumatic, PERRLA Neck: Carotid [place] Lungs: Clear to auscultation Cardiovascular: Regular rate Abdomen: Normal bowel sounds Musculoskeletal: Normal sensory function, Normal motor function Extremities: No clubbing, No cyanosis Neuro: Normal gait, Normal speech Psych/Mental Status: Mental status NL, Mood NL Medications Current Medications Medications Dose Ordered Sig/Della Route Start Time Stop Time Status Last Admin Dose Admin Albuterol 2.5 mg Q4HPRN PRN NEB 11/20/24 14:30 11/21/24 10:02 2.5 MG Ipratropium [place] 0.5 mg Q4HPRN PRN NEB 11/20/24 14:30 11/21/24 10:02 0.5 MG Famotidine 20 mg Q12HR IV 11/20/24 22:00 11/24/24 10:10 20 MG Sodium Chloride 10 ml Q8HR IV 11/20/24 22:00 11/24/24 05:35 10 ML Acetaminophen/ Hydrocodone Bitart 1 tab Q4HP PRN PO 11/20/24 14:30 11/23/24 11:32 1 TAB Ondansetron HCl 4 mg Q4HP PRN IV 11/20/24 14:30 11/23/24 14:38 4 MG Docusate Sodium 100 mg BIDPRN PRN PO 11/20/24 14:30 11/21/24 22:59 100 MG Acetaminophen 650 mg Q6HP PRN PO 11/20/24 14:30 Morphine Sulfate 2 mg Q4HPRN PRN IV 11/20/24 14:30 Hold Pantoprazole Sodium 40 mg DAILY IV 11/21/24 10:00 11/24/24 10:10 40 MG Diagnostic Test (Pha) 1 strip ACHS 11/20/24 17:00 11/24/24 11:54 1 STRIP Insulin Human Regular HS SC 11/20/24 22:00 11/23/24 21:28 6 UNITS Insulin Human Regular AC SC 11/20/24 17:00 11/23/24 17:22 9 UNITS Dextrose 50 ml UD PRN IV 11/20/24 15:15 Nitroglycerin 0.4 mg Q5MINP PRN SL 11/20/24 17:45 Morphine Sulfate 2 mg Q30M PRN IV 11/20/24 17:45 Oxycodone/ Acetaminophen 1 tab Q6HP PRN PO 11/20/24 18:00 11/24/24 06:04 1 TAB Methylprednisolone Sodium Succinate 40 mg DAILY IV 11/22/24 10:00 3/7/25 10:10 40 MG Carvedilol 6.25 mg Q12HR PO 11/21/24 22:00 11/23/24 09:32 6.25 MG Metolazone 2.5 mg DAILY PO 11/22/24 10:00 11/22/24 10:56 2.5 MG Patient Own Medication 1 tab BID PO 11/21/24 22:00 Empaglifozin 10 mg DAILY PO 11/22/24 10:00 11/24/24 10:11 10 MG Albuterol 2.5 mg Q6HR NEB 11/21/24 18:00 11/24/24 06:38 2.5 MG Ipratropium [place] 0.5 mg Q6HR NEB 11/21/24 18:00 11/24/24 06:38 0.5 MG Bumetanide 1 mg BIDD IV 11/21/24 18:00 11/24/24 05:34 1 MG Laboratory Results Laboratory Tests 11/22/24 05:02 11/24/24 08:42 Chemistry Test 11/24/24 08:42 Calcium Level 9.5 mg/dL (8.7-10.4) Coagulation Test 11/24/24 08:42 Prothrombin Time 12.1 sec (9.3-11.8) H Prothrombin Time INR 1.16 (0.9-1.15) H Activated Partial Thromboplast Time 26.2 SEC (24.5-34.5) Urinalysis Test 11/20/24 20:45 Urine Color Yellow (Yellow) Urine Clarity Clear (Clear) Urine pH 6.0 (5.0-9.0) Urine Specific [place] 1.037 (1.001-1.035) Urine Protein 2+ (Negative) H Urine Ketones Negative (Negative) Urine Blood Negative /uL (Negative) Urine Nitrite Negative (Negative) Urine Bilirubin Negative (Negative) Urine Urobilinogen 3 mg/dL (Negative) H Urine Leukocyte Esterase Negative /uL (Negative) Urine RBC 7 /hpf (0 - 4) Urine Microscopic WBC 4 /HPF (0-5) Urine Squamous Epithelial Cells Few /hpf (<5) Urine Bacteria None seen /hpf (None Seen) Urine Hyaline Casts Mod /lpf (0 - 2) Urine Mucus Few (None Seen) Urine Glucose 4+ mg/dL (Normal) H Labs and/or images reviewed: Labs reviewed by me, Image(s) reviewed by me Assessment/Plan Assessment/Plan Dysphagia GERD Abdominal pain Acute on chronic systolic heart failure History of AFib treated with Eliquis Plan: Discussed with Dr. Albrecht schedule for EGD c MAC today. Discussed risks,benefits, alternatives of procedure and sedation, pt understands and agrees Plan discussed with: Patient, Spouse, Other (RN) My Orders Orders - GENE CHEN Procedure Category Date Status Time Obtain Consent For: ORDERS 11/24/24 Transmitted 11:54 Obtain Consent For SIRISHA 11/24/24 In Process Anesthesia 11:54 Date of Service: Nov 24, 2024 Billing Provider: GENE CHEN Common Visit Codes: [id number] INP/OBS CARE(MOD) GENE CHEN Nov 24, 2024 12:00
--- NOTE | 2024-11-24 14:10 | DVHPN2 ---
Subjective Patient reports of shortness of breath has improved. Still has chest discomfort with eating. Reviewed: Care Plan, H&P, Labs Changes from previous H/P or p: No Changes General: Per HPI Eyes: No Pain, No Vision change, No Conjunctivae inflammation, No Eyelid inflammation, No Other, No Redness ENT: No Ear pain, No Ear discharge, No Nose pain, No Nose discharge, No Nose congestion, No Mouth pain, No Mouth swelling, No Throat pain, No Throat swelling, No Other Cardiovascular: Chest Pain; No Palpitations, No Orthopnea, No Paroxysmal Noc. Dyspnea, No Edema, No Lt Headedness, No Other Respiratory: No Cough, No Dry; Shortness of breath; No SOB with excertion, No Wheezing, No Hemoptysis, No Pleuritic Pain, No Sputum, No Other Gastrointestinal: No Nausea, No Vomiting, No Abdominal Pain, No Diarrhea, No Constipation, No Melena, No Hematochezia, No Other Genitourinary: No Dysuria, No Frequency, No Incontinence, No Hematuria, No Retention, No Other Musculoskeletal: No other, No neck pain, No shoulder pain, No arm pain, No back pain, No hand pain, No leg pain, No foot pain Skin: No Rash, No Lesions, No Jaundice, No Bruising, No Other Objective Vitals Vital Signs Date Time Temp Pulse Resp B/P (MAP) Pulse Ox O2 Delivery O2 Flow Rate FiO2 11/24/24 12:14 77 18 100 11/24/24 10:00 104/60 11/24/24 09:00 98.0 98.0 11/24/24 08:00 Nasal Cannula* 2 28 Intake/Output Intake and Output 11/24/24 07:00 Intake Total 780 ml Balance 780 ml Intake Oral 780 ml # Voids 10 Exam Examined with the patient was sitting on the side of the bed without any noted dyspnea. General Appearance: Alert, Oriented X3, Cooperative, No acute distress, mild distress, moderate distress, severe distress, Other HEENT: Atraumatic, PERRLA Neck: Carotid Bruits [place] Lungs: Clear to auscultation Cardiovascular: Regular rate Abdomen: Normal bowel sounds Musculoskeletal: Normal sensory function, Normal motor function Extremities: No clubbing, No cyanosis Neuro: Normal gait, Normal speech Skin: Dry, Intact Psych/Mental Status: Mental status NL, Mood NL Medications Current Medications Medications Dose Ordered Sig/Della Route Start Time Stop Time Status Last Admin Dose Admin Albuterol 2.5 mg Q4HPRN PRN NEB 11/20/24 14:30 11/21/24 10:02 2.5 MG Ipratropium [place] 0.5 mg Q4HPRN PRN NEB 11/20/24 14:30 11/21/24 10:02 0.5 MG Famotidine 20 mg Q12HR IV 11/20/24 22:00 11/24/24 10:10 20 MG Sodium Chloride 10 ml Q8HR IV 11/20/24 22:00 11/24/24 05:35 10 ML Acetaminophen/ Hydrocodone Bitart 1 tab Q4HP PRN PO 11/20/24 14:30 11/23/24 11:32 1 TAB Ondansetron HCl 4 mg Q4HP PRN IV 11/20/24 14:30 11/23/24 14:38 4 MG Docusate Sodium 100 mg BIDPRN PRN PO 11/20/24 14:30 11/21/24 22:59 100 MG Acetaminophen 650 mg Q6HP PRN PO 11/20/24 14:30 Morphine Sulfate 2 mg Q4HPRN PRN IV 11/20/24 14:30 Hold Pantoprazole Sodium 40 mg DAILY IV 11/21/24 10:00 11/24/24 10:10 40 MG Diagnostic Test (Pha) 1 strip ACHS 11/20/24 17:00 11/24/24 11:54 1 STRIP Insulin Human Regular HS SC 11/20/24 22:00 11/23/24 21:28 6 UNITS Insulin Human Regular AC SC 11/20/24 17:00 11/24/24 12:08 3 UNITS Dextrose 50 ml UD PRN IV 11/20/24 15:15 Nitroglycerin 0.4 mg Q5MINP PRN SL 11/20/24 17:45 Morphine Sulfate 2 mg Q30M PRN IV 11/20/24 17:45 Oxycodone/ Acetaminophen 1 tab Q6HP PRN PO 11/20/24 18:00 11/24/24 06:04 1 TAB Methylprednisolone Sodium Succinate 40 mg DAILY IV 11/22/24 10:00 11/24/24 10:10 40 MG Carvedilol 6.25 mg Q12HR PO 11/21/24 22:00 11/23/24 09:32 6.25 MG Metolazone 2.5 mg DAILY PO 11/22/24 10:00 11/22/24 10:56 2.5 MG Patient Own Medication 1 tab BID PO 11/21/24 22:00 Empaglifozin 10 mg DAILY PO 11/22/24 10:00 11/24/24 10:11 10 MG Albuterol 2.5 mg Q6HR NEB 11/21/24 18:00 11/24/24 12:05 2.5 MG Ipratropium [place] 0.5 mg Q6HR NEB 11/21/24 18:00 11/24/24 12:07 0.5 MG Bumetanide 1 mg BIDD IV 11/21/24 18:00 11/24/24 05:34 1 MG Metoclopramide HCl 5 mg ACHS PO 11/24/24 17:00 Nystatin 5 ml QID MT 11/24/24 18:00 Laboratory Results Laboratory Tests 11/22/24 05:02 11/24/24 08:42 Chemistry Test 11/24/24 08:42 Calcium Level 9.5 mg/dL (8.7-10.4) Coagulation Test 11/24/24 08:42 Prothrombin Time 12.1 sec (9.3-11.8) H Prothrombin Time INR 1.16 (0.9-1.15) H Activated Partial Thromboplast Time 26.2 SEC (24.5-34.5) Urinalysis Test 11/20/24 20:45 Urine Color Yellow (Yellow) Urine Clarity Clear (Clear) Urine pH 6.0 (5.0-9.0) Urine Specific [place] 1.037 (1.001-1.035) Urine Protein 2+ (Negative) H Urine Ketones Negative (Negative) Urine Blood Negative /uL (Negative) Urine Nitrite Negative (Negative) Urine Bilirubin Negative (Negative) Urine Urobilinogen 3 mg/dL (Negative) H Urine Leukocyte Esterase Negative /uL (Negative) Urine RBC 7 /hpf (0 - 4) Urine Microscopic WBC 4 /HPF (0-5) Urine Squamous Epithelial Cells Few /hpf (<5) Urine Bacteria None seen /hpf (None Seen) Urine Hyaline Casts Mod /lpf (0 - 2) Urine Mucus Few (None Seen) Urine Glucose 4+ mg/dL (Normal) H Labs and/or images reviewed: Labs reviewed by me, Image(s) reviewed by me Assessment/Plan Assessment/Plan Impression: -acute on chronic decompensated systolic heart failure -acute hypoxic respiratory failure -medication noncompliance -dyslipidemia -hypertension -diabetes mellitus Plan: Events: Discussed case with pavilion cutter, Joey Albrecht. She states that the patient was to high-risk for EGD this time. She will treat the patient with medical management at this time. This was discussed with the patient. Patient was also found consuming high sodium food, lays potato chips. Entire bag was consume. We will keep the patient overnight for continued goal-directed medical therapy and additional diuresis if patient is CHF worsens. -change consistency of diet finely chopped -cardiology consultation -regular insulin sliding scale -guideline directed medical therapy -reassess for discharge in a.m. Total time spent with patient discussing and formulating plan of care: 35 minutes. This medical document was created using an electronic medical record system with [email or web address] dictation system. Although this document has been carefully reviewed, there may still be some phonetic and typographical errors. These areas are purely typographical due to imperfections of the software programs, and do not reflect any compromise in the patient's medical care. Plan discussed with: Patient, Other (RN) Date of Service: Nov 24, 2024 Billing Provider: CARA DUBOSE NP Common Visit Codes: [id number] INP/OBS CARE(HIGH) CARA DUBOSE NP Nov 24, 2024 14:10
[2024-11-24] MEDS: NYSTATIN (MOUTH-THROAT) 500,000 UNITS/5 ML SUSP MT SCH (17:45)
[2024-11-24] MEDS: METOCLOPRAMIDE HCL 10 MG TAB PO SCH (17:46)
[2024-11-24] MEDS ORDERED: TRAZ-227 PO (22:05)
[2024-11-24] MEDS: traZODone HCL 50 MG TAB PO ONE (23:38)
[2024-11-25] VITALS (20 sets, daily range): BP systolic 113–139; BP diastolic 57–85; PULSE 58–81; RESP 15–21; TEMP 97.3–97.9; O2SAT 90–100
--- NOTE | 2024-11-25 14:48 | DVHPN2 ---
Progress Note - Dictate Date Seen: Nov 25, 2024 Medical Necessity Reason Pt with a Central, PICC or Fol: No Subjective Patient is awake and alert today no distress Patient is tolerating diet in fact she ate most of the food brought in by her Blood sugar was running high at 425 after the meal Patient was tentatively scheduled for an endoscopy yesterday to evaluate possible esophageal dysmotility However the anesthesia physicians reviewed the patient's record and felt she was too high-risk to go under sedation or to have a procedure Since the patient is able to tolerate her diet and there does not appear to be any acute emergency at this time the procedure was canceled as per anesthesia recommendations vital signs Vital Sign Date Time Temp Pulse Resp B/P (MAP) Pulse Ox O2 Delivery O2 Flow Rate FiO2 11/25/24 13:00 97.6 58 16 139/63 (88) 91 97.6 11/25/24 12:14 Nasal Cannula* 2 28 Total Intake and Output 11/24/24 11/24/24 11/25/24 15:00 23:00 07:00 Intake Total 190 ml 800 ml Balance 190 ml 800 ml medications Current Medications Medications Dose Ordered Sig/Della Route Start Time Stop Time Status Last Admin Dose Admin Albuterol 2.5 mg Q4HPRN PRN NEB 11/20/24 14:30 11/21/24 10:02 2.5 MG Ipratropium [place] 0.5 mg Q4HPRN PRN NEB 11/20/24 14:30 11/21/24 10:02 0.5 MG Famotidine 20 mg Q12HR IV 11/20/24 22:00 11/25/24 09:32 20 MG Sodium Chloride 10 ml Q8HR IV 11/20/24 22:00 11/25/24 13:56 10 ML Acetaminophen/ Hydrocodone Bitart 1 tab Q4HP PRN PO 11/20/24 14:30 11/25/24 06:13 1 TAB Ondansetron HCl 4 mg Q4HP PRN IV 11/20/24 14:30 11/24/24 14:37 4 MG Docusate Sodium 100 mg BIDPRN PRN PO 11/20/24 14:30 11/21/24 22:59 100 MG Acetaminophen 650 mg Q6HP PRN PO 11/20/24 14:30 Morphine Sulfate 2 mg Q4HPRN PRN IV 11/20/24 14:30 Hold Pantoprazole Sodium 40 mg DAILY IV 11/21/24 10:00 11/25/24 09:32 40 MG Diagnostic Test (Pha) 1 strip ACHS 11/20/24 17:00 11/25/24 10:55 1 STRIP Insulin Human Regular HS SC 11/20/24 22:00 11/24/24 21:27 8 UNITS Insulin Human Regular AC SC 11/20/24 17:00 11/25/24 11:04 3 UNITS Dextrose 50 ml UD PRN IV 11/20/24 15:15 Nitroglycerin 0.4 mg Q5MINP PRN SL 11/20/24 17:45 Morphine Sulfate 2 mg Q30M PRN IV 11/20/24 17:45 Oxycodone/ Acetaminophen 1 tab Q6HP PRN PO 11/20/24 18:00 11/25/24 09:44 1 TAB Methylprednisolone Sodium Succinate 40 mg DAILY IV 11/22/24 10:00 11/25/24 09:37 40 MG Carvedilol 6.25 mg Q12HR PO 11/21/24 22:00 11/25/24 09:39 6.25 MG Metolazone 2.5 mg DAILY PO 11/22/24 10:00 11/22/24 10:56 2.5 MG Patient Own Medication 1 tab BID PO 11/21/24 22:00 Empaglifozin 10 mg DAILY PO 11/22/24 10:00 11/25/24 09:39 10 MG Albuterol 2.5 mg Q6HR NEB 11/21/24 18:00 11/25/24 12:12 2.5 MG Ipratropium [place] 0.5 mg Q6HR NEB 11/21/24 18:00 11/25/24 12:12 0.5 MG Bumetanide 1 mg BIDD IV 11/21/24 18:00 11/24/24 05:34 1 MG Metoclopramide HCl 5 mg ACHS PO 11/24/24 17:00 11/25/24 11:01 5 MG Nystatin 5 ml QID MT 11/24/24 18:00 11/25/24 11:00 5 ML Trazodone HCl 50 mg HS PO 11/25/24 22:00 laboratory and microbiology Laboratory Tests 11/24/24 08:42 11/22/24 05:02 Test 11/24/24 08:42 Range/Units Serum Glucose 131 H 74-106 mg/dL Problems(with codes): (1) COPD with acute exacerbation (2) Uncontrolled diabetes mellitus (3) Acute on chronic systolic heart failure (4) Esophageal dysmotility Prognosis Plan I started her on Reglan 5 mg p.o. q.h.s. or twice a day as needed number Advance diet as tolerated ; continue supportive care I will start her on nystatin swish and swallow 5 mL p.o. three times a day as the patient does take inhalers for her COPD Discharge planning as per hospitalist Dietary Evaluation Review Comments: 1) Advance diet as medically feasible 2) Consider CCHO 60 + cardiac diet 3) Refer Pig Casting Machine Operator on DC 4) Continue current plan of care Expected Outcomes/Goals: Pt will meet 75% estimated needs Fu 3-5 days Plan discussed with: Other (Joselin Bermudez and Saul Garcia) BERNA MARIE MD Nov 25, 2024 14:48
--- NOTE | 2024-11-25 16:05 | DVHPN2 ---
Subjective in bed resting Reviewed: Care Plan, H&P, Labs Changes from previous H/P or p: No Changes General: Per HPI Eyes: No Pain, No Vision change, No Conjunctivae inflammation, No Eyelid inflammation, No Other, No Redness ENT: No Ear pain, No Ear discharge, No Nose pain, No Nose discharge, No Nose congestion, No Mouth pain, No Mouth swelling, No Throat pain, No Throat swelling, No Other Cardiovascular: Chest Pain; No Palpitations, No Orthopnea, No Paroxysmal Noc. Dyspnea, No Edema, No Lt Headedness, No Other Respiratory: No Cough, No Dry; Shortness of breath; No SOB with excertion, No Wheezing, No Hemoptysis, No Pleuritic Pain, No Sputum, No Other Gastrointestinal: No Nausea, No Vomiting, No Abdominal Pain, No Diarrhea, No Constipation, No Melena, No Hematochezia, No Other Genitourinary: No Dysuria, No Frequency, No Incontinence, No Hematuria, No Retention, No Other Musculoskeletal: No other, No neck pain, No shoulder pain, No arm pain, No back pain, No hand pain, No leg pain, No foot pain Skin: No Rash, No Lesions, No Jaundice, No Bruising, No Other Objective Vitals Vital Signs Date Time Temp Pulse Resp B/P (MAP) Pulse Ox O2 Delivery O2 Flow Rate FiO2 11/25/24 13:00 97.6 58 16 139/63 (88) 91 97.6 11/25/24 12:14 Nasal Cannula* 2 28 Intake/Output Intake and Output 11/25/24 07:00 Intake Total 990 ml Balance 990 ml Intake Oral 990 ml # Voids 8 # Bowel Movements 2 General Appearance: Alert, Oriented X3, Cooperative, No acute distress, mild distress, moderate distress, severe distress, Other HEENT: Atraumatic, PERRLA Neck: Carotid Bruits [place] Lungs: Clear to auscultation Cardiovascular: Regular rate Abdomen: Normal bowel sounds Musculoskeletal: Normal sensory function, Normal motor function Extremities: No clubbing, No cyanosis Neuro: Normal gait, Normal speech Skin: Dry, Intact Psych/Mental Status: Mental status NL, Mood NL Medications Current Medications Medications Dose Ordered Sig/Della Route Start Time Stop Time Status Last Admin Dose Admin Albuterol 2.5 mg Q4HPRN PRN NEB 11/20/24 14:30 11/21/24 10:02 2.5 MG Ipratropium [place] 0.5 mg Q4HPRN PRN NEB 11/20/24 14:30 11/21/24 10:02 0.5 MG Famotidine 20 mg Q12HR IV 11/20/24 22:00 11/25/24 09:32 20 MG Sodium Chloride 10 ml Q8HR IV 11/20/24 22:00 11/25/24 13:56 10 ML Acetaminophen/ Hydrocodone Bitart 1 tab Q4HP PRN PO 11/20/24 14:30 11/25/24 15:28 1 TAB Ondansetron HCl 4 mg Q4HP PRN IV 11/20/24 14:30 11/25/24 15:28 4 MG Docusate Sodium 100 mg BIDPRN PRN PO 11/20/24 14:30 11/25/24 15:28 100 MG Acetaminophen 650 mg Q6HP PRN PO 11/20/24 14:30 Morphine Sulfate 2 mg Q4HPRN PRN IV 11/20/24 14:30 Hold Pantoprazole Sodium 40 mg DAILY IV 11/21/24 10:00 11/25/24 09:32 40 MG Diagnostic Test (Pha) 1 strip ACHS 11/20/24 17:00 11/25/24 10:55 1 STRIP Insulin Human Regular HS SC 11/20/24 22:00 11/24/24 21:27 8 UNITS Insulin Human Regular AC SC 11/20/24 17:00 11/25/24 11:04 3 UNITS Dextrose 50 ml UD PRN IV 11/20/24 15:15 Nitroglycerin 0.4 mg Q5MINP PRN SL 11/20/24 17:45 Morphine Sulfate 2 mg Q30M PRN IV 11/20/24 17:45 Oxycodone/ Acetaminophen 1 tab Q6HP PRN PO 11/20/24 18:00 11/25/24 09:44 1 TAB Methylprednisolone Sodium Succinate 40 mg DAILY IV 11/22/24 10:00 11/25/24 09:37 40 MG Carvedilol 6.25 mg Q12HR PO 11/21/24 22:00 11/25/24 09:39 6.25 MG Metolazone 2.5 mg DAILY PO 11/22/24 10:00 11/22/24 10:56 2.5 MG Patient Own Medication 1 tab BID PO 11/21/24 22:00 Empaglifozin 10 mg DAILY PO 11/22/24 10:00 11/25/24 09:39 10 MG Albuterol 2.5 mg Q6HR NEB 11/21/24 18:00 11/25/24 12:12 2.5 MG Ipratropium [place] 0.5 mg Q6HR NEB 11/21/24 18:00 11/25/24 12:12 0.5 MG Bumetanide 1 mg BIDD IV 11/21/24 18:00 11/24/24 05:34 1 MG Metoclopramide HCl 5 mg ACHS PO 11/24/24 17:00 11/25/24 11:01 5 MG Nystatin 5 ml QID MT 11/24/24 18:00 11/25/24 11:00 5 ML Trazodone HCl 50 mg HS PO 11/25/24 22:00 Laboratory Results Laboratory Tests 11/22/24 05:02 11/24/24 08:42 Urinalysis Test 11/20/24 20:45 Urine Color Yellow (Yellow) Urine Clarity Clear (Clear) Urine pH 6.0 (5.0-9.0) Urine Specific [place] 1.037 (1.001-1.035) Urine Protein 2+ (Negative) H Urine Ketones Negative (Negative) Urine Blood Negative /uL (Negative) Urine Nitrite Negative (Negative) Urine Bilirubin Negative (Negative) Urine Urobilinogen 3 mg/dL (Negative) H Urine Leukocyte Esterase Negative /uL (Negative) Urine RBC 7 /hpf (0 - 4) Urine Microscopic WBC 4 /HPF (0-5) Urine Squamous Epithelial Cells Few /hpf (<5) Urine Bacteria None seen /hpf (None Seen) Urine Hyaline Casts Mod /lpf (0 - 2) Urine Mucus Few (None Seen) Urine Glucose 4+ mg/dL (Normal) H Assessment/Plan Assessment/Plan -acute on chronic decompensated systolic heart failure -acute hypoxic respiratory failure -medication noncompliance -dyslipidemia -hypertension -diabetes mellitus Plan: Events: Discussed case with glass worker, Joey Albrecht. She states that the patient was to high-risk for EGD this time. She will treat the patient with medical management at this time. This was discussed with the patient. Patient was also found consuming high sodium food, lays potato chips. Entire bag was consume. We will keep the patient overnight for continued goal-directed medical therapy and additional diuresis if patient is CHF worsens. -change consistency of diet finely chopped -cardiology consultation -regular insulin sliding scale -guideline directed medical therapy -reassess for discharge in a.m. Total time spent with patient discussing and formulating plan of care: 35 minutes. Plan discussed with: Patient Date of Service: Nov 25, 2024 Billing Provider: IVORY BUTLER MD Common Visit Codes: [id number] INP/OBS CARE(HIGH) IVORY BUTLER MD Nov 25, 2024 16:05
[2024-11-25] MEDS: traZODone HCL 50 MG TAB PO SCH (22:30)
[2024-11-26] VITALS (17 sets, daily range): BP systolic 102–130; BP diastolic 52–68; PULSE 52–88; RESP 13–20; TEMP 97.4–98.7; O2SAT 96–100
[2024-11-26] MEDS: OXYCODONE W/ ACETAMINOPHEN 5/325MG TABLET PO PRN (11:20)
--- NOTE | 2024-11-26 11:58 | DVHPN2 ---
Progress Note Date Seen: Nov 25, 2024 Has the PT tested + for MRSA If YES, has PT been informed?: No Medical Necessity Reason Pt with a Central, PICC or Fol: No Objective vital signs Vital Sign Date Time Temp Pulse Resp B/P (MAP) Pulse Ox O2 Delivery O2 Flow Rate FiO2 11/26/24 11:55 76 20 100 11/26/24 11:46 Nasal Cannula 2.0 11/26/24 11:46 28 11/26/24 09:36 112/52 11/26/24 08:42 97.5 97.5 Total Intake and Output 11/25/24 11/25/24 11/26/24 15:00 23:00 07:00 Intake Total 580 ml 400 ml Output Total 0 ml Balance 580 ml 400 ml medications Current Medications Medications Dose Ordered Sig/Della Route Start Time Stop Time Status Last Admin Dose Admin Albuterol 2.5 mg Q4HPRN PRN NEB 11/20/24 14:30 11/21/24 10:02 2.5 MG Ipratropium [place] 0.5 mg Q4HPRN PRN NEB 11/20/24 14:30 11/21/24 10:02 0.5 MG Famotidine 20 mg Q12HR IV 11/20/24 22:00 11/26/24 09:34 20 MG Sodium Chloride 10 ml Q8HR IV 11/20/24 22:00 11/26/24 06:07 10 ML Acetaminophen/ Hydrocodone Bitart 1 tab Q4HP PRN PO 11/20/24 14:30 11/25/24 15:28 1 TAB Ondansetron HCl 4 mg Q4HP PRN IV 11/20/24 14:30 11/25/24 15:28 4 MG Docusate Sodium 100 mg BIDPRN PRN PO 11/20/24 14:30 11/25/24 15:28 100 MG Acetaminophen 650 mg Q6HP PRN PO 11/20/24 14:30 Morphine Sulfate 2 mg Q4HPRN PRN IV 11/20/24 14:30 Hold Pantoprazole Sodium 40 mg DAILY IV 11/21/24 10:00 11/26/24 09:34 40 MG Diagnostic Test (Pha) 1 strip ACHS 11/20/24 17:00 11/26/24 11:20 1 STRIP Insulin Human Regular HS SC 11/20/24 22:00 3/8/25 22:33 6 UNITS Insulin Human Regular AC SC 11/20/24 17:00 11/26/24 11:37 3 UNITS Dextrose 50 ml UD PRN IV 11/20/24 15:15 Nitroglycerin 0.4 mg Q5MINP PRN SL 11/20/24 17:45 Morphine Sulfate 2 mg Q30M PRN IV 11/20/24 17:45 Methylprednisolone Sodium Succinate 40 mg DAILY IV 11/22/24 10:00 11/26/24 09:34 40 MG Carvedilol 6.25 mg Q12HR PO 11/21/24 22:00 11/26/24 09:36 6.25 MG Metolazone 2.5 mg DAILY PO 11/22/24 10:00 11/22/24 10:56 2.5 MG Patient Own Medication 1 tab BID PO 11/21/24 22:00 Empaglifozin 10 mg DAILY PO 11/22/24 10:00 11/26/24 09:37 10 MG Albuterol 2.5 mg Q6HR NEB 11/21/24 18:00 11/26/24 11:46 2.5 MG Ipratropium [place] 0.5 mg Q6HR NEB 11/21/24 18:00 11/26/24 11:46 0.5 MG Bumetanide 1 mg BIDD IV 11/21/24 18:00 11/24/24 05:34 1 MG Metoclopramide HCl 5 mg ACHS PO 11/24/24 17:00 11/26/24 11:20 5 MG Nystatin 5 ml QID MT 11/24/24 18:00 11/26/24 11:20 5 ML Trazodone HCl 50 mg HS PO 11/25/24 22:00 11/25/24 22:52 50 MG Oxycodone/ Acetaminophen 2 tab Q6HP PRN PO 11/26/24 10:59 11/26/24 11:20 2 TAB laboratory and microbiology Laboratory Tests 11/24/24 08:42 11/22/24 05:02 Test 11/24/24 08:42 Range/Units Serum Glucose 131 H 74-106 mg/dL Problem List/Assessment/Plan Problem List/Assessment/Plan Assessment/Plan Complains of sore throat Patient is a 64-year-old female who presented with few days of shortness of breath/dyspnea on exertion and worsening of leg swelling. Cardiology is called by the patient herself for cardiac aspects of care. She comes to our office since August 2024. She is known to have systolic heart failure for many years. She does have Medtronic ICD. She mentions compliance with medications but also mentions that the Lasix was not working as outpatient. She does have baseline chronic respiratory failure and is on home oxygen. Mentions that the need for oxygen was increasing at home also. She also has history of COPD. Obese female. Sitting in bed. Not using accessory muscles of breathing. Mucosa is pink and wet. No JVD. No carotid bruit. No goiter. Scattered rhonchi in the lungs is heard. Cardiac: Regular, tachycardic. Systolic murmur 2/6 in the apex. Abdomen is soft. There is no gross mass/hepatomegaly. Bowel sound is positive. Extremities reveal 2+ edema bilaterally. Past medical history includes obesity, hypertension, hyperlipidemia, CKD, COPD (on home oxygen), systolic heart failure (long-term), diabetes mellitus, atrial fibrillation (paroxysmal AFib on Eliquis as outpatient), DJD, gallstone, gout, status post ICD (Medtronic) implantation, depression, DJD, uterine fibroid and status post cholecystectomy//hernia repair. She stopped smoking in 2011. She does have old history of cocaine abuse (). Echocardiogram of August 24, 2024 had reported ejection fraction of 15%, moderate left atrial enlargement, moderate MR, moderate pulmonary hypertension Creatinine: 1.04 - 1.05 - 1.62 - 1.54 Potassium: 3.9 - 4.4 - 5.0 - 4.6 Troponin (high sensitive): 32 BNP: > 5000 D-dimer: 0.61 Chest x-ray revealed: IMPRESSION: Pulmonary vascular congestion. Repeat chest x-ray reported: IMPRESSION: Cardiomegaly with CHF Barium swallow revealed: IMPRESSION: Abnormal esophageal contractions were visualized with delayed passage of contrast through the esophagus. Esophageal reflux was seen. V/Q scan revealed: IMPRESSION: Low probability for PE. EKG revealed sinus tachycardia with nonspecific ST-T changes Telemetry reveals sinus rhythm Echocardiogram revealed: Dilated four chambers. Left ventricle: Left ventricle was dilated with significantly reduced systolic function. LVEF was less than 10%. Diffuse hypokinesis of left ventricle was seen. LVEDP was considered elevated. Right ventricle was dilated with reduced systolic function. Both atria were dilated. Pacing wire was seen in right-sided chambers. Aortic valve was trileaflet. There was no aortic insufficiency/stenosis. There was moderate mitral regurgitation. Was [id number] tricuspid regurgitation. There was mild pulmonary valve insufficiency. Right ventricular systolic pressure was assessed around 50 mm Hg. There was small pericardial effusion. IVC was dilated. Patient is a 64-year-old female who presented with worsening shortness of breath. Mentions that the Lasix is not working as outpatient. Does have baseline history of COPD with chronic respiratory failure. Presentation could be COPD exacerbation. Patient also has history of systolic heart failure for which is on guideline directed medical therapy. Acute on chronic systolic heart failure could have contributed to the clinical picture also. Troponin has not been elevated and acute coronary syndrome is not considered at this point. Acute on chronic systolic heart failure COPD exacerbation Acute respiratory failure Uncontrolled diabetes Paroxysmal AFib Status post ICD implantation Diabetes mellitus Hypertension Hyperlipidemia Gout Cardiac suggestion for management: Manage on telemetry IV diuresis (Bumex) is advised Follow-up electrolytes and kidney function tests and correct abnormalities. Keep potassium above 4 and magnesium above 2 GDMT for systolic CHF Awaiting ICD (Medtronic) interrogation Long-term anticoagulation is advised (paroxysmal AFib in a patient with high CHADS-VASc score). You can hold it prior to EGD for now Cardiac muniz, patient is moderate risk patient for low risk EGD. Cardiac muniz, you can proceed with EGD under appropriate intra and post operative hemodynamic monitoring. Avoid hypotension. Guideline directed medical therapy for systolic heart failure Consider pulmonary evaluation for COPD exacerbation Further evaluation and management depends on the above and clinical course A total of 50 minutes was spent reviewing the patient record, examining the patient, making a diagnostic and therapeutic plan, discussing this plan with medical personnel, following up on diagnostic studies and following the patient for clinical stability excluding any and all procedures. At least 50% of this time was spent in direct, [id number] contact. Thank you for allowing me to participate in this patient's care. Plan discussed with: Other (nurse) Dietary Evaluation Review Comments: 1) Advance diet as medically feasible 2) Consider CCHO 60 + cardiac diet 3) Refer Principal Research Economist on DC 4) Continue current plan of care Expected Outcomes/Goals: Pt will meet 75% estimated needs Fu 3-5 days RAMÍREZ BALL MD Nov 26, 2024 11:58
[2024-11-26 13:26] LABS: Basophils # (auto) 0 10 ^3/uL (0-0.2); Basophils % (auto) 0.3 % (0.0-2.0); Eosinophils # (auto) 0 10 ^3/uL (0-0.8); Eosinophils % (auto) 0.4 % (0.0-7.0); Hematocrit 39.8 % (36.0-46.0); Hemoglobin 12.8 g/dL (12.2-16.2); Lymphocytes # (auto) 0.8 10 ^3/uL (0.4-5.4); Lymphocytes % (auto) 11.9 % (10.0-50.0); Mean Corpuscular Hemoglobin 29.2 pg (28.0-32.0); Mean Corpuscular Hgb Conc. 32.3 g/dL (32.0-36.0); Mean Corpuscular Volume 90.5 fL (80.0-100.0); Monocytes # (auto) 0.3 10 ^3/uL (0-1.3); Monocytes % (auto) 3.9 % (0.0-12.0); Neutrophils # (auto) 5.9 10 ^3/uL (1.6-8.6); Neutrophils % (auto) 83.5 % (37.0-80.0); Platelet Count (auto) 235 10^3/uL (140-450); Red Cell Distribution Width 14.9 % (11.8-14.3); White Blood Cell 7.1 10^3/uL (4.4-10.8)
[2024-11-26 13:39] LABS: Alkaline Phosphatase 89 U/L (46-116); Anion Gap 4 (5-15); BUN/Creatinine Ratio 19.1 (10.0-20.0); Blood Urea Nitrogen 22 mg/dL (9-23); Calcium 9.2 mg/dL (8.7-10.4); Carbon Dioxide 31 mmol/L (20-31); Chloride 101 mmol/L (98-107); Potassium 4.2 mmol/L (3.5-5.1); Sodium 136 mmol/L (136-145)
[2024-11-26 13:40] LABS: Alanine Aminotransferase 77 U/L (7-40); Albumin 3.5 g/dL (3.2-4.8); Aspartate Aminotransferase 47 U/L (13-40); Bilirubin, Total 0.9 mg/dL (0.2-1.0); Glucose 257 mg/dL (74-106); Total Protein 5.7 g/dL (5.7-8.2)
--- NOTE | 2024-11-26 20:13 | DVHPN2 ---
Subjective in bed resting Reviewed: Care Plan, H&P, Labs Changes from previous H/P or p: No Changes General: Per HPI Eyes: No Pain, No Vision change, No Conjunctivae inflammation, No Eyelid inflammation, No Other, No Redness ENT: No Ear pain, No Ear discharge, No Nose pain, No Nose discharge, No Nose congestion, No Mouth pain, No Mouth swelling, No Throat pain, No Throat swelling, No Other Cardiovascular: Chest Pain; No Palpitations, No Orthopnea, No Paroxysmal Noc. Dyspnea, No Edema, No Lt Headedness, No Other Respiratory: No Cough, No Dry; Shortness of breath; No SOB with excertion, No Wheezing, No Hemoptysis, No Pleuritic Pain, No Sputum, No Other Gastrointestinal: No Nausea, No Vomiting, No Abdominal Pain, No Diarrhea, No Constipation, No Melena, No Hematochezia, No Other Genitourinary: No Dysuria, No Frequency, No Incontinence, No Hematuria, No Retention, No Other Musculoskeletal: No other, No neck pain, No shoulder pain, No arm pain, No back pain, No hand pain, No leg pain, No foot pain Skin: No Rash, No Lesions, No Jaundice, No Bruising, No Other Objective Vitals Vital Signs Date Time Temp Pulse Resp B/P (MAP) Pulse Ox O2 Delivery O2 Flow Rate FiO2 11/26/24 20:00 17 Nasal Cannula* 3 32 11/26/24 18:46 74 100 11/26/24 17:33 130/68 11/26/24 16:47 98.7 98.7 Intake/Output Intake and Output 11/26/24 07:00 Intake Total 980 ml Output Total 0 ml Balance 980 ml Intake Oral 980 ml Output Stool Total 0 ml # Voids 7 # Bowel Movements 1 General Appearance: Alert, Oriented X3, Cooperative, No acute distress, mild distress, moderate distress, severe distress, Other HEENT: Atraumatic, PERRLA Neck: Carotid Bruits [place] Lungs: Clear to auscultation Cardiovascular: Regular rate Abdomen: Normal bowel sounds Musculoskeletal: Normal sensory function, Normal motor function Extremities: No clubbing, No cyanosis Neuro: Normal gait, Normal speech Skin: Dry, Intact Psych/Mental Status: Mental status NL, Mood NL Medications Current Medications Medications Dose Ordered Sig/Della Route Start Time Stop Time Status Last Admin Dose Admin Albuterol 2.5 mg Q4HPRN PRN NEB 11/20/24 14:30 11/21/24 10:02 2.5 MG Ipratropium [place] 0.5 mg Q4HPRN PRN NEB 11/20/24 14:30 11/21/24 10:02 0.5 MG Famotidine 20 mg Q12HR IV 11/20/24 22:00 11/26/24 09:34 20 MG Sodium Chloride 10 ml Q8HR IV 11/20/24 22:00 11/26/24 14:00 10 ML Acetaminophen/ Hydrocodone Bitart 1 tab Q4HP PRN PO 11/20/24 14:30 11/26/24 15:32 1 TAB Ondansetron HCl 4 mg Q4HP PRN IV 11/20/24 14:30 11/25/24 15:28 4 MG Docusate Sodium 100 mg BIDPRN PRN PO 11/20/24 14:30 11/25/24 15:28 100 MG Acetaminophen 650 mg Q6HP PRN PO 11/20/24 14:30 Morphine Sulfate 2 mg Q4HPRN PRN IV 11/20/24 14:30 Hold Pantoprazole Sodium 40 mg DAILY IV 11/21/24 10:00 11/26/24 09:34 40 MG Diagnostic Test (Pha) 1 strip ACHS 11/20/24 17:00 11/26/24 16:39 1 STRIP Insulin Human Regular HS SC 11/20/24 22:00 11/25/24 22:33 6 UNITS Insulin Human Regular AC SC 11/20/24 17:00 11/26/24 17:38 9 UNITS Dextrose 50 ml UD PRN IV 11/20/24 15:15 Nitroglycerin 0.4 mg Q5MINP PRN SL 11/20/24 17:45 Morphine Sulfate 2 mg Q30M PRN IV 11/20/24 17:45 Methylprednisolone Sodium Succinate 40 mg DAILY IV 11/22/24 10:00 11/26/24 09:34 40 MG Carvedilol 6.25 mg Q12HR PO 11/21/24 22:00 11/26/24 09:36 6.25 MG Metolazone 2.5 mg DAILY PO 11/22/24 10:00 11/22/24 10:56 2.5 MG Patient Own Medication 1 tab BID PO 11/21/24 22:00 Empaglifozin 10 mg DAILY PO 11/22/24 10:00 11/26/24 09:37 10 MG Albuterol 2.5 mg Q6HR NEB 11/21/24 18:00 11/26/24 19:06 2.5 MG Ipratropium [place] 0.5 mg Q6HR NEB 11/21/24 18:00 11/26/24 19:06 0.5 MG Bumetanide 1 mg BIDD IV 11/21/24 18:00 11/26/24 17:33 1 MG Metoclopramide HCl 5 mg ACHS PO 11/24/24 17:00 11/26/24 17:33 5 MG Nystatin 5 ml QID MT 11/24/24 18:00 11/26/24 17:33 5 ML Trazodone HCl 50 mg HS PO 11/25/24 22:00 11/25/24 22:52 50 MG Oxycodone/ Acetaminophen 2 tab Q6HP PRN PO 11/26/24 10:59 11/26/24 19:48 2 TAB Laboratory Results Laboratory Tests 11/26/24 13:05 Chemistry Test 11/26/24 13:05 Albumin 3.5 g/dL (3.2-4.8) Calcium Level 9.2 mg/dL (8.7-10.4) Total Protein 5.7 g/dL (5.7-8.2) LFT Test 11/26/24 13:05 Alanine Aminotransferase (ALT) 77 U/L (7-40) H Alkaline Phosphatase 89 U/L (46-116) Aspartate Amino Transferase (AST) 47 U/L (13-40) H Total Bilirubin 0.9 mg/dL (0.2-1.0) Urinalysis Test 11/20/24 20:45 Urine Color Yellow (Yellow) Urine Clarity Clear (Clear) Urine pH 6.0 (5.0-9.0) Urine Specific [place] 1.037 (1.001-1.035) Urine Protein 2+ (Negative) H Urine Ketones Negative (Negative) Urine Blood Negative /uL (Negative) Urine Nitrite Negative (Negative) Urine Bilirubin Negative (Negative) Urine Urobilinogen 3 mg/dL (Negative) H Urine Leukocyte Esterase Negative /uL (Negative) Urine RBC 7 /hpf (0 - 4) Urine Microscopic WBC 4 /HPF (0-5) Urine Squamous Epithelial Cells Few /hpf (<5) Urine Bacteria None seen /hpf (None Seen) Urine Hyaline Casts Mod /lpf (0 - 2) Urine Mucus Few (None Seen) Urine Glucose 4+ mg/dL (Normal) H Assessment/Plan Assessment/Plan -acute on chronic decompensated systolic heart failure -acute hypoxic respiratory failure -medication noncompliance -dyslipidemia -hypertension -diabetes mellitus Plan: We will keep the patient overnight for continued goal-directed medical therapy and additional diuresis if patient is CHF worsens. -change consistency of diet finely chopped -cardiology consultation>had some VTs on tele non sustained -regular insulin sliding scale -guideline directed medical therapy -reassess for discharge in a.m. Total time spent with patient discussing and formulating plan of care: 35 minutes. Plan discussed with: Patient My Orders Orders - IVORY BUTLRE MD Procedure Category Date Status Time Oxycodone W/ Acet PHA 11/26/24 In Process 5/325mg Tab (Percocet 10:59 Date of Service: Nov 26, 2024 Billing Provider: IVORY BUTLER MD Common Visit Codes: [id number] INP/OBS CARE(HIGH) IVORY BUTLER MD Nov 26, 2024 20:13
--- NOTE | 2024-11-26 22:21 | DVHPN2 ---
Progress Note - Dictate Date Seen: Nov 26, 2024 Has the PT tested + for MRSA If YES, has PT been informed?: No Medical Necessity Reason Pt with a Central, PICC or Fol: No Subjective Patient is awake and alert today no distress Patient is tolerating diet Blood sugar running between 150 and 269 I explained to the patient that she could not have an endoscopy safely at this time because of her cardiac condition and low ejection fraction Patient was tentatively scheduled for an endoscopy yesterday to evaluate possible esophageal dysmotility However the anesthesia physicians reviewed the patient's record and felt she was too high-risk to go under sedation or to have a procedure Since the patient is able to tolerate her diet and there does not appear to be any acute emergency at this time the procedure was canceled as per anesthesia recommendations vital signs Vital Sign Date Time Temp Pulse Resp B/P (MAP) Pulse Ox O2 Delivery O2 Flow Rate FiO2 11/26/24 21:45 72 102/67 11/26/24 20:43 97.4 18 99 97.4 11/26/24 20:00 Nasal Cannula* 3 32 Total Intake and Output 11/25/24 11/25/24 11/26/24 15:00 23:00 07:00 Intake Total 580 ml 400 ml Output Total 0 ml Balance 580 ml 400 ml medications Current Medications Medications Dose Ordered Sig/Della Route Start Time Stop Time Status Last Admin Dose Admin Albuterol 2.5 mg Q4HPRN PRN NEB 11/20/24 14:30 11/21/24 10:02 2.5 MG Ipratropium [place] 0.5 mg Q4HPRN PRN NEB 11/20/24 14:30 11/21/24 10:02 0.5 MG Famotidine 20 mg Q12HR IV 11/20/24 22:00 11/26/24 21:56 20 MG Sodium Chloride 10 ml Q8HR IV 11/20/24 22:00 11/26/24 21:44 10 ML Acetaminophen/ Hydrocodone Bitart 1 tab Q4HP PRN PO 11/20/24 14:30 11/26/24 15:32 1 TAB Ondansetron HCl 4 mg Q4HP PRN IV 11/20/24 14:30 11/25/24 15:28 4 MG Docusate Sodium 100 mg BIDPRN PRN PO 11/20/24 14:30 11/25/24 15:28 100 MG Acetaminophen 650 mg Q6HP PRN PO 11/20/24 14:30 Morphine Sulfate 2 mg Q4HPRN PRN IV 11/20/24 14:30 Hold Pantoprazole Sodium 40 mg DAILY IV 11/21/24 10:00 11/26/24 09:34 40 MG Diagnostic Test (Pha) 1 strip ACHS 11/20/24 17:00 11/26/24 21:26 1 STRIP Insulin Human Regular HS SC 11/20/24 22:00 11/26/24 21:57 6 UNITS Insulin Human Regular AC SC 11/20/24 17:00 11/26/24 17:38 9 UNITS Dextrose 50 ml UD PRN IV 11/20/24 15:15 Nitroglycerin 0.4 mg Q5MINP PRN SL 11/20/24 17:45 Morphine Sulfate 2 mg Q30M PRN IV 11/20/24 17:45 Methylprednisolone Sodium Succinate 40 mg DAILY IV 11/22/24 10:00 11/26/24 09:34 40 MG Carvedilol 6.25 mg Q12HR PO 11/21/24 22:00 11/26/24 09:36 6.25 MG Metolazone 2.5 mg DAILY PO 11/22/24 10:00 11/22/24 10:56 2.5 MG Patient Own Medication 1 tab BID PO 11/21/24 22:00 Empaglifozin 10 mg DAILY PO 11/22/24 10:00 11/26/24 09:37 10 MG Albuterol 2.5 mg Q6HR NEB 11/21/24 18:00 11/26/24 19:06 2.5 MG Ipratropium [place] 0.5 mg Q6HR NEB 11/21/24 18:00 11/26/24 19:06 0.5 MG Bumetanide 1 mg BIDD IV 11/21/24 18:00 11/26/24 17:33 1 MG Metoclopramide HCl 5 mg ACHS PO 11/24/24 17:00 11/26/24 21:56 5 MG Nystatin 5 ml QID MT 11/24/24 18:00 11/26/24 21:56 5 ML Trazodone HCl 50 mg HS PO 11/25/24 22:00 11/26/24 21:56 50 MG Oxycodone/ Acetaminophen 2 tab Q6HP PRN PO 11/26/24 10:59 11/26/24 19:48 2 TAB objective General Appearance: Alert, Oriented X3, Cooperative, No acute distress, on supplemental oxygen HEENT: Atraumatic, PERRLA Neck: Carotid [place] Lungs: Clear to auscultation Cardiovascular: Regular rate Abdomen: Normal bowel sounds Musculoskeletal: Normal sensory function, Normal motor function Extremities: No clubbing, No cyanosis Neuro: Normal gait, Normal speech Psych/Mental Status: Mental status NL, Mood NL laboratory and microbiology Laboratory Tests 11/26/24 13:05 Test 11/26/24 13:05 Range/Units Serum Glucose 257 H 74-106 mg/dL Problems(with codes): (1) Esophageal dysmotility (2) Other specified diabetes mellitus with hyperglycemia (3) Acute respiratory failure with hypoxia (4) COPD with acute exacerbation (5) Acute on chronic systolic heart failure (6) Uncontrolled diabetes mellitus Prognosis Plan Continue supportive care Reglan 5 mg p.o. q.h.s. or twice a day Protonix 40 mg p.o. q.a.m. Nystatin swish and swallow 5 mL p.o. three times a day Advance diet as tolerated Outpatient follow up with GI Services upon discharge for ongoing management Dietary changes with soft foods and drink warm liquids with her meals Dietary Evaluation Review Comments: 1) Advance diet as medically feasible 2) Consider CCHO 60 + cardiac diet 3) Refer Wrapper And Preserver on DC 4) Continue current plan of care Expected Outcomes/Goals: Pt will meet 75% estimated needs Fu 3-5 days Plan discussed with: Patient BERNA MARIE MD Nov 26, 2024 22:21
[2024-11-27] VITALS (12 sets, daily range): BP systolic 114–143; BP diastolic 52–74; PULSE 41–86; RESP 15–20; TEMP 36.4; O2SAT 92–100
[2024-11-27 06:21] LABS: Basophils # (auto) 0 10 ^3/uL (0-0.2); Basophils % (auto) 0.5 % (0.0-2.0); Eosinophils # (auto) 0.1 10 ^3/uL (0-0.8); Eosinophils % (auto) 1.2 % (0.0-7.0); Hematocrit 37.1 % (36.0-46.0); Hemoglobin 12.5 g/dL (12.2-16.2); Mean Corpuscular Hemoglobin 30.4 pg (28.0-32.0); Mean Corpuscular Hgb Conc. 33.6 g/dL (32.0-36.0); Mean Corpuscular Volume 90.3 fL (80.0-100.0); Monocytes # (auto) 0.8 10 ^3/uL (0-1.3); Neutrophils % (auto) 70.3 % (37.0-80.0); Nucleated Red Blood Cells % 0.1 %; Platelet Count (auto) 211 10^3/uL (140-450); Red Blood Cells 4.11 10^6/uL (4.0-5.20); White Blood Cell 9.9 10^3/uL (4.4-10.8)
[2024-11-27 06:33] LABS: Albumin 3.3 g/dL (3.2-4.8); Alkaline Phosphatase 78 U/L (46-116); Anion Gap 8 (5-15); Aspartate Aminotransferase 35 U/L (13-40); BUN/Creatinine Ratio 26.5 (10.0-20.0); Calcium 9.4 mg/dL (8.7-10.4); Chloride 99 mmol/L (98-107); Potassium 3.6 mmol/L (3.5-5.1); Sodium 140 mmol/L (136-145)
[2024-11-27 06:34] LABS: Bilirubin, Total 0.7 mg/dL (0.2-1.0)
[2024-11-27 06:35] LABS: Alanine Aminotransferase 61 U/L (7-40); Blood Urea Nitrogen 27 mg/dL (9-23); Carbon Dioxide 33 mmol/L (20-31); Glucose 107 mg/dL (74-106); Total Protein 5.4 g/dL (5.7-8.2)
--- NOTE | 2024-11-27 08:07 | DVHPN2 ---
Progress Note - Dictate Date Seen: Nov 27, 2024 Has the PT tested + for MRSA If YES, has PT been informed?: No Medical Necessity Reason Pt with a Central, PICC or Fol: No vital signs Vital Sign Date Time Temp Pulse Resp B/P (MAP) Pulse Ox O2 Delivery O2 Flow Rate FiO2 11/27/24 07:55 Nasal Cannula* 2 28 11/27/24 06:35 143/61 11/27/24 06:25 76 16 100 11/27/24 05:00 97.6 97.6 Total Intake and Output 11/26/24 11/26/24 11/27/24 15:00 23:00 07:00 Intake Total 700 ml 750 ml Output Total 1900 ml Balance 700 ml -1150 ml medications Current Medications Medications Dose Ordered Sig/Della Route Start Time Stop Time Status Last Admin Dose Admin Albuterol 2.5 mg Q4HPRN PRN NEB 11/20/24 14:30 11/21/24 10:02 2.5 MG Ipratropium [place] 0.5 mg Q4HPRN PRN NEB 11/20/24 14:30 11/21/24 10:02 0.5 MG Famotidine 20 mg Q12HR IV 11/20/24 22:00 11/26/24 21:56 20 MG Sodium Chloride 10 ml Q8HR IV 11/20/24 22:00 11/27/24 06:00 10 ML Acetaminophen/ Hydrocodone Bitart 1 tab Q4HP PRN PO 11/20/24 14:30 11/26/24 15:32 1 TAB Ondansetron HCl 4 mg Q4HP PRN IV 11/20/24 14:30 11/27/24 06:58 4 MG Docusate Sodium 100 mg BIDPRN PRN PO 11/20/24 14:30 11/25/24 15:28 100 MG Acetaminophen 650 mg Q6HP PRN PO 11/20/24 14:30 Morphine Sulfate 2 mg Q4HPRN PRN IV 11/20/24 14:30 Hold Pantoprazole Sodium 40 mg DAILY IV 11/21/24 10:00 11/26/24 09:34 40 MG Diagnostic Test (Pha) 1 strip ACHS 11/20/24 17:00 11/27/24 06:35 1 STRIP Insulin Human Regular HS SC 11/20/24 22:00 11/26/24 21:57 6 UNITS Insulin Human Regular AC SC 11/20/24 17:00 11/26/24 17:38 9 UNITS Dextrose 50 ml UD PRN IV 11/20/24 15:15 Nitroglycerin 0.4 mg Q5MINP PRN SL 11/20/24 17:45 Morphine Sulfate 2 mg Q30M PRN IV 11/20/24 17:45 Methylprednisolone Sodium Succinate 40 mg DAILY IV 11/22/24 10:00 11/26/24 09:34 40 MG Carvedilol 6.25 mg Q12HR PO 11/21/24 22:00 11/26/24 09:36 6.25 MG Metolazone 2.5 mg DAILY PO 11/22/24 10:00 11/22/24 10:56 2.5 MG Patient Own Medication 1 tab BID PO 11/21/24 22:00 Empaglifozin 10 mg DAILY PO 11/22/24 10:00 11/26/24 09:37 10 MG Albuterol 2.5 mg Q6HR NEB 11/21/24 18:00 11/27/24 06:18 2.5 MG Ipratropium [place] 0.5 mg Q6HR NEB 11/21/24 18:00 11/27/24 06:18 0.5 MG Bumetanide 1 mg BIDD IV 11/21/24 18:00 11/27/24 06:35 1 MG Metoclopramide HCl 5 mg ACHS PO 11/24/24 17:00 11/27/24 06:34 5 MG Nystatin 5 ml QID MT 11/24/24 18:00 11/27/24 06:34 5 ML Trazodone HCl 50 mg HS PO 11/25/24 22:00 11/26/24 21:56 50 MG Oxycodone/ Acetaminophen 2 tab Q6HP PRN PO 11/26/24 10:59 11/27/24 06:46 2 TAB laboratory and microbiology Laboratory Tests 11/27/24 05:56 Test 11/27/24 05:56 Range/Units Serum Glucose 107 H 74-106 mg/dL Assessment/Plan Patient is a 64-year-old female who presented with few days of shortness of breath/dyspnea on exertion and worsening of leg swelling. Cardiology is called by the patient herself for cardiac aspects of care. She comes to our office since August 2024. She is known to have systolic heart failure for many years. She does have Medtronic ICD. She mentions compliance with medications but also mentions that the Lasix was not working as outpatient. She does have baseline chronic respiratory failure and is on home oxygen. Mentions that the need for oxygen was increasing at home also. She also has history of COPD. Obese female. Sitting in bed. Not using accessory muscles of breathing. Mucosa is pink and wet. No JVD. No carotid bruit. No goiter. Scattered rhonchi in the lungs is heard. Cardiac: Regular, tachycardic. Systolic murmur 2/6 in the apex. Abdomen is soft. There is no gross mass/hepatomegaly. Bowel sound is positive. Extremities reveal 2+ edema bilaterally. Past medical history includes obesity, hypertension, hyperlipidemia, CKD, COPD (on home oxygen), systolic heart failure (long-term), diabetes mellitus, atrial fibrillation (paroxysmal AFib on Eliquis as outpatient), DJD, gallstone, gout, status post ICD (Medtronic) implantation, depression, DJD, uterine fibroid and status post cholecystectomy//hernia repair. She stopped smoking in 2011. She does have old history of cocaine abuse (). Echocardiogram of August 24, 2024 had reported ejection fraction of 15%, moderate left atrial enlargement, moderate MR, moderate pulmonary hypertension Creatinine: 1.04 - 1.05 - 1.62 - 1.54 - 1.36 - 1.15 - 1.02 Potassium: 3.9 - 4.4 - 5.0 - 4.6 - 3.3 - 4.2 - 3.6 Troponin (high sensitive): 32 BNP: > 5000 D-dimer: 0.61 Chest x-ray revealed: IMPRESSION: Pulmonary vascular congestion. Repeat chest x-ray reported: IMPRESSION: Cardiomegaly with CHF Barium swallow revealed: IMPRESSION: Abnormal esophageal contractions were visualized with delayed passage of contrast through the esophagus. Esophageal reflux was seen. V/Q scan revealed: IMPRESSION: Low probability for PE. EKG revealed sinus tachycardia with nonspecific ST-T changes Telemetry reveals sinus rhythm, occasions of paced A / V and occasions of PVC Echocardiogram revealed: Dilated four chambers. Left ventricle: Left ventricle was dilated with significantly reduced systolic function. LVEF was less than 10%. Diffuse hypokinesis of left ventricle was seen. LVEDP was considered elevated. Right ventricle was dilated with reduced systolic function. Both atria were dilated. Pacing wire was seen in right-sided chambers. Aortic valve was trileaflet. There was no aortic insufficiency/stenosis. There was moderate mitral regurgitation. Was [id number] tricuspid regurgitation. There was mild pulmonary valve insufficiency. Right ventricular systolic pressure was assessed around 50 mm Hg. There was small pericardial effusion. IVC was dilated. Medtronic ICD interrogation: Battery: Remaining longevity: 7.9 years; Pacing impedance: A 380/RV 342 Ohms; Defibrillation impedance: RV 44 Ohms; Capture threshold: A 0.750/RV 0.625 volts at 0.4 milliseconds; Program sensitivity: A 0.3/RV 0.3 mV; AAI/DDD: 60/130; Total UNIT TECHNICIAN: 0.1%; /VS: 82.1%; AP/VS: 17.7 %; No recent episodes; Normal functioning ICD Patient is a 64-year-old female who presented with worsening shortness of breath. Mentions that the Lasix is not working as outpatient. Does have baseline history of COPD with chronic respiratory failure. Presentation could be COPD exacerbation. Patient also has history of systolic heart failure for which is on guideline directed medical therapy. Acute on chronic systolic heart failure could have contributed to the clinical picture also. Troponin has not been elevated and acute coronary syndrome is not considered at this point. Acute on chronic systolic heart failure COPD exacerbation Acute respiratory failure Uncontrolled diabetes Paroxysmal AFib Status post ICD implantation Diabetes mellitus Hypertension Hyperlipidemia Gout Cardiac suggestion for management: Managed on telemetry Diuresis (Bumex) is advised Follow-up electrolytes and kidney function tests and correct abnormalities. Keep potassium above 4 and magnesium above 2 GDMT for systolic CHF Long-term anticoagulation is advised (paroxysmal AFib in a patient with high CHADS-VASc score). Please restart. Cardiac muniz, patient is moderate risk patient for low risk EGD. Cardiac muniz, you can proceed with EGD under appropriate intra and post operative hemodynamic monitoring. Avoid hypotension. Guideline directed medical therapy for systolic heart failure Cardiac muniz is stable and can be followed as outpatient. Consider pulmonary evaluation for COPD exacerbation Further evaluation and management depends on the above and clinical course A total of 55 minutes was spent reviewing the patient record, examining the patient, making a diagnostic and therapeutic plan, discussing this plan with medical personnel, following up on diagnostic studies and following the patient for clinical stability excluding any and all procedures. At least 50% of this time was spent in direct, [id number] contact. Thank you for allowing me to participate in this patient's care. Further recommendations will depend on patient's clinical course. Please do not hesitate to contact me if you have any questions or concerns. This medical document was created using electronic medical record system with [employer] computerized dictation system. Although this document has been carefully reviewed, there may still be some phonetic and typographical errors. These areas are purely typographical due to the imperfection of the software programs, and do not reflect any compromise in the patient's medical care. Dietary Evaluation Review Comments: 1) Advance diet as medically feasible 2) Consider CCHO 60 + cardiac diet 3) Refer Final Cleaner on DC 4) Continue current plan of care Expected Outcomes/Goals: Pt will meet 75% estimated needs Fu 3-5 days Plan discussed with: Patient, Other (nurse) KRYSTA OLIVEIRA MD Nov 27, 2024 08:06
--- NOTE | 2024-11-27 09:06 | DVHNC2 ---
Procedure - Medtronic ICD interrogation: Battery: Remaining longevity: 7.9 years Pacing impedance: A 380/RV 342 Ohms Defibrillation impedance: RV 44 Ohms Capture threshold: A 0.750/RV 0.625 volts at 0.4 milliseconds Program sensitivity: A 0.3/RV 0.3 mV AAI/DDD: 60/130 Total SCHOOL CROSSING GUARD SUPERVISOR: 0.1% /VS: 82.1% AP/VS: 17.7 % No recent episodes Normal functioning ICD KRYSTA OLIVEIRA MD Nov 27, 2024 09:06
[2024-11-27] MEDS ORDERED: METO10TA4 PO (14:10)
--- NOTE | 2024-11-27 14:20 | DVHDS2 ---
Discharge Summary Date of Admission Nov 20, 2024 at 17:39 Date of Discharge: Nov 27, 2024 Admitting Diagnosis Acute on chronic systolic heart failure Labs/Diagnostic Data: Laboratory Results Test 11/27/24 11:24 11/27/24 05:56 11/24/24 08:42 11/22/24 05:02 POC Glucose 186 mg/dl (70-106) White Blood Count 9.9 10^3/uL (4.4-10.8) Red Blood Count 4.11 10^6/uL (4.0-5.20) Hemoglobin 12.5 g/dL (12.2-16.2) Hematocrit 37.1 % (36.0-46.0) Mean Corpuscular Volume 90.3 fL (80.0-100.0) Mean Corpuscular Hemoglobin 30.4 pg (28.0-32.0) Mean Corpuscular Hemoglobin Concent 33.6 g/dL (32.0-36.0) Red Cell Distribution Width 15.0 % (11.8-14.3) Platelet Count 211 10^3/uL (140-450) Mean Platelet Volume 8.8 fL (6.9-10.8) Neutrophils (%) (Auto) 70.3 % (37.0-80.0) Lymphocytes (%) (Auto) 20.0 % (10.0-50.0) Monocytes (%) (Auto) 8.0 % (0.0-12.0) Eosinophils (%) (Auto) 1.2 % (0.0-7.0) Basophils (%) (Auto) 0.5 % (0.0-2.0) Neutrophils # (Auto) 7.0 10 ^3/uL (1.6-8.6) Lymphocytes # (Auto) 2.0 10 ^3/uL (0.4-5.4) Monocytes # (Auto) 0.8 10 ^3/uL (0-1.3) Eosinophils # (Auto) 0.1 10 ^3/uL (0-0.8) Basophils # (Auto) 0 10 ^3/uL (0-0.2) Nucleated Red Blood Cells 0.1 % Sodium Level 140 mmol/L (136-145) Potassium Level 3.6 mmol/L (3.5-5.1) Chloride Level 99 mmol/L (98-107) Carbon Dioxide Level 33 mmol/L (20-31) Anion Gap 8 (5-15) Blood Urea Nitrogen 27 mg/dL (9-23) Creatinine 1.02 mg/dL (0.550-1.02) Glomerular Filtration Rate Calc 61 mL/min (>90) BUN/Creatinine Ratio 26.5 (10.0-20.0) Serum Glucose 107 mg/dL (74-106) Calcium Level 9.4 mg/dL (8.7-10.4) Total Bilirubin 0.7 mg/dL (0.2-1.0) Aspartate Amino Transferase (AST) 35 U/L (13-40) Alanine Aminotransferase (ALT) 61 U/L (7-40) Alkaline Phosphatase 78 U/L (46-116) Total Protein 5.4 g/dL (5.7-8.2) Albumin 3.3 g/dL (3.2-4.8) Prothrombin Time 12.1 sec (9.3-11.8) Prothrombin Time INR 1.16 (0.9-1.15) Activated Partial Thromboplast Time 26.2 SEC (24.5-34.5) Magnesium Level 1.8 mg/dL (1.6-2.6) Test 11/21/24 18:00 11/21/24 11:21 11/21/24 00:00 11/20/24 20:45 D-Dimer, Quantitative 0.61 mg/L FEU (0.0-0.49) Influenza Type A Antigen Negative (Negative) Influenza Type B Antigen Negative (Negative) SARS-CoV-2 Antigen (Rapid) Negative (NEGATIVE) Urine Color Yellow (Yellow) Urine Clarity Clear (Clear) Urine pH 6.0 (5.0-9.0) Urine Specific Stephan 1.037 (1.001-1.035) Urine Protein 2+ (Negative) Urine Ketones Negative (Negative) Urine Blood Negative /uL (Negative) Urine Nitrite Negative (Negative) Urine Bilirubin Negative (Negative) Urine Urobilinogen 3 mg/dL (Negative) Urine Leukocyte Esterase Negative /uL (Negative) Urine RBC 7 /hpf (0 - 4) Urine Microscopic WBC 4 /HPF (0-5) Urine Squamous Epithelial Cells Few /hpf (<5) Urine Bacteria None seen /hpf (None Seen) Urine Hyaline Casts Mod /lpf (0 - 2) Urine Mucus Few (None Seen) Urine Glucose 4+ mg/dL (Normal) Test 11/20/24 10:57 Troponin I High Sensitivity 32 ng/L (</=34) B-Type Natriuretic Peptide > 5000.00 pg/mL (0-100) Other Laboratory Tests 11/27/24 05:56 Brief Hx & Hospital Course: History of Present Illness The patient is a 64-year-old female with multiple past medical history including CHF, COPD, DM, hypertension, and AFib [place] [facility] [place] complaint of shortness of breaths for the past 2 days. Patient reports symptoms progressively get worse with chest pain, weakness, increased work of breathing, getting worse today that prompted this visit. Patient was seen and evaluated in the ED, laboratory data shows WBC 6.0, platelets 205, sodium 139, potassium 3.9, BUN 14, creatinine 1.04, GFR 60, glucose 166, troponin 32, BNP > 5000. Chest x-ray revealing pulmonary vascular congestion. Patient was started on IV Lasix, please see medication orders section in the computer. On my assessment, patient denied chest pain, no headache, no dizziness, currently on oxygen, no nausea, no vomiting, no fever, no chills. Patient was admitted for further evaluation and medical management. Course of hospitalization: Patient had cardiology consultation. Guideline directed medical therapy was initiated with patient was, euvolemic. Patient was dyspnea improved dramatically. Patient was also treated with bronchodilators in inhaled corticosteroids as well as IV Solu-Medrol. Patient was also reporting having dysphagia with the patient undergoing barium swallow evaluation. Results were discussed with the patient. GI consultation was obtained for possible EGD, with the patient found to be unstable for procedure given her poor ejection fraction. Patient was started on Reglan, ppi, as well as nystatin swish and swallow. The patient reports that her dysphagia has improved. No multiple occasions, the patient was found to be eating high sodium foods including a bag potato chips last Wednesday, and today found to have [place] loco bedside. Discussion was made with the patient regarding the importance of adherence to a low-sodium diet given her poor ejection fraction. Patient verbalized understanding. Patient will be discharged home with continued treatment with Protonix with meals. She will follow up with her data processing auditor as well as PCP in 1-2 weeks. Physical examination General: Alert and Oriented x3. No acute distress. Well-nourished. Eyes: EOMI. Anicteric. HENT: Moist mucous membranes. Lungs: Clear to auscultation bilaterally. No accessory muscle use. Cardiovascular: Regular rate and rhythm. No murmur. No JVD. Abdomen: Soft, non-tender and non-distended. No palpable masses. Extremities: No edema. Non-tender. Skin: No rashes or lesions. Warm. Neurologic: No focal neurological deficits. CN II-XII grossly intact, but not individually tested. Psychiatric: Cooperative. Appropriate mood and affect. Total time spent with patient discussing and formulating plan of care: 35 minutes. This medical document was created using an electronic medical record system with [employer] dictation system. Although this document has been carefully reviewed, there may still be some phonetic and typographical errors. These areas are purely typographical due to imperfections of the software programs, and do not reflect any compromise in the patient's medical care. Consults/Reason for consult Cardiology: Decompensated heart failure Gastroenterology: Dysphagia Condition at Discharge: Guarded Final Diagnosis/Problems List Acute on chronic decompensated systolic heart failure Secondary diagnosis: -acute hypoxic respiratory failure -medication noncompliance -dyslipidemia -hypertension -diabetes mellitus -dysphagia COPD Discharge Disposition: Home Discharge Instruct/Medications Diet: Consistent carbohydrate, Cardiac 2g Na,low cholest Diet comment: Patient educated on the need to adhere to a low-sodium diet given her poor ejection fraction. Activity: No Restrictions, As Tolerated Follow Up/Referral: Follow up with PCP and Cardiology in 1-2 weeks Medications: Continue all home medications as ordered Reglan 5 mg p.o. a.c. and HS Protonix 40 mg p.o. daily 36 Discharge Statement: "Patient was advised to return to the ER or call 911 if any headaches, dizziness, shortness of breath, chest pain, abdominal pain, bleeding, fevers, or worsening of medical condition. Patient was counseled about treatment plan, medications, possible side effects, patientverbalized understanding. All questions were answered to the best of my ability. This discharge took greater then 30 minutes in planning, reviewing documentation, counseling the patient, and discussing with other team members." ASSESSMENT ASSESSMENT Assessment Acute on chronic decompensated systolic heart failure Date of Service: Nov 27, 2024 Billing Provider: CARA DUBOSE NP Common Visit Codes: 88906-EQS/OBS DISCH DAY >30min CARA DUBOSE NP Nov 27, 2024 14:20
== END 2024-11-27 16:05 | disposition home health service (06) | DRG 291 ==
LOC: ER 10:22 → OVERFLOW 17:39 → TELE-WESTW 11-22 14:07
PROVIDERS: ADMIT Nurse Practitioner Acute Care; ATTEND Nurse Practitioner Acute Care
PROC: 4B02XTZ Measurement of Cardiac Defibrillator, External Approach (ICD-10-PCS; principal; 2024-11-27)
DX: I13.0 Hypertensive heart and chronic kidney disease with heart failure and stage 1 through stage 4 chronic kidney disease, or unspecified chronic kidney disease (principal); I50.23 Acute on chronic systolic (congestive) heart failure; J96.01 Acute respiratory failure with hypoxia; J44.1 Chronic obstructive pulmonary disease with (acute) exacerbation; I31.39 Other pericardial effusion (noninflammatory); E11.65 Type 2 diabetes mellitus with hyperglycemia; E78.5 Hyperlipidemia, unspecified; K21.9 Gastro-esophageal reflux disease without esophagitis; R13.10 Dysphagia, unspecified; I48.0 Paroxysmal atrial fibrillation; M10.9 Gout, unspecified; E11.22 Type 2 diabetes mellitus with diabetic chronic kidney disease; N18.9 Chronic kidney disease, unspecified; E66.9 Obesity, unspecified; I27.20 Pulmonary hypertension, unspecified; I37.1 Nonrheumatic pulmonary valve insufficiency; F32.A Depression, unspecified; F14.10 Cocaine abuse, uncomplicated; K80.20 Calculus of gallbladder without cholecystitis without obstruction; Z83.3 Family history of diabetes mellitus; Z90.49 Acquired absence of other specified parts of digestive tract; Z98.891 History of uterine scar from previous surgery; Z79.899 Other long term (current) drug therapy; Z82.3 Family history of stroke; Z82.5 Family history of asthma and other chronic lower respiratory diseases; Z82.49 Family history of ischemic heart disease and other diseases of the circulatory system; Z79.2 Long term (current) use of antibiotics; Z79.1 Long term (current) use of non-steroidal anti-inflammatories (NSAID); Z79.891 Long term (current) use of opiate analgesic; Z79.84 Long term (current) use of oral hypoglycemic drugs; Z91.148 Patient's other noncompliance with medication regimen for other reason; Z79.01 Long term (current) use of anticoagulants; Z99.81 Dependence on supplemental oxygen; Z86.73 Personal history of transient ischemic attack (TIA), and cerebral infarction without residual deficits; Z80.9 Family history of malignant neoplasm, unspecified; Z87.891 Personal history of nicotine dependence; Z68.29 Body mass index [BMI] 29.0-29.9, adult; Z95.810 Presence of automatic (implantable) cardiac defibrillator
CPT/HCPCS: 36415; 71045; 74220; 78582; 80048; 80053; 81001; 82962; 83735; 83880; 84484; 85025; 85379; 85610; 85730; 87426; 87804; 93005; 93306; 94640; 96372; 96374; 99291; 99292; G0378; J1815; J2405; J2470; J3490

== ENCOUNTER 2025-02-12 02:14 | Emergency (ER) | payer OTHER, MEDICAID ==
[~2025-02-12] VITALS: Ht 154.9 cm; Wt 100.0 kg
[~2025-02-12 02:14] MED LIST changes: +ALLO300T2 PO; +METO10TA4 PO; +TRAZ-227 PO
[2025-02-12] MEDS ORDERED: EPINEPHrine HCL 1 MG/10 ML SYRG IV ONE (02:15)
[2025-02-12 02:30] VITALS: BP 0/0; PULSE 0; RESP 0; TEMP 95.4; O2SAT 0
--- NOTE | 2025-02-12 02:53 | ED.PDOC ---
CPR-HPI HPI Comments 64-year-old female brought in by EMS presents to the ED with CPR in progress s/p cardiac arrest. Last known well time was 00:30 per . Patient was watching TV in bed with when looked over and asked if patient was okay, but was found pulseless. Per EMS, they arrived on scene at 01:20 and started CPR via NINOSKA device. EMS reports that they administered epinephrine, lidocaine, calcium, and narcan en route. Patient had no response to CPR and TOD was called at 02:21. Chief Complaint: CPR Time Seen by MD: 02:10 Primary Care Provider: DEBRA Reviewed Notes: Medications, Allergies Allergies: Coded Allergies: NO KNOWN ALLERGIES (Unverified , 05/18/22) Home Meds Active Scripts Metoclopramide HCl (Metoclopramide Hydrochlor) 10 Mg Tab, 5 MG PO ACHS for 30 Days, #60 TAB 1 Refill Prov:CARA DUBOSE SOIL SAMPLER 11/27/24 Prednisone (Prednisone) 20 Mg Tab, 20 MG PO DAILY for 5 Days, #5 MG Prov:JARRETT DIAZ 08/25/24 Doxycycline (Monohydrate) (Doxycycline) 100 Mg Tab, 100 MG PO BID for 5 Days, #10 TAB Prov:JARRETT DIAZ 08/25/24 Apixaban Base (ELIQUIS) 5 Mg Tab, 5 MG PO BID for 30 Days, #60 TAB Prov:JARRETT DIAZ 08/25/24 Pantoprazole Sodium Sesquihydr (Pantoprazole Sodium) 40 Mg Tab, 40 MG PO DAILY@0600 for 30 Days, #30 TAB Prov:JARRETT DIAZ 08/25/24 Acetaminophen (Acetaminophen) 325 Mg Tab, 650 MG PO Q6HP PRN for 10 Days, #80 TAB Prov:JARRETT DIAZ 08/25/24 Albuterol Sulfate (VENTOLIN TARIQ) 90 Mcg Ih, 90 MCG IN Q4HR PRN, #1 INH Prov:NAFISA CHEN MD 10/28/23 Sucralfate (CARAFATE) 1 Gm Tab, 1 GM OR QID, #120 TAB Prov:NAFISA CHEN MD 10/28/23 Metoprolol Tartrate (Lopressor) 25 Mg Tb, 25 MG PO BID for 30 Days Prov:CHIKIS ESTEBAN MD 01/26/19 Reported Medications Trazodone Hcl (Trazodone Hcl) 50 Mg Tab, 0.5 PO HS 11/24/24 Allopurinol (Allopurinol) 300 Mg Tab, 300 MG PO Q12HR, MG 11/21/24 Buspirone Hcl (Buspirone Hcl) 5 Mg Tab, 1 TAB PO BID for 30 Days, #60 08/23/24 Metolazone (Metolazone) 2.5 Mg Tab, 1 TAB PO DAILY for 30 Days, #30 08/23/24 Sertraline Hcl (Sertraline Hcl) 50 Mg Tab, 1 TAB PO DAILY for 30 Days, #30 08/23/24 Ergocalciferol (Vitamin D (Ergocalciferol) 50,000 Unit Cap, 1 CAP PO QWEEKLY for 28 Days, #4 08/23/24 Potassium Chloride (Klor-Con M20) 20 Meq Tab, 1 TAB PO DAILY for 90 Days, #90 08/23/24 Vericiguat (Verquvo) 10 Mg Tab, 1 TAB PO DAILY for 30 Days, #30 08/23/24 Sacubitril-Valsartan (Entresto 49-51 mg) 1 Tab Tab, 1 TAB PO BID for 30 Days, #60 08/23/24 Furosemide (Furosemide) 40 Mg Tab, 1 TAB PO DAILY for 30 Days, #30 08/23/24 Triamcinolone Acetonide (Kenalog) 1 Applic Ap, 1 APPLIC TOP 10/27/23 Calcipotriene (CALCIPOTRIENE) 0.005 % Cre, 1 APPLIC TOP BID 10/27/23 Gabapentin (Gabapentin) 300 Mg Cap, 2 TAB PO TID 10/27/23 Dapagliflozin Propanediol (Farxiga) 10 Mg Tab, 1 TAB PO DAILY 10/27/23 Oxycodone W/ Acetaminophen (Apap/Oxycodone) 1 Tab Tab, 1 TAB PO QID PRN for 30 Days, #120 Oxycodone/APAP 10/325 mg 10/27/23 Metformin HCl (Metformin Hydrochloride) 1,000 Mg Tab, 1 TAB PO BID 10/27/23 Glipizide (Glipizide) 10 Mg Tab, 10 MG PO BID for 30 Days, MG 10/13/21 Magnesium Oxide (MAGNESIUM OXIDE) 400 Mg Tab, 1 TAB PO DAILY 10/13/21 Carvedilol (Coreg) 25 Mg Tab, 1 TAB PO BID, #60 TAB 5 Refills 10/13/21 Atorvastatin Calcium (Lipitor) 20 Mg Tab, 20 MG PO HS, #2 TAB 10/08/16 Information Source: Patient Mode of Arrival: EMS Timing: Minutes Duration: Down time prior EMS: (50), Total time prior hopital: (50) Onset: At rest Available Hx: Unknown Inital rhythm: PEA Treatment: CPR, Intubation, Epinephrine Response: No response Past Medical History PAST MEDICAL HISTORY: AFIB, Arthritis, CHF, CKF, COPD, Depression, DM, Gallstones, Gout, High Lipids, HTN Surgical History: Cholecystectomy, , Hernia Repair, Pacemaker 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 History: Uterine Fibroids Family History Family History: Family hx of DM, Family hx of Cancer, Family hx of heart bobbi Social History Smoker: Non-Smoker Alcohol: Denies ETOH Use Drugs: Denies Drug Use Lives In: Home Constitutional: denies: chills, diaphoresis, fatigue, fever, malaise, sweats, weakness, others EENTM: denies: blurred vision, double vision, ear bleeding, ear discharge, ear drainage, ear pain, ear ringing, eye pain, eye redness, hearing loss, mouth pain, mouth swelling, nasal discharge, nose bleeding, nose congestion, nose pain, photophobia, tearing, throat pain, throat swelling, voice changes, others Respiratory: denies: cough, hemoptysis, orthopnea, SOB at rest, shortness of breath, SOB with excertion, stridor, wheezing, others Cardiovascular: denies: chest pain, dizzy spells, diaphoresis, Dyspnea on exertion, edema, irregular heart beat, left arm pain, lightheadedness, palpitations, PND, syncope, others Gastrointestinal: denies: abdomen distended, abdominal pain, blood streaked bowels, constipated, diarrhea, dysphagia, difficulty swallowing, hematemesis, melena, nausea, poor appetite, poor fluid intake, rectal bleeding, rectal pain, vomiting, others Genitourinary: denies: abnormal vagina bleeding, burning, dyspareunia, dysuria, flank pain, frequency, hematuria, incontinence, pain, , vagina discharge, urgency, others Neurological: denies: dizziness, fainting, headache, left sided numbness, left sided weakness, numbness, paresthesia, pre-existing deficit, right sided numbness, right sided weakness, seizure, speech problems, tingling, tremors, weakness, others Musculoskeletal: denies: back pain, gout, joint pain, joint swelling, muscle pain, muscle stiffness, neck pain, others Integumetry: denies: bruises, change in color, change in hair/nails, dryness, laceration, lesions, lumps, rash, wounds, others Allergic/Immunocompromised: denies: Difficulty Healing, Frequent Infections, Hives, Itching, others Hematologic/Lymphatic: denies: anemia, blood clots, easy bleeding, easy bruising, swollen glands, others Endocrine: denies: excessive hunger, excessive sweating, excessive thirst, excessive urination, flushing, intolerance to cold, intolerance to heat, une xplained weight gain, unexplained weight loss, others Psychiatric: denies: anxiety, bipolar disorder, depression, hopeless, panic disorder, schizophrenia, sleepless, suicidal, others Unable to Obtain due to: Medical Urgency (CPR IN PROGRESS) All Other Systems: Reviewed and Negative Physical Exam General Appearance: Severe Distress (CPR IN PROGRESS) HEENT: NOT DONE Neck: NOT DONE Respiratory: NOT DONE Cardiovascular: NOT DONE Breast Exam: Deferred Gastrointestinal: NOT DONE Genitalia: Deferred Pelvic: Deferred Rectal: Deferred Extremities: NOT DONE Neurologic: Other Cerebellar Function: NOT DONE Reflexes: NOT DONE Skin: NOT DONE Lymphatic: NOT DONE Was a procedure done? Was a procedure done?: No Time of 1ST Reevaluation: 02:21 (TIME OF ) Reevaluation 1ST: Worsened Patient Education/Counseling: Pt Unresponsive Family Education/Counseling: Diagnosis, Treatment Critical Care Note Critical Care Time?: No Stability Stability form required: No I personally scribed for ALMA DELIA ZAIDI MD ([email or web address]) on 02/12/25 at 02:53. Electronically submitted by Bobby Kim ([email or web address]). ALMA DELIA ZAIDI MD February 12, 2025 02:53
--- NOTE | 2025-02-12 08:02 | RESUS ---
CODE BLUE ASSESSSMENT History of Events History of Events: 64-year-old female brought in by EMS presents to the ED with CPR in progress s/p cardiac arrest. Last known well time was 00:30 per . Patient was watching TV in bed with when looked over and asked if patient was okay, but was found pulseless. Per EMS, they arrived on scene at 01:20 and started CPR via NINOSKA device. EMS reports that they administered epinephrine, lidocaine, calcium, and narcan en route. Initial Information Date: February 12, 2025 Location of Arrest: In Field Arrest Witnessed: No CPR started by whom: EMS Pre-Hospital Care: ACLS Type of arrest: Cardiac, Respiratory, Adult, Unwitnessed Spontaneous Respirations: No Pulse Present: No Monitoring: ECG, Pulse Oximetry, Apnea, Telemetry Crash Cart Opened and Supplies: Yes Airway Ventilation Breathing at Onset: Apneic O2 Sat by Pulse Oximetry: 0 Oxygen Delivery Method: Ambu-Bag Artificial Ventilation: Bag/Endo tube Intubation Size: 7.5 cuffed Intubated by: EMS Intubated orally: Yes Intubated Nasaly: No Tube secured at: 24 CO2 indicator used: Yes Confirmation: Auscultation, Exhaled CO2 Suctioning (Oral/Tracheal): No Circulation Circulation : Time: 02:11 Pulse Rate (adult): 0 Blood Pressure Systolic: 0 Blood Pressure Diastolic: 0 Temperature (Fahrenheit): 95.4 Procedure - Intraosseous Site of Intraosseous: Tibia edelmira-medial Intraosseous inserted by: DONE BY EMS PRIOR TO ARRIVING Medications & Response Medications and Responses #1: Medication Time: 02:11 ADULT Medications Given ADULT: Epinephrine 1 mg, 2 Amps Na Bicarb, Calcium Chloride 10 mL (2AMPS) Route of Administration: IO Heart Rate: 0 EKG Rhythm: PEA Blood Pressure Systolic: 0 Blood Pressure Diastolic: 0 Respiratory Rate: 0 O2 Sat by Pulse Oximetry: 0 EKG Rhythm: PEA Comment NO PULSE 0214 Medications and Responses #2: Medication Time: 02:14 ADULT Medications Given ADULT: Epinephrine 1 mg Route of Administration: IO Heart Rate: 0 EKG Rhythm: PEA Blood Pressure Systolic: 0 Blood Pressure Diastolic: 0 Respiratory Rate: 0 O2 Sat by Pulse Oximetry: 0 EKG Rhythm: PEA Comment NO PULSE 0217 Medications and Responses #3: Medication Time: 02:17 ADULT Medications Given ADULT: Epinephrine 1 mg, Magnesium Sulfate 2 gm Route of Administration: IO Heart Rate: 0 EKG Rhythm: PEA Blood Pressure Systolic: 0 Blood Pressure Diastolic: 0 Respiratory Rate: 0 O2 Sat by Pulse Oximetry: 0 EKG Rhythm: PEA Comment NO PULSE 0220, NO CARDIAC ACTIVITY BY U/S DONE BY DR ZAIDI TOD 022 Pacing Pacer Pads Applied and Pacing: Yes Nurses Notes Vaibhav Coma Scale Eye Opening: None (1) [place] Coma Scale Verbal: None (1) Vaibhav Coma Scale Motor: None (1) [place] Total: 3 Pupil Reaction: Non Reactive Bedside Blood Glucose: 269 EKG Rhythm: PEA Time Code Ended Time Code Ended: 02:21 Post Arrest Status: Outcome of code: Unsuccessful Patient pronounced by: DR ZAIDI Time patient pronounced: 02:21 Family notified: Yes Attending called: Yes Code Team Present: DENNY HOLLEY RN HS, NAYELI CHAIR INSPECTOR, MACK TATUM PRIMARY, LUCI RN, ENMANUEL RN, DAVE ERT,LOBO ERT,ALVA RT, ELLY RT, SOTO RT Post Resuscitation Neurologica Pupil Size: 4 Comment: DENNY ALFONSO February 12, 2025 08:02
== END 2025-02-12 02:35 ==
LOC: ER 02:14 → EDBD 02:14 → ER 02:35
DX: I46.9 Cardiac arrest, cause unspecified (principal); I13.0 Hypertensive heart and chronic kidney disease with heart failure and stage 1 through stage 4 chronic kidney disease, or unspecified chronic kidney disease; E11.22 Type 2 diabetes mellitus with diabetic chronic kidney disease; N18.9 Chronic kidney disease, unspecified; I50.9 Heart failure, unspecified; J44.9 Chronic obstructive pulmonary disease, unspecified; I48.91 Unspecified atrial fibrillation; F32.A Depression, unspecified; M19.90 Unspecified osteoarthritis, unspecified site; E78.5 Hyperlipidemia, unspecified; Z90.49 Acquired absence of other specified parts of digestive tract; Z95.0 Presence of cardiac pacemaker; Z98.890 Other specified postprocedural states; Z79.01 Long term (current) use of anticoagulants; Z79.52 Long term (current) use of systemic steroids; Z79.84 Long term (current) use of oral hypoglycemic drugs; Z79.899 Other long term (current) drug therapy
CPT/HCPCS: 92950; 99285; J0171; J3475